=== PATIENT | female | born 1950 | race American Indian/Alaskan Native ===

== ENCOUNTER 2017-03-24 07:42 | Observation (INO) | payer MEDICARE, BC ==
[2017-03-24 07:43] VITALS: BMI 32.8
--- NOTE | 2017-03-24 09:05 | C.PDOC ---
History Of Present Illness 66 year old female with a PMHx of End Stage Renal Failure presents to the ED for evaluation of shortness of breath. Patient reports she was in Dialysis this morning when a nurse told her she appeared short of breath. Patient became anxious and completed 1 hour of dialysis. Patient states she did not feel short of breath at the time or while in the ED. Patient denies chest pain, cough, palpitations, fever, chills, nausea, vomiting, or other complaints at this time. Chief Complaint (Nursing): Shortness Of Breath History Per: Patient History/Exam Limitations: no limitations Onset/Duration Of Symptoms: Hrs Current Symptoms Are (Timing): Gone Exacerbating Factor(s): denies: Exertion, Laying Flat, Coughing Associated Symptoms: denies: Fever, Chills, Sweating, Chest Pain Reports Recently: Treated By A Physician Recent travel outside of the [place]: No Additional History Per: Prior Records Past Medical History Reviewed: Historical Data, Nursing Documentation, Vital Signs Vital Signs: Last Vital Signs Temp 98.3 F 03/24/17 16:14 Pulse 68 03/24/17 16:14 Resp 18 03/24/17 16:14 BP 95/36 L 03/24/17 17:35 Pulse Ox 100 03/24/17 10:44 - Medical History PMH: Anemia, Arthritis (KNEE PAIN), HTN, Hypercholesterolemia, End Stage Renal Disease - [facility] Procedures DIALYSIS ARTERIOVENOSTOM (06/13/14) ENDOSCOPIC BRONCHIAL BX (07/07/14) HEMODIALYSIS (07/07/14) Family History: States: Unknown Family Hx - Social History Hx Tobacco Use: No Hx Alcohol Use: No Hx Substance Use: No - Immunization History Hx Tetanus Toxoid Vaccination: No Hx Influenza Vaccination: Yes Hx Pneumococcal Vaccination: No Review Of Systems Constitutional: Negative for: Fever, Chills Cardiovascular: Negative for: Chest Pain, Palpitations Respiratory: Negative for: Cough, Shortness of Breath Gastrointestinal: Negative for: Nausea, Vomiting, Abdominal Pain, Diarrhea Physical Exam - Physical Exam Appears: Non-toxic, No Acute Distress Skin: Warm, Dry, No Rash Head: Atraumatic, Normacephalic, No Tenderness Eye(s): bilateral: Normal Inspection, PERRL, EOMI Oral Mucosa: Moist Neck: No Decreased ROM, Supple Chest: Symmetrical, No Deformity, No Tenderness Cardiovascular: Rhythm Regular, No Murmur Respiratory: Rales (bilateral bases ) Gastrointestinal/Abdominal: Soft, No Tenderness, No Distention, No Guarding, No Rebound Extremity: Normal ROM, No Tenderness Neurological/Psych: Oriented x3 ED Course And Treatment ECG: Interpreted By Me, Viewed By Me ECG Rhythm: Sinus Rhythm Interpretation Of ECG: Normal axis,right atrial enlargement Rate From EC O2 Sat by Pulse Oximetry: 100 (RA) Pulse Ox Interpretation: Normal Progress Note: EKG was ordered. Dr. Daly was called and agrees with plan and admission to his services. Disposition - Disposition Disposition: HOSPITALIZED Disposition Time: 08:30 Condition: STABLE - Clinical Impression Clinical Impression: ESRD (end stage renal disease) - Scribe Statement The provider has reviewed the documentation as recorded by the Scribe Skylar Magaña All medical record entries made by the Scribe were at my direction and personally dictated by me. I have reviewed the chart and agree that the record accurately reflects my personal performance of the history, physical exam, medical decision making, and the department course for this patient. I have also personally directed, reviewed, and agree with the discharge instructions and disposition.
--- NOTE | 2017-03-24 12:37 | CP.PCM.CON ---
History of Present Illness - History of Present Illness History of Present Illness: 66 year old female with a PMHx of End Stage Renal Failure presents to the ED for evaluation of shortness of breath. Patient reports she was in Dialysis this morning when a nurse told her she appeared short of breath. Patient became anxious and completed 1 hour of dialysis. Patient states she did not feel short of breath at the time or while in the ED. Patient denies chest pain, cough, palpitations, fever, chills, nausea, vomiting, or other complaints at this time. Chief Complaint (Nursing): Shortness Of Breath PMH: ESRD S/P CVA HTN DL COPD PSH: AV FISTULA BOWEL REPAIR CATARACTS Review of Systems - Constitutional Constitutional: Fatigue, Weakness - EENT Eyes: Blurred Vision - Cardiovascular Cardiovascular: Dyspnea on Exertion - Respiratory Respiratory: Cough, Dyspnea on Exertion - Gastrointestinal Gastrointestinal: Bloating, Constipation - Genitourinary Genitourinary: As Per HPI - Musculoskeletal Musculoskeletal: Muscle Cramps, Muscle Weakness - Neurological Neurological: Headaches, Weakness Past Patient History - Past Medical History & Family History Past Medical History?: Yes Past Family History: Reviewed and not pertinent - Past Social History Smoking Status: Former Smoker Chewing Tobacco Use: No Cigar Use: No Alcohol: None Drugs: Denies Home Situation {Lives}: With Family - CARDIAC Hx Hypercholesterolemia: Yes Hx Hypertension: Yes - PULMONARY Hx Chronic Obstructive Pulmonary Disease (COPD): Yes - NEUROLOGICAL Hx Neurological Disorder: Yes HX Cerebrovascular Accident: Yes (1991 mini stroke) Hx Paralysis: No - HEENT Other/Comment: wears glasses - RENAL Hx Renal Failure: Yes (NO DIALYSIS YET) - ENDOCRINE/METABOLIC Hx Endocrine Disorders: No - HEMATOLOGICAL/ONCOLOGICAL Hx Anemia: Yes - INTEGUMENTARY Hx Dermatological Problems: No - MUSCULOSKELETAL/RHEUMATOLOGICAL Hx Arthritis: Yes (KNEE PAIN) - GASTROINTESTINAL Hx Gastrointestinal Disorders: No - GENITOURINARY/GYNECOLOGICAL Hx Genitourinary Disorders: No - PSYCHIATRIC Hx Substance Use: No - SURGICAL HISTORY Hx Surgeries: Yes Hx Arteriovenous Shunt: No (AV FISTULA ATTEMPT X2) Hx Section: Yes - ANESTHESIA Hx Anesthesia: Yes Hx Anesthesia Reactions: No Hx Malignant Hyperthermia: No Meds Allergies/Adverse Reactions: Allergies Allergy/AdvReac Type Severity Reaction Status Date / Time No Known Allergies Allergy Verified 06/07/14 12:30 Physical Exam - Constitutional Appears: No Acute Distress, Chronically Ill - Head Exam Head Exam: ATRAUMATIC, NORMAL INSPECTION - Eye Exam Eye Exam: EOMI, Normal appearance - Neck Exam Neck exam: Positive for: Normal Inspection, Tenderness - Respiratory Exam Respiratory Exam: Clear to Auscultation Bilateral, NORMAL BREATHING PATTERN - Cardiovascular Exam Cardiovascular Exam: REGULAR RHYTHM, +S1 - GI/Abdominal Exam GI & Abdominal Exam: Soft. absent: Tenderness - Extremities Exam Extremities exam: Positive for: normal inspection. Negative for: tenderness - Neurological Exam Neurological exam: Alert, CN II-XII Intact - Skin Skin Exam: Dry, Warm Results - Vital Signs Recent Vital Signs: Last Vital Signs Temp 97.5 F L 03/24/17 07:57 Pulse 86 03/24/17 10:44 Resp 20 03/24/17 10:44 BP 122/63 03/24/17 10:44 Pulse Ox 100 03/24/17 10:44 Assessment & Plan (1) Status post CVA Status: Acute (2) ESRD needing dialysis Status: Chronic Priority: Medium (3) HTN (hypertension) Status: Chronic Priority: Low - Assessment and Plan (Free Text) Plan: DIALYSIS NOW MONITOR BP
--- NOTE | 2017-03-24 16:12 | CP.PCM.PN ---
Subjective - Date & Time of Evaluation Date of Evaluation: 03/24/17 Time of Evaluation: 16:09 - Subjective Subjective: PT SEEN IN HD WITH DAUGHTER. STATES SHE WAS TOLD SHE WILL BE D/C TODAY. PT HAS NO COMPLAINTS OF ANY DISTRESS OR PAIN. OK PER DR. HU TO D/C AFTER HD. AL D/C ORDERS AND FOLLOW UP INFORMATION PLACED IN [facility] AND DISCUSSED AT LENGTH WITH PT, DAUGHTER AND D/C RN PAUL. PT VERBALIZES UNDERSTANDING. SHE WILL RESUME HER NORMAL HD ON FRIDAY---CM PAT WILL REQUEST THAT SW NOTIFY THE HD PLACE. NO NEW ORDERS. IF PT NOT STABLE AFTER HD NURSING STAFF TO NOTIFY HIM. NO FURTHER ORDERS. Objective - Vital Signs/Intake and Output Vital Signs (last 24 hours): Temp Pulse Resp BP Pulse Ox 97.5 F L 86 20 122/63 100 03/24/17 07:57 03/24/17 10:44 03/24/17 10:44 03/24/17 10:44 03/24/17 10:44 - Medications Medications: Current Medications Pneumococcal Polyvalent Vaccine (Pneumovax 23 Vaccine) 0.5 ml IM .ONCE ONE Stop: 03/25/17 14:01
[2017-03-24 19:24] VITALS: BP 97/65; PULSE 98; RESP 20; TEMP 98; O2SAT 98
--- NOTE | 2017-03-24 23:24 | CP.PCM.DIS ---
Provider - Provider Date of Admission: 03/24/17 08:33 Attending physician: Gianluca Daly MD Time Spent in preparation of Discharge (in minutes): 45 Hospital Course - Hospital Course Hospital Course: PT SEEN IN HD WITH DAUGHTER. PT HAS NO COMPLAINTS OF ANY DISTRESS OR PAIN. D /C AFTER HD. AL D/C ORDERS AND FOLLOW UP INFORMATION PLACED IN [facility] AND DISCUSSED AT LENGTH WITH PT, DAUGHTER AND D/C RN PAUL. PT VERBALIZES UNDERSTANDING. SHE WILL RESUME HER NORMAL HD ON FRIDAY---CM PAT WILL REQUEST THAT SW NOTIFY THE HD PLACE. NO NEW ORDERS. IF PT NOT STABLE AFTER HD NURSING STAFF TO NOTIFY HIM. NO FURTHER ORDERS. Discharge Exam - Head Exam Head Exam: ATRAUMATIC, NORMAL INSPECTION Discharge Plan - Follow Up Plan Condition: STABLE Disposition: HOME/ ROUTINE Instructions: Heart Failure (DC), Dialysis Diet (DC), End Stage Kidney Disease (DC) Additional Instructions: FOLLOW UP WITH DR. DALY IN THE OFFICE WITHIN 1-2 WEEKS OF DISCHARGE. CONTINUE YOUR USUAL DIALYSIS SCHEDULE. CONTINUE YOUR HOME MEDICATIONS USUAL. NO NEW PRESCRIPTIONS GIVEN TODAY. FOR FURTHER QUESTIONS OR CONCERNS, CONTACT DR. DALY'S OFFICE. Referrals: Salvador Montiel MD [Staff Provider] - Jarrett Hickey DO [Staff Provider] - Gianluca Daly MD [Staff Provider] -
--- NOTE | 2017-03-25 13:03 | CP.PCM.HP ---
History of Present Illness - History of Present Illness History of Present Illness: CC: nausea, shortness of breath HPI: elderly AA feamle with h/o CKD on HD, Hypertensive kidney disease, insomnia and low Blood pressure, pt has some intermittent events of shortness of breath and cough associated iwth nausea today and pt was admitted Present on Admission - Present on Admission Any Indicators Present on Admission: Yes Review of Systems - Review of Systems Systems not reviewed;Unavailable: Acuity of Condition - Constitutional Constitutional: Fatigue, Lethargy, Malaise. absent: As Per HPI, Anorexia, Chills, Daytime Sleepiness, Excessive Sweating, Fever, Frequent Falls, Headache , Increased Appetite, Night Sweats, Snoring, Sleep Apnea, Weight Gain, Weight Loss, Weakness, Other - EENT Eyes: absent: As Per HPI, Blind Spots, Blurred Vision, Change in Vision, Decreased Night Vision, Diplopia, Discharge, Dry Eye, Exophthalmos, Floaters, Irritation, Itchy Eyes, Loss of Peripheral Vision, Pain, Photophobia, Requires Corrective Lenses, Sees Flashes, Spots in Vision, Tunnel Vision, Other Visual Disturbances, Loss of Vision, Other Ears: absent: As Per HPI, Decreased Hearing, Ear Discharge, Ear Pain, Tinnitus, Abnormal Hearing, Disequilibrium, Dizziness, Other Nose/Mouth/Throat: absent: As Per HPI, Epistaxis, Nasal Congestion, Nasal Discharge, Nasal Obstruction, Nasal Trauma, Nose Pain, Post Nasal Drip, Sinus Pain, Sinus Pressure, Bleeding Gums, Change in Voice, Dental Pain, Dry Mouth, Dysphagia, Halitosis, Hoarsness, Lip Swelling, Mouth Lesions, Mouth Pain, Odynophagia, Sore Throat, Throat Swelling, Tongue Swelling, Facial Pain, Neck Pain, Neck Mass, Other - Cardiovascular Cardiovascular: Pedal Edema - Respiratory Respiratory: Cough, Dyspnea, Chest Congestion - Gastrointestinal Gastrointestinal: Nausea - Genitourinary Genitourinary: absent: As Per HPI, Change in Urinary Stream, Difficulty Urinating, Dysuria, Flank Pain, Hematuria, Pyuria, Nocturia, Urinary Incontinence, Urinary Frequency, Urinary Hesitance, Urinary Urgency, Voiding Freq/Small Amts, Freq UTI, Hx Renal/Bladder Calculi, Hx /Renal Surgery, Bladder Distension, Other Past Patient History - Past Medical History & Family History Past Medical History?: Yes - Past Social History Smoking Status: Former Smoker - CARDIAC Hx Hypercholesterolemia: Yes Hx Hypertension: Yes - PULMONARY Hx Respiratory Disorders: Yes Hx Chronic Obstructive Pulmonary Disease (COPD): Yes - NEUROLOGICAL Hx Neurological Disorder: Yes HX Cerebrovascular Accident: Yes (1991 mini stroke) Hx Paralysis: No - HEENT Hx HEENT Problems: Yes Other/Comment: wears glasses - RENAL Hx Chronic Kidney Disease: Yes Date of Last Dialysis Treatment: 03/24/17 Hx Renal Failure: Yes (HD MWF) - ENDOCRINE/METABOLIC Hx Endocrine Disorders: No - HEMATOLOGICAL/ONCOLOGICAL Hx Anemia: Yes - INTEGUMENTARY Hx Dermatological Problems: No - MUSCULOSKELETAL/RHEUMATOLOGICAL Hx Arthritis: Yes (KNEE PAIN) - GASTROINTESTINAL Hx Gastrointestinal Disorders: No - GENITOURINARY/GYNECOLOGICAL Hx Genitourinary Disorders: No - PSYCHIATRIC Hx Substance Use: No - SURGICAL HISTORY Hx Surgeries: Yes Hx Arteriovenous Shunt: Yes (AV FISTULA ATTEMPT X2) Hx Section: Yes - ANESTHESIA Hx Anesthesia: Yes Hx Anesthesia Reactions: No Hx Malignant Hyperthermia: No Meds Allergies/Adverse Reactions: Allergies Allergy/AdvReac Type Severity Reaction Status Date / Time No Known Allergies Allergy Verified 06/07/14 12:30 Physical Exam - Constitutional Appears: No Acute Distress - Eye Exam Eye Exam: EOMI, Normal appearance, PERRL Pupil Exam: NORMAL ACCOMODATION, PERRL - Respiratory Exam Respiratory Exam: Clear to Auscultation Bilateral, NORMAL BREATHING PATTERN - Cardiovascular Exam Cardiovascular Exam: REGULAR RHYTHM, +S1, +S2 - GI/Abdominal Exam GI & Abdominal Exam: Normal Bowel Sounds, Soft. absent: Tenderness Results - Vital Signs Recent Vital Signs: Last Vital Signs Temp 98 F 03/24/17 19:00 Pulse 98 H 03/24/17 19:00 Resp 20 03/24/17 19:00 BP 97/65 L 03/24/17 19:00 Pulse Ox 98 03/24/17 19:00 Assessment & Plan (1) HTN (hypertension) Status: Acute (2) ESRD (end stage renal disease) Assessment and Plan: discharge after HD Status: Acute
[2017-03-25] MEDS ORDERED: Pneumococcal 23-Valent Vaccine IM ONE (14:00)
--- NOTE | 2017-03-25 18:33 | CARD ---
APPROVED REPORT EKG Measurement Heart [id number] [id number] <Conclusion> Normal sinus rhythm Right atrial enlargement Borderline ECG
== END 2017-03-24 19:35 | disposition home or self-care (01) ==
LOC: C.ER 07:42 → C.9E 08:33 → INTOOBSV 08:33 → C.6T 10:31
PROVIDERS: ADMIT Internal Medicine; ATTEND Internal Medicine
DX: I12.0 Hypertensive chronic kidney disease with stage 5 chronic kidney disease or end stage renal disease (principal); N18.6 End stage renal disease; Z86.73 Personal history of transient ischemic attack (TIA), and cerebral infarction without residual deficits; Z99.2 Dependence on renal dialysis; Z87.891 Personal history of nicotine dependence; J44.9 Chronic obstructive pulmonary disease, unspecified
CPT/HCPCS: 93005; 99285; G0378

== ENCOUNTER 2017-04-02 09:49 | Inpatient (IN) | payer MEDICARE, BC ==
[2017-04-02 09:51] VITALS: BMI 31.8
--- NOTE | 2017-04-02 11:12 | RAD ---
PROCEDURE: CHEST RADIOGRAPH, 1 VIEW HISTORY: SOB COMPARISON: Chest radiographs 03/06/2017. FINDINGS: LUNGS: The distal left heart border appears somewhat obscured and this could be a function of limited atelectasis or even infiltrate affecting the distal lingula. Remaining lung parker appear clear. PLEURA: No pneumothorax or pleural fluid seen. CARDIOVASCULAR: Borderline cardiomegaly. No pulmonary vascular derangement identified once again. OSSEOUS STRUCTURES: No significant abnormalities. VISUALIZED UPPER ABDOMEN: Normal. OTHER FINDINGS: Multiple wall stents overlie about the left subclavian/axillary and proximal brachial region. IMPRESSION: Borderline for distal lingula atelectasis or infiltrate. No pleural effusion bilaterally or pneumothorax. Cardiac silhouette remains borderline enlarged. No pulmonary vascular derangement.
[2017-04-02 11:14] LABS: BASO # 0.1 K/uL (0.0-0.2); BASO % 0.3 % (0.0-2.0); EOS # 0.1 K/uL (0.0-0.7); EOS % 0.3 % (0.0-4.0); HEMOGLOBIN 11.7 g/dL (11.0-16.0); LYMPH # 0.7 K/uL (1.0-4.3); LYMPH % 3.8 % (20.0-40.0); MEAN CORPUSCULAR HGB CONC 31.9 g/dL (33.0-37.0); MEAN PLATELET VOLUME 10.2 fL (7.2-11.7); MONO % 10.8 % (0.0-10.0); NEUT # 15.4 K/uL (1.8-7.0); NEUT % 84.8 % (50.0-75.0); PLATELET COUNT 267 K/uL (130-400); RBC 3.89 Mil/uL (3.80-5.20); RED CELL DISTRIBUTION WIDTH 16.5 % (11.5-14.5); WHITE BLOOD COUNT 18.1 K/uL (4.8-10.8)
[2017-04-02 11:25] LABS: INR 1.2; PROTHROMBIN TIME 13.4 SECONDS (9.7-12.2)
[2017-04-02 11:32] LABS: BANDS 3 % (0-2); NEUTROPHIL 85 % (50-75); TOTAL CELLS COUNTED 100
[2017-04-02 11:33] LABS: LARGE PLATELETS PRESENT; LYMPHOCYTE 4 % (20-40); MONOCYTE 8 % (0-10); PLATELET ESTIMATE NORMAL (NORMAL)
[2017-04-02 11:36] LABS: ALBUMIN 4.2 g/dL (3.5-5.0); CALCIUM 9.2 mg/dl (8.6-10.4)
[2017-04-02 11:49] LABS: CK-MB 1.91 ng/mL (0.0-3.38); TROPONIN I 0.053 ng/mL (0.00-0.120)
[2017-04-02] MEDS ORDERED: Azithromycin 500 MG in Sodium Chloride 0.9% 250 ML IVPB STA (12:47)
--- NOTE | 2017-04-02 12:48 | C.PDOC ---
History Of Present Illness 66-year-old female sent to the emergency department from dialysis for evaluation of sudden onset of shortness of breath that developed during hemodialysis. Patient states this has happened several times in the past with dialysis. Patient's daughter admits she has a history of anxiety, and she may be having panic attacks. Patient denies chest pain, cough, fever, abdominal pain, vomiting/diarrhea. She recieved apprix 2.5 hrs of diaylsis. Time Seen by Provider: 04/02/17 09:50 Chief Complaint (Nursing): Shortness Of Breath History Per: Patient, EMS History/Exam Limitations: clinical condition Current Symptoms Are (Timing): Still Present Past Medical History Reviewed: Historical Data, Nursing Documentation, Vital Signs Vital Signs: Last Vital Signs Temp 98.4 F 04/02/17 15:21 Pulse 109 H 04/02/17 15:21 Resp 18 04/02/17 15:21 BP 96/60 L 04/02/17 15:21 Pulse Ox 97 04/02/17 15:21 - Medical History PMH: Anemia, Arthritis (KNEE PAIN), COPD, HTN, Hypercholesterolemia, End Stage Renal Disease, Chronic Kidney Disease - [facility] Procedures DIALYSIS ARTERIOVENOSTOM (06/13/14) ENDOSCOPIC BRONCHIAL BX (07/07/14) HEMODIALYSIS (07/07/14) Family History: States: No Known Family Hx - Social History Hx Tobacco Use: No Hx Alcohol Use: No Hx Substance Use: No - Immunization History Hx Tetanus Toxoid Vaccination: No Hx Influenza Vaccination: Yes Hx Pneumococcal Vaccination: No Review Of Systems Except As Marked, All Systems Reviewed And Found Negative. Constitutional: Negative for: Fever Cardiovascular: Negative for: Chest Pain, Palpitations Respiratory: Positive for: Shortness of Breath. Negative for: Cough Gastrointestinal: Negative for: Nausea, Vomiting, Abdominal Pain, Diarrhea Genitourinary: Negative for: Dysuria, Hematuria Musculoskeletal: Negative for: Back Pain Physical Exam - Physical Exam Appears: Well, Non-toxic, No Acute Distress, Other (speaking in short sentences ) Skin: Warm, Dry, No Rash Head: Normacephalic Eye(s): bilateral: Normal Inspection Oral Mucosa: Moist Neck: Normal, Normal ROM Cardiovascular: Rhythm Regular (tachycardic) Respiratory: Normal Breath Sounds, No Rales, No Rhonchi, No Wheezing Gastrointestinal/Abdominal: Normal Exam, Bowel Sounds, Soft, No Tenderness Extremity: Other (AV fistula in left forearm with palpable thrill) Neurological/Psych: Oriented x3 ED Course And Treatment - Laboratory Results Result Diagrams: 04/02/17 11:09 04/02/17 11:09 ECG: Interpreted By Me, Viewed By Me ECG Rhythm: Sinus Tachycardia ECG Interpretation: No Acute Changes Rate From EC (bpm) O2 Sat by Pulse Oximetry: 97 (RA) Pulse Ox Interpretation: Normal - CT Scan/US CTA CHEST Other Rad Studies (CT/US): Read By Radiologist, Radiology Report Reviewed CT/US Interpretation: Accession No. : [id number]. Patient Name / ID : KELVIN YOUNG / [id number]. Exam Date : 04/02/2017 15:42:07 ( Approved ). Study Comment : Sex / Age : F / 66Y. Creator : Izzy Sanz. Dictator : Jose Patel MD. Methods Specialist : Fixed Assets Accountant : Jose Patel MD. Approver2 : Report Date : 04/02/2017 15:58:01. My Comment : . PROCEDURE: CT Chest with contrast (Pulmonary Angiogram). HISTORY: r/o pe, for dialysis after. COMPARISON: None available. TECHNIQUE: Axial computed tomography images were obtained of the chest in the pulmonary arterial phase of enhancement. Coronal and sagittal reformatted images were created and reviewed. Intravenous contrast dose: 100 mL Visipaque 320. Radiation dose: Total exam DLP = 411.65 mGy-cm. This CT exam was performed using one or more of the following dose reduction techniques: Automated exposure control, adjustment of the mA and/or kV according to patient size, and/or use of iterative reconstruction technique. FINDINGS: PULMONARY ARTERIES: Unremarkable. No pulmonary embolism. AORTA: No acute findings. No thoracic aortic aneurysm. LUNGS: No pulmonary infiltrate. Linear pleural-based scar in the lingular segment of the left upper lobe. PLEURAL SPACES: Trace left pleural effusion. No right pleural effusion. No pneumothorax. HEART: Normal heart size. Small to moderate pericardial effusion. LYMPH NODES: No lymphadenopathy. BONES, CHEST WALL: Unremarkable. No fracture or destructive lesion. OTHER FINDINGS: A small amount of particulate food matter is seen in the mid esophagus. Left subclavian/ axillary/ upper extremity venous stent. 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 IMPRESSION: No evidence of pulmonary embolism. No acute infiltrate. Small to moderate pericardial effusion. Additional minor findings as above. cxr Other Rad Studies (CT/US): Read By Radiologist, Radiology Report Reviewed CT/US Interpretation: Accession No. : [id number]. Patient Name / ID : KELVIN YOUNG / [id number]. Exam Date : 04/02/2017 15:03:00 ( Approved ). Study Comment : Sex / Age : F / 66Y. Creator : Jose Patel MD. Dictator : Jose Patel MD. Methods Specialist : Fixed Assets Accountant : Jose Patel MD. Approver2 : Report Date : 04/02/2017 15:52:47. My Comment : . HISTORY: confirm picc line. COMPARISON: 04/02/2017 at 10:11 a.m. FINDINGS: LUNGS: No active pulmonary disease. PLEURA: No significant pleural effusion identified, no pneumothorax apparent. CARDIOVASCULAR: Mild cardiomegaly. Mild congestive change. Left axillary/ brachials vascular stent. No PICC catheter visualized. Linear opacity overlying mid right humerus at the periphery of the film, of uncertain significance. This is seen on earlier examination of the same date and may be extrinsic to patient. OSSEOUS STRUCTURES: No significant abnormalities. VISUALIZED UPPER ABDOMEN: Normal. OTHER FINDINGS: None. IMPRESSION: No PICC catheter identified. Congestive change and mild cardiomegaly. Accession No. : [id number]. Patient Name / ID : KELVIN YOUNG / [id number]. Exam Date : 04/02/2017 15:03:00 ( Approved ). Study Comment : Sex / Age : F / 66Y. Creator : Jose Patel MD. Dictator : Jose Patel MD. Methods Specialist : Fixed Assets Accountant : Jose Patel MD. Approver2 : Report Date : 04/02/2017 15:52:47. My Comment : . HISTORY: confirm picc line. COMPARISON: 04/02/2017 at 10:11 a.m. FINDINGS: LUNGS: No active pulmonary disease. PLEURA: No significant pleural effusion identified, no pneumothorax apparent. CARDIOVASCULAR: Mild cardiomegaly. Mild congestive change. Left axillary/ brachials vascular stent. No PICC catheter visualized. Linear opacity overlying mid right humerus at the periphery of the film, of uncertain significance. This is seen on earlier examination of the same date and may be extrinsic to patient. OSSEOUS STRUCTURES: No significant abnormalities. VISUALIZED UPPER ABDOMEN: Normal. OTHER FINDINGS: None. IMPRESSION: No PICC catheter identified. Congestive change and mild cardiomegaly. Progress Note: Blood work, EKG, CXR ordered and reviewed. Patient placed on Bipap. Multiple attempts made by nurses for IV access, and two attempts at EJ placement by me on right side made, unsuccessful. Discussed patient with Dr. Eckert, would like CTA chest to r/o PE, and will dialyze patient after. PICC line order entered; PICC line nurse able to insert midline access. Reevaluation Time: 14:00 Reassessment Condition: Improved (Patient resting comfortably, no current SOB, no accessory muscle use or rales on exam.) - Physician Consult Information Physician Contacted: Gianluca Daly Outcome Of Conversation: Discussed patient with PMD, agrees with admission for pneumonia, fluid overload, dyspnea. Medical Decision Making Medical Decision Making: differential diagnoses considered: CHF exacerbation/fluid overload, pneumonia, CAD, NE/ACS, pleural effusion, pericardial effusion, COPD/asthma exacerbation, PE, influenza, viral syndrome, anxiety/panic attack Disposition - Disposition Disposition: HOSPITALIZED Disposition Time: 13:49 Condition: STABLE - Clinical Impression Clinical Impression: Dyspnea, ESRD needing dialysis, Pneumonia, Pericardial effusion - Scribe Statement The provider has reviewed the documentation as recorded by the Scribe (Wilder Funk) All medical record entries made by the Scribe were at my direction and personally dictated by me. I have reviewed the chart and agree that the record accurately reflects my personal performance of the history, physical exam, medical decision making, and the department course for this patient. I have also personally directed, reviewed, and agree with the discharge instructions and disposition. Decision To Admit - Pt Status Changed To: Hospital Disposition Of: Inpatient - Admit Certification Admit to Inpatient:: After my assessment, the patient will require hospitalization for at least two midnights. This is because of the severity of symptoms shown, intensity of services needed, and/or the medical risk in this patient being treated as an outpatient. - InPatient: Physician Admission Certification: I certify that this patient requires 2 or more midnights of care for the following reason:: see notes - . Bed Request Type: Telemetry Admitting Physician: Gianluca Daly Patient Diagnosis: Dyspnea, ESRD (end stage renal disease), Pneumonia
[2017-04-02] MEDS ORDERED: Iodixanol 320 MG/ML 100 ML BOTTLE IV ONE (14:51)
--- NOTE | 2017-04-02 15:54 | RAD ---
HISTORY: confirm picc line COMPARISON: 04/02/2017 at 10:11 a.m. FINDINGS: LUNGS: No active pulmonary disease. PLEURA: No significant pleural effusion identified, no pneumothorax apparent. CARDIOVASCULAR: Mild cardiomegaly. Mild congestive change. Left axillary/ brachials vascular stent. No PICC catheter visualized. Linear opacity overlying mid right humerus at the periphery of the film, of uncertain significance. This is seen on earlier examination of the same date and may be extrinsic to patient. OSSEOUS STRUCTURES: No significant abnormalities. VISUALIZED UPPER ABDOMEN: Normal. OTHER FINDINGS: None. IMPRESSION: No PICC catheter identified. Congestive change and mild cardiomegaly.
--- NOTE | 2017-04-02 16:24 | CT ---
PROCEDURE: CT Chest with contrast (Pulmonary Angiogram) HISTORY: r/o pe, for dialysis after COMPARISON: None available. TECHNIQUE: Axial computed tomography images were obtained of the chest in the pulmonary arterial phase of enhancement. Coronal and sagittal reformatted images were created and reviewed. Intravenous contrast dose: 100 mL Visipaque 320 Radiation dose: Total exam DLP = 411.65 mGy-cm. This CT exam was performed using one or more of the following dose reduction techniques: Automated exposure control, adjustment of the mA and/or kV according to patient size, and/or use of iterative reconstruction technique. FINDINGS: PULMONARY ARTERIES: Unremarkable. No pulmonary embolism. AORTA: No acute findings. No thoracic aortic aneurysm. LUNGS: No pulmonary infiltrate. Linear pleural-based scar in the lingular segment of the left upper lobe. PLEURAL SPACES: Trace left pleural effusion. No right pleural effusion. No pneumothorax. HEART: Normal heart size. Small to moderate pericardial effusion. LYMPH NODES: No lymphadenopathy. BONES, CHEST WALL: Unremarkable. No fracture or destructive lesion OTHER FINDINGS: A small amount of particulate food matter is seen in the mid esophagus. Left subclavian/ axillary/ upper extremity venous stent. 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 IMPRESSION: No evidence of pulmonary embolism. No acute infiltrate. Small to moderate pericardial effusion. Additional minor findings as above.
[2017-04-02] MEDS ORDERED: Vancomycin 1 GM in Sodium Chloride 0.9% 200 ML IVPB ONE (18:00)
[2017-04-02] MEDS: Brimonidine 0.2% Opth Sol (5ml) OU SCH (21:07)
--- NOTE | 2017-04-02 23:30 | CP.PCM.HP ---
History of Present Illness - History of Present Illness History of Present Illness: CC: Palpitations HPI: 66-year-old AA female with h/o CKD on Hd, Chronic udiopathic Hypotension sent to the emergency department from dialysis for evaluation of sudden onset of shortness of breath that developed during hemodialysis after 2 hours into HD. Patient states this has happened several times in the past with dialysis. Patient's daughter admits she has a history of anxiety, and she may be having panic attacks. Patient denies chest pain, cough, fever, abdominal pain, vomiting/diarrhea. She recieved apprix 2.5 hrs of diaylsis. Present on Admission - Present on Admission Any Indicators Present on Admission: Yes Review of Systems - Review of Systems Systems not reviewed;Unavailable: Unstable Vital Signs - Constitutional Constitutional: absent: As Per HPI, Anorexia, Chills, Daytime Sleepiness, Excessive Sweating, Fatigue, Fever, Frequent Falls, Headache, Increased Appetite , Lethargy, Malaise, Night Sweats, Snoring, Sleep Apnea, Weight Gain, Weight Loss, Weakness, Other - EENT Eyes: absent: As Per HPI, Blind Spots, Blurred Vision, Change in Vision, Decreased Night Vision, Diplopia, Discharge, Dry Eye, Exophthalmos, Floaters, Irritation, Itchy Eyes, Loss of Peripheral Vision, Pain, Photophobia, Requires Corrective Lenses, Sees Flashes, Spots in Vision, Tunnel Vision, Other Visual Disturbances, Loss of Vision, Other Nose/Mouth/Throat: absent: As Per HPI, Epistaxis, Nasal Congestion, Nasal Discharge, Nasal Obstruction, Nasal Trauma, Nose Pain, Post Nasal Drip, Sinus Pain, Sinus Pressure, Bleeding Gums, Change in Voice, Dental Pain, Dry Mouth, Dysphagia, Halitosis, Hoarsness, Lip Swelling, Mouth Lesions, Mouth Pain, Odynophagia, Sore Throat, Throat Swelling, Tongue Swelling, Facial Pain, Neck Pain, Neck Mass, Other - Cardiovascular Cardiovascular: Dyspnea, Dyspnea on Exertion, Palpitations - Respiratory Respiratory: absent: As Per HPI, Cough, Dyspnea, Hemoptysis, Dyspnea on Exertion , Wheezing, Snoring, Stridor, Pain on Inspiration, Chest Congestion, Excessive Mucous Production, Change in Mucous Color, Pain with Coughing, Other - Gastrointestinal Gastrointestinal: absent: As Per HPI, Abdominal Pain, Belching, Bloating, Change in Bowel Habits, Change in Stool Character, Coffee Ground Emesis, Constipation, Cramping, Diarrhea, Dyspepsia, Dysphagia, Early Satiety, Excessive Flatus, Fecal Incontinence, Heartburn, Hematemesis, Hematochezia, Loose Stools, Melena, Nausea, Odynophagia, Temesmus, Vomiting, Other - Psychiatric Psychiatric: Anxiety, Depression, Irritability Additional comments: insomnia - Endocrine Endocrine: absent: As Per HPI, Change in Body Appearance, Change in Libido, Cold Intolorance, Deepening of Voice, Excessive Sweating, Fatigue, Flushing, Heat Intolorance, Increase in Ring/Shoe/Hat Size, Palpitations, Polydipsia, Polyphagia, Polyuria, Other - Hematologic/Lymphatic Hematologic: absent: As Per HPI, Easy Bleeding, Easy Bruising, Lymphadenopathy, Other Past Patient History - Past Medical History & Family History Past Medical History?: Yes - Past Social History Smoking Status: Former Smoker - CARDIAC Hx Hypercholesterolemia: Yes Hx Hypertension: Yes - PULMONARY Hx Chronic Obstructive Pulmonary Disease (COPD): Yes - NEUROLOGICAL Hx Neurological Disorder: Yes HX Cerebrovascular Accident: Yes (1991 mini stroke) Hx Paralysis: No - HEENT Hx HEENT Problems: Yes Hx Cataracts: Yes Hx Glaucoma: Yes - RENAL Date of Last Dialysis Treatment: 04/02/17 - ENDOCRINE/METABOLIC Hx Endocrine Disorders: No - HEMATOLOGICAL/ONCOLOGICAL Hx Anemia: Yes - INTEGUMENTARY Hx Dermatological Problems: No - MUSCULOSKELETAL/RHEUMATOLOGICAL Hx Falls: No - GASTROINTESTINAL Hx Gastrointestinal Disorders: Yes Hx Bowel Surgery: Yes - GENITOURINARY/GYNECOLOGICAL Hx Genitourinary Disorders: No - PSYCHIATRIC Hx Substance Use: No - SURGICAL HISTORY Hx Arteriovenous Shunt: Yes (AV FISTULA ATTEMPT X2) Hx Section: Yes - ANESTHESIA Hx Anesthesia: Yes Hx Anesthesia Reactions: No Hx Malignant Hyperthermia: No Meds Allergies/Adverse Reactions: Allergies Allergy/AdvReac Type Severity Reaction Status Date / Time No Known Allergies Allergy Verified 04/02/17 09:51 Physical Exam - Constitutional Appears: No Acute Distress - Eye Exam Eye Exam: EOMI, Normal appearance, PERRL Pupil Exam: NORMAL ACCOMODATION, PERRL - Respiratory Exam Respiratory Exam: Clear to Auscultation Bilateral, NORMAL BREATHING PATTERN - Cardiovascular Exam Cardiovascular Exam: Tachycardia, +S1, +S2 - GI/Abdominal Exam GI & Abdominal Exam: Normal Bowel Sounds, Soft. absent: Tenderness - Skin Skin Exam: Dry, Intact, Normal Color, Warm Additional comments: AV fistula on left arm, looks clean no discharge Results - Vital Signs Recent Vital Signs: Last Vital Signs Temp 98.1 F 04/02/17 16:55 Pulse 98 H 04/02/17 20:06 Resp 20 04/02/17 16:55 BP 100/69 04/02/17 16:55 Pulse Ox 97 04/02/17 17:57 - Labs Result Diagrams: 04/02/17 11:09 04/02/17 11:09 Labs: Laboratory Results - last 24 hr 04/02/17 04/02/17 04/02/17 11:09 11:09 11:09 WBC 18.1 H D RBC 3.89 Hgb 11.7 D Hct 36.6 MCV 94.0 MCH 30.0 MCHC 31.9 L RDW 16.5 H Plt Count 267 MPV 10.2 Neut % (Auto) 84.8 H Lymph % (Auto) 3.8 L Nicholas % (Auto) 10.8 H Eos % (Auto) 0.3 Baso % (Auto) 0.3 Neut # 15.4 H Lymph # 0.7 L Nicholas # 2.0 H Eos # 0.1 Baso # 0.1 Neutrophils % (Manual) 85 H Band Neutrophils % 3 H Lymphocytes % (Manual) 4 L Monocytes % (Manual) 8 Platelet Estimate Normal Large Platelets Present PT 13.4 H INR 1.2 APTT 28 Sodium 140 Potassium 3.3 L Chloride 99 Carbon Dioxide 22 Anion Gap 22 H BUN 27 H Creatinine 7.1 H Est GFR ( Amer) 7 Est GFR (Non-Af Amer) 6 Random Glucose 197 H Calcium 9.2 Total Bilirubin 0.7 AST 22 ALT 7 L D Alkaline Phosphatase 178 H Total Creatine Kinase 62 CK-MB (Mass) 1.91 Troponin I 0.0530 NT-Pro-B Natriuret Pep 01121 H Total Protein 8.6 H Albumin 4.2 Globulin 4.4 H Albumin/Globulin Ratio 1.0 Assessment & Plan (1) Septicemia Status: Acute (2) Leukocytosis Assessment and Plan: with bandemia rule out sepsis less likely to be pnemonia or UTI await cultures on rocephin Status: Acute (3) Dyspnea Status: Acute (4) ESRD (end stage renal disease) Status: Acute (5) HTN (hypertension) Assessment and Plan: idiopathic hypotension rule out tacycardia Status: Chronic Priority: Low (6) Weakness Assessment and Plan: rule out tacycardia with hypotension Status: Acute
--- NOTE | 2017-04-03 10:09 | CP.PCM.PN ---
Subjective - Date & Time of Evaluation Date of Evaluation: 04/03/17 Time of Evaluation: 10:06 - Subjective Subjective: Seen at dialysis now- still has been SOB CTA negative for PE No CPs, n, v, fever, diarrhea, HAS BP low Needs extra UF with dialysis Objective - Vital Signs/Intake and Output Vital Signs (last 24 hours): Temp Pulse Resp BP Pulse Ox 99.1 F 106 H 20 110/66 97 04/03/17 07:59 04/03/17 07:59 04/03/17 07:59 04/03/17 07:59 04/03/17 07:59 - Medications Medications: Current Medications Acetaminophen (Tylenol 325mg Tab) 650 mg PO Q6 PRN PRN Reason: Fever >100.4 F Aspirin (Aspirin Chewable) 81 mg PO DAILY [facility] Atropine Sulfate (Atropisol 1% Ophth) 0 ml OU DAILY [facility] Brimonidine Tartrate (Alphagan 0.2% Opht) 0 ml OU BID [facility] Last Admin: 04/02/17 21:07 Dose: 1 drop Cinacalcet (Sensipar) 30 mg PO DAILY [facility] Famotidine (Pepcid) 20 mg PO DAILY [facility] Heparin Sodium (Porcine) (Heparin) 5,000 units SC Q12 [facility] Last Admin: 04/02/17 21:08 Dose: 5,000 units Ceftriaxone Sodium 1 gm/ (Sodium Chloride) 100 mls @ 100 mls/hr IVPB DAILY [facility] Latanoprost (Xalatan Opht) 0.05 ml OU DAILY [facility] Midodrine (Proamatine) 10 mg PO DAILY [facility] Raloxifene HCl (Evista) 60 mg PO DAILY [facility] Rosuvastatin Calcium (Crestor) 10 mg PO HS [facility] Last Admin: 04/02/17 21:08 Dose: 10 mg Sevelamer Carbonate (Renvela) 800 mg PO TID [facility] Last Admin: 04/02/17 18:30 Dose: Not Given Timolol Maleate (Timoptic 0.5% Ophth Soln) 0 drop OU BID [facility] Last Admin: 04/02/17 21:11 Dose: 1 drop Zolpidem Tartrate (Ambien) 5 mg PO HS PRN PRN Reason: Insomnia Last Admin: 04/02/17 21:08 Dose: 5 mg - Labs Labs: 04/02/17 11:09 04/02/17 11:09 PT 13.4 SECONDS (9.7-12.2) H 04/02/17 11:09 INR 1.2 04/02/17 11:09 APTT 28 SECONDS (21-34) 04/02/17 11:09 - Constitutional Appears: No Acute Distress, Chronically Ill - Head Exam Head Exam: ATRAUMATIC, NORMAL INSPECTION - Eye Exam Eye Exam: EOMI, Normal appearance - Neck Exam Neck Exam: Normal Inspection. absent: Tenderness - Respiratory Exam Respiratory Exam: Clear to Ausculation Bilateral, NORMAL BREATHING PATTERN - Cardiovascular Exam Cardiovascular Exam: REGULAR RHYTHM, +S1 - GI/Abdominal Exam GI & Abdominal Exam: Soft, Tenderness - Extremities Exam Extremities Exam: Tenderness. absent: Normal Inspection - Neurological Exam Neurological Exam: Awake, CN II-XII Intact - Skin Skin Exam: Dry, Warm Assessment and Plan (1) Hypotension Status: Acute (2) ESRD (end stage renal disease) Status: Acute (3) Congestive heart failure Status: Acute - Assessment and Plan (Free Text) Plan: Stop clonidine Lower EDW- increase UF rate check echo for pericardial effusion dialysis MW
--- NOTE | 2017-04-03 10:41 | CP.PCM.CON ---
History of Present Illness - History of Present Illness History of Present Illness: HPI: 66-year-old AA female with h/o CKD on Hd, Chronic udiopathic Hypotension sent to the emergency department from dialysis for evaluation of sudden onset of shortness of breath that developed during hemodialysis after 2 hours into HD. Patient states this has happened several times in the past with dialysis. Patient's daughter admits she has a history of anxiety, and she may be having panic attacks. Patient denies chest pain, cough, fever, abdominal pain, vomiting/diarrhea. She recieved apprix 2.5 hrs of diaylsis. PMH: ESRD HTN TIA COPD PSH: AV FISTULA CATARACTS CTA NEGATIVE FOR PE CXR WITH CHF CHANGES Review of Systems - Constitutional Constitutional: Fatigue, Lethargy, Weight Loss, Weakness - EENT Eyes: absent: As Per HPI, Blind Spots, Blurred Vision, Change in Vision, Decreased Night Vision, Diplopia, Discharge, Dry Eye, Exophthalmos, Floaters, Irritation, Itchy Eyes, Loss of Peripheral Vision, Pain, Photophobia, Requires Corrective Lenses, Sees Flashes, Spots in Vision, Tunnel Vision, Other Visual Disturbances, Loss of Vision, Other Ears: absent: As Per HPI, Decreased Hearing, Ear Discharge, Ear Pain, Tinnitus, Abnormal Hearing, Disequilibrium, Dizziness, Other - Cardiovascular Cardiovascular: Dyspnea on Exertion, Orthopnea - Respiratory Respiratory: Cough, Dyspnea on Exertion - Gastrointestinal Gastrointestinal: Constipation, Nausea - Musculoskeletal Musculoskeletal: Muscle Weakness, Myalgias - Neurological Neurological: Weakness Past Patient History - Past Medical History & Family History Past Medical History?: Yes Past Family History: Reviewed and not pertinent - Past Social History Smoking Status: Former Smoker Chewing Tobacco Use: No Cigar Use: No Alcohol: None Drugs: Denies Home Situation {Lives}: With Family - CARDIAC Hx Hypercholesterolemia: Yes Hx Hypertension: Yes - PULMONARY Hx Chronic Obstructive Pulmonary Disease (COPD): Yes - NEUROLOGICAL Hx Neurological Disorder: Yes HX Cerebrovascular Accident: Yes (1991 mini stroke) Hx Paralysis: No - HEENT Hx HEENT Problems: Yes Hx Cataracts: Yes Hx Glaucoma: Yes - RENAL Date of Last Dialysis Treatment: 04/02/17 - ENDOCRINE/METABOLIC Hx Endocrine Disorders: No - HEMATOLOGICAL/ONCOLOGICAL Hx Anemia: Yes - INTEGUMENTARY Hx Dermatological Problems: No - MUSCULOSKELETAL/RHEUMATOLOGICAL Hx Falls: No - GASTROINTESTINAL Hx Gastrointestinal Disorders: Yes Hx Bowel Surgery: Yes - GENITOURINARY/GYNECOLOGICAL Hx Genitourinary Disorders: No - PSYCHIATRIC Hx Substance Use: No - SURGICAL HISTORY Hx Arteriovenous Shunt: Yes (AV FISTULA ATTEMPT X2) Hx Section: Yes - ANESTHESIA Hx Anesthesia: Yes Hx Anesthesia Reactions: No Hx Malignant Hyperthermia: No Meds Allergies/Adverse Reactions: Allergies Allergy/AdvReac Type Severity Reaction Status Date / Time No Known Allergies Allergy Verified 04/02/17 09:51 - Medications Medications: Current Medications Acetaminophen (Tylenol 325mg Tab) 650 mg PO Q6 PRN PRN Reason: Fever >100.4 F Aspirin (Aspirin Chewable) 81 mg PO DAILY [facility] Atropine Sulfate (Atropisol 1% Ophth) 0 ml OU DAILY [facility] Brimonidine Tartrate (Alphagan 0.2% Opht) 0 ml OU BID [facility] Last Admin: 04/02/17 21:07 Dose: 1 drop Cinacalcet (Sensipar) 30 mg PO DAILY [facility] Famotidine (Pepcid) 20 mg PO DAILY [facility] Heparin Sodium (Porcine) (Heparin) 5,000 units SC Q12 [facility] Last Admin: 04/02/17 21:08 Dose: 5,000 units Ceftriaxone Sodium 1 gm/ (Sodium Chloride) 100 mls @ 100 mls/hr IVPB DAILY [facility] Latanoprost (Xalatan Opht) 0.05 ml OU DAILY [facility] Midodrine (Proamatine) 10 mg PO DAILY [facility] Raloxifene HCl (Evista) 60 mg PO DAILY [facility] Rosuvastatin Calcium (Crestor) 10 mg PO HS [facility] Last Admin: 04/02/17 21:08 Dose: 10 mg Sevelamer Carbonate (Renvela) 800 mg PO TID [facility] Last Admin: 04/02/17 18:30 Dose: Not Given Timolol Maleate (Timoptic 0.5% Ophth Soln) 0 drop OU BID [facility] Last Admin: 04/02/17 21:11 Dose: 1 drop Zolpidem Tartrate (Ambien) 5 mg PO HS PRN PRN Reason: Insomnia Last Admin: 04/02/17 21:08 Dose: 5 mg Physical Exam - Constitutional Appears: No Acute Distress, Chronically Ill - Head Exam Head Exam: ATRAUMATIC, NORMAL INSPECTION - Eye Exam Eye Exam: EOMI, Normal appearance - Neck Exam Neck exam: Positive for: Normal Inspection. Negative for: Tenderness - Respiratory Exam Respiratory Exam: Rales, NORMAL BREATHING PATTERN - Cardiovascular Exam Cardiovascular Exam: REGULAR RHYTHM, +S1 - GI/Abdominal Exam GI & Abdominal Exam: Soft. absent: Tenderness - Extremities Exam Extremities exam: Positive for: normal inspection. Negative for: tenderness - Neurological Exam Neurological exam: Alert, CN II-XII Intact - Skin Skin Exam: Dry, Warm Results - Vital Signs Recent Vital Signs: Last Vital Signs Temp 99.1 F 04/03/17 07:59 Pulse 106 H 04/03/17 07:59 Resp 20 04/03/17 07:59 BP 110/66 04/03/17 07:59 Pulse Ox 97 04/03/17 07:59 - Labs Result Diagrams: 04/02/17 11:09 04/02/17 11:09 Labs: Laboratory Results - last 24 hr 04/02/17 04/02/17 04/02/17 11:09 11:09 11:09 WBC 18.1 H D RBC 3.89 Hgb 11.7 D Hct 36.6 MCV 94.0 MCH 30.0 MCHC 31.9 L RDW 16.5 H Plt Count 267 MPV 10.2 Neut % (Auto) 84.8 H Lymph % (Auto) 3.8 L Richardson % (Auto) 10.8 H Eos % (Auto) 0.3 Baso % (Auto) 0.3 Neut # 15.4 H Lymph # 0.7 L Richardson # 2.0 H Eos # 0.1 Baso # 0.1 Neutrophils % (Manual) 85 H Band Neutrophils % 3 H Lymphocytes % (Manual) 4 L Monocytes % (Manual) 8 Platelet Estimate Normal Large Platelets Present PT 13.4 H INR 1.2 APTT 28 Sodium 140 Potassium 3.3 L Chloride 99 Carbon Dioxide 22 Anion Gap 22 H BUN 27 H Creatinine 7.1 H Est GFR ( Amer) 7 Est GFR (Non-Af Amer) 6 Random Glucose 197 H Calcium 9.2 Total Bilirubin 0.7 AST 22 ALT 7 L D Alkaline Phosphatase 178 H Total Creatine Kinase 62 CK-MB (Mass) 1.91 Troponin I 0.0530 NT-Pro-B Natriuret Pep 57341 H Total Protein 8.6 H Albumin 4.2 Globulin 4.4 H Albumin/Globulin Ratio 1.0 Assessment & Plan (1) Hypotension Status: Acute (2) ESRD (end stage renal disease) Status: Acute (3) Congestive heart failure Status: Acute (4) CHF (congestive heart failure) Status: Acute (5) Hypertensive chronic kidney disease with stage 5 chronic kidney disease or end stage renal disease Status: Acute (6) End stage renal disease Status: Acute (7) Secondary hyperparathyroidism, renal Status: Acute (8) HTN (hypertension) Status: Chronic Priority: Low - Assessment and Plan (Free Text) Plan: INCREASE UF with dialysis Monitor BP follow up labs
[2017-04-03] MEDS: Brimonidine 0.2% Opth Sol (5ml) OU SCH ×2 (11:07→17:08)
[2017-04-03] MEDS: Latanoprost 2.5 ml Opht Soln OU SCH (11:08)
[2017-04-03] MEDS: Atropine 1% Ophth Soln (15 ml) OU SCH (11:09)
[2017-04-03 11:16] LABS: HEMOGLOBIN 10.4 g/dL (11.0-16.0); MEAN CELL VOLUME 92.5 fL (81.0-99.0); MEAN CORPUSCULAR HEMOGLOBIN 29.7 pg (27.0-31.0); MEAN CORPUSCULAR HGB CONC 32.2 g/dL (33.0-37.0); PLATELET COUNT 244 K/uL (130-400); RBC 3.51 Mil/uL (3.80-5.20); RED CELL DISTRIBUTION WIDTH 16.3 % (11.5-14.5); WHITE BLOOD COUNT 13.2 K/uL (4.8-10.8)
[2017-04-03 11:17] LABS: BASO % 0.7 % (0.0-2.0); EOS # 0.1 K/uL (0.0-0.7); LYMPH # 1.2 K/uL (1.0-4.3); LYMPH % 8.9 % (20.0-40.0); MEAN PLATELET VOLUME 10.8 fL (7.2-11.7); MONO # 0.9 K/uL (0.0-0.8); MONO % 6.8 % (0.0-10.0); NEUT # 10.9 K/uL (1.8-7.0); NEUT % 82.6 % (50.0-75.0)
[2017-04-03 12:28] LABS: ANISOCYTOSIS SLIGHT; BANDS 4 % (0-2); EOSINOPHIL 2 % (0-4); LYMPHOCYTE 7 % (20-40); MONOCYTE 5 % (0-10); NEUTROPHIL 82 % (50-75); TARGET CELLS SLIGHT; TOTAL CELLS COUNTED 100
[2017-04-03 12:29] LABS: GIANT PLATELETS PRESENT; LARGE PLATELETS PRESENT
[2017-04-03 12:31] LABS: PLATELET ESTIMATE NORMAL (NORMAL)
--- NOTE | 2017-04-03 15:36 | CARD ---
APPROVED REPORT EXAM: Two-dimensional and M-mode echocardiogram with Doppler and color Doppler. Other Information Quality : GoodRhythm : INDICATION Pericardial Effusion Pulmonary Hypertention Congestive Heart Failure Palpitations RISK FACTORS Hypertension Hyperlipidemia 2D DIMENSIONS IVSd1.1 (0.7-1.1cm)LVDd3.1 (3.9-5.9cm) PWd1.9 (0.7-1.1cm)LVDs1.5 (2.5-4.0cm) FS (%) 52.9 %LVEF (%)85.1 (>50%) M-Mode DIMENSIONS RVDd2.20 (2.1-3.2cm)Left Atrium (MM)4.33 (2.5-4.0cm) IVSd1.08 (0.7-1.1cm)Aortic Root2.16 (2.2-3.7cm) LVDd3.02 (4.0-5.6cm)Aortic Cusp Exc.1.62 (1.5-2.0cm) PWd1.72 (0.7-1.1cm)FS (%) 56 % LVDs1.33 (2.0-3.8cm)LVEF (%)88 (>50%) Mitral Valve MV E Ebalqjve182.0cm/sMV A Arphhrlt395.8cm/sE/A ratio0.7 TDI E/Lateral E'0.0E/Medial E'0.0 Tricuspid Valve TR Peak [id number]/sTR Peak Gr.[id number] LEFT VENTRICLE The left ventricle is normal size. There is mild to moderate concentric left ventricular hypertrophy. Left ventricle systolic function is normal. The Ejection Fraction is >70%. There is normal LV segmental wall motion. Transmitral Doppler flow pattern is Grade I-abnormal relaxation pattern. There is no ventricular septal defect visualized. RIGHT VENTRICLE The right ventricle is normal size. The right ventricular systolic function is normal. ATRIA The left atrium is moderately dilated. The right atrium size is normal. AORTIC VALVE The aortic valve is mildly sclerotic. The aortic valve is tri-cuspid. No aortic regurgitation is present. There is mild to moderate subvalvular aortic stenosis. It is a suboptimal study needs further evaluation. Probably [id number] hypertrophic obstructive cardiomyopathy MITRAL VALVE The mitral valve is normal in structure. There is no evidence of mitral valve prolapse. Mitral regurgitation is mild. TRICUSPID VALVE The tricuspid valve is normal in structure. There is moderate tricuspid regurgitation. Right ventricular systolic pressure is estimated at greater than 60 mmHg. There is severe pulmonary hypertension. PULMONIC VALVE The pulmonary valve is normal in structure. There is trace pulmonic valvular regurgitation. GREAT VESSELS The aortic root is normal in size. The IVC is dilated. PERICARDIAL EFFUSION There is a small-moderate circumferential pericardial effusion. No diastolic collapse of the right atrium suggestive of tamponade, no recorded respiratory variability of the mitral or tricuspid inflow. <Conclusion> There is mild to moderate concentric left ventricular hypertrophy. Left ventricle systolic function is normal. The Ejection Fraction is >70%. Transmitral Doppler flow pattern is Grade I-abnormal relaxation pattern. There is mild to moderate subvalvular aortic stenosis. It is a suboptimal study needs further evaluation. Probably [id number] hypertrophic obstructive cardiomyopathy Mitral regurgitation is mild. There is severe pulmonary hypertension. There is a small-moderate circumferential pericardial effusion. No diastolic collapse of the right atrium suggestive of tamponade,
--- NOTE | 2017-04-03 15:44 | CARD ---
APPROVED REPORT EKG Measurement Heart [id number] <Conclusion> Sinus tachycardia Biatrial enlargement Abnormal ECG
--- NOTE | 2017-04-03 19:41 | CP.PCM.PN ---
Subjective - Date & Time of Evaluation Date of Evaluation: 04/03/17 Time of Evaluation: 19:35 - Subjective Subjective: Pt Seen and evaluated at dialysis now- still has been SOB CTA negative for PE No CPs, n, v, fever, diarrhea, HAS BP low Objective - Vital Signs/Intake and Output Vital Signs (last 24 hours): Temp Pulse Resp BP Pulse Ox 97.7 F 97 H 20 100/62 95 04/03/17 15:35 04/03/17 16:13 04/03/17 15:35 04/03/17 15:35 04/03/17 15:35 - Medications Medications: Current Medications Acetaminophen (Tylenol 325mg Tab) 650 mg PO Q6 PRN PRN Reason: Fever >100.4 F Aspirin (Aspirin Chewable) 81 mg PO DAILY [facility] [place] Last Admin: 04/03/17 15:00 Dose: 81 mg Atropine Sulfate (Atropisol 1% Ophth) 0 ml OU DAILY [facility] Last Admin: 04/03/17 11:09 Dose: 0.2 ml Brimonidine Tartrate (Alphagan 0.2% Opht) 0 ml OU BID [facility] Last Admin: 04/03/17 17:08 Dose: 1 drop Cinacalcet (Sensipar) 30 mg PO DAILY [facility] Last Admin: 04/03/17 14:58 Dose: 30 mg Famotidine (Pepcid) 20 mg PO DAILY [facility] Last Admin: 04/03/17 14:59 Dose: 20 mg Heparin Sodium (Porcine) (Heparin) 5,000 units SC Q12 [facility] Last Admin: 04/03/17 10:51 Dose: Not Given Ceftriaxone Sodium 1 gm/ (Sodium Chloride) 100 mls @ 100 mls/hr IVPB DAILY [facility] [place] Last Admin: 04/03/17 14:34 Dose: 100 mls/hr Latanoprost (Xalatan Opht) 0.05 ml OU DAILY [facility] Last Admin: 04/03/17 11:08 Dose: 0.05 ml Midodrine (Proamatine) 10 mg PO DAILY [facility] Last Admin: 04/03/17 14:56 Dose: 10 mg Raloxifene HCl (Evista) 60 mg PO DAILY [facility] Last Admin: 04/03/17 14:57 Dose: 60 mg Rosuvastatin Calcium (Crestor) 10 mg PO HS [facility] Last Admin: 04/02/17 21:08 Dose: 10 mg Sevelamer Carbonate (Renvela) 800 mg PO TID [facility] Last Admin: 04/03/17 17:08 Dose: 800 mg Timolol Maleate (Timoptic 0.5% Oph Soln) 0 drop OU BID [facility] Last Admin: 04/03/17 17:09 Dose: 1 drop Zolpidem Tartrate (Ambien) 5 mg PO HS PRN PRN Reason: Insomnia Last Admin: 04/02/17 21:08 Dose: 5 mg - Labs Labs: 04/03/17 11:07 04/02/17 11:09 PT 13.4 SECONDS (9.7-12.2) H 04/02/17 11:09 INR 1.2 04/02/17 11:09 APTT 28 SECONDS (21-34) 04/02/17 11:09 Assessment and Plan (1) Septicemia Status: Acute (2) Leukocytosis Status: Acute (3) Dyspnea Status: Acute (4) ESRD (end stage renal disease) Status: Acute (5) HTN (hypertension) Status: Chronic (6) Weakness Status: Acute
[2017-04-04 07:13] LABS: BASO # 0.1 K/uL (0.0-0.2); BASO % 0.8 % (0.0-2.0); EOS # 0.3 K/uL (0.0-0.7); EOS % 2.3 % (0.0-4.0); HEMOGLOBIN 10.8 g/dL (11.0-16.0); LYMPH # 1.8 K/uL (1.0-4.3); LYMPH % 14.4 % (20.0-40.0); MEAN CELL VOLUME 93.4 fL (81.0-99.0); MEAN CORPUSCULAR HEMOGLOBIN 30.3 pg (27.0-31.0); MEAN CORPUSCULAR HGB CONC 32.5 g/dL (33.0-37.0); MONO # 1.5 K/uL (0.0-0.8); MONO % 12.1 % (0.0-10.0); NEUT # 8.7 K/uL (1.8-7.0); NEUT % 70.4 % (50.0-75.0); RBC 3.56 Mil/uL (3.80-5.20); RED CELL DISTRIBUTION WIDTH 16.2 % (11.5-14.5); WHITE BLOOD COUNT 12.3 K/uL (4.8-10.8)
[2017-04-04] MEDS: Brimonidine 0.2% Opth Sol (5ml) OU SCH (08:59)
[2017-04-04] MEDS: Atropine 1% Ophth Soln (15 ml) OU SCH (08:59)
[2017-04-04] MEDS: Latanoprost 2.5 ml Opht Soln OU SCH (09:00)
--- NOTE | 2017-04-04 14:04 | CP.PCM.PN ---
Subjective - Date & Time of Evaluation Date of Evaluation: 04/04/17 Time of Evaluation: 14:00 - Subjective Subjective: s/p dialysis now- reached new EDW 70 kg No more PATEL Feels better All C+S negative No HAs, nausea, vomiting, fevers, chills Leukocytosis improved Objective - Vital Signs/Intake and Output Vital Signs (last 24 hours): Temp Pulse Resp BP Pulse Ox 97.8 F 100 H 22 102/46 L 97 04/04/17 10:00 04/04/17 10:00 04/04/17 10:00 04/04/17 11:35 04/04/17 08:30 Intake and Output: 04/04/17 04/04/17 06:59 18:59 Intake Total 500 Balance 500 - Medications Medications: Current Medications Acetaminophen (Tylenol 325mg Tab) 650 mg PO Q6 PRN PRN Reason: Fever >100.4 F Aspirin (Aspirin Chewable) 81 mg PO DAILY [facility] Last Admin: 04/04/17 13:51 Dose: 81 mg Atropine Sulfate (Atropisol 1% Ophth) 0 ml OU DAILY [facility] Last Admin: 04/04/17 08:59 Dose: 0.2 ml Brimonidine Tartrate (Alphagan 0.2% Opht) 0 ml OU BID [facility] Last Admin: 04/04/17 08:59 Dose: 1 drop Cinacalcet (Sensipar) 30 mg PO DAILY [facility] Last Admin: 04/04/17 13:51 Dose: 30 mg Famotidine (Pepcid) 20 mg PO DAILY [facility] Last Admin: 04/04/17 13:52 Dose: 20 mg Heparin Sodium (Porcine) (Heparin) 5,000 units SC Q12 [facility] Last Admin: 04/04/17 09:43 Dose: Not Given Ceftriaxone Sodium 1 gm/ (Sodium Chloride) 100 mls @ 100 mls/hr IVPB DAILY [facility] Last Admin: 04/04/17 13:53 Dose: 100 mls/hr Latanoprost (Xalatan Opht) 0.05 ml OU DAILY [facility] Last Admin: 04/04/17 09:00 Dose: 0.05 ml Midodrine (Proamatine) 10 mg PO DAILY [facility] Last Admin: 04/04/17 13:52 Dose: 10 mg Raloxifene HCl (Evista) 60 mg PO DAILY [facility] Last Admin: 04/04/17 13:51 Dose: 60 mg Rosuvastatin Calcium (Crestor) 10 mg PO HS [facility] Last Admin: 04/03/17 21:09 Dose: 10 mg Sevelamer Carbonate (Renvela) 800 mg PO TID [facility] Last Admin: 04/04/17 13:54 Dose: 800 mg Timolol Maleate (Timoptic 0.5% Ophth Soln) 0 drop OU BID [facility] Last Admin: 04/04/17 08:59 Dose: 1 drop Zolpidem Tartrate (Ambien) 5 mg PO HS PRN PRN Reason: Insomnia Last Admin: 04/03/17 21:10 Dose: 5 mg - Labs Labs: 04/04/17 07:01 04/02/17 11:09 PT 13.4 SECONDS (9.7-12.2) H 04/02/17 11:09 INR 1.2 04/02/17 11:09 APTT 28 SECONDS (21-34) 04/02/17 11:09 - Constitutional Appears: No Acute Distress, Chronically Ill - Head Exam Head Exam: ATRAUMATIC, NORMAL INSPECTION - Eye Exam Eye Exam: EOMI, Normal appearance - Respiratory Exam Respiratory Exam: Clear to Ausculation Bilateral, NORMAL BREATHING PATTERN - Cardiovascular Exam Cardiovascular Exam: REGULAR RHYTHM, +S1 - GI/Abdominal Exam GI & Abdominal Exam: Soft. absent: Tenderness - Extremities Exam Extremities Exam: Normal Inspection. absent: Tenderness - Neurological Exam Neurological Exam: Alert, CN II-XII Intact - Skin Skin Exam: Dry, Warm Assessment and Plan (1) Hypotension Status: Acute (2) ESRD (end stage renal disease) Status: Acute (3) Congestive heart failure Status: Acute (4) CHF (congestive heart failure) Status: Acute (5) Hypertensive chronic kidney disease with stage 5 chronic kidney disease or end stage renal disease Status: Acute (6) End stage renal disease Status: Acute (7) Secondary hyperparathyroidism, renal Status: Acute (8) HTN (hypertension) Status: Chronic - Assessment and Plan (Free Text) Plan: Keep EDW 70 kg Same meds Will try to arrange outpt dialysis at center where she can be evaluated more frequently
[2017-04-04] MEDS ORDERED: Atropine 1% Ophth Soln (15 ml) OS SCH (14:24)
[2017-04-04] MEDS ORDERED: Latanoprost 2.5 ml Opht Soln OD SCH (14:25)
[2017-04-04 16:14] VITALS: RESP 20
--- NOTE | 2017-04-04 17:06 | CP.PCM.PN ---
Subjective - Date & Time of Evaluation Date of Evaluation: 04/04/17 Time of Evaluation: 14:00 - Subjective Subjective: Patient seen today after HD , denies any chest pain, sob, dizziness, palpitations bp stable Objective - Vital Signs/Intake and Output Vital Signs (last 24 hours): Temp Pulse Resp BP Pulse Ox 97.5 F L 102 H 20 97/45 L 97 04/04/17 16:00 04/04/17 16:00 04/04/17 16:00 04/04/17 16:00 04/04/17 16:00 Intake and Output: 04/04/17 04/04/17 06:59 18:59 Intake Total 500 280 Balance 500 280 - Medications Medications: Current Medications Acetaminophen (Tylenol 325mg Tab) 650 mg PO Q6 PRN PRN Reason: Fever >100.4 F Aspirin (Aspirin Chewable) 81 mg PO DAILY [facility] Last Admin: 04/04/17 13:51 Dose: 81 mg Atropine Sulfate (Atropisol 1% Ophth) 0 ml OS DAILY [facility] Brimonidine Tartrate (Alphagan 0.2% Opht) 0 ml OD BID [facility] Cinacalcet (Sensipar) 30 mg PO DAILY [facility] Last Admin: 04/04/17 13:51 Dose: 30 mg Famotidine (Pepcid) 20 mg PO DAILY [facility] Last Admin: 04/04/17 13:52 Dose: 20 mg Heparin Sodium (Porcine) (Heparin) 5,000 units SC Q12 [facility] Last Admin: 04/04/17 09:43 Dose: Not Given Ceftriaxone Sodium 1 gm/ (Sodium Chloride) 100 mls @ 100 mls/hr IVPB DAILY [facility] Last Admin: 04/04/17 13:53 Dose: 100 mls/hr Latanoprost (Xalatan Opht) 0 ml OD DAILY [facility] Midodrine (Proamatine) 10 mg PO DAILY [facility] Last Admin: 04/04/17 13:52 Dose: 10 mg Raloxifene HCl (Evista) 60 mg PO DAILY [facility] Last Admin: 04/04/17 13:51 Dose: 60 mg Rosuvastatin Calcium (Crestor) 10 mg PO HS [facility] Last Admin: 04/03/17 21:09 Dose: 10 mg Sevelamer Carbonate (Renvela) 800 mg PO TID [facility] Last Admin: 04/04/17 13:54 Dose: 800 mg Timolol Maleate (Timoptic 0.5% Ophth Soln) 0 drop OU BID [facility] Last Admin: 04/04/17 08:59 Dose: 1 drop Zolpidem Tartrate (Ambien) 5 mg PO HS PRN PRN Reason: Insomnia Last Admin: 04/03/17 21:10 Dose: 5 mg - Labs Labs: 04/04/17 07:01 04/02/17 11:09 PT 13.4 SECONDS (9.7-12.2) H 04/02/17 11:09 INR 1.2 04/02/17 11:09 APTT 28 SECONDS (21-34) 04/02/17 11:09 Assessment and Plan - Assessment and Plan (Free Text) Assessment: A/P 66 yr old female with pmhx of HTN, Hypercholesterolemia, End Stage Renal Disease,on HD admitted from HD center for sudden onset of sob Patient received extra HD and sob improved Dr. Estrada consulted and seen pt today, recommends to repeat echo in [address] Daly today, stable for discharge home tomorrow am Discharge plan discussed with daughter at bedside, who understands and agrees with plan [facility] instructed to returns to ED if symptoms returns
[2017-04-04] MEDS: Brimonidine 0.2% Opth Sol (5ml) OD SCH (17:37)
--- NOTE | 2017-04-04 23:07 | CP.PCM.PN ---
Subjective - Date & Time of Evaluation Date of Evaluation: 04/04/17 Time of Evaluation: 20:00 - Subjective Subjective: Patient seen today after HD , denies any chest pain, sob, dizziness, palpitations bp stable Objective - Vital Signs/Intake and Output Vital Signs (last 24 hours): Temp Pulse Resp BP Pulse Ox 97.5 F L 102 H 20 97/45 L 97 04/04/17 16:00 04/04/17 16:00 04/04/17 16:00 04/04/17 16:00 04/04/17 16:00 Intake and Output: 04/04/17 04/05/17 18:59 06:59 Intake Total 280 Balance 280 - Medications Medications: Current Medications Acetaminophen (Tylenol 325mg Tab) 650 mg PO Q6 PRN PRN Reason: Fever >100.4 F Aspirin (Aspirin Chewable) 81 mg PO DAILY [facility] Last Admin: 04/04/17 13:51 Dose: 81 mg Atropine Sulfate (Atropisol 1% Ophth) 0 ml OS DAILY [facility] Brimonidine Tartrate (Alphagan 0.2% Opht) 0 ml OD BID [facility] Last Admin: 04/04/17 17:37 Dose: 1 drop Cinacalcet (Sensipar) 30 mg PO DAILY [facility] Last Admin: 04/04/17 13:51 Dose: 30 mg Famotidine (Pepcid) 20 mg PO DAILY [facility] Last Admin: 04/04/17 13:52 Dose: 20 mg Heparin Sodium (Porcine) (Heparin) 5,000 units SC Q12 [facility] Last Admin: 04/04/17 21:23 Dose: 5,000 units Ceftriaxone Sodium 1 gm/ (Sodium Chloride) 100 mls @ 100 mls/hr IVPB DAILY [facility] Last Admin: 04/04/17 13:53 Dose: 100 mls/hr Latanoprost (Xalatan Opht) 0 ml OD DAILY [facility] Midodrine (Proamatine) 10 mg PO DAILY [facility] Last Admin: 04/04/17 13:52 Dose: 10 mg Raloxifene HCl (Evista) 60 mg PO DAILY [facility] Last Admin: 04/04/17 13:51 Dose: 60 mg Rosuvastatin Calcium (Crestor) 10 mg PO HS [facility] Last Admin: 04/04/17 21:23 Dose: 10 mg Sevelamer Carbonate (Renvela) 800 mg PO TID [facility] Last Admin: 04/04/17 17:36 Dose: 800 mg Timolol Maleate (Timoptic 0.5% Ophth Soln) 0 drop OU BID [facility] Last Admin: 04/04/17 17:36 Dose: 1 drop Zolpidem Tartrate (Ambien) 5 mg PO HS PRN PRN Reason: Insomnia Last Admin: 04/04/17 21:23 Dose: 5 mg - Labs Labs: 04/04/17 07:01 04/02/17 11:09 PT 13.4 SECONDS (9.7-12.2) H 04/02/17 11:09 INR 1.2 04/02/17 11:09 APTT 28 SECONDS (21-34) 04/02/17 11:09 Assessment and Plan (1) Septicemia Status: Acute (2) Leukocytosis Status: Acute (3) Dyspnea Status: Acute (4) ESRD (end stage renal disease) Status: Acute (5) HTN (hypertension) Status: Chronic (6) Weakness Status: Acute
--- NOTE | 2017-04-05 00:52 | CON ---
DATE: CARDIOLOGY CONSULTATION REASON FOR CONSULTATION: Hypotension and pericardial effusion. HISTORY OF PRESENT ILLNESS: The patient is a 66-year-old female, who has history of hypertension, end-stage renal disease, on hemodialysis for the past 4 to 5 years according to the patient. Patient has been experiencing hypotension while on hemodialysis and was reported to have syncopal episode by the primary physician, whom I discussed the case with. According to the emergency room evaluation, the patient was sent from hemodialysis because of sudden onset of shortness of breath during hemodialysis. The patient denies any chest pain. According to Dr. Gianluca Daly, patient underwent cardiac catheterization at [facility], but did not require any intervention at the time. SOCIAL HISTORY: The patient is a nonsmoker, nondrinker, except for light smoking in her teenage years. MEDICATIONS: Ambien 5 mg at bedtime, aspirin 81 mg once a day, Rocephin 1 g intravenously daily, Crestor 10 mg once a day, Evista 60 mg once a day, ProAmatine 10 mg daily. REVIEW OF SYSTEMS: No fever or chills. No productive cough. No diaphoresis. No palpitation. No reported ventricular arrhythmia on the monitor. PHYSICAL EXAMINATION: GENERAL: The patient is an elderly female, who does not appear to be in acute distress. VITAL SIGNS: Blood pressure 124/47, heart rate 90, temperature 97.6, respirations 16. HEENT: Normocephalic. CHEST: Clear. HEART: S1 and S2 regular. ABDOMEN: Soft. EXTREMITIES: No edema. LABORATORY DATA: Admitting SMA-7, sodium 140, potassium 3.3, chloride 99, CO2 of 22, glucose 197, BUN 27, creatinine 7.1. ProBNP is 10,100. Today, her hemoglobin and hematocrit 10.3 and 33.3, white count 12.3, platelet count 267,000. Blood culture is negative after 24 hours. EKG reveals sinus tachycardia at rate of 112, biatrial enlargement. Echocardiographic study revealed [id number] concentric LVH, normal ejection fraction, grade 1 abnormal relaxation pattern, [id number] subvalvular aortic stenosis, probably [id number] hypertrophic obstructive cardiomyopathy, severe pulmonary hypertension, small to moderate circumferential pericardial effusion. No diastolic collapse of the right atrium, suggestive of tamponade. Chest CT angio reveal no venous or pulmonary embolus. No acute infiltrates. Small to moderate pericardial effusion. ASSESSMENT: 1. Small to moderate pericardial effusion. No convincing evidence of diastolic right ventricular collapse is seen. 2. Hypertrophic cardiomyopathy with outflow obstruction. 3. End-stage renal disease, on hemodialysis. 4. Mild hypotension. RECOMMENDATIONS: Case was discussed at length with Dr. Gianluca Daly. Continue current medical management including aspirin 81 mg once a day, ProAmatine 10 mg once a day. I did provide the patient with a script for outpatient echocardiographic study in exactly 2 weeks with specification to measure the subaortic gradient after Valsalva maneuver and obtain an M-mode of the mitral valve to rule out YUDELKA. In the meantime, the need for performing an echo in 2 weeks is to further evaluate the pericardial effusion and if any progression to tamponade. In the meantime, I discussed with Dr. Gianluca Daly to perform rheumatoid and lupus markers as an outpatient. Drake Estrada MD
[2017-04-05 08:16] VITALS: BP 110/65; TEMP 98.2; O2SAT 99
[2017-04-05] MEDS: Brimonidine 0.2% Opth Sol (5ml) OD SCH (10:18)
[2017-04-05 10:54] VITALS: PULSE 99
--- NOTE | 2017-04-05 11:19 | CP.PCM.PN ---
Subjective - Date & Time of Evaluation Date of Evaluation: 04/05/17 Time of Evaluation: 11:17 - Subjective Subjective: feels good had HD yesterday SOB improved no distress ROS- 10 point ROS negative Objective - Vital Signs/Intake and Output Vital Signs (last 24 hours): Temp Pulse Resp BP Pulse Ox 98.2 F 99 H 20 110/65 99 04/05/17 07:00 04/05/17 07:00 04/05/17 07:00 04/05/17 07:00 04/05/17 07:00 - Medications Medications: Current Medications Acetaminophen (Tylenol 325mg Tab) 650 mg PO Q6 PRN PRN Reason: Fever >100.4 F Aspirin (Aspirin Chewable) 81 mg PO DAILY [facility] Last Admin: 04/05/17 10:06 Dose: 81 mg Atropine Sulfate (Atropisol 1% Ophth) 0 ml OS DAILY [facility] Last Admin: 04/05/17 10:16 Dose: 1 ml Brimonidine Tartrate (Alphagan 0.2% Opht) 0 ml OD BID [facility] Last Admin: 04/05/17 10:18 Dose: 1 drop Cinacalcet (Sensipar) 30 mg PO DAILY [facility] Last Admin: 04/05/17 10:06 Dose: 30 mg Famotidine (Pepcid) 20 mg PO DAILY [facility] Last Admin: 04/05/17 10:06 Dose: 20 mg Heparin Sodium (Porcine) (Heparin) 5,000 units SC Q12 [facility] Last Admin: 04/05/17 10:09 Dose: 5,000 units Ceftriaxone Sodium 1 gm/ (Sodium Chloride) 100 mls @ 100 mls/hr IVPB DAILY [facility] Last Admin: 04/05/17 10:20 Dose: 100 mls/hr Latanoprost (Xalatan Opht) 0 ml OD DAILY [facility] Last Admin: 04/05/17 10:13 Dose: 1 ml Midodrine (Proamatine) 10 mg PO DAILY [facility] Last Admin: 04/05/17 10:05 Dose: 10 mg Raloxifene HCl (Evista) 60 mg PO DAILY [facility] Last Admin: 04/05/17 10:06 Dose: 60 mg Rosuvastatin Calcium (Crestor) 10 mg PO HS [facility] Last Admin: 04/04/17 21:23 Dose: 10 mg Sevelamer Carbonate (Renvela) 800 mg PO TID [facility] Last Admin: 04/05/17 10:09 Dose: 800 mg Timolol Maleate (Timoptic 0.5% Ophth Soln) 0 drop OU BID [facility] Last Admin: 04/05/17 10:11 Dose: 1 drop Zolpidem Tartrate (Ambien) 5 mg PO HS PRN PRN Reason: Insomnia Last Admin: 04/04/17 21:23 Dose: 5 mg - Labs Labs: 04/04/17 07:01 04/02/17 11:09 PT 13.4 SECONDS (9.7-12.2) H 04/02/17 11:09 INR 1.2 04/02/17 11:09 APTT 28 SECONDS (21-34) 04/02/17 11:09 - Constitutional Appears: Well, No Acute Distress - Head Exam Head Exam: ATRAUMATIC, NORMOCEPHALIC - Eye Exam Eye Exam: EOMI, PERRL - ENT Exam ENT Exam: Mucous Membranes Moist - Respiratory Exam Respiratory Exam: Clear to Ausculation Bilateral. absent: Rhonchi, Wheezes - Cardiovascular Exam Cardiovascular Exam: REGULAR RHYTHM, +S1, +S2 - GI/Abdominal Exam GI & Abdominal Exam: Soft. absent: Tenderness - Extremities Exam Extremities Exam: Full ROM. absent: Pedal Edema - Neurological Exam Neurological Exam: Alert, Awake, Oriented x3 - Psychiatric Exam Psychiatric exam: Normal Affect, Normal Mood - Skin Skin Exam: Dry, Warm Assessment and Plan (1) CHF (congestive heart failure) Status: Acute (2) Dyspnea Status: Acute (3) ESRD (end stage renal disease) Status: Acute (4) Congestive heart failure Status: Acute - Assessment and Plan (Free Text) Plan: maintain HD MWF volume status improved SOB improved fluid restriction stable renal aldana
--- NOTE | 2017-04-06 23:20 | CP.PCM.DIS ---
Provider - Provider Date of Admission: 04/02/17 13:49 Attending physician: Gianluca Daly MD Time Spent in preparation of Discharge (in minutes): 45 Diagnosis - Discharge Diagnosis (1) Septicemia Status: Acute (2) Leukocytosis Status: Acute (3) Dyspnea Status: Acute (4) ESRD (end stage renal disease) Status: Acute (5) HTN (hypertension) Status: Chronic Priority: Low (6) Weakness Status: Acute Hospital Course - Lab Results Lab Results: Micro Results 04/03/17 10:30 Blood Blood Culture - Preliminary NO GROWTH AFTER 3 DAYS 04/03/17 11:00 Blood Blood Culture - Preliminary NO GROWTH AFTER 3 DAYS Most Recent Lab Values WBC 12.3 K/uL (4.8-10.8) H 04/04/17 07:01 RBC 3.56 Mil/uL (3.80-5.20) L 04/04/17 07:01 Hgb 10.8 g/dL (11.0-16.0) L 04/04/17 07:01 Hct 33.3 % (34.0-47.0) L 04/04/17 07:01 MCV 93.4 fL (81.0-99.0) 04/04/17 07:01 MCH 30.3 pg (27.0-31.0) 04/04/17 07:01 MCHC 32.5 g/dL (33.0-37.0) L 04/04/17 07:01 RDW 16.2 % (11.5-14.5) H 04/04/17 07:01 Plt Count 267 K/uL (130-400) 04/04/17 07:01 MPV 11.0 fL (7.2-11.7) 04/04/17 07:01 Neut % (Auto) 70.4 % (50.0-75.0) 04/04/17 07:01 Lymph % (Auto) 14.4 % (20.0-40.0) L 04/04/17 07:01 [place] % (Auto) 12.1 % (0.0-10.0) H 04/04/17 07:01 Eos % (Auto) 2.3 % (0.0-4.0) 04/04/17 07:01 Baso % (Auto) 0.8 % (0.0-2.0) 04/04/17 07:01 Neut # 8.7 K/uL (1.8-7.0) H 04/04/17 07:01 Lymph # 1.8 K/uL (1.0-4.3) 04/04/17 07:01 [place] # 1.5 K/uL (0.0-0.8) H 04/04/17 07:01 Eos # 0.3 K/uL (0.0-0.7) 04/04/17 07:01 Baso # 0.1 K/uL (0.0-0.2) 04/04/17 07:01 Neutrophils % (Manual) 82 % (50-75) H 04/03/17 11:07 Band Neutrophils % 4 % (0-2) H 04/03/17 11:07 Lymphocytes % (Manual) 7 % (20-40) L 04/03/17 11:07 Monocytes % (Manual) 5 % (0-10) 04/03/17 11:07 Eosinophils % (Manual) 2 % (0-4) 04/03/17 11:07 Platelet Estimate Normal (NORMAL) 04/03/17 11:07 Large Platelets Present 04/03/17 11:07 Giant Platelets Present 04/03/17 11:07 Basophilic Stippling Slight 04/03/17 11:07 Anisocytosis (manual) Slight 04/03/17 11:07 Target Cells Slight 04/03/17 11:07 PT 13.4 SECONDS (9.7-12.2) H 04/02/17 11:09 INR 1.2 04/02/17 11:09 APTT 28 SECONDS (21-34) 04/02/17 11:09 Sodium 140 mmol/L (132-148) 04/02/17 11:09 Potassium 3.3 mmol/L (3.6-5.2) L 04/02/17 11:09 Chloride 99 mmol/L (98-107) 04/02/17 11:09 Carbon Dioxide 22 mmol/L (22-30) 04/02/17 11:09 Anion Gap 22 (10-20) H 04/02/17 11:09 BUN 27 mg/dL (7-17) H 04/02/17 11:09 Creatinine 7.1 mg/dL (0.7-1.2) H 04/02/17 11:09 Est GFR ( Amer) 7 04/02/17 11:09 Est GFR (Non-Af Amer) 6 04/02/17 11:09 Random Glucose 197 mg/dL (65-105) H 04/02/17 11:09 Calcium 9.2 mg/dl (8.6-10.4) 04/02/17 11:09 Total Bilirubin 0.7 mg/dL (0.2-1.3) 04/02/17 11:09 AST 22 U/L (14-36) 04/02/17 11:09 ALT 7 U/L (9-52) L D 04/02/17 11:09 Alkaline Phosphatase 178 U/L (38-126) H 04/02/17 11:09 Total Creatine Kinase 62 U/L (30-135) 04/02/17 11:09 CK-MB (Mass) 1.91 ng/mL (0.0-3.38) 04/02/17 11:09 Troponin I 0.0530 ng/mL (0.00-0.120) 04/02/17 11:09 NT-Pro-B Natriuret Pep 20403 pg/mL (0-900) H 04/02/17 11:09 Total Protein 8.6 g/dL (6.3-8.3) H 04/02/17 11:09 Albumin 4.2 g/dL (3.5-5.0) 04/02/17 11:09 Globulin 4.4 gm/dL (2.2-3.9) H 04/02/17 11:09 Albumin/Globulin Ratio 1.0 (1.0-2.1) 04/02/17 11:09 - Hospital Course Hospital Course: Pt is for discharge today, no fevr, no sob, not dizzy, she will be follow up by me in 1 week and cardiology for [facility], maintain HD MWF, volume status improved advised for fluid restriction Discharge Exam - Head Exam Head Exam: ATRAUMATIC, NORMOCEPHALIC - Eye Exam Eye Exam: Normal appearance - ENT Exam ENT Exam: Mucous Membranes Moist - Respiratory Exam Respiratory Exam: Clear to PA & Lateral, NORMAL BREATHING PATTERN - Cardiovascular Exam Cardiovascular Exam: REGULAR RHYTHM, +S1, +S2 - GI/Abdominal Exam GI & Abdominal Exam: Normal Bowel Sounds - Neurological Exam Neurological exam: Alert, CN II-XII Intact, Normal Gait, Oriented x3, Reflexes Normal - Psychiatric Exam Psychiatric exam: Normal Affect, Normal Mood Discharge Plan - Follow Up Plan Condition: STABLE Disposition: HOME/ ROUTINE Instructions: Heart Failure (DC), Dialysis Diet (DC), Pericardial Effusion (DC) , Pneumonia (DC), End Stage Kidney Disease (DC) Additional Instructions: Please f/u with Dr. Borja office in 1 week Please f/u with Yuli ordoñez on 04/18/17 -call and make appointment ( needs to be read by Dr. Estrada) Please continue HD as scheduled MWF Resume all home medications If sob/dizziness recurs please come to ED for evaluations Referrals: Gianluca Daly MD [Staff Provider] -
== END 2017-04-05 12:20 | disposition home or self-care (01) | DRG 871 ==
LOC: C.ER 09:49 → C.9E 13:49 → C.6T 15:13
PROVIDERS: ADMIT Internal Medicine; ATTEND Internal Medicine
PROC: 05H533Z Insertion of Infusion Device into Right Subclavian Vein, Percutaneous Approach (ICD-10-PCS; principal; 2017-04-02)
DX: A41.9 Sepsis, unspecified organism (principal); N18.6 End stage renal disease; I13.2 Hypertensive heart and chronic kidney disease with heart failure and with stage 5 chronic kidney disease, or end stage renal disease; J18.9 Pneumonia, unspecified organism; I31.3 Pericardial effusion (noninflammatory); I50.9 Heart failure, unspecified; I42.2 Other hypertrophic cardiomyopathy; J44.0 Chronic obstructive pulmonary disease with (acute) lower respiratory infection; N25.81 Secondary hyperparathyroidism of renal origin; R65.20 Severe sepsis without septic shock; I95.0 Idiopathic hypotension; Z99.2 Dependence on renal dialysis; E78.00 Pure hypercholesterolemia, unspecified; D64.9 Anemia, unspecified; Z87.891 Personal history of nicotine dependence; Z86.73 Personal history of transient ischemic attack (TIA), and cerebral infarction without residual deficits

== ENCOUNTER 2017-06-16 10:20 | Observation (INO) | payer MEDICARE, BC ==
[2017-06-16 10:20] VITALS: BMI 31.8
[2017-06-16 11:05] LABS: ALB/GLOB RATIO 1.1 (1.0-2.1); ALBUMIN 4.1 g/dL (3.5-5.0); CALCIUM 9.1 mg/dl (8.6-10.4)
[2017-06-16 11:06] LABS: BASO # 0.2 K/uL (0.0-0.2); BASO % 0.9 % (0.0-2.0); EOS # 0.2 K/uL (0.0-0.7); EOS % 1.1 % (0.0-4.0); HEMOGLOBIN 10.6 g/dL (11.0-16.0); LYMPH # 0.6 K/uL (1.0-4.3); LYMPH % 3.4 % (20.0-40.0); MEAN CORPUSCULAR HEMOGLOBIN 27.6 pg (27.0-31.0); MEAN CORPUSCULAR HGB CONC 30.9 g/dL (33.0-37.0); MEAN PLATELET VOLUME 10.3 fL (7.2-11.7); MONO % 6.1 % (0.0-10.0); NEUT # 14.4 K/uL (1.8-7.0); NEUT % 88.5 % (50.0-75.0); RBC 3.83 Mil/uL (3.80-5.20); RED CELL DISTRIBUTION WIDTH 16.2 % (11.5-14.5); WHITE BLOOD COUNT 16.3 K/uL (4.8-10.8)
[2017-06-16 11:07] LABS: MEAN CELL VOLUME 89.4 fL (81.0-99.0); PLATELET COUNT 152 K/uL (130-400)
--- NOTE | 2017-06-16 11:08 | C.PDOC ---
History Of Present Illness h/o CKD on Hd, Chronic udiopathic Hypotension 67-YEAR-OLD FEMALE, PRESENTS TO THE EMERGENCY DEPARTMENT WITH COMPLAINTS OF POSS RECUR ANXIETY. PT WITH SOB TODAY, SHE IS NORMALLY RECEIVING DIALYSIS MWF, MISSED DIALYSIS LAST FRI, HAD ON , WAS NOT ABLE TO GET ON FRI OR SAT BECAUSE SHE "WASN'T FEELING WELL." PT WAS FEELING WELL ALL WEEKEND. TODAY WENT FOR ROUTINE DIALYSIS, DEVELOPED SOB DURING PROCEDURE AND WAS NOT COMPLETED, PT REFUSED EMS AT THE CENTER. FAMILY BROUGHT PT TO DR HU OFFICE, BUT IT WAS BUSY, RESULTING IN HER BEING BROUGHT TO ED FOR EVALUATION. FAMILY STATES APPEARS SIMILAR TO PRIOR ANXIETY ATTACKS. HER LAST EPISODE WAS IN APR; SHE IS NOT ON MEDS CURRENTLY. PT ALSO COMPLAINING OF TIGHTNESS IN EPIGASTRIC AREA. DENIES NAUSEA/VOMITING, FEVER. DENIES DYSURIA OR LUNG DISEASE. EXAM MOD DIST SPEAKING 5-6 WORD SEN. TACHYPNEIC, WHEEZE, TIGHTNESS NO EDEMA. Chief Complaint (Nursing): Shortness Of Breath History Per: Patient History/Exam Limitations: no limitations Past Medical History Reviewed: Historical Data, Nursing Documentation, Vital Signs Vital Signs: Last Vital Signs Temp 97.5 F L 06/16/17 10:24 Pulse 116 H 06/16/17 10:24 Resp 21 06/16/17 10:46 BP 195/88 H 06/16/17 10:24 Pulse Ox 100 06/16/17 12:01 - Medical History PMH: Anemia, Arthritis (knee pain), COPD, HTN, Hypercholesterolemia, End Stage Renal Disease, Chronic Kidney Disease - [facility] Procedures DIALYSIS ARTERIOVENOSTOM (06/13/14) ENDOSCOPIC BRONCHIAL BX (07/07/14) HEMODIALYSIS (07/07/14) INSERTION OF INFUSION DEV INTO R SUBCLAV VEIN, PERC APPROACH (04/02/17) Family History: States: No Known Family Hx - Social History Hx Tobacco Use: No Hx Alcohol Use: No Hx Substance Use: No - Immunization History Hx Tetanus Toxoid Vaccination: No Hx Influenza Vaccination: Yes Hx Pneumococcal Vaccination: No Review Of Systems Except As Marked, All Systems Reviewed And Found Negative. Constitutional: Positive for: Weakness. Negative for: Fever Cardiovascular: Negative for: Chest Pain Respiratory: Positive for: Shortness of Breath Gastrointestinal: Negative for: Nausea Neurological: Negative for: Numbness, Dizziness Psych: Positive for: Anxiety Physical Exam - Physical Exam Appears: Non-toxic, In Acute Distress (MODERATELY), Other (SPEAKING 5-6 WORD SEN.) Skin: Normal Color, Warm, Dry, No Rash Head: Normacephalic Eye(s): bilateral: PERRL Nose: Normal, No Flaring, No Discharge Oral Mucosa: Moist Lips: Normal Appearing Neck: Normal ROM Chest: Symmetrical Cardiovascular: Rhythm Regular, No Murmur Respiratory: No Decreased Breath Sounds, Wheezing (B/L), Other (Tachypneic) Gastrointestinal/Abdominal: Soft, No Tenderness Extremity: Normal ROM, No Pedal Edema, No Deformity Neurological/Psych: Oriented x3, Normal Speech ED Course And Treatment - Laboratory Results Result Diagrams: 06/16/17 10:50 06/16/17 10:50 O2 Sat by Pulse Oximetry: 100 (RA) Pulse Ox Interpretation: Normal - Radiology CXR: Interpreted by Me CXR Interpretation: Yes: Other (VASC JEYSON) Progress - Re-Evaluation Re-evaluation Note: 06/16/17 11:[address] CARMEN, AWARE OF FINDINGS, WILL EVALUATE IN ER 06/16/17 12:15 D/W DR HU WILL ADMIT - Data Reviewed Data Reviewed: Lab, Diagnostic imaging, EKG, Old records - Critical Care Citical Care: Excluding Proc Time Critical Care Time: 90 minutes Disposition Counseled Patient/Family Regarding: Studies Performed, Diagnosis - Disposition Disposition: HOSPITALIZED Disposition Time: 12:33 Condition: STABLE Forms: [facility] ([place]) - POA Present On Arrival: Poor Glycemic Control - Clinical Impression Clinical Impression: ESRD needing dialysis - Scribe Statement The provider has reviewed the documentation as recorded by the Scribe (Wilder Funk) All medical record entries made by the Scribe were at my direction and personally dictated by me. I have reviewed the chart and agree that the record accurately reflects my personal performance of the history, physical exam, medical decision making, and the department course for this patient. I have also personally directed, reviewed, and agree with the discharge instructions and disposition. Decision To Admit - Pt Status Changed To: Hospital Disposition Of: Observation - . Bed Request Type: Telemetry Admitting Physician: Gianluca Hu Patient Diagnosis: ESRD needing dialysis
[2017-06-16 11:47] LABS: ANISOCYTOSIS SLIGHT; EOSINOPHIL 2 % (0-4); HYPOCHROMIC SLIGHT; LYMPHOCYTE 4 % (20-40); MONOCYTE 5 % (0-10); NEUTROPHIL 89 % (50-75); PLATELET ESTIMATE NORMAL (NORMAL); TOTAL CELLS COUNTED 100
[2017-06-16 12:01] LABS: ARTERIAL BLOOD GAS O2 SAT 98.1 % (95-98); ARTERIAL BLOOD GAS PCO2 52 mm/Hg (35-45); ARTERIAL BLOOD GAS PH 7.34 (7.35-7.45); ARTERIAL BLOOD GAS PO2 83 mm/Hg (80-100); ARTERIAL BLOOD GAS TCO2 29.7 mmol/L (22-28)
[2017-06-16 12:04] LABS: PROTHROMBIN TIME 11.4 SECONDS (9.7-12.2)
--- NOTE | 2017-06-16 12:12 | RAD ---
Chest x-ray single frontal view History: Shortness of breath. Comparison: 04/02/2017 Findings: Moderate venous congestion. Right hilar prominence. Left axillary stent. Tortuous aorta. Calcification at the aortic knob. Degenerative changes in the spine and shoulders. Calcific tendinopathy of the right proximal humerus. Impression: Moderate venous congestion. Right hilar prominence. Left axillary stent. Tortuous aorta. Calcification at the aortic knob. Degenerative changes in the spine and shoulders. Calcific tendinopathy of the right proximal humerus.
[2017-06-16 12:21] LABS: TROPONIN I 0.108 ng/mL (0.00-0.120)
--- NOTE | 2017-06-16 14:00 | CP.PCM.CON ---
History of Present Illness - History of Present Illness History of Present Illness: h/o CKD on Hd, Chronic idiopathic Hypotension 67-YEAR-OLD FEMALE, PRESENTS TO THE EMERGENCY DEPARTMENT WITH COMPLAINTS OF POSS RECUR ANXIETY. PT WITH SOB TODAY, SHE IS NORMALLY RECEIVING DIALYSIS MWF, MISSED DIALYSIS LAST FRI, HAD ON , WAS NOT ABLE TO GET ON FRI OR SAT BECAUSE SHE "WASN'T FEELING WELL." PT WAS FEELING WELL ALL WEEKEND. TODAY WENT FOR ROUTINE DIALYSIS, DEVELOPED SOB DURING PROCEDURE AND WAS NOT COMPLETED, PT REFUSED EMS AT THE CENTER. FAMILY BROUGHT PT TO DR HU OFFICE, BUT IT WAS BUSY, RESULTING IN HER BEING BROUGHT TO ED FOR EVALUATION. FAMILY STATES APPEARS SIMILAR TO PRIOR ANXIETY ATTACKS. HER LAST EPISODE WAS IN APR; SHE IS NOT ON MEDS CURRENTLY. PT ALSO COMPLAINING OF TIGHTNESS IN EPIGASTRIC AREA. DENIES NAUSEA/VOMITING, FEVER. DENIES DYSURIA OR LUNG DISEASE. CXR still with CHF- needs repeat dialysis Review of Systems - Constitutional Constitutional: Lethargy, Weight Gain, Weakness - EENT Eyes: absent: As Per HPI, Blind Spots, Blurred Vision, Change in Vision, Decreased Night Vision, Diplopia, Discharge, Dry Eye, Exophthalmos, Floaters, Irritation, Itchy Eyes, Loss of Peripheral Vision, Pain, Photophobia, Requires Corrective Lenses, Sees Flashes, Spots in Vision, Tunnel Vision, Other Visual Disturbances, Loss of Vision, Other Ears: absent: As Per HPI, Decreased Hearing, Ear Discharge, Ear Pain, Tinnitus, Abnormal Hearing, Disequilibrium, Dizziness, Other Nose/Mouth/Throat: absent: As Per HPI, Epistaxis, Nasal Congestion, Nasal Discharge, Nasal Obstruction, Nasal Trauma, Nose Pain, Post Nasal Drip, Sinus Pain, Sinus Pressure, Bleeding Gums, Change in Voice, Dental Pain, Dry Mouth, Dysphagia, Halitosis, Hoarsness, Lip Swelling, Mouth Lesions, Mouth Pain, Odynophagia, Sore Throat, Throat Swelling, Tongue Swelling, Facial Pain, Neck Pain, Neck Mass, Other - Cardiovascular Cardiovascular: Dyspnea on Exertion, Edema - Respiratory Respiratory: Cough, Dyspnea on Exertion - Gastrointestinal Gastrointestinal: absent: As Per HPI, Abdominal Pain, Belching, Bloating, Change in Bowel Habits, Change in Stool Character, Coffee Ground Emesis, Constipation, Cramping, Diarrhea, Dyspepsia, Dysphagia, Early Satiety, Excessive Flatus, Fecal Incontinence, Heartburn, Hematemesis, Hematochezia, Loose Stools, Melena, Nausea, Odynophagia, Temesmus, Vomiting, Other - Genitourinary Genitourinary: As Per HPI - Musculoskeletal Musculoskeletal: Muscle Weakness, Myalgias - Integumentary Integumentary: absent: As Per HPI, Acne, Alopecia, Bleeding Lesions, Change in Hair, Change in Nails, Change in Pigmentation, Changing Lesions, Dry Skin, Erythema, Furuncle, Hirsutism, Lesions, New Lesions, Non-Healing Lesions, Photosensitivity, Pruritus, Rash, Skin Pain, Skin Ulcer, Sores, Striae, Swelling , Unusual Bruising, Wounds, Jaundice, Other - Neurological Neurological: absent: As Per HPI, Abnormal Gait, Abnormal Hearing, Abnormal Movements, Abnormal Speech, Behavioral Changes, Burning Sensations, Confusion, Convulsions, Disequilibrium, Dizziness, Numbness, Focal Weakness, Frequent Falls , Headaches, Lack of Coordination, Loss of Vision, Memory Loss, Paresthesias, Radicular Pain, Restless Legs, Sensory Deficit, Syncope, Tingling, Tremor, Vertigo, Weakness, Other Visual Disturbances, Other Past Patient History - Past Medical History & Family History Past Medical History?: Yes Past Family History: Reviewed and not pertinent - Past Social History Smoking Status: Former Smoker Chewing Tobacco Use: No Cigar Use: No Alcohol: None Drugs: Denies Home Situation {Lives}: With Family - CARDIAC Hx Hypercholesterolemia: Yes Hx Hypertension: Yes - PULMONARY Hx Chronic Obstructive Pulmonary Disease (COPD): Yes - NEUROLOGICAL HX Cerebrovascular Accident: Yes (1991 mini stroke) - HEENT Hx HEENT Problems: Yes Hx Cataracts: Yes Hx Glaucoma: Yes - RENAL Hx Chronic Kidney Disease: Yes - ENDOCRINE/METABOLIC Hx Endocrine Disorders: No - HEMATOLOGICAL/ONCOLOGICAL Hx Anemia: Yes - INTEGUMENTARY Hx Dermatological Problems: No - MUSCULOSKELETAL/RHEUMATOLOGICAL Hx Arthritis: Yes (knee pain) - GASTROINTESTINAL Hx Gastrointestinal Disorders: Yes Hx Bowel Surgery: Yes - GENITOURINARY/GYNECOLOGICAL Hx Genitourinary Disorders: No - PSYCHIATRIC Hx Substance Use: No - SURGICAL HISTORY Hx Arteriovenous Shunt: Yes (AV FISTULA ATTEMPT X2) - ANESTHESIA Hx Anesthesia: Yes Hx Anesthesia Reactions: No Hx Malignant Hyperthermia: No Meds Allergies/Adverse Reactions: Allergies Allergy/AdvReac Type Severity Reaction Status Date / Time No Known Allergies Allergy Verified 06/16/17 10:25 - Medications Medications: Current Medications Acetaminophen (Tylenol 325mg Tab) 325 mg PO Q4 PRN PRN Reason: Pain, moderate (4-7) Acetazolamide (Diamox 250 Mg Tab) 250 mg PO BID KAMINI Aspirin (Aspirin Chewable) 81 mg PO DAILY KAMINI Brimonidine Tartrate (Alphagan 0.2% Opht) 0 ml OU TID KAMINI Cinacalcet (Sensipar) 30 mg PO DAILY KAMINI Famotidine (Pepcid) 20 mg PO DAILY KAMINI Heparin Sodium (Porcine) (Heparin) 5,000 units SC Q8 KAMINI Rosuvastatin Calcium (Crestor) 10 mg PO HS KAMINI Sevelamer Carbonate (Renvela) 800 mg PO TIDCC KAMINI Timolol Maleate (Timoptic 0.5% Ophth Soln) 0 drop OU BID KAMINI Zolpidem Tartrate (Ambien) 5 mg PO HS KAMINI Physical Exam - Constitutional Appears: In Acute Distress, Chronically Ill - Head Exam Head Exam: ATRAUMATIC, NORMAL INSPECTION - Eye Exam Eye Exam: EOMI, Normal appearance - Neck Exam Neck exam: Positive for: Normal Inspection. Negative for: Tenderness - Respiratory Exam Respiratory Exam: Rales, Respiratory Distress - Cardiovascular Exam Cardiovascular Exam: REGULAR RHYTHM, +S1 - GI/Abdominal Exam GI & Abdominal Exam: Soft. absent: Tenderness - Extremities Exam Extremities exam: Positive for: normal inspection. Negative for: tenderness - Neurological Exam Neurological exam: Alert, CN II-XII Intact - Skin Skin Exam: Dry, Warm Results - Vital Signs Recent Vital Signs: Last Vital Signs Temp 97.5 F L 06/16/17 10:24 Pulse 116 H 06/16/17 10:24 Resp 21 06/16/17 10:46 BP 195/88 H 06/16/17 10:24 Pulse Ox 100 06/16/17 12:34 - Labs Result Diagrams: 06/16/17 10:50 06/16/17 10:50 Labs: Laboratory Results - last 24 hr 06/16/17 06/16/17 06/16/17 10:50 10:50 11:52 WBC 16.3 H RBC 3.83 Hgb 10.6 L Hct 34.3 MCV 89.4 D MCH 27.6 MCHC 30.9 L RDW 16.2 H Plt Count 152 D MPV 10.3 Neut % (Auto) 88.5 H Lymph % (Auto) 3.4 L [place] % (Auto) 6.1 Eos % (Auto) 1.1 Baso % (Auto) 0.9 Neut # (Auto) 14.4 H Lymph # (Auto) 0.6 L [place] # (Auto) 1.0 H Eos # (Auto) 0.2 Baso # (Auto) 0.2 Neutrophils % (Manual) 89 H Lymphocytes % (Manual) 4 L Monocytes % (Manual) 5 Eosinophils % (Manual) 2 Platelet Estimate Normal Hypochromasia (manual) Slight Anisocytosis (manual) Slight PT 11.4 INR 1.0 APTT 29 Puncture Site pCO2 pO2 HCO3 ABG pH ABG Total CO2 ABG O2 Saturation ABG Base Excess Judson Test ABG Potassium A-a O2 Difference Respiratory Index Glucose Lactate Liter Flow FiO2 Sodium 142 Potassium 3.2 L Chloride 100 Carbon Dioxide 21 L Anion Gap 23 H BUN 20 H Creatinine 6.3 H Est GFR ( Amer) 8 Est GFR (Non-Af Amer) 7 Random Glucose 204 H Calcium 9.1 Total Bilirubin 0.4 AST 33 ALT 12 Alkaline Phosphatase 133 H D Troponin I NT-Pro-B Natriuret Pep Total Protein 7.8 Albumin 4.1 Globulin 3.7 Albumin/Globulin Ratio 1.1 Arterial Blood Potassium 06/16/17 06/16/17 11:52 11:54 WBC RBC Hgb Hct MCV MCH MCHC RDW Plt Count MPV Neut % (Auto) Lymph % (Auto) [place] % (Auto) Eos % (Auto) Baso % (Auto) Neut # (Auto) Lymph # (Auto) [place] # (Auto) Eos # (Auto) Baso # (Auto) Neutrophils % (Manual) Lymphocytes % (Manual) Monocytes % (Manual) Eosinophils % (Manual) Platelet Estimate Hypochromasia (manual) Anisocytosis (manual) PT INR APTT Puncture Site Rb pCO2 52 H pO2 83 HCO3 26.0 ABG pH 7.34 L ABG Total CO2 29.7 H ABG O2 Saturation 98.1 H ABG Base Excess 1.4 Judson Test Na ABG Potassium 2.8 L A-a O2 Difference 52.0 Respiratory Index 0.6 Glucose 160 H Lactate 0.7 Liter Flow 2.0 FiO2 28.0 Sodium 142.0 Potassium Chloride 103.0 Carbon Dioxide Anion Gap BUN Creatinine Est GFR ( Amer) Est GFR (Non-Af Amer) Random Glucose Calcium Total Bilirubin AST ALT Alkaline Phosphatase Troponin I 0.1080 NT-Pro-B Natriuret Pep 15752 H Total Protein Albumin Globulin Albumin/Globulin Ratio Arterial Blood Potassium 2.8 L Assessment & Plan (1) Type 2 diabetes mellitus with diabetic nephropathy Status: Acute (2) CHF (congestive heart failure) Status: Acute (3) ESRD (end stage renal disease) Status: Acute - Assessment and Plan (Free Text) Plan: Repeat dialysis today and MWF Adequate UF
[2017-06-16] MEDS: Brimonidine 0.2% Opth Sol (5ml) OU SCH (18:41)
[2017-06-16] MEDS: TRIMETHOPRIM OS SCH (19:00)
[2017-06-16] MEDS: DIFLUPREDNATE 0.05% OS SCH ×2 (19:00→21:01)
[2017-06-16] MEDS: POLYMYXIN B SULF OS SCH (19:00)
[2017-06-16] MEDS ORDERED: Acetaminophen-Codeine 300/30 mg Tab PO PRN (22:20)
--- NOTE | 2017-06-16 22:59 | CP.PCM.HP ---
History of Present Illness - History of Present Illness History of Present Illness: Chief Complaint : Shortness Of Breath, dizziness HPI: 67-YEAR-OLD FEMALE,h/o pericardial effusion in past, recurrent dizziness and near syncopal episoded,CKD of unknown etiologyon Hd, Chronic udiopathic Hypotension PRESENTS TO THE EMERGENCY DEPARTMENT WITH COMPLAINTS OF POSS RECUR ANXIETY. PT WITH SOB TODAY, SHE IS NORMALLY RECEIVING DIALYSIS MWF, MISSED DIALYSIS LAST FRI DUE TO BAD WEATHER, HAD ON , WAS NOT ABLE TO GET ON FRI OR SAT BECAUSE SHE "WASN'T FEELING WELL." PT WAS FEELING WELL ALL WEEKEND. TODAY WENT FOR ROUTINE DIALYSIS, DEVELOPED SOB DURING PROCEDURE AND WAS NOT COMPLETED, PT REFUSED EMS AT THE CENTER. FAMILY BROUGHT PT TO MY OFFICE I REFFERED TO ED FOR EVALUATION. FAMILY STATES APPEARS SIMILAR TO PRIOR ANXIETY ATTACKS. HER LAST EPISODE WAS IN APR; SHE IS NOT ON MEDS CURRENTLY. PT ALSO COMPLAINING OF TIGHTNESS IN EPIGASTRIC AREA. DENIES NAUSEA/VOMITING, FEVER. DENIES DYSURIA OR LUNG DISEASE. EXAM MOD DIST SPEAKING 5-6 WORD SEN. TACHYPNEIC, WHEEZE, TIGHTNESS NO EDEMA. Present on Admission - Present on Admission Any Indicators Present on Admission: Yes Review of Systems - Review of Systems Systems not reviewed;Unavailable: Acuity of Condition - Constitutional Constitutional: Fatigue, Fever, Lethargy - EENT Eyes: absent: As Per HPI, Blind Spots, Blurred Vision, Change in Vision, Decreased Night Vision, Diplopia, Discharge, Dry Eye, Exophthalmos, Floaters, Irritation, Itchy Eyes, Loss of Peripheral Vision, Pain, Photophobia, Requires Corrective Lenses, Sees Flashes, Spots in Vision, Tunnel Vision, Other Visual Disturbances, Loss of Vision, Other Ears: absent: As Per HPI, Decreased Hearing, Ear Discharge, Ear Pain, Tinnitus, Abnormal Hearing, Disequilibrium, Dizziness, Other Nose/Mouth/Throat: absent: As Per HPI, Epistaxis, Nasal Congestion, Nasal Discharge, Nasal Obstruction, Nasal Trauma, Nose Pain, Post Nasal Drip, Sinus Pain, Sinus Pressure, Bleeding Gums, Change in Voice, Dental Pain, Dry Mouth, Dysphagia, Halitosis, Hoarsness, Lip Swelling, Mouth Lesions, Mouth Pain, Odynophagia, Sore Throat, Throat Swelling, Tongue Swelling, Facial Pain, Neck Pain, Neck Mass, Other - Cardiovascular Cardiovascular: Dyspnea, Lightheadedness, Palpitations, Pedal Edema - Respiratory Respiratory: absent: As Per HPI, Cough, Dyspnea, Hemoptysis, Dyspnea on Exertion , Wheezing, Snoring, Stridor, Pain on Inspiration, Chest Congestion, Excessive Mucous Production, Change in Mucous Color, Pain with Coughing, Other - Gastrointestinal Gastrointestinal: absent: As Per HPI, Abdominal Pain, Belching, Bloating, Change in Bowel Habits, Change in Stool Character, Coffee Ground Emesis, Constipation, Cramping, Diarrhea, Dyspepsia, Dysphagia, Early Satiety, Excessive Flatus, Fecal Incontinence, Heartburn, Hematemesis, Hematochezia, Loose Stools, Melena, Nausea, Odynophagia, Temesmus, Vomiting, Other - Genitourinary Genitourinary: absent: As Per HPI, Change in Urinary Stream, Difficulty Urinating, Dysuria, Flank Pain, Hematuria, Pyuria, Nocturia, Urinary Incontinence, Urinary Frequency, Urinary Hesitance, Urinary Urgency, Voiding Freq/Small Amts, Freq UTI, Hx Renal/Bladder Calculi, Hx /Renal Surgery, Bladder Distension, Other - Musculoskeletal Musculoskeletal: Myalgias - Neurological Neurological: absent: As Per HPI, Abnormal Gait, Abnormal Hearing, Abnormal Movements, Abnormal Speech, Behavioral Changes, Burning Sensations, Confusion, Convulsions, Disequilibrium, Dizziness, Numbness, Focal Weakness, Frequent Falls , Headaches, Lack of Coordination, Loss of Vision, Memory Loss, Paresthesias, Radicular Pain, Restless Legs, Sensory Deficit, Syncope, Tingling, Tremor, Vertigo, Weakness, Other Visual Disturbances, Other - Psychiatric Psychiatric: absent: As Per HPI, Abnormal Sleep Pattern, Anhedonia, Anxiety, Auditory Hallucinations, Behavioral Changes, Change in Appetite, Change in Libido, Confusion, Depression, Difficulty Concentrating, Hallucinations, Homicidal Ideation, Hopelessness, Irritability, Memory Loss, Mood Swings, Panic Attacks, Paranoia, Suicidal Ideation, Visual Hallucinations, Tactile Hallucinations, Other Past Patient History - Past Medical History & Family History Past Medical History?: Yes Past Family History: Reviewed and not pertinent - Past Social History Smoking Status: Former Smoker Chewing Tobacco Use: No Cigar Use: No Alcohol: None Drugs: Denies Home Situation {Lives}: With Family - CARDIAC Hx Hypercholesterolemia: Yes Hx Hypertension: Yes - PULMONARY Hx Chronic Obstructive Pulmonary Disease (COPD): Yes - NEUROLOGICAL HX Cerebrovascular Accident: Yes (1991 mini stroke) - HEENT Hx HEENT Problems: Yes Hx Cataracts: Yes Hx Glaucoma: Yes - RENAL Hx Chronic Kidney Disease: Yes - ENDOCRINE/METABOLIC Hx Endocrine Disorders: No - HEMATOLOGICAL/ONCOLOGICAL Hx Anemia: Yes - INTEGUMENTARY Hx Dermatological Problems: No - MUSCULOSKELETAL/RHEUMATOLOGICAL Hx Arthritis: Yes (knee pain) - GASTROINTESTINAL Hx Gastrointestinal Disorders: Yes Hx Bowel Surgery: Yes - GENITOURINARY/GYNECOLOGICAL Hx Genitourinary Disorders: No - PSYCHIATRIC Hx Substance Use: No - SURGICAL HISTORY Hx Arteriovenous Shunt: Yes (AV FISTULA ATTEMPT X2) - ANESTHESIA Hx Anesthesia: Yes Hx Anesthesia Reactions: No Hx Malignant Hyperthermia: No Meds Allergies/Adverse Reactions: Allergies Allergy/AdvReac Type Severity Reaction Status Date / Time No Known Allergies Allergy Verified 06/16/17 10:25 Physical Exam - Constitutional Appears: No Acute Distress - Head Exam Head Exam: ATRAUMATIC, NORMAL INSPECTION, NORMOCEPHALIC - Eye Exam Eye Exam: EOMI, Normal appearance, PERRL Pupil Exam: NORMAL ACCOMODATION, PERRL - ENT Exam ENT Exam: Mucous Membranes Moist, Normal Exam - Neck Exam Neck exam: Positive for: Normal Inspection - Respiratory Exam Respiratory Exam: Decreased Breath Sounds, Rales, Rhonchi - Cardiovascular Exam Cardiovascular Exam: REGULAR RHYTHM - GI/Abdominal Exam GI & Abdominal Exam: Normal Bowel Sounds, Soft. absent: Tenderness - Rectal Exam Rectal Exam: Deferred - Neurological Exam Neurological exam: Alert, CN II-XII Intact, Normal Gait, Oriented x3, Reflexes Normal Additional comments: poor visual acuity plantars dowm going Results - Vital Signs Recent Vital Signs: Last Vital Signs Temp 98.3 F 06/16/17 18:00 Pulse 96 H 06/16/17 18:30 Resp 20 06/16/17 18:00 BP 160/80 H 06/16/17 18:00 Pulse Ox 98 06/16/17 22:30 - Labs Result Diagrams: 06/16/17 10:50 06/16/17 10:50 Labs: Laboratory Results - last 24 hr 06/16/17 06/16/17 06/16/17 10:50 10:50 11:52 WBC 16.3 H RBC 3.83 Hgb 10.6 L Hct 34.3 MCV 89.4 D MCH 27.6 MCHC 30.9 L RDW 16.2 H Plt Count 152 D MPV 10.3 Neut % (Auto) 88.5 H Lymph % (Auto) 3.4 L [place] % (Auto) 6.1 Eos % (Auto) 1.1 Baso % (Auto) 0.9 Neut # (Auto) 14.4 H Lymph # (Auto) 0.6 L [place] # (Auto) 1.0 H Eos # (Auto) 0.2 Baso # (Auto) 0.2 Neutrophils % (Manual) 89 H Lymphocytes % (Manual) 4 L Monocytes % (Manual) 5 Eosinophils % (Manual) 2 Platelet Estimate Normal Hypochromasia (manual) Slight Anisocytosis (manual) Slight PT 11.4 INR 1.0 APTT 29 Puncture Site pCO2 pO2 HCO3 ABG pH ABG Total CO2 ABG O2 Saturation ABG Base Excess Judson Test ABG Potassium A-a O2 Difference Respiratory Index Glucose Lactate Liter Flow FiO2 Sodium 142 Potassium 3.2 L Chloride 100 Carbon Dioxide 21 L Anion Gap 23 H BUN 20 H Creatinine 6.3 H Est GFR ( Amer) 8 Est GFR (Non-Af Amer) 7 Random Glucose 204 H Calcium 9.1 Total Bilirubin 0.4 AST 33 ALT 12 Alkaline Phosphatase 133 H D Troponin I NT-Pro-B Natriuret Pep Total Protein 7.8 Albumin 4.1 Globulin 3.7 Albumin/Globulin Ratio 1.1 Arterial Blood Potassium 06/16/17 06/16/17 11:52 11:54 WBC RBC Hgb Hct MCV MCH MCHC RDW Plt Count MPV Neut % (Auto) Lymph % (Auto) [place] % (Auto) Eos % (Auto) Baso % (Auto) Neut # (Auto) Lymph # (Auto) [place] # (Auto) Eos # (Auto) Baso # (Auto) Neutrophils % (Manual) Lymphocytes % (Manual) Monocytes % (Manual) Eosinophils % (Manual) Platelet Estimate Hypochromasia (manual) Anisocytosis (manual) PT INR APTT Puncture Site Rb pCO2 52 H pO2 83 HCO3 26.0 ABG pH 7.34 L ABG Total CO2 29.7 H ABG O2 Saturation 98.1 H ABG Base Excess 1.4 Judson Test Na ABG Potassium 2.8 L A-a O2 Difference 52.0 Respiratory Index 0.6 Glucose 160 H Lactate 0.7 Liter Flow 2.0 FiO2 28.0 Sodium 142.0 Potassium Chloride 103.0 Carbon Dioxide Anion Gap BUN Creatinine Est GFR ( Amer) Est GFR (Non-Af Amer) Random Glucose Calcium Total Bilirubin AST ALT Alkaline Phosphatase Troponin I 0.1080 NT-Pro-B Natriuret Pep 35260 H Total Protein Albumin Globulin Albumin/Globulin Ratio Arterial Blood Potassium 2.8 L Assessment & Plan (1) ESRD needing dialysis Status: Chronic Priority: Medium (2) CHF (congestive heart failure) Status: Acute (3) Dyspnea Status: Acute (4) HTN (hypertension) Status: Acute (5) Respiratory distress Status: Acute Priority: Medium (6) Syncopal episodes Status: Acute
[2017-06-17] MEDS: DIFLUPREDNATE 0.05% OS SCH ×13 (00:16→23:56)
[2017-06-17] MEDS: TRIMETHOPRIM OS SCH ×5 (00:19→23:57)
[2017-06-17] MEDS: POLYMYXIN B SULF OS SCH ×5 (00:19→23:57)
[2017-06-17 07:23] LABS: BASO # 0.1 K/uL (0.0-0.2); BASO % 0.8 % (0.0-2.0); EOS # 0.3 K/uL (0.0-0.7); EOS % 4.2 % (0.0-4.0); HEMOGLOBIN 9.9 g/dL (11.0-16.0); LYMPH # 1.1 K/uL (1.0-4.3); LYMPH % 13.5 % (20.0-40.0); MEAN CELL VOLUME 88.9 fL (81.0-99.0); MEAN CORPUSCULAR HEMOGLOBIN 28.4 pg (27.0-31.0); MEAN CORPUSCULAR HGB CONC 31.9 g/dL (33.0-37.0); MONO # 0.8 K/uL (0.0-0.8); NEUT % 71.5 % (50.0-75.0); RBC 3.49 Mil/uL (3.80-5.20); RED CELL DISTRIBUTION WIDTH 16.2 % (11.5-14.5); WHITE BLOOD COUNT 8.4 K/uL (4.8-10.8)
[2017-06-17 07:46] LABS: CALCIUM 9.6 mg/dl (8.6-10.4)
[2017-06-17] MEDS ORDERED: Potassium Chloride 20 mEq ER Tab PO SCH (09:00)
[2017-06-17] MEDS ORDERED: Potassium Chloride 20 mEq ER Tab PO ONE (10:00)
[2017-06-17] MEDS: Brimonidine 0.2% Opth Sol (5ml) OU SCH ×3 (10:05→17:19)
[2017-06-17] MEDS: Latanoprost 2.5 ml Opht Soln OD SCH (10:10)
--- NOTE | 2017-06-17 13:09 | CP.PCM.PN ---
Subjective - Date & Time of Evaluation Date of Evaluation: 06/17/17 Time of Evaluation: 13:06 - Subjective Subjective: seen and examined improved breathing no fevers/chills/cp/dizziness/palpitations/nausea/vomiting/diarrhea hd yesteday Objective - Vital Signs/Intake and Output Vital Signs (last 24 hours): Temp Pulse Resp BP Pulse Ox 98 F 94 H 20 137/74 100 06/17/17 07:00 06/17/17 09:29 06/17/17 07:00 06/17/17 07:00 06/17/17 09:29 - Medications Medications: Current Medications Acetaminophen (Tylenol 325mg Tab) 325 mg PO Q4 PRN PRN Reason: Pain, moderate (4-7) Acetaminophen/Codeine Phosphate (Tylenol/Codeine 300 Mg/30 Mg) 1 ea PO Q6 PRN PRN Reason: Pain, severe (8-10) Last Admin: 06/17/17 08:26 Dose: 1 ea Acetazolamide (Diamox 250 Mg Tab) 250 mg PO BID [facility] Last Admin: 06/17/17 10:15 Dose: 250 mg Aspirin (Aspirin Chewable) 81 mg PO DAILY [facility] Last Admin: 06/17/17 09:59 Dose: 81 mg Brimonidine Tartrate (Alphagan 0.2% Opht) 0 ml OU TID [facility] Last Admin: 06/17/17 10:05 Dose: 1 drop Cinacalcet (Sensipar) 30 mg PO DAILY [facility] Last Admin: 06/17/17 10:00 Dose: 30 mg Famotidine (Pepcid) 20 mg PO DAILY [facility] Last Admin: 06/17/17 10:00 Dose: 20 mg Heparin Sodium (Porcine) (Heparin) 5,000 units SC Q8 [facility] Last Admin: 06/17/17 05:48 Dose: 5,000 units Home Med (Patient's Own Drops) 1 drop OS Q2 [facility] Last Admin: 06/17/17 12:35 Dose: 1 drop Home Med (Patient's Own Drops) 1 drop OS Q6 [facility] Last Admin: 06/17/17 05:41 Dose: 1 drop Latanoprost (Xalatan Opht) 0 ml OD DAILY [facility] Last Admin: 06/17/17 10:10 Dose: 2.5 ml Rosuvastatin Calcium (Crestor) 10 mg PO HS [facility] Last Admin: 06/16/17 21:00 Dose: 10 mg Sevelamer Carbonate (Renvela) 800 mg PO TIDCC [facility] Last Admin: 06/17/17 12:34 Dose: 800 mg Timolol Maleate (Timoptic 0.5% Ophth Soln) 0 drop OU BID [facility] Last Admin: 06/17/17 10:02 Dose: 1 drop Zolpidem Tartrate (Ambien) 5 mg PO HS [facility] Last Admin: 06/16/17 21:01 Dose: 5 mg - Labs Labs: 06/17/17 07:09 06/17/17 07:09 PT 11.4 SECONDS (9.7-12.2) 06/16/17 11:52 INR 1.0 06/16/17 11:52 APTT 29 SECONDS (21-34) 06/16/17 11:52 - Constitutional Appears: Non-toxic, No Acute Distress, Chronically Ill - Head Exam Head Exam: NORMAL INSPECTION - Eye Exam Eye Exam: Normal appearance, PERRL - ENT Exam ENT Exam: Mucous Membranes Moist, Normal Exam - Neck Exam Neck Exam: Full ROM, Normal Inspection - Respiratory Exam Respiratory Exam: Clear to Ausculation Bilateral, NORMAL BREATHING PATTERN - Cardiovascular Exam Cardiovascular Exam: Irregular Rhythm, RRR - GI/Abdominal Exam GI & Abdominal Exam: Distended, Soft, Normal Bowel Sounds - Extremities Exam Extremities Exam: Full ROM, Normal Inspection - Neurological Exam Neurological Exam: Alert, Awake, Oriented x3 - Psychiatric Exam Psychiatric exam: Normal Affect, Normal Mood - Skin Skin Exam: Dry, Warm Assessment and Plan (1) Type 2 diabetes mellitus with diabetic nephropathy Status: Acute (2) ESRD needing dialysis Status: Chronic (3) Anemia Status: Acute (4) CHF (congestive heart failure) Status: Acute - Assessment and Plan (Free Text) Assessment: plan for echo noted bp stable hd tomorrow hgb at goal fluid rstriction advised
--- NOTE | 2017-06-17 17:35 | CP.PCM.PN ---
Subjective - Date & Time of Evaluation Date of Evaluation: 06/17/17 Time of Evaluation: 12:40 - Subjective Subjective: Patient seen today states sob little better than yesterday , but still c/o sob upon exertion s/p extra HD BNP- 76337 Objective - Vital Signs/Intake and Output Vital Signs (last 24 hours): Temp Pulse Resp BP Pulse Ox 98.5 F 91 H 20 128/74 100 06/17/17 16:10 06/17/17 16:10 06/17/17 16:10 06/17/17 16:10 06/17/17 16:10 Intake and Output: 06/17/17 06/17/17 06:59 18:59 Intake Total 480 Balance 480 - Medications Medications: Current Medications Acetaminophen (Tylenol 325mg Tab) 325 mg PO Q4 PRN PRN Reason: Pain, moderate (4-7) Acetaminophen/Codeine Phosphate (Tylenol/Codeine 300 Mg/30 Mg) 1 ea PO Q6 PRN PRN Reason: Pain, severe (8-10) Last Admin: 06/17/17 08:26 Dose: 1 ea Acetazolamide (Diamox 250 Mg Tab) 250 mg PO BID [facility] Last Admin: 06/17/17 17:17 Dose: 250 mg Aspirin (Aspirin Chewable) 81 mg PO DAILY [facility] Last Admin: 06/17/17 09:59 Dose: 81 mg Brimonidine Tartrate (Alphagan 0.2% Opht) 0 ml OU TID [facility] Last Admin: 06/17/17 17:19 Dose: 1 drop Cinacalcet (Sensipar) 30 mg PO DAILY [facility] Last Admin: 06/17/17 10:00 Dose: 30 mg Famotidine (Pepcid) 20 mg PO DAILY [facility] Last Admin: 06/17/17 10:00 Dose: 20 mg Heparin Sodium (Porcine) (Heparin) 5,000 units SC Q8 [facility] Last Admin: 06/17/17 14:12 Dose: 5,000 units Home Med (Patient's Own Drops) 1 drop OS Q2 [facility] Last Admin: 06/17/17 17:21 Dose: 1 drop Home Med (Patient's Own Drops) 1 drop OS Q6 [facility] Last Admin: 06/17/17 17:21 Dose: 1 drop Latanoprost (Xalatan Opht) 0 ml OD DAILY [facility] Last Admin: 06/17/17 10:10 Dose: 2.5 ml Rosuvastatin Calcium (Crestor) 10 mg PO [facility] Last Admin: 06/16/17 21:00 Dose: 10 mg Sevelamer Carbonate (Renvela) 800 mg PO TIDCC [facility] Last Admin: 06/17/17 17:17 Dose: 800 mg Timolol Maleate (Timoptic 0.5% Ophth Soln) 0 drop OU BID [facility] Last Admin: 06/17/17 17:22 Dose: 1 drop Zolpidem Tartrate (Ambien) 5 mg PO [facility] Last Admin: 06/16/17 21:01 Dose: 5 mg - Labs Labs: 06/17/17 07:09 06/17/17 07:09 PT 11.4 SECONDS (9.7-12.2) 06/16/17 11:52 INR 1.0 06/16/17 11:52 APTT 29 SECONDS (21-34) 06/16/17 11:52 Assessment and Plan - Assessment and Plan (Free Text) Assessment: a/p 67 YR OLD FEMALE WITH ESRD ON HD ADMITTED FOR CHF/ FLUID OVERLOAD S/P EXTRA HD PT STILL HAVING SOB ON EXERTION , PATIENT NEEDS ADMISSION FOR FURTHER MANAGEMENT WILL REPEAT ECHO- HX OF PERICARDIAL EFFUSION CARDIOLOGY CONSULT WITH DR. WAITE HD SCHEDULED FOR AM iF PATIENT STABLE STABLE PLAN FOR D/C AFTER HD
--- NOTE | 2017-06-17 23:57 | CP.PCM.PN ---
Subjective - Date & Time of Evaluation Date of Evaluation: 06/17/17 Time of Evaluation: 18:00 - Subjective Subjective: Patient seen today states sob little better than yesterday ,she is not c/o any dizziness, but still c/o sob upon exertion s/p extra HD BNP- 18244 Objective - Vital Signs/Intake and Output Vital Signs (last 24 hours): Temp Pulse Resp BP Pulse Ox 98.5 F 91 H 20 128/74 100 06/17/17 16:10 06/17/17 16:10 06/17/17 18:35 06/17/17 16:10 06/17/17 16:10 Intake and Output: 06/17/17 06/18/17 18:59 06:59 Intake Total 480 320 Balance 480 320 - Medications Medications: Current Medications Acetaminophen (Tylenol 325mg Tab) 325 mg PO Q4 PRN PRN Reason: Pain, moderate (4-7) Acetaminophen/Codeine Phosphate (Tylenol/Codeine 300 Mg/30 Mg) 1 ea PO Q6 PRN PRN Reason: Pain, severe (8-10) Last Admin: 06/17/17 08:26 Dose: 1 ea Acetazolamide (Diamox 250 Mg Tab) 250 mg PO BID [facility] Last Admin: 06/17/17 17:17 Dose: 250 mg Aspirin (Aspirin Chewable) 81 mg PO DAILY [facility] Last Admin: 06/17/17 09:59 Dose: 81 mg Brimonidine Tartrate (Alphagan 0.2% Opht) 0 ml OU TID [facility] Last Admin: 06/17/17 17:19 Dose: 1 drop Cinacalcet (Sensipar) 30 mg PO DAILY [facility] Last Admin: 06/17/17 10:00 Dose: 30 mg Famotidine (Pepcid) 20 mg PO DAILY [facility] Last Admin: 06/17/17 10:00 Dose: 20 mg Heparin Sodium (Porcine) (Heparin) 5,000 units SC Q8 [facility] Last Admin: 06/17/17 21:32 Dose: 5,000 units Home Med (Patient's Own Drops) 1 drop OS Q2 [facility] Last Admin: 06/17/17 21:33 Dose: 1 drop Home Med (Patient's Own Drops) 1 drop OS Q6 [facility] Last Admin: 06/17/17 17:21 Dose: 1 drop Latanoprost (Xalatan Opht) 0 ml OD DAILY [facility] Last Admin: 06/17/17 10:10 Dose: 2.5 ml Rosuvastatin Calcium (Crestor) 10 mg PO HS [facility] Last Admin: 06/17/17 21:32 Dose: 10 mg Sevelamer Carbonate (Renvela) 800 mg PO TIDCC [facility] Last Admin: 06/17/17 17:17 Dose: 800 mg Timolol Maleate (Timoptic 0.5% Ophth Soln) 0 drop OU BID [facility] Last Admin: 06/17/17 17:22 Dose: 1 drop Zolpidem Tartrate (Ambien) 5 mg PO HS [facility] Last Admin: 06/17/17 21:32 Dose: 5 mg - Labs Labs: 06/17/17 07:09 06/17/17 07:09 PT 11.4 SECONDS (9.7-12.2) 06/16/17 11:52 INR 1.0 06/16/17 11:52 APTT 29 SECONDS (21-34) 06/16/17 11:52 Assessment and Plan (1) ESRD needing dialysis Status: Chronic (2) CHF (congestive heart failure) Status: Acute (3) Dyspnea Status: Acute (4) HTN (hypertension) Status: Acute (5) Respiratory distress Status: Acute (6) Syncopal episodes Status: Acute
--- NOTE | 2017-06-18 01:54 | CON ---
DATE: CARDIOLOGY CONSULTATION REASON FOR CONSULTATION: Abnormal EKG for evidence of sinus tachycardia as well as aortic outflow tract obstruction by history and history of pericardial effusion. HISTORY: The patient is 67 years old -[place] female, has history of end stage renal disease, on hemodialysis for about 5 to 6 years. According to the patient herself, the patient has missed few dialysis last week and this week, attributed to not feeling well. The patient was experiencing an anxiety. She denies any retrosternal chest pain. The patient was noted to be in sinus tachycardia. SOCIAL HISTORY: Nonsmoker, nondrinker. MEDICATIONS: Ambien 5 mg nightly, aspirin 81 mg once a day, Crestor 10 mg once a day, Diamox 250 mg once a day, heparin 5000 units subcutaneous q.8 hours, Pepcid 20 mg p.o. once a day, Renvela 800 mg t.i.d., Timoptic eye drops, Tylenol with Codeine one tablet q.6 hours p.r.n. REVIEW OF SYSTEMS: No fever or chills, no nausea or vomiting. The patient denies any suicidal ideation. PHYSICAL EXAMINATION: GENERAL: The patient is an elderly female who does not appear to be in any acute distress. VITAL SIGNS: Yesterday, blood pressure 195/88 with heart rate of 116. Today's blood pressure is 137/74, with a heart rate of 94, temperature 98, respirations 20. HEENT: Pale conjunctivae. CHEST: Clear. HEART: S1 and S2 regular. ABDOMEN: Soft. EXTREMITIES: No edema or calf tenderness. LABORATORIES: PT, INR, and PTT are within normal limits. Today, SMA-7, sodium 141, potassium 3.1, chloride 98, CO2 of 29, glucose 126, BUN 26, creatinine 7.1. Pro BNP is 26,000. Hemoglobin and hematocrit 9.9 and 31.0. White count and platelet count are within normal limits. Chest x-ray revealed mild cardiomegaly with prominent central vasculature. EKG revealed sinus tachycardia at the age of 89, biatrial enlargement. Echocardiograph study done 04/18 as an outpatient revealed moderate concentric LVH with normal systolic function and normal segmental motion, grade 1 abnormal relaxation pattern, moderate aortic outflow stenosis, moderate pulmonary hypertension with 3 circumferential pericardial effusion which significantly improved compared to an earlier study. ASSESSMENT: 1. Moderate subaortic stenosis and history of hypotension during hemodialysis in the past. 2. Sinus tachycardia, could be response to volume overload on admission or the patient's current anxiety. 3. Mild anemia. 4. Systemic hypertension. 5. End-stage renal disease, on hemodialysis. 6. History of pericardial effusion. RECOMMENDATIONS: Continue aspirin 81 mg once a day, Crestor 10 mg once a day, Diamox 250 mg once a day, subcutaneous heparin 5000 units twice a day. Case was discussed with Rupal LAW, and the patient will undergo a followup echocardiographic study to rule out any significant pericardial effusion. Drake Estrada MD
[2017-06-18] MEDS: DIFLUPREDNATE 0.05% OS SCH ×8 (02:00→17:00)
[2017-06-18] MEDS: TRIMETHOPRIM OS SCH ×2 (05:24→13:51)
[2017-06-18] MEDS: POLYMYXIN B SULF OS SCH ×2 (05:24→13:51)
[2017-06-18] MEDS: Brimonidine 0.2% Opth Sol (5ml) OU SCH ×2 (11:10→13:49)
[2017-06-18] MEDS: Latanoprost 2.5 ml Opht Soln OD SCH (11:12)
--- NOTE | 2017-06-18 12:34 | CARD ---
APPROVED REPORT EKG Measurement Heart [id number] [place] [id number] <Conclusion> Sinus tachycardia Biatrial enlargement Abnormal ECG
--- NOTE | 2017-06-18 12:56 | CP.PCM.PN ---
Subjective - Date & Time of Evaluation Date of Evaluation: 06/18/17 Time of Evaluation: 12:53 - Subjective Subjective: Seen at dialysis now- to UF 2000ml less dyspneic very anxious- xanax given tolerating increased UF - will need lower EDW Objective - Vital Signs/Intake and Output Vital Signs (last 24 hours): Temp Pulse Resp BP Pulse Ox 97.9 F 89 17 153/79 H 100 06/18/17 09:07 06/18/17 09:07 06/18/17 09:07 06/18/17 10:37 06/18/17 09:07 Intake and Output: 06/18/17 06/18/17 06:59 18:59 Intake Total 320 Balance 320 - Medications Medications: Current Medications Acetaminophen (Tylenol 325mg Tab) 325 mg PO Q4 PRN PRN Reason: Pain, moderate (4-7) Acetaminophen/Codeine Phosphate (Tylenol/Codeine 300 Mg/30 Mg) 1 ea PO Q6 PRN PRN Reason: Pain, severe (8-10) Last Admin: 06/17/17 08:26 Dose: 1 ea Acetazolamide (Diamox 250 Mg Tab) 250 mg PO BID [facility] Last Admin: 06/18/17 11:10 Dose: Not Given Aspirin (Aspirin Chewable) 81 mg PO DAILY [facility] Last Admin: 06/18/17 11:10 Dose: Not Given Brimonidine Tartrate (Alphagan 0.2% Opht) 0 ml OU TID [facility] Last Admin: 06/18/17 11:10 Dose: Not Given Cinacalcet (Sensipar) 30 mg PO DAILY [facility] Last Admin: 06/18/17 11:11 Dose: Not Given Famotidine (Pepcid) 20 mg PO DAILY [facility] Last Admin: 06/18/17 11:11 Dose: Not Given Heparin Sodium (Porcine) (Heparin) 5,000 units SC Q8 [facility] Last Admin: 06/18/17 05:22 Dose: 5,000 units Home Med (Patient's Own Drops) 1 drop OS Q2 [facility] Last Admin: 06/18/17 11:11 Dose: Not Given Home Med (Patient's Own Drops) 1 drop OS Q6 [facility] Last Admin: 06/18/17 05:24 Dose: 1 drop Latanoprost (Xalatan Opht) 0 ml OD DAILY [facility] Last Admin: 06/18/17 11:12 Dose: Not Given Rosuvastatin Calcium (Crestor) 10 mg PO HS [facility] Last Admin: 06/17/17 21:32 Dose: 10 mg Sevelamer Carbonate (Renvela) 800 mg PO TIDCC [facility] Last Admin: 06/18/17 08:04 Dose: 800 mg Timolol Maleate (Timoptic 0.5% Ophth Soln) 0 drop OU BID [facility] Last Admin: 06/18/17 11:11 Dose: Not Given Zolpidem Tartrate (Ambien) 5 mg PO [facility] Last Admin: 06/17/17 21:32 Dose: 5 mg - Labs Labs: 06/17/17 07:09 06/17/17 07:09 PT 11.4 SECONDS (9.7-12.2) 06/16/17 11:52 INR 1.0 06/16/17 11:52 APTT 29 SECONDS (21-34) 06/16/17 11:52 - Constitutional Appears: No Acute Distress, Chronically Ill - Head Exam Head Exam: ATRAUMATIC, NORMAL INSPECTION - Eye Exam Eye Exam: EOMI, Normal appearance - Neck Exam Neck Exam: Normal Inspection. absent: Tenderness - Respiratory Exam Respiratory Exam: Clear to Ausculation Bilateral, NORMAL BREATHING PATTERN - Cardiovascular Exam Cardiovascular Exam: REGULAR RHYTHM, +S1 - GI/Abdominal Exam GI & Abdominal Exam: Soft. absent: Tenderness - Extremities Exam Extremities Exam: Normal Inspection. absent: Tenderness - Neurological Exam Neurological Exam: Alert, CN II-XII Intact - Skin Skin Exam: Dry, Warm Assessment and Plan (1) Type 2 diabetes mellitus with diabetic nephropathy Status: Acute (2) CHF (congestive heart failure) Status: Acute (3) ESRD (end stage renal disease) Status: Acute - Assessment and Plan (Free Text) Plan: stable dialysis needs lower EDW- through increased UF goal recommended better follow up with patient to achieve better HD results
--- NOTE | 2017-06-18 16:16 | CP.PCM.PN ---
Subjective - Date & Time of Evaluation Date of Evaluation: 06/18/17 Time of Evaluation: 13:45 - Subjective Subjective: Pateitn seen today SOB improved , denies any chest pain, sob , abdominal pain , N/VD episode of anxiety attack during HD and BP elevated Objective - Vital Signs/Intake and Output Vital Signs (last 24 hours): Temp Pulse Resp BP Pulse Ox 97.8 F 89 17 126/61 99 06/18/17 12:40 06/18/17 09:07 06/18/17 12:40 06/18/17 12:40 06/18/17 12:40 Intake and Output: 06/18/17 06/18/17 06:59 18:59 Intake Total 320 480 Balance 320 480 - Medications Medications: Current Medications Acetaminophen (Tylenol 325mg Tab) 325 mg PO Q4 PRN PRN Reason: Pain, moderate (4-7) Acetaminophen/Codeine Phosphate (Tylenol/Codeine 300 Mg/30 Mg) 1 ea PO Q6 PRN PRN Reason: Pain, severe (8-10) Last Admin: 06/17/17 08:26 Dose: 1 ea Acetazolamide (Diamox 250 Mg Tab) 250 mg PO BID [facility] Last Admin: 06/18/17 11:10 Dose: Not Given Aspirin (Aspirin Chewable) 81 mg PO DAILY [facility] Last Admin: 06/18/17 13:54 Dose: 81 mg Brimonidine Tartrate (Alphagan 0.2% Opht) 0 ml OU TID [facility] Last Admin: 06/18/17 13:49 Dose: 1 drop Cinacalcet (Sensipar) 30 mg PO DAILY [facility] Last Admin: 06/18/17 11:11 Dose: Not Given Famotidine (Pepcid) 20 mg PO DAILY [facility] Last Admin: 06/18/17 13:53 Dose: 20 mg Heparin Sodium (Porcine) (Heparin) 5,000 units SC Q8 [facility] Last Admin: 06/18/17 13:49 Dose: 5,000 units Home Med (Patient's Own Drops) 1 drop OS Q2 [facility] Last Admin: 06/18/17 13:48 Dose: 1 drop Home Med (Patient's Own Drops) 1 drop OS Q6 [facility] Last Admin: 06/18/17 13:51 Dose: 1 drop Latanoprost (Xalatan Opht) 0 ml OD DAILY [facility] Last Admin: 06/18/17 11:12 Dose: Not Given Metoprolol Tartrate (Lopressor) 25 mg PO BID [facility] Rosuvastatin Calcium (Crestor) 10 mg PO HS [facility] Last Admin: 06/17/17 21:32 Dose: 10 mg Sevelamer Carbonate (Renvela) 800 mg PO TIDCC [facility] Last Admin: 06/18/17 13:52 Dose: 800 mg Timolol Maleate (Timoptic 0.5% Ophth Soln) 0 drop OU BID [facility] Last Admin: 06/18/17 11:11 Dose: Not Given Zolpidem Tartrate (Ambien) 5 mg PO HS [facility] Last Admin: 06/17/17 21:32 Dose: 5 mg - Labs Labs: 06/17/17 07:09 06/17/17 07:09 PT 11.4 SECONDS (9.7-12.2) 06/16/17 11:52 INR 1.0 06/16/17 11:52 APTT 29 SECONDS (21-34) 06/16/17 11:52 - Constitutional Appears: Well, No Acute Distress - Cardiovascular Exam Cardiovascular Exam: Tachycardia, REGULAR RHYTHM, +S1, +S2 Assessment and Plan - Assessment and Plan (Free Text) Assessment: A/P
[2017-06-18 16:36] VITALS: PULSE 117
[2017-06-18 16:49] VITALS: BP 118/68; RESP 20; TEMP 98.2; O2SAT 100
--- NOTE | 2017-06-18 17:55 | PCM.HF ---
Heart Failure Core Measure - Heart Failure Ejection Fraction: 40 % or Greater FLORINA Inhibitor Prescribed: No Contraindication/Reason for not providing: esrd Beta-Juani Prescribed: Metoprolol Succinate Angiotensin II Receptor Juani Prescribed: No Contraindication/Reason for not providing: ESRD AnticoagulationTherapy for Atrial Fibrillation/Atrialflutter: No Contraindication/Reason for not providing: NO HX OF A FIB Aldosterone Antagonist Prescribed: No Contraindication/Reason for not providing: ESRD / RISK FO RHYPERKALEMIA Hydralazine Nitrate Prescribed: No Contraindication/Reason for not providing: EF>45 Implantable Cardioverter Defibrillator Therapy: No Contraindication/Reason for not providing: EF>45 Cardiac Resynchronization Therapy Prescribed: No Contraindication/Reason for not providing: EF>45 - Follow up Will be discharged to: Home Follow Up Date (must be within 7 days from discharge): 06/24/17 Follow Up Time: 09:00
--- NOTE | 2017-06-18 19:03 | PN ---
DATE: SUBJECTIVE: The patient underwent hemodialysis today. She denies any chest pain. PHYSICAL EXAMINATION VITAL SIGNS: Blood pressure 126/61, temperature 97.8, respirations 17, heart rate 89. HEENT: Pale conjunctivae. CHEST: Clear. HEART: S1 and S2 regular. EXTREMITIES: No edema. LABORATORY DATA: I did review the cardiac study while being done this afternoon and is consistent with moderate outflow tract obstruction. There is no significant pericardial effusion. ASSESSMENT: 1. Subaortic stenosis. 2. End-stage renal disease, on hemodialysis. 3. Anxiety disorder. 4. Anemia. 5. Hypokalemia. RECOMMENDATIONS: Aspirin 81 mg once a day, Crestor 10 mg once a day. Start Lopressor 25 mg oral twice a day. Drake Estrada MD
--- NOTE | 2017-06-18 23:11 | CP.PCM.DIS ---
Provider - Provider Date of Admission: 06/16/17 12:34 Attending physician: Gianluca Daly MD Diagnosis - Discharge Diagnosis (1) ESRD needing dialysis Status: Chronic Priority: Medium (2) CHF (congestive heart failure) Status: Acute (3) Dyspnea Status: Acute (4) HTN (hypertension) Status: Acute (5) Respiratory distress Status: Acute Priority: Medium (6) Syncopal episodes Status: Acute Hospital Course - Lab Results Lab Results: Most Recent Lab Values WBC 8.4 K/uL (4.8-10.8) 06/17/17 07:09 RBC 3.49 Mil/uL (3.80-5.20) L 06/17/17 07:09 Hgb 9.9 g/dL (11.0-16.0) L 06/17/17 07:09 Hct 31.0 % (34.0-47.0) L 06/17/17 07:09 MCV 88.9 fL (81.0-99.0) 06/17/17 07:09 MCH 28.4 pg (27.0-31.0) 06/17/17 07:09 MCHC 31.9 g/dL (33.0-37.0) L 06/17/17 07:09 RDW 16.2 % (11.5-14.5) H 06/17/17 07:09 Plt Count 142 K/uL (130-400) 06/17/17 07:09 MPV 11.0 fL (7.2-11.7) 06/17/17 07:09 Neut % (Auto) 71.5 % (50.0-75.0) 06/17/17 07:09 Lymph % (Auto) 13.5 % (20.0-40.0) L 06/17/17 07:09 [place] % (Auto) 10.0 % (0.0-10.0) 06/17/17 07:09 Eos % (Auto) 4.2 % (0.0-4.0) H 06/17/17 07:09 Baso % (Auto) 0.8 % (0.0-2.0) 06/17/17 07:09 Neut # (Auto) 6.0 K/uL (1.8-7.0) 06/17/17 07:09 Lymph # (Auto) 1.1 K/uL (1.0-4.3) 06/17/17 07:09 [place] # (Auto) 0.8 K/uL (0.0-0.8) 06/17/17 07:09 Eos # (Auto) 0.3 K/uL (0.0-0.7) 06/17/17 07:09 Baso # (Auto) 0.1 K/uL (0.0-0.2) 06/17/17 07:09 Neutrophils % (Manual) 89 % (50-75) H 06/16/17 10:50 Lymphocytes % (Manual) 4 % (20-40) L 06/16/17 10:50 Monocytes % (Manual) 5 % (0-10) 06/16/17 10:50 Eosinophils % (Manual) 2 % (0-4) 06/16/17 10:50 Platelet Estimate Normal (NORMAL) 06/16/17 10:50 Hypochromasia (manual) Slight 06/16/17 10:50 Anisocytosis (manual) Slight 06/16/17 10:50 PT 11.4 SECONDS (9.7-12.2) 06/16/17 11:52 INR 1.0 06/16/17 11:52 APTT 29 SECONDS (21-34) 06/16/17 11:52 Puncture Site Rb 06/16/17 11:54 pCO2 52 mm/Hg (35-45) H 06/16/17 11:54 pO2 83 mm/Hg (80-100) 06/16/17 11:54 HCO3 26.0 mmol/L (21-28) 06/16/17 11:54 ABG pH 7.34 (7.35-7.45) L 06/16/17 11:54 ABG Total CO2 29.7 mmol/L (22-28) H 06/16/17 11:54 ABG O2 Saturation 98.1 % (95-98) H 06/16/17 11:54 ABG Base Excess 1.4 mmol/L (-2.0-3.0) 06/16/17 11:54 Judson Test Na 06/16/17 11:54 ABG Potassium 2.8 mmol/L (3.6-5.2) L 06/16/17 11:54 A-a O2 Difference 52.0 mm/Hg 06/16/17 11:54 Respiratory Index 0.6 06/16/17 11:54 Sodium 142.0 mmol/l (132-148) 06/16/17 11:54 Chloride 103.0 mmol/L (98-107) 06/16/17 11:54 Glucose 160 mg/dl (65-105) H 06/16/17 11:54 Lactate 0.7 mmol/L (0.7-2.1) 06/16/17 11:54 Liter Flow 2.0 06/16/17 11:54 FiO2 28.0 % 06/16/17 11:54 Sodium 141 mmol/L (132-148) 06/17/17 07:09 Potassium 3.1 mmol/L (3.6-5.2) L 06/17/17 07:09 Chloride 98 mmol/L (98-107) 06/17/17 07:09 Carbon Dioxide 29 mmol/L (22-30) 06/17/17 07:09 Anion Gap 17 (10-20) 06/17/17 07:09 BUN 26 mg/dL (7-17) H 06/17/17 07:09 Creatinine 7.1 mg/dL (0.7-1.2) H 06/17/17 07:09 Est GFR ( Amer) 7 06/17/17 07:09 Est GFR (Non-Af Amer) 6 06/17/17 07:09 Random Glucose 126 mg/dL (65-105) H 06/17/17 07:09 Calcium 9.6 mg/dl (8.6-10.4) 06/17/17 07:09 Magnesium 1.7 mg/dL (1.6-2.3) 06/17/17 07:09 Total Bilirubin 0.4 mg/dL (0.2-1.3) 06/16/17 10:50 AST 33 U/L (14-36) 06/16/17 10:50 ALT 12 U/L (9-52) 06/16/17 10:50 Alkaline Phosphatase 133 U/L (38-126) H D 06/16/17 10:50 Troponin I 0.1080 ng/mL (0.00-0.120) 06/16/17 11:52 NT-Pro-B Natriuret Pep 02137 pg/mL (0-900) H 06/16/17 11:52 Total Protein 7.8 g/dL (6.3-8.3) 06/16/17 10:50 Albumin 4.1 g/dL (3.5-5.0) 06/16/17 10:50 Globulin 3.7 gm/dL (2.2-3.9) 06/16/17 10:50 Albumin/Globulin Ratio 1.1 (1.0-2.1) 06/16/17 10:50 Arterial Blood Potassium 2.8 mmol/L (3.6-5.2) L 06/16/17 11:54 - Hospital Course Hospital Course: Evelineeitn seen today SOB improved , denies any chest pain, sob , abdominal pain , N/VD episode of anxiety attack during HD and BP elevated Discharge Exam - Head Exam Head Exam: ATRAUMATIC, NORMAL INSPECTION Discharge Plan - Discharge Medications Prescriptions: ALPRAZolam [Xanax] 0.25 mg PO MWF #15 tab - Follow Up Plan Condition: STABLE Disposition: HOME/ ROUTINE Instructions: Dialysis Diet , Heart Failure, Adult (DC), Hemodialysis (DC), End Stage Kidney Disease, Dialysis and Diet Additional Instructions: Please follow up with Dr. Daly office in 1 week Continue HD as scheduled MWF resume all home medications Referrals: Gianluca Daly MD [Staff Provider] -
--- NOTE | 2017-06-19 13:05 | CARD ---
APPROVED REPORT EXAM: Two-dimensional and M-mode echocardiogram with Doppler and color Doppler. Other Information Quality : GoodRhythm : INDICATION Pericardial Effusion 2D DIMENSIONS IVSd1.4 (0.7-1.1cm)LVDd2.7 (3.9-5.9cm) PWd1.6 (0.7-1.1cm)LVDs1.6 (2.5-4.0cm) FS (%) 41.6 %LVEF (%)74.4 (>50%) M-Mode DIMENSIONS Left Atrium (MM)4.15 (2.5-4.0cm)Aortic Root2.59 (2.2-3.7cm) Aortic Cusp Exc.1.59 (1.5-2.0cm) Mitral Valve MV E Qocrncir18.6cm/sMV A Exovsjlq593.0cm/sE/A ratio0.5 TDI E/Lateral E'0.0E/Medial E'0.0 Tricuspid Valve TR Peak Wfanowpm006fs/sTR Peak Gr.[id number] LEFT VENTRICLE The left ventricle is normal size. There is moderate concentric left ventricular hypertrophy. The left ventricular function is normal. The left ventricular ejection fraction is within the normal range. There is normal LV segmental wall motion. Tissue Doppler imaging reveals mild left ventricular diastolic dysfunction. Transmitral Doppler flow pattern is Grade I-abnormal relaxation pattern. No left ventricle thrombus noted on this study. There is no ventricular septal defect visualized. There is no left ventricular aneurysm. There is no mass noted in the left ventricle. RIGHT VENTRICLE The right ventricle is normal size. There is normal right ventricular wall thickness. The right ventricular systolic function is normal. ATRIA The left atrium is mildly dilated. The right atrium size is normal. The interatrial septum is intact with no evidence for an atrial septal defect. AORTIC VALVE The aortic valve is normal in structure. No aortic regurgitation is present. There is no aortic valvular stenosis. There is no aortic valvular vegetation. MITRAL VALVE The mitral valve is normal in structure. There is no mitral valve stenosis. There is no mitral valve regurgitation noted. TRICUSPID VALVE The tricuspid valve is normal in structure. There is mild to moderate tricuspid regurgitation. There is severe pulmonary hypertension. PULMONIC VALVE The pulmonary valve is normal in structure. There is no pulmonic valvular regurgitation. GREAT VESSELS The aortic root is normal in size. The ascending aorta is normal in size. The pulmonary artery is normal. PERICARDIAL EFFUSION There is a trace circumferential pericardial effusion. <Conclusion> There is moderate concentric left ventricular hypertrophy. Tissue Doppler imaging reveals mild left ventricular diastolic dysfunction. Transmitral Doppler flow pattern is Grade I-abnormal relaxation pattern. The left atrium is mildly dilated. There is mild to moderate tricuspid regurgitation. There is severe pulmonary hypertension. There is a trace circumferential pericardial effusion.LVEF IS 75%.
== END 2017-06-18 18:00 | disposition home or self-care (01) ==
LOC: C.ER 10:20 → C.9E 12:34 → C.6T 13:06 → INTOOBSV 06-17 17:54 → OBSVTOIN 06-17 17:54
PROVIDERS: ADMIT Internal Medicine; ATTEND Internal Medicine
DX: I13.2 Hypertensive heart and chronic kidney disease with heart failure and with stage 5 chronic kidney disease, or end stage renal disease (principal); I50.9 Heart failure, unspecified; H40.9 Unspecified glaucoma; F41.1 Generalized anxiety disorder; E87.6 Hypokalemia; E11.22 Type 2 diabetes mellitus with diabetic chronic kidney disease; E11.21 Type 2 diabetes mellitus with diabetic nephropathy; D64.9 Anemia, unspecified; Z86.73 Personal history of transient ischemic attack (TIA), and cerebral infarction without residual deficits; Z99.2 Dependence on renal dialysis; Z87.891 Personal history of nicotine dependence; N18.6 End stage renal disease; J44.9 Chronic obstructive pulmonary disease, unspecified
CPT/HCPCS: 36415; 71045; 80048; 80053; 82803; 83735; 83880; 84484; 85025; 85610; 85730; 93005; 93321; 99285; G0257; G0378; J1644

== ENCOUNTER 2018-03-02 07:32 | Inpatient (IN) | payer MEDICARE, BC ==
[2018-03-02 07:45] VITALS: BMI 36.6
[2018-03-02 08:19] LABS: BASO # 0.1 K/uL (0.0-0.2); BASO % 0.4 % (0.0-2.0); EOS # 0.5 K/uL (0.0-0.7); EOS % 2.2 % (0.0-4.0); HEMOGLOBIN 12.5 g/dL (11.0-16.0); LYMPH # 1.3 K/uL (1.0-4.3); LYMPH % 6.4 % (20.0-40.0); MEAN CELL VOLUME 90.6 fL (81.0-99.0); MEAN CORPUSCULAR HEMOGLOBIN 28.6 pg (27.0-31.0); MEAN CORPUSCULAR HGB CONC 31.5 g/dL (33.0-37.0); MEAN PLATELET VOLUME 10.6 fL (7.2-11.7); MONO % 4.7 % (0.0-10.0); NEUT # 17.7 K/uL (1.8-7.0); NEUT % 86.3 % (50.0-75.0); NRBC % 0.1 % (0.0-2.0); PLATELET COUNT 302 K/uL (130-400); RBC 4.36 Mil/uL (3.80-5.20); RED CELL DISTRIBUTION WIDTH 17.9 % (11.5-14.5); WHITE BLOOD COUNT 20.5 K/uL (4.8-10.8)
[2018-03-02] MEDS ORDERED: Moxifloxacin IV 400mg/250ml NS 400 MG/250 ML BAG IV ONE (08:30)
[2018-03-02 09:02] LABS: ALB/GLOB RATIO 1.3 (1.0-2.1); ALBUMIN 4.2 g/dL (3.5-5.0); CALCIUM 9.7 mg/dl (8.6-10.4)
[2018-03-02 09:02] LABS: INR 1.1
--- NOTE | 2018-03-02 09:03 | RAD ---
Date of service: 03/02/2018 PROCEDURE: CHEST RADIOGRAPH, 1 VIEW HISTORY: SOB COMPARISON: 06/16/2017 FINDINGS: LUNGS: Extensive right basilar opacity with mild left basilar opacity as well. Bilateral pneumonia versus pulmonary edema with atypical distribution. PLEURA: No pneumothorax or pleural fluid seen. CARDIOVASCULAR: No aortic atherosclerotic calcification present. Normal heart size. No congestive change. Left subclavian/upper extremity vascular stent. OSSEOUS STRUCTURES: No significant abnormalities. VISUALIZED UPPER ABDOMEN: Normal. OTHER FINDINGS: None. IMPRESSION: Extensive bibasilar opacity. Bilateral pneumonia versus atypical pulmonary edema.
--- NOTE | 2018-03-02 09:04 | C.PDOC ---
History Of Present Illness 67 years old female brought in via ALS from [facility] for evaluation of shortness of breath that began 15 minutes after hemodialysis. Patient was found on scene by EMS hypertensive with bilateral rales auscultated. Patient was started on BiPAP and 3 sublingual nitroglycerin was administered. Denies any other complaints. MD at bedside. Time Seen by Provider: 03/02/18 07:40 Chief Complaint (Nursing): Shortness Of Breath History Per: Patient, EMS History/Exam Limitations: no limitations Onset/Duration Of Symptoms: Hrs Current Symptoms Are (Timing): Still Present Current Respiratory Medications: See Home Med List Associated Symptoms: denies: Fever, Chills Recent travel outside of the [place]: No Past Medical History Reviewed: Historical Data, Nursing Documentation, Vital Signs Vital Signs: Last Vital Signs Temp 97.5 F L 03/02/18 07:35 Pulse 112 H 03/02/18 08:27 Resp 26 H 03/02/18 08:27 BP 115/66 03/02/18 08:27 Pulse Ox 98 03/02/18 08:27 - Medical History PMH: Anemia, Arthritis (knee pain), COPD, HTN, Hypercholesterolemia, Peripheral Edema, End Stage Renal Disease, Chronic Kidney Disease - [facility] Procedures DIALYSIS ARTERIOVENOSTOM (06/13/14) ENDOSCOPIC BRONCHIAL BX (07/07/14) HEMODIALYSIS (07/07/14) INSERTION OF INFUSION DEV INTO R SUBCLAV VEIN, PERC APPROACH (04/02/17) Family History: States: Unknown Family Hx - Social History Hx Tobacco Use: No Hx Alcohol Use: Yes Hx Substance Use: No - Immunization History Hx Tetanus Toxoid Vaccination: No Hx Influenza Vaccination: Yes Hx Pneumococcal Vaccination: No Review Of Systems Constitutional: Negative for: Fever, Chills Respiratory: Positive for: Shortness of Breath Gastrointestinal: Negative for: Nausea, Vomiting, Diarrhea Skin: Negative for: Rash Neurological: Negative for: Weakness, Numbness Physical Exam - Physical Exam Appears: Non-toxic, In Acute Distress (Mild Respiratory ) Skin: Normal Color, Warm, Dry, No Rash Head: Atraumatic, Normacephalic Eye(s): bilateral: Normal Inspection, PERRL, EOMI Oral Mucosa: Moist Neck: Normal ROM, Supple Respiratory: No Rales, Rhonchi (Scattered), Wheezing, Other (Mild respiratory Distress ) Gastrointestinal/Abdominal: Normal Exam, Bowel Sounds (Active ), Soft, No Tenderness, No Distention, No Guarding, No Rebound Extremity: Normal ROM Extremity: Bilateral: Atraumatic, Normal Color And Temperature, Normal ROM Pulses: Left Radial: Normal, Right Radial: Normal Neurological/Psych: Oriented x3, Normal Speech, Other (No focal deficits ) ED Course And Treatment - Laboratory Results Result Diagrams: 03/02/18 08:08 03/02/18 08:38 Lab Interpretation: Abnormal (esrd on HD, K+ 5.6 slight elevated) ECG: Interpreted By Me ECG Rhythm: Sinus Tachycardia ECG Interpretation: Abnormal Rate From EC O2 Sat by Pulse Oximetry: 98 (RA) Pulse Ox Interpretation: Normal - Radiology CXR: Interpreted by Me CXR Interpretation: Yes: Infiltrates, Heart Size, Other (+ fluid overload, ? RLL PNA) - Other Rad CXR X-Ray: Viewed By Me, Read By Radiologist Interpretation: IMPRESSION: Extensive bibasilar opacity. Bilateral pneumonia versus atypical pulmonary edema. Reevaluation Time: 09:04 Reassessment Condition: Improved - Physician Consult Information Outcome Of Conversation: bipap, duonebx, Avelox for nosocomial PNA (HD pt). 41: d/w Dr. Daly, has adm for Dr. Mims in past. 46: d/w Dr. Montiel- Nephrology- has ordered for this pt in past 06/22 Medical Decision Making Medical Decision Making: Plan: * Avelox * EKG * Blood work * CXR * Blood Culture pna RLL Avelox ESRD on HD M/W/F got only 10 mins this am K+ 5.6 slight elev no acute EKG changes pending HD by Dr. Montiel today Disposition Doctor Will See Patient In The: Hospital Counseled Patient/Family Regarding: Studies Performed, Diagnosis - Disposition Disposition: HOSPITALIZED Disposition Time: 09:07 Condition: GOOD - Clinical Impression Clinical Impression: Chronic congestive heart failure, HTN (hypertension), ESRD (end stage renal disease), Chr obstructive pulmonary disease w/ acute lower respiratory infxn
[2018-03-02 09:34] LABS: EOSINOPHIL 1 % (0-4); LYMPHOCYTE 3 % (20-40); MONOCYTE 4 % (0-10); NEUTROPHIL 92 % (50-75); PLATELET ESTIMATE NORMAL (NORMAL); TOTAL CELLS COUNTED 100
[2018-03-02 09:35] LABS: ANISOCYTOSIS SLIGHT; BURR CELLS SLIGHT; LARGE PLATELETS PRESENT; POIKILOCYTOSIS SLIGHT
[2018-03-02 09:57] LABS: TROPONIN I 0.056 ng/mL (0.00-0.120)
--- NOTE | 2018-03-02 13:22 | CP.PCM.CON ---
History of Present Illness - History of Present Illness History of Present Illness: 67 years old female brought in via ALS from [facility] for evaluation of shortness of breath that began 15 minutes after hemodialysis. Patient was found on scene by EMS hypertensive with bilateral rales auscultated. Patient was started on BiPAP and 3 sublingual nitroglycerin was administered. Denies any other complaints. MD at bedside. Time See - Medical History PMH: Anemia, Arthritis (knee pain), COPD, HTN, Hypercholesterolemia, Peripheral Edema, End Stage Renal Disease, CHF recurrences - [facility] Procedures DIALYSIS ARTERIOVENOSTOM (06/13/14) ENDOSCOPIC BRONCHIAL BX (07/07/14) HEMODIALYSIS (07/07/14) INSERTION OF INFUSION DEV INTO R SUBCLAV VEIN, PERC APPROACH (04/02/17) Family History: States: Unknown Family Hx - Social History Hx Tobacco Use: No Hx Alcohol Use: Yes Hx Substance Use: No - Immunization History Hx Tetanus Toxoid Vaccination: No Hx Influenza Vaccination: Yes Hx Pneumococcal Vaccination: No Review Of Systems Constitutional: Negative for: Fever, Chills Respiratory: Positive for: Shortness of Breath Gastrointestinal: Negative for: Nausea, Vomiting, Diarrhea Skin: Negative for: Rash Neurological: Negative for: Weakness, Numbness Review of Systems - Constitutional Constitutional: Fatigue, Lethargy, Malaise - EENT Eyes: absent: As Per HPI, Blind Spots, Blurred Vision, Change in Vision, Decreased Night Vision, Diplopia, Discharge, Dry Eye, Exophthalmos, Floaters, Irritation, Itchy Eyes, Loss of Peripheral Vision, Pain, Photophobia, Requires Corrective Lenses, Sees Flashes, Spots in Vision, Tunnel Vision, Other Visual Disturbances, Loss of Vision, Other Ears: absent: As Per HPI, Decreased Hearing, Ear Discharge, Ear Pain, Tinnitus, Abnormal Hearing, Disequilibrium, Dizziness, Other Nose/Mouth/Throat: absent: As Per HPI, Epistaxis, Nasal Congestion, Nasal Discharge, Nasal Obstruction, Nasal Trauma, Nose Pain, Post Nasal Drip, Sinus Pain, Sinus Pressure, Bleeding Gums, Change in Voice, Dental Pain, Dry Mouth, Dysphagia, Halitosis, Hoarsness, Lip Swelling, Mouth Lesions, Mouth Pain, Odynop hagia, Sore Throat, Throat Swelling, Tongue Swelling, Facial Pain, Neck Pain, Neck Mass, Other - Cardiovascular Cardiovascular: Dyspnea on Exertion, Palpitations - Respiratory Respiratory: Cough, Dyspnea on Exertion - Gastrointestinal Gastrointestinal: absent: As Per HPI, Abdominal Pain, Belching, Bloating, Change in Bowel Habits, Change in Stool Character, Coffee Ground Emesis, Constipation, Cramping, Diarrhea, Dyspepsia, Dysphagia, Early Satiety, Excessive Flatus, Fecal Incontinence, Heartburn, Hematemesis, Hematochezia, Loose Stools, Melena, Nausea, Odynophagia, Temesmus, Vomiting, Other - Genitourinary Genitourinary: As Per HPI - Musculoskeletal Musculoskeletal: Muscle Weakness, Myalgias Past Patient History - Past Medical History & Family History Past Medical History?: Yes Past Family History: Reviewed and not pertinent - Past Social History Smoking Status: Former Smoker Chewing Tobacco Use: No Cigar Use: No Alcohol: None Drugs: Denies Home Situation {Lives}: Alone - CARDIAC Hx Hypercholesterolemia: Yes Hx Hypertension: Yes Hx Peripheral Edema: Yes - PULMONARY Hx Chronic Obstructive Pulmonary Disease (COPD): Yes - NEUROLOGICAL Hx Neurological Disorder: Yes HX Cerebrovascular Accident: Yes (1991 mini stroke) - HEENT Hx HEENT Problems: Yes Hx Cataracts: Yes Hx Glaucoma: Yes - RENAL Hx Chronic Kidney Disease: Yes - ENDOCRINE/METABOLIC Hx Endocrine Disorders: No - HEMATOLOGICAL/ONCOLOGICAL Hx Anemia: Yes - INTEGUMENTARY Hx Dermatological Problems: No - MUSCULOSKELETAL/RHEUMATOLOGICAL Hx Arthritis: Yes (knee pain) - GASTROINTESTINAL Hx Gastrointestinal Disorders: Yes Hx Bowel Surgery: Yes - GENITOURINARY/GYNECOLOGICAL Hx Genitourinary Disorders: No - PSYCHIATRIC Hx Substance Use: No - SURGICAL HISTORY Hx Surgeries: Yes Hx Arteriovenous Shunt: Yes (AV FISTULA ATTEMPT X2) Hx Section: Yes - ANESTHESIA Hx Anesthesia: Yes Hx Anesthesia Reactions: No Hx Malignant Hyperthermia: No Meds Allergies/Adverse Reactions: Allergies Allergy/AdvReac Type Severity Reaction Status Date / Time No Known Allergies Allergy Verified 06/16/17 10:25 Physical Exam - Constitutional Appears: In Acute Distress, Chronically Ill - Head Exam Head Exam: ATRAUMATIC, NORMAL INSPECTION - Eye Exam Eye Exam: EOMI, Normal appearance - Neck Exam Neck exam: Positive for: Normal Inspection. Negative for: Tenderness - Respiratory Exam Respiratory Exam: Rhonchi, Respiratory Distress - Cardiovascular Exam Cardiovascular Exam: REGULAR RHYTHM, +S1 - GI/Abdominal Exam GI & Abdominal Exam: Soft. absent: Tenderness - Extremities Exam Extremities exam: Positive for: normal inspection. Negative for: tenderness - Neurological Exam Neurological exam: Altered, CN II-XII Intact - Skin Skin Exam: Dry, Warm Results - Vital Signs Recent Vital Signs: Last Vital Signs Temp 97.6 F 03/02/18 10:05 Pulse 99 H 03/02/18 10:05 Resp 25 H 03/02/18 10:05 BP 106/64 03/02/18 12:35 Pulse Ox 98 03/02/18 11:43 - Labs Result Diagrams: 03/02/18 08:08 03/02/18 08:38 Labs: Laboratory Results - last 24 hr 03/02/18 03/02/18 03/02/18 07:53 08:08 08:38 WBC 20.5 H D RBC 4.36 Hgb 12.5 D Hct 39.5 MCV 90.6 MCH 28.6 MCHC 31.5 L RDW 17.9 H Plt Count 302 D MPV 10.6 Neut % (Auto) 86.3 H Lymph % (Auto) 6.4 L [place] % (Auto) 4.7 Eos % (Auto) 2.2 Baso % (Auto) 0.4 Neut # (Auto) 17.7 H Lymph # (Auto) 1.3 [place] # (Auto) 1.0 H Eos # (Auto) 0.5 Baso # (Auto) 0.1 Neutrophils % (Manual) 92 H Lymphocytes % (Manual) 3 L Monocytes % (Manual) 4 Eosinophils % (Manual) 1 Platelet Estimate Normal Large Platelets Present Poikilocytosis (manual Slight Anisocytosis (manual) Slight [place] Cells Slight PT INR APTT Sodium 140 Potassium 5.6 H Chloride 106 Carbon Dioxide 16 L Anion Gap 23 H BUN 61 H Creatinine 11.0 H* D Est GFR ( Amer) 4 Est GFR (Non-Af Amer) 3 POC Glucose (mg/dL) 252 H Random Glucose 240 H Calcium 9.7 Total Bilirubin 0.6 AST 46 H D ALT 11 Alkaline Phosphatase 176 H D Troponin I 0.0560 NT-Pro-B Natriuret Pep 57520 H Total Protein 7.5 Albumin 4.2 Globulin 3.3 Albumin/Globulin Ratio 1.3 03/02/18 08:43 WBC RBC Hgb Hct MCV MCH MCHC RDW Plt Count MPV Neut % (Auto) Lymph % (Auto) [place] % (Auto) Eos % (Auto) Baso % (Auto) Neut # (Auto) Lymph # (Auto) [place] # (Auto) Eos # (Auto) Baso # (Auto) Neutrophils % (Manual) Lymphocytes % (Manual) Monocytes % (Manual) Eosinophils % (Manual) Platelet Estimate Large Platelets Poikilocytosis (manual Anisocytosis (manual) [place] Cells PT 12.0 INR 1.1 APTT 23 Sodium Potassium Chloride Carbon Dioxide Anion Gap BUN Creatinine Est GFR ( Amer) Est GFR (Non-Af Amer) POC Glucose (mg/dL) Random Glucose Calcium Total Bilirubin AST ALT Alkaline Phosphatase Troponin I NT-Pro-B Natriuret Pep Total Protein Albumin Globulin Albumin/Globulin Ratio Assessment & Plan (1) COPD (chronic obstructive pulmonary disease) Status: Acute (2) CHF (congestive heart failure) Status: Acute (3) Type 2 diabetes mellitus with diabetic nephropathy Status: Acute (4) ESRD needing dialysis Status: Chronic Priority: Medium (5) Pneumonia Status: Acute - Assessment and Plan (Free Text) Plan: Dialysis with adequate UF Treat for pneumonia follow up labs
[2018-03-02] MEDS ORDERED: Moxifloxacin IV 400mg/250ml NS 400 MG/250 ML BAG IVPB SCH (18:30)
[2018-03-02] MEDS: Brimonidine 0.2% Opth Sol (5ml) OU SCH (19:00)
[2018-03-02] MEDS ORDERED: Vancomycin 1 gm/NS 200 ml 1 GM/200 ML BAG IVPB ONE ×2 (20:00)
[2018-03-02 22:17] LABS: ABG ALLEN TEST POS; ARTERIAL BLOOD GAS HEMOGLOBIN 9.4 g/dL (11.7-17.4); ARTERIAL BLOOD GAS O2 SAT 99.9 % (95-98); ARTERIAL BLOOD GAS PCO2 47 mm/Hg (35-45); ARTERIAL BLOOD GAS PH 7.45 (7.35-7.45); ARTERIAL BLOOD GAS PO2 110 mm/Hg (80-100); ARTERIAL BLOOD GAS TCO2 34.1 mmol/L (22-28)
--- NOTE | 2018-03-03 02:10 | CP.PCM.HP ---
Past Patient History - Past Medical History & Family History Past Medical History?: Yes - Past Social History Smoking Status: Light Smoker < 10 Cigarettes Daily - CARDIAC Hx Hypercholesterolemia: Yes Hx Hypertension: Yes Hx Peripheral Edema: Yes - PULMONARY Hx Chronic Obstructive Pulmonary Disease (COPD): Yes - NEUROLOGICAL Hx Neurological Disorder: Yes HX Cerebrovascular Accident: Yes (1991 mini stroke) - HEENT Hx HEENT Problems: Yes Hx Cataracts: Yes Hx Glaucoma: Yes - RENAL Hx Chronic Kidney Disease: Yes Date of Last Dialysis Treatment: 03/02/18 - ENDOCRINE/METABOLIC Hx Endocrine Disorders: No - HEMATOLOGICAL/ONCOLOGICAL Hx Anemia: Yes - INTEGUMENTARY Hx Dermatological Problems: No - MUSCULOSKELETAL/RHEUMATOLOGICAL Hx Arthritis: Yes (knee pain) Hx Falls: No - GASTROINTESTINAL Hx Gastrointestinal Disorders: Yes Hx Bowel Surgery: Yes - GENITOURINARY/GYNECOLOGICAL Hx Genitourinary Disorders: No - PSYCHIATRIC Hx Substance Use: No - SURGICAL HISTORY Hx Surgeries: Yes Hx Arteriovenous Shunt: Yes (AV FISTULA ATTEMPT X2) Hx Section: Yes - ANESTHESIA Hx Anesthesia: Yes Hx Anesthesia Reactions: No Hx Malignant Hyperthermia: No Meds Allergies/Adverse Reactions: Allergies Allergy/AdvReac Type Severity Reaction Status Date / Time No Known Allergies Allergy Verified 06/16/17 10:25 Results - Vital Signs Recent Vital Signs: Last Vital Signs Temp 97.9 F 03/02/18 23:54 Pulse 70 03/02/18 23:54 Resp 20 03/02/18 23:54 BP 100/60 03/02/18 23:54 Pulse Ox 99 03/02/18 23:54 - Labs Result Diagrams: 03/02/18 08:08 03/02/18 08:38 Labs: Laboratory Results - last 24 hr 03/02/18 03/02/18 03/02/18 07:53 08:08 08:38 WBC 20.5 H D RBC 4.36 Hgb 12.5 D Hct 39.5 MCV 90.6 MCH 28.6 MCHC 31.5 L RDW 17.9 H Plt Count 302 D MPV 10.6 Neut % (Auto) 86.3 H Lymph % (Auto) 6.4 L [place] % (Auto) 4.7 Eos % (Auto) 2.2 Baso % (Auto) 0.4 Neut # (Auto) 17.7 H Lymph # (Auto) 1.3 [place] # (Auto) 1.0 H Eos # (Auto) 0.5 Baso # (Auto) 0.1 Neutrophils % (Manual) 92 H Lymphocytes % (Manual) 3 L Monocytes % (Manual) 4 Eosinophils % (Manual) 1 Platelet Estimate Normal Large Platelets Present Poikilocytosis (manual Slight Anisocytosis (manual) Slight [place] Cells Slight PT INR APTT Puncture Site pCO2 pO2 HCO3 ABG pH ABG Total CO2 ABG O2 Saturation ABG Base Excess ABG Hemoglobin ABG Carboxyhemoglobin POC ABG HHb (Measured) ABG Methemoglobin Judson Test A-a O2 Difference Respiratory Index Hgb O2 Saturation Liter Flow FiO2 Sodium 140 Potassium 5.6 H Chloride 106 Carbon Dioxide 16 L Anion Gap 23 H BUN 61 H Creatinine 11.0 H* D Est GFR ( Amer) 4 Est GFR (Non-Af Amer) 3 POC Glucose (mg/dL) 252 H Random Glucose 240 H Calcium 9.7 Total Bilirubin 0.6 AST 46 H D ALT 11 Alkaline Phosphatase 176 H D Troponin I 0.0560 NT-Pro-B Natriuret Pep 83281 H Total Protein 7.5 Albumin 4.2 Globulin 3.3 Albumin/Globulin Ratio 1.3 03/02/18 03/02/18 08:43 21:15 WBC RBC Hgb Hct MCV MCH MCHC RDW Plt Count MPV Neut % (Auto) Lymph % (Auto) [place] % (Auto) Eos % (Auto) Baso % (Auto) Neut # (Auto) Lymph # (Auto) [place] # (Auto) Eos # (Auto) Baso # (Auto) Neutrophils % (Manual) Lymphocytes % (Manual) Monocytes % (Manual) Eosinophils % (Manual) Platelet Estimate Large Platelets Poikilocytosis (manual Anisocytosis (manual) [place] Cells PT 12.0 INR 1.1 APTT 23 Puncture Site Rra pCO2 47 H pO2 110 H HCO3 31.0 H ABG pH 7.45 ABG Total CO2 34.1 H ABG O2 Saturation 99.9 H ABG Base Excess 7.8 H ABG Hemoglobin 9.4 L ABG Carboxyhemoglobin 2.0 H POC ABG HHb (Measured) 0.1 ABG Methemoglobin 1.2 Judson Test Pos A-a O2 Difference 59.0 Respiratory Index 0.5 Hgb O2 Saturation 96.6 Liter Flow 3.0 FiO2 32.0 Sodium Potassium Chloride Carbon Dioxide Anion Gap BUN Creatinine Est GFR ( Amer) Est GFR (Non-Af Amer) POC Glucose (mg/dL) Random Glucose Calcium Total Bilirubin AST ALT Alkaline Phosphatase Troponin I NT-Pro-B Natriuret Pep Total Protein Albumin Globulin Albumin/Globulin Ratio
[2018-03-03] MEDS: Brimonidine 0.2% Opth Sol (5ml) OU SCH ×2 (09:41→17:55)
[2018-03-03] MEDS: Latanoprost 2.5 ml Opht Soln OU SCH (09:52)
[2018-03-03] MEDS: Moxifloxacin IV 400mg/250ml NS 400 MG/250 ML BAG IVPB SCH (09:54)
[2018-03-03] MEDS ORDERED: Atropine 1% Ophth Soln (15 ml) OU SCH (10:00)
--- NOTE | 2018-03-03 10:16 | CP.PCM.PN ---
Subjective - Date & Time of Evaluation Date of Evaluation: 03/03/18 Time of Evaluation: 10:13 - Subjective Subjective: seen and examined up in bed, breathing at baseline no cough/ sputum / fevers/chills/cp/dizziness/n/v/d/headache Objective - Vital Signs/Intake and Output Vital Signs (last 24 hours): Temp Pulse Resp BP Pulse Ox 98.2 F 94 H 18 110/68 100 03/03/18 07:00 03/03/18 09:39 03/03/18 07:00 03/03/18 09:39 03/03/18 07:00 - Medications Medications: Current Medications Acetazolamide (Diamox 250 Mg Tab) 250 mg PO BID [facility] Last Admin: 03/03/18 09:44 Dose: 250 mg Alprazolam (Xanax) 0.25 mg PO [facility] Stop: 03/11/18 09:01 Aspirin (Aspirin Chewable) 81 mg PO DAILY [facility] Last Admin: 03/03/18 09:43 Dose: 81 mg Atropine Sulfate (Atropisol 1% Ophth) 0 ml OU DAILY [facility] Brimonidine Tartrate (Alphagan 0.2% Opht) 0 ml OU BID [facility] Last Admin: 03/03/18 09:41 Dose: 1 drop Cinacalcet (Sensipar) 30 mg PO DAILY [facility] Last Admin: 03/03/18 09:44 Dose: 30 mg Clonidine HCl (Catapres) 0.1 mg PO BID [facility] Last Admin: 03/03/18 09:44 Dose: 0.1 mg Famotidine (Pepcid) 20 mg PO DAILY [facility] Last Admin: 03/03/18 09:43 Dose: 20 mg Heparin Sodium (Porcine) (Heparin) 5,000 units SC Q12 [facility] Last Admin: 03/03/18 09:45 Dose: 5,000 units Moxifloxacin HCl (Avelox Iv 400mg/250ml Ns) 400 mg in 250 mls @ 167 mls/hr IVPB Q24H [facility]; Protocol Last Admin: 03/03/18 09:54 Dose: 167 mls/hr Latanoprost (Xalatan Opht) 0.05 ml OU DAILY [facility] Last Admin: 03/03/18 09:52 Dose: 0.05 ml Midodrine (Proamatine) 10 mg PO DAILY [facility] Last Admin: 03/03/18 09:45 Dose: 10 mg Rosuvastatin Calcium (Crestor) 10 mg PO HS [facility] Last Admin: 03/02/18 21:13 Dose: 10 mg Sevelamer Carbonate (Renvela) 800 mg PO TIDCC [facility] Last Admin: 03/03/18 09:00 Dose: 800 mg Timolol Maleate (Timoptic 0.5% Ophth Soln) 0 drop OU BID [facility] Last Admin: 03/03/18 09:47 Dose: 1 drop Zolpidem Tartrate (Ambien) 5 mg PO HS PRN PRN Reason: Insomnia Last Admin: 03/02/18 22:02 Dose: 5 mg - Labs Labs: 03/02/18 08:08 03/02/18 08:38 PT 12.0 SECONDS (9.7-12.2) 03/02/18 08:43 INR 1.1 03/02/18 08:43 APTT 23 SECONDS (21-34) 03/02/18 08:43 - Constitutional Appears: Non-toxic, No Acute Distress, Chronically Ill - Head Exam Head Exam: NORMAL INSPECTION, NORMOCEPHALIC - Eye Exam Eye Exam: Normal appearance, PERRL - ENT Exam ENT Exam: Mucous Membranes Moist, Normal Exam - Neck Exam Neck Exam: Full ROM, Normal Inspection - Respiratory Exam Respiratory Exam: Decreased Breath Sounds (b/l bibasilar rales), NORMAL BREATHING PATTERN - Cardiovascular Exam Cardiovascular Exam: REGULAR RHYTHM, RRR - GI/Abdominal Exam GI & Abdominal Exam: Distended, Soft - Extremities Exam Extremities Exam: Normal Inspection, Pedal Edema - Neurological Exam Neurological Exam: Alert, Awake, Oriented x3 - Psychiatric Exam Psychiatric exam: Normal Affect, Normal Mood - Skin Skin Exam: Intact, Warm Assessment and Plan (1) CHF (congestive heart failure) Status: Acute (2) COPD (chronic obstructive pulmonary disease) Status: Acute (3) End stage renal disease Status: Acute (4) Pneumonia Status: Acute (5) Anemia Status: Acute - Assessment and Plan (Free Text) Assessment: maintain hd mwf antibiotic coverage may d/c diamox bp chronically low, on midodrine
--- NOTE | 2018-03-03 11:35 | HP ---
CHIEF COMPLAINT: Dizziness and shortness of breath for 15 minutes. HISTORY OF PRESENT ILLNESS: This is 67-year-old female well known to me with history of CKD, on hemodialysis and she goes to hemodialysis center three times a week, Friday, Friday and Friday. She has history of hypertension and she has features of hypotension with dizziness and syncope. Patient has recurrent hospitalization for those syncopal episodes. She is compliant with her diet, medication and followup. She has history of insomnia. On the day of admission, she was at dialysis center and right after her dialysis was started, 15 minutes into dialysis, the patient was noted to have dizziness with syncopal episode. 911 was called and the patient was started on BiPAP, sublingual nitroglycerin. Patient denied any chest pain. Patient also had some dyspnea at rest. She denies any orthopnea or PND. Patient denies any cough, sore throat, runny nose, or nasal congestion. She has body aches and tiredness. She denies any history of polyuria, polydipsia and polyphagia. She denies any history of hematuria or pyuria. She denies any sneezing, itchy eyes, or itchy nose. PAST MEDICAL HISTORY: Insomnia; CKD, on hemodialysis; hypertension. She also has a history of extensive severe glaucoma. She is being followed up by Ophthalmology. SOCIAL HISTORY: She is a nonsmoker, non-ETOH user. CURRENT MEDICATIONS: At home are clonidine, Diamox, Renvela, ProAmatine, Xalatan, Pepcid, Sensipar, Combigan, Lipitor, aspirin, Xanax, Ambien, Evista, Durezol eye drop. PHYSICAL EXAMINATION: GENERAL: An elderly female in no acute distress. VITAL SIGNS: Blood pressure 100/60, pulse 70, respiratory rate 20, temperature 97.9. SKIN: Senile turgor. No bruits. No purpura. No petechiae. She has an AV fistula in the left arm with positive bruit. No wound. No discharge. No aneurysm. HEENT: Atraumatic and normocephalic. She has right-sided eye changes with chemosis. NECK: Supple. No JVD. No lymph node. No thyromegaly. No carotid bruits. CHEST: Chest wall bilaterally symmetrical to expansion. No tenderness. LUNGS: Bilateral basal rales more on the right with decreased air entry. CVS: S1 and S2 plus. S3 positive. ABDOMEN: Soft. Nontender. Bowel sounds are positive. RECTAL: No masses. No bleeding. EXTREMITIES: No clubbing, cyanosis or edema. [employer]: Alert, awake, and oriented x3. Cranial nerves II through XII are normal. Power 5/5 x4. Plantars are downgoing. ASSESSMENT: 1. Rule out pneumonia. Patient has positive signs, although she is not coughing a lot. She has bilateral crackles with leukocytosis, could be septicemia. 2. Chronic kidney disease, on hemodialysis. 3. Recurrent episode of syncope, which is due to hypotension, chronic idiopathy. 4. Severe glaucoma. 5. Rule out new-onset diabetes. PLAN: Renal consult. Possible hemodialysis, neuro check, antibiotic coverage, repeat labs, repeat chest x-ray after hemodialysis. Monitor patient. Details orders are written. The patient has been seen and examined. The patient is well known to me. We will follow the patient in one week. Gianluca Daly MD
--- NOTE | 2018-03-03 14:19 | CP.PCM.CON ---
History of Present Illness - History of Present Illness History of Present Illness: dictated Past Patient History - Past Medical History & Family History Past Medical History?: Yes - Past Social History Smoking Status: Light Smoker < 10 Cigarettes Daily - CARDIAC Hx Hypercholesterolemia: Yes Hx Hypertension: Yes Hx Peripheral Edema: Yes - PULMONARY Hx Chronic Obstructive Pulmonary Disease (COPD): Yes - NEUROLOGICAL Hx Neurological Disorder: Yes HX Cerebrovascular Accident: Yes (1991 mini stroke) - HEENT Hx HEENT Problems: Yes Hx Cataracts: Yes Hx Glaucoma: Yes - RENAL Hx Chronic Kidney Disease: Yes Date of Last Dialysis Treatment: 03/02/18 - ENDOCRINE/METABOLIC Hx Endocrine Disorders: No - HEMATOLOGICAL/ONCOLOGICAL Hx Anemia: Yes - INTEGUMENTARY Hx Dermatological Problems: No - MUSCULOSKELETAL/RHEUMATOLOGICAL Hx Arthritis: Yes (knee pain) Hx Falls: No - GASTROINTESTINAL Hx Gastrointestinal Disorders: Yes Hx Bowel Surgery: Yes - GENITOURINARY/GYNECOLOGICAL Hx Genitourinary Disorders: No - PSYCHIATRIC Hx Substance Use: No - SURGICAL HISTORY Hx Surgeries: Yes Hx Arteriovenous Shunt: Yes (AV FISTULA ATTEMPT X2) Hx Section: Yes - ANESTHESIA Hx Anesthesia: Yes Hx Anesthesia Reactions: No Hx Malignant Hyperthermia: No Meds Allergies/Adverse Reactions: Allergies Allergy/AdvReac Type Severity Reaction Status Date / Time No Known Allergies Allergy Verified 06/16/17 10:25 - Medications Medications: Current Medications Alprazolam (Xanax) 0.25 mg PO F [facility] Stop: 03/11/18 09:01 Aspirin (Aspirin Chewable) 81 mg PO DAILY [facility] Last Admin: 03/03/18 09:43 Dose: 81 mg Atropine Sulfate (Atropisol 1% Ophth) 0.05 ml OU DAILY [facility] Brimonidine Tartrate (Alphagan 0.2% Opht) 0 ml OU BID [facility] Last Admin: 03/03/18 09:41 Dose: 1 drop Cinacalcet (Sensipar) 30 mg PO DAILY [facility] Last Admin: 03/03/18 09:44 Dose: 30 mg Clonidine HCl (Catapres) 0.1 mg PO BID [facility] Last Admin: 03/03/18 09:44 Dose: 0.1 mg Famotidine (Pepcid) 20 mg PO DAILY [facility] Last Admin: 03/03/18 09:43 Dose: 20 mg Heparin Sodium (Porcine) (Heparin) 5,000 units SC Q12 [facility] Last Admin: 11/27/18 09:45 Dose: 5,000 units Moxifloxacin HCl (Avelox Iv 400mg/250ml Ns) 400 mg in 250 mls @ 167 mls/hr IVPB Q24H [facility]; Protocol Last Admin: 03/03/18 09:54 Dose: 167 mls/hr Latanoprost (Xalatan Opht) 0.05 ml OU DAILY [facility] Last Admin: 03/03/18 09:52 Dose: 0.05 ml Midodrine (Proamatine) 10 mg PO DAILY [facility] Last Admin: 03/03/18 09:45 Dose: 10 mg Rosuvastatin Calcium (Crestor) 10 mg PO HS [facility] Last Admin: 03/02/18 21:13 Dose: 10 mg Sevelamer Carbonate (Renvela) 800 mg PO TIDCC [facility] Last Admin: 03/03/18 13:00 Dose: 800 mg Timolol Maleate (Timoptic 0.5% Ophth Soln) 0 drop OU BID [facility] Last Admin: 03/03/18 09:47 Dose: 1 drop Zolpidem Tartrate (Ambien) 5 mg PO HS PRN PRN Reason: Insomnia Last Admin: 03/02/18 22:02 Dose: 5 mg Results - Vital Signs Recent Vital Signs: Last Vital Signs Temp 98.2 F 03/03/18 07:00 Pulse 94 H 03/03/18 09:39 Resp 18 03/03/18 07:00 BP 110/68 03/03/18 09:39 Pulse Ox 100 03/03/18 07:00 - Labs Result Diagrams: 03/02/18 08:08 03/02/18 08:38 Labs: Laboratory Results - last 24 hr 03/02/18 03/03/18 21:15 07:22 Puncture Site Rra pCO2 47 H pO2 110 H HCO3 31.0 H ABG pH 7.45 ABG Total CO2 34.1 H ABG O2 Saturation 99.9 H ABG Base Excess 7.8 H ABG Hemoglobin 9.4 L ABG Carboxyhemoglobin 2.0 H POC ABG HHb (Measured) 0.1 ABG Methemoglobin 1.2 Judson Test Pos A-a O2 Difference 59.0 Respiratory Index 0.5 Hgb O2 Saturation 96.6 Liter Flow 3.0 FiO2 32.0 Random Vancomycin 16.9
--- NOTE | 2018-03-03 15:55 | CP.PCM.CON ---
History of Present Illness - History of Present Illness History of Present Illness: Patient is a 67 y/o female brought in via ALS from dialysis center on 03/02/18 with SOB that began 15 minutes after hemodialysis began. At the scene, patient was found hypertensive with bilateral rales. In the ED, janae ent was started on BiPAP and 3 sublingual nitroglycerin. Today, patient denies fevers, chills, weakness or numbness. She does report shortness of breath. PMHx: Anema, Arthritis, COPD, HTN, Hyperlipidemia, ESRD, Recurrent CHF, Peripheral Edema PSHx: Dialysis Arteriovenostomy (06/13/14), Endoscopic Bronchial Biposy (07/07/14), Insertion of infusion device into right subclavian vein (04/02/17) Meds: Acetazolamide 250 mg, Xanax 0.25 mg, Asa 81 mg, Atropine sulfate, Brimodine tartrate, Sensipar 30 mg, Clonidine 0.1 mg, Pepcid 20 mg, Heparin subq, Latanoprost, Midodrine 10mg, Avelox 400 mg, Crestor 10 mg, Renvela 800 mg, Timolol Maleate, Ambien 5 mg FHx: States unknown Allergies: NKDA Social: Former smoker, 30 pack year history. Denies alcohol use currently, reports drinking socially on weekends in the past. Denies illicit drug use. Currently lives in [place] by herself, is not working. CXR (03/02/18): Bilateral pneumonia versus atypical pulmonary edema ABG (03/02/18): pCO2 47, pO2 110, HCO3 31, pH 7.45 BNP: [id number] Review of Systems - Review of Systems All systems: reviewed and no additional remarkable complaints except (shortness of breath) Past Patient History - Past Medical History & Family History Past Medical History?: Yes - Past Social History Smoking Status: Light Smoker < 10 Cigarettes Daily - CARDIAC Hx Hypercholesterolemia: Yes Hx Hypertension: Yes Hx Peripheral Edema: Yes - PULMONARY Hx Chronic Obstructive Pulmonary Disease (COPD): Yes - NEUROLOGICAL Hx Neurological Disorder: Yes HX Cerebrovascular Accident: Yes (1991 mini stroke) - HEENT Hx HEENT Problems: Yes Hx Cataracts: Yes Hx Glaucoma: Yes - RENAL Hx Chronic Kidney Disease: Yes Date of Last Dialysis Treatment: 03/02/18 - ENDOCRINE/METABOLIC Hx Endocrine Disorders: No - HEMATOLOGICAL/ONCOLOGICAL Hx Anemia: Yes - INTEGUMENTARY Hx Dermatological Problems: No - MUSCULOSKELETAL/RHEUMATOLOGICAL Hx Arthritis: Yes (knee pain) Hx Falls: No - GASTROINTESTINAL Hx Gastrointestinal Disorders: Yes Hx Bowel Surgery: Yes - GENITOURINARY/GYNECOLOGICAL Hx Genitourinary Disorders: No - PSYCHIATRIC Hx Substance Use: No - SURGICAL HISTORY Hx Surgeries: Yes Hx Arteriovenous Shunt: Yes (AV FISTULA ATTEMPT X2) Hx Section: Yes - ANESTHESIA Hx Anesthesia: Yes Hx Anesthesia Reactions: No Hx Malignant Hyperthermia: No Meds Allergies/Adverse Reactions: Allergies Allergy/AdvReac Type Severity Reaction Status Date / Time No Known Allergies Allergy Verified 06/16/17 10:25 - Medications Medications: Current Medications Alprazolam (Xanax) 0.25 mg PO [facility] [place] Stop: 03/11/18 09:01 Aspirin (Aspirin Chewable) 81 mg PO DAILY [facility] Last Admin: 03/03/18 09:43 Dose: 81 mg Atropine Sulfate (Atropisol 1% Ophth) 0.05 ml OU DAILY [facility] Brimonidine Tartrate (Alphagan 0.2% Opht) 0 ml OU BID [facility] Last Admin: 03/03/18 09:41 Dose: 1 drop Cinacalcet (Sensipar) 30 mg PO DAILY [facility] Last Admin: 03/03/18 09:44 Dose: 30 mg Clonidine HCl (Catapres) 0.1 mg PO BID [facility] Last Admin: 03/03/18 09:44 Dose: 0.1 mg Famotidine (Pepcid) 20 mg PO DAILY [facility] Last Admin: 03/03/18 09:43 Dose: 20 mg Heparin Sodium (Porcine) (Heparin) 5,000 units SC Q12 [facility] Last Admin: 03/03/18 09:45 Dose: 5,000 units Moxifloxacin HCl (Avelox Iv 400mg/250ml Ns) 400 mg in 250 mls @ 167 mls/hr IVPB Q24H [facility]; Protocol Last Admin: 03/03/18 09:54 Dose: 167 mls/hr Vancomycin HCl 1 gm/ Sodium (Chloride) 250 mls @ 166.7 mls/hr IVPB MWF [facility]; Protocol Latanoprost (Xalatan Opht) 0.05 ml OU DAILY [facility] Last Admin: 03/03/18 09:52 Dose: 0.05 ml Midodrine (Proamatine) 10 mg PO DAILY [facility] Last Admin: 03/03/18 09:45 Dose: 10 mg Rosuvastatin Calcium (Crestor) 10 mg PO HS [facility] Last Admin: 03/02/18 21:13 Dose: 10 mg Sevelamer Carbonate (Renvela) 800 mg PO TIDCC [facility] Last Admin: 03/03/18 13:00 Dose: 800 mg Timolol Maleate (Timoptic 0.5% Ophth Soln) 0 drop OU BID [facility] Last Admin: 03/03/18 09:47 Dose: 1 drop Zolpidem Tartrate (Ambien) 5 mg PO HS PRN PRN Reason: Insomnia Last Admin: 03/02/18 22:02 Dose: 5 mg Physical Exam - Head Exam Head Exam: ATRAUMATIC, NORMOCEPHALIC - ENT Exam ENT Exam: Mucous Membranes Moist - Neck Exam Neck exam: Positive for: Normal Inspection - Respiratory Exam Respiratory Exam: Decreased Breath Sounds - Cardiovascular Exam Cardiovascular Exam: REGULAR RHYTHM - GI/Abdominal Exam GI & Abdominal Exam: Normal Bowel Sounds, Soft - Extremities Exam Extremities exam: Positive for: normal inspection - Neurological Exam Neurological exam: Alert, Oriented x3 Results - Vital Signs Recent Vital Signs: Last Vital Signs Temp 97.7 F 03/03/18 15:00 Pulse 72 03/03/18 15:00 Resp 18 03/03/18 15:00 BP 97/61 L 03/03/18 15:00 Pulse Ox 100 03/03/18 15:00 - Labs Result Diagrams: 03/02/18 08:08 03/02/18 08:38 Labs: Laboratory Results - last 24 hr 03/02/18 03/03/18 21:15 07:22 Puncture Site Rra pCO2 47 H pO2 110 H HCO3 31.0 H ABG pH 7.45 ABG Total CO2 34.1 H ABG O2 Saturation 99.9 H ABG Base Excess 7.8 H ABG Hemoglobin 9.4 L ABG Carboxyhemoglobin 2.0 H POC ABG HHb (Measured) 0.1 ABG Methemoglobin 1.2 Judson Test Pos A-a O2 Difference 59.0 Respiratory Index 0.5 Hgb O2 Saturation 96.6 Liter Flow 3.0 FiO2 32.0 Random Vancomycin 16.9 Assessment & Plan (1) Pneumonia Status: Acute Comment: continue antibiotics as per infectious disease. Legionella and Mycoplasma titers. Follow-up chest x-ray. Continue hemodialysis (2) COPD (chronic obstructive pulmonary disease) Status: Acute (3) End stage renal disease Status: Acute
--- NOTE | 2018-03-03 17:17 | CARD ---
APPROVED REPORT Date of service: 03/02/2018 EKG Measurement Heart [id number] <Conclusion> Sinus tachycardia Left atrial enlargement Borderline ECG
--- NOTE | 2018-03-03 21:56 | CP.PCM.PN ---
Subjective - Subjective Subjective: dictated Objective - Vital Signs/Intake and Output Vital Signs (last 24 hours): Temp Pulse Resp BP Pulse Ox 97.7 F 79 18 97/61 L 100 03/03/18 15:00 03/03/18 15:18 03/03/18 15:00 03/03/18 15:00 03/03/18 15:00 - Medications Medications: Current Medications Alprazolam (Xanax) 0.25 mg PO [facility] [place] Stop: 03/11/18 09:01 Aspirin (Aspirin Chewable) 81 mg PO DAILY [facility] Last Admin: 03/03/18 09:43 Dose: 81 mg Atropine Sulfate (Atropisol 1% Ophth) 0.05 ml OU DAILY [facility] Brimonidine Tartrate (Alphagan 0.2% Opht) 0 ml OU BID [facility] Last Admin: 03/03/18 17:55 Dose: 1 drop Cinacalcet (Sensipar) 30 mg PO DAILY [facility] Last Admin: 03/03/18 09:44 Dose: 30 mg Clonidine HCl (Catapres) 0.1 mg PO BID [facility] Last Admin: 03/03/18 18:00 Dose: 0.1 mg Famotidine (Pepcid) 20 mg PO DAILY [facility] Last Admin: 03/03/18 09:43 Dose: 20 mg Heparin Sodium (Porcine) (Heparin) 5,000 units SC Q12 [facility] Last Admin: 03/03/18 21:54 Dose: 5,000 units Moxifloxacin HCl (Avelox Iv 400mg/250ml Ns) 400 mg in 250 mls @ 167 mls/hr IVPB Q24H [facility]; Protocol Last Admin: 03/03/18 09:54 Dose: 167 mls/hr Vancomycin HCl 1 gm/ Sodium (Chloride) 250 mls @ 166.7 mls/hr IVPB MWF [facility]; Protocol Latanoprost (Xalatan Opht) 0.05 ml OU DAILY [facility] Last Admin: 03/03/18 09:52 Dose: 0.05 ml Midodrine (Proamatine) 10 mg PO DAILY [facility] Last Admin: 03/03/18 09:45 Dose: 10 mg Rosuvastatin Calcium (Crestor) 10 mg PO HS [facility] Last Admin: 03/03/18 21:53 Dose: 10 mg Sevelamer Carbonate (Renvela) 800 mg PO TIDCC [facility] Last Admin: 03/03/18 18:00 Dose: 800 mg Timolol Maleate (Timoptic 0.5% Ophth Soln) 0 drop OU BID [facility] Last Admin: 03/03/18 18:00 Dose: 1 drop Zolpidem Tartrate (Ambien) 5 mg PO HS PRN PRN Reason: Insomnia Last Admin: 03/03/18 21:53 Dose: 5 mg - Labs Labs: 03/02/18 08:08 03/02/18 08:38 PT 12.0 SECONDS (9.7-12.2) 03/02/18 08:43 INR 1.1 03/02/18 08:43 APTT 23 SECONDS (21-34) 03/02/18 08:43
--- NOTE | 2018-03-03 23:07 | CON ---
DATE: 03/03/2018 REASON FOR CONSULTATION: Shortness of breath. HISTORY OF PRESENT ILLNESS: The patient is a 67-year-old -[place] female, who has history of end stage renal disease, on hemodialysis for the past 4 years. The patient presented because of shortness of breath while on hemodialysis in [facility] and was transferred to [facility] to have her hemodialysis completed. The patient denies any retrosternal chest pain and is unaware of any history of heart attack in the past. SOCIAL HISTORY: The patient is a former smoker. MEDICATIONS: Ambien 5 mg once a day, aspirin 81 mg once a day, Avelox 400 mg intravenously daily, clonidine 0.1 mg twice a day, Crestor 10 mg once a day, heparin 5000 units subcutaneously every 12 hours, Pepcid 20 mg p.o. once a day, ProAmatine 10 mg daily, Renvela 800 mg t.i.d., Sensipar 30 mg once a day, Xanax 0.25 mg Friday, Friday, and Friday. REVIEW OF SYSTEMS: No fever or chills. No productive cough. No dizziness or syncope. PHYSICAL EXAMINATION: GENERAL: The patient is an elderly female, who does not appear to be in any acute distress. VITAL SIGNS: Blood pressure 110/68, heart rate 94, temperature 98.2, respirations 18. HEENT: Normocephalic. CHEST: Right basal crepitations. HEART: S1 and S2, regular. ABDOMEN: Soft. EXTREMITIES: No edema. DIAGNOSTIC DATA: Chest x-ray revealed dense right lower lobe infiltrate as well as mild left lower lobe infiltrate. Left subclavian artery and axillary stents were noted. EKG on admission revealed sinus tachycardia at a rate of 127. LABORATORY DATA: SMA-7: Sodium 140, potassium 5.6, chloride 106, CO2 of 16, glucose 240, BUN 61, creatinine 11, that was yesterday prior to hemodialysis. CBC: WBC 20.5, hemoglobin 12.5, hematocrit 39.5, platelet count 302,000. PT, PTT and INR are within normal limits. IMAGING DATA: Echocardiographic study performed in April of this year revealed moderate aortic outflow stenosis and moderate pulmonary hypertension with normal ejection fraction. Another study performed in June of this year reported mildly concentric LVH with normal ejection fraction, severe pulmonary hypertension, grade 1 abnormal relaxation pattern. ASSESSMENT: 1. Consider hypertrophic cardiomyopathy. 2. Diastolic heart failure. 3. Bilateral pneumonia. 4. End-stage renal disease, on hemodialysis. 5. Hypertension. RECOMMENDATIONS: Continue current aspirin 81 mg once a day, Avelox 400 mg intravenously daily, clonidine 0.1 mg twice a day, Crestor 10 mg once a day, ProAmatine 10 mg once a day, heparin 5000 units subcutaneous every 12 hours. I would review both echocardiographic study for the possibility of subaortic valve stenosis. Drake Estrada MD
--- NOTE | 2018-03-04 01:57 | CON ---
DATE: 03/03/2018 INFECTIOUS DISEASE CONSULT REQUESTING PHYSICIAN: Gianluca Daly MD HISTORY OF PRESENT ILLNESS: This patient is a 67-year-old female. She has history of end-stage renal disease. She also has hypertension. She denies any diabetes. She does not make any urine. She states she was fine when she went for the dialysis yesterday, and 15 minutes into dialysis, she started to have shortness of breath and was hypotensive, having bilateral rales, and was short of breath. She was started on BiPAP and also received the nitroglycerin and was brought to the emergency room. Here, she was found to have a high white count and was evaluated for pneumonia. She states she was not coughing before, but now she has started coughing. Denied any fever at home. She is able to give history. She denies any nausea, vomiting, diarrhea, or any abdominal pain. No difficulty breathing at this time. PAST MEDICAL HISTORY: Significant for anemia, arthritis, hypertension, COPD, hypercholesterolemia, peripheral edema, end-stage renal disease, she has a fistula in the left arm, upper arm, and CHF, she has had recurrent in the past. FAMILY HISTORY: Unknown. She lives alone. SOCIAL HISTORY: Negative for smoking. She has occasional alcohol use socially. Denies any substance abuse. PAST SURGICAL HISTORY: Significant for one and left AV fistula, and she also had surgery on her intestine, she said they had to remove it partially as she was not making any stool, seems like she had obstruction, it was more than 5 years ago. REVIEW OF SYSTEMS: GENERAL: Denies any fever. No chills. HEENT: Denies any ears, nose, or throat problems. GI: Denies any nausea, vomiting, or diarrhea. : She makes no urine. SKIN: No rashes, no skin infection. NEUROLOGIC: She does not complain of any weakness or numbness. RESPIRATORY: She did come in with shortness of breath, has some cough now. Denies any trouble on deep breathing. No pain, and she did complain of fatigue, lethargy, and malaise when she was admitted and has no other symptoms that she recognizes. Past medical history is significant for former smoker, chewing tobacco. No alcohol. No drugs. She lives alone. CARDIAC: She has hypercholesterolemia, hypertension, and peripheral vascular disease. She does not have any diabetes. She has chronic kidney disease secondary to hypertension. She also has COPD. She also had a CVA, a mini stroke in 1991, and neurologically she has the disorder, and has history of anemia. No skin problems. Has history of arthritis. Denies any GI problems, but has had bowel surgery in the past. She said she did have a bowel movement just now, and denies any trouble with anesthesia. ALLERGIES: SHE IS NOT ALLERGIC TO ANY MEDICINE. MEDICATIONS: At this time, she is on Xanax, aspirin, atropine sulfate, Alphagan, Sensipar, Catapres, Pepcid, heparin, Xalatan, ProAmatine, Avelox, Crestor, Renvela, Timoptic, and we are giving vancomycin. She received one dose yesterday and she is on Novolog. PHYSICAL EXAMINATION: VITAL SIGNS: I find her temperature is 98.2 right now. When she came in, she did not really spike a fever. Heart rate is 94, blood pressure 110/68, and respirations are 18-20. HEENT: Atraumatic, normocephalic. Pupils are reacting to light. Tongue is moist. NECK: Supple. JVP is flat. LUNGS: Decreased breath sounds bilaterally. HEART: S1, S2, regular. No murmurs appreciated. ABDOMEN: Soft, nontender. No guarding, no rigidity present. EXTREMITIES: No edema, clubbing, or cyanosis. NEUROLOGIC: No focal deficit present. SKIN: Warm to touch. There is no open wound. LABORATORY DATA: White count was 20.5 yesterday, hemoglobin 12.5, hematocrit 39.5, platelet count 302, segs are neutrophils are 86.3. She had an ABG done, which was 7.45, pO2 is 34.1, O2 is 99.9, CO2 was 47, and oxygen saturation was 110, this was on 32%. Potassium was 5.6. Creatinine is 11, she is a dialysis patient, and BUN is 61. Glucose is 252, glucose is elevated and random 16.9, we will leave her on that. Her proBNP was also elevated at 11,700. Chest x-ray showed extensive bibasilar opacity, bilateral pneumonia versus atypical pulmonary edema. ASSESSMENT AND PLAN: It seems that she may have pneumonia plus pulmonary edema. She has end-stage renal disease. We will continue with vancomycin and Avelox at this time. If she does not make any urine, legionella from the urine or for ____. We will continue present antibiotic. She needs dialysis appropriately, which will be done by the renal team. Jay Nettles MD
--- NOTE | 2018-03-04 07:26 | PN ---
DATE: 03/04/2018 SUBJECTIVE: The patient is afebrile. Some cough. No nausea or vomiting. PHYSICAL EXAMINATION: VITAL SIGNS: Blood pressure 96/61, pulse 67, respiratory rate 20, temperature 97.9. LUNGS: Bilateral basal crepitations seen. CARDIOVASCULAR SYSTEM: S1 and S2 regular. ABDOMEN: Soft. ASSESSMENT: 1. Clinical evidence of pneumonia in a patient with a history of hemodialysis, could be fluid overload, but the patient had a dialysis on 03/02/2018. 2. History of syncopal episode in a patient with postural hypotension. 3. End-stage renal disease. 4. Severe glaucoma. PLAN: Continue antibiotics. Monitor WBC count and monitor chest x-ray post hemodialysis. It is most likely atypical pneumonia. Gianluca Daly MD
[2018-03-04 09:51] LABS: BASO # 0.1 K/uL (0.0-0.2); BASO % 1.2 % (0.0-2.0); EOS # 0.7 K/uL (0.0-0.7); EOS % 8.6 % (0.0-4.0); LYMPH # 1.4 K/uL (1.0-4.3); LYMPH % 16.5 % (20.0-40.0); MEAN CELL VOLUME 89.3 fL (81.0-99.0); MEAN CORPUSCULAR HEMOGLOBIN 28.4 pg (27.0-31.0); MEAN CORPUSCULAR HGB CONC 31.8 g/dL (33.0-37.0); MEAN PLATELET VOLUME 10.1 fL (7.2-11.7); MONO # 0.8 K/uL (0.0-0.8); MONO % 9.5 % (0.0-10.0); NEUT # 5.5 K/uL (1.8-7.0); NEUT % 64.2 % (50.0-75.0); RBC 3.44 Mil/uL (3.80-5.20); RED CELL DISTRIBUTION WIDTH 17.9 % (11.5-14.5)
[2018-03-04 09:52] LABS: HEMOGLOBIN 9.8 g/dL (11.0-16.0); WHITE BLOOD COUNT 8.6 K/uL (4.8-10.8)
[2018-03-04 10:42] LABS: ALB/GLOB RATIO 1.4 (1.0-2.1); CALCIUM 8.9 mg/dl (8.6-10.4)
--- NOTE | 2018-03-04 12:36 | CP.PCM.PN ---
Subjective - Date & Time of Evaluation Date of Evaluation: 03/04/18 Time of Evaluation: 12:35 - Subjective Subjective: dictated Objective - Vital Signs/Intake and Output Vital Signs (last 24 hours): Temp Pulse Resp BP Pulse Ox 97.4 F L 81 18 95/52 L 96 03/04/18 09:35 03/04/18 09:35 03/04/18 09:35 03/04/18 12:05 03/04/18 09:35 - Medications Medications: Current Medications [facility]: 03/11/18 09:01 Last Admin: 03/04/18 08:34 Dose: 0.25 mg Aspirin (Aspirin Chewable) 81 mg PO DAILY COUNTS [facility]CLUDE 234 BEDS AT [facility] Last Admin: 03/03/18 09:43 Dose: 81 mg Atropine Sulfate (Atropisol 1% Ophth) 0.05 ml OU DAILY COUNTS INCLUDE 234 BEDS AT THE [facility] Brimonidine Tartrate (Alphagan 0.2% Opht) 0 ml OU BID COUNTS INCLUDE 234 BEDS AT THE [facility] Last Admin: 03/03/18 17:55 Dose: 1 drop Cinacalcet (Sensipar) 30 mg PO DAILY COUNTS INCLUDE 234 BEDS AT THE [facility] Last Admin: 03/03/18 09:44 Dose: 30 mg Clonidine HCl (Catapres) 0.1 mg PO BID COUNTS INCLUDE 234 BEDS AT THE [facility] Last Admin: 03/03/18 18:00 Dose: 0.1 mg Famotidine (Pepcid) 20 mg PO DAILY COUNTS INCLUDE 234 BEDS AT THE [facility] Last Admin: 03/03/18 09:43 Dose: 20 mg Heparin Sodium (Porcine) (Heparin) 5,000 units SC Q12 COUNTS INCLUDE 234 BEDS AT THE [facility] Last Admin: 03/03/18 21:54 Dose: 5,000 units Moxifloxacin HCl (Avelox Iv 400mg/250ml Ns) 400 mg in 250 mls @ 167 mls/hr IVPB Q24H COUNTS INCLUDE 234 BEDS AT THE [facility]; Protocol Last Admin: 03/03/18 09:54 Dose: 167 mls/hr Vancomycin HCl 1 gm/ Sodium (Chloride) 250 mls @ 166.7 mls/hr IVPB MWF COUNTS INCLUDE 234 BEDS AT [facility]; Protocol Latanoprost (Xalatan Opht) 0.05 ml OU DAILY COUNTS INCLUDE 234 BEDS AT THE [facility] Last Admin: 03/03/18 09:52 Dose: 0.05 ml Midodrine (Proamatine) 10 mg PO DAILY COUNTS INCLUDE 234 BEDS AT [facility] Last Admin: 03/04/18 10:01 Dose: 10 mg Rosuvastatin Calcium (Crestor) 10 mg PO HS [facility] Last Admin: 03/03/18 21:53 Dose: 10 mg Sevelamer Carbonate (Renvela) 800 mg PO TIDCC [facility] Last Admin: 03/04/18 08:34 Dose: 800 mg Timolol Maleate (Timoptic 0.5% Ophth Soln) 0 drop OU BID [facility] Last Admin: 03/03/18 18:00 Dose: 1 drop Zolpidem Tartrate (Ambien) 5 mg PO HS PRN PRN Reason: Insomnia Last Admin: 03/03/18 21:53 Dose: 5 mg - Labs Labs: 03/04/18 09:47 03/04/18 09:47 PT 12.0 SECONDS (9.7-12.2) 03/02/18 08:43 INR 1.1 03/02/18 08:43 APTT 23 SECONDS (21-34) 03/02/18 08:43
[2018-03-04] MEDS: Latanoprost 2.5 ml Opht Soln OU SCH (13:35)
[2018-03-04] MEDS: Brimonidine 0.2% Opth Sol (5ml) OU SCH ×2 (13:35→18:09)
[2018-03-04] MEDS: Atropine 1% Ophth Soln (15 ml) OU SCH (14:16)
--- NOTE | 2018-03-04 15:07 | CP.PCM.PN ---
Subjective - Date & Time of Evaluation Date of Evaluation: 03/04/18 Time of Evaluation: 11:20 - Subjective Subjective: Patient seen and examined at bedside, lying down comfortably. Afebrile and in no acute distress. Denies shortness of breath, cough, chest pain, fever. Monitor WBC count, 20.5 on 03/02/18, 8.6 on 03/04/18 Blood cultures no growth after 24 hours, gram stain pending Objective - Vital Signs/Intake and Output Vital Signs (last 24 hours): Temp Pulse Resp BP Pulse Ox 97.4 F L 68 18 104/65 98 03/04/18 13:05 03/04/18 13:05 03/04/18 13:05 03/04/18 13:05 03/04/18 13:05 - Medications Medications: Current Medications Alprazolam (Xanax) 0.25 mg PO F [facility] Stop: 03/11/18 09:01 Last Admin: 03/04/18 08:34 Dose: 0.25 mg Aspirin (Aspirin Chewable) 81 mg PO DAILY [facility] Last Admin: 03/04/18 13:37 Dose: 81 mg Atropine Sulfate (Atropisol 1% Ophth) 0.05 ml OU DAILY [facility] Last Admin: 03/04/18 14:16 Dose: Not Given Brimonidine Tartrate (Alphagan 0.2% Opht) 0 ml OU BID [facility] Last Admin: 03/04/18 13:35 Dose: 1 drop Cinacalcet (Sensipar) 30 mg PO DAILY [facility] Last Admin: 03/04/18 13:37 Dose: 30 mg Clonidine HCl (Catapres) 0.1 mg PO BID [facility] Last Admin: 03/04/18 13:37 Dose: Not Given Famotidine (Pepcid) 20 mg PO DAILY [facility] Last Admin: 03/04/18 13:37 Dose: 20 mg Heparin Sodium (Porcine) (Heparin) 5,000 units SC Q12 [facility] Last Admin: 03/04/18 13:37 Dose: 5,000 units Moxifloxacin HCl (Avelox Iv 400mg/250ml Ns) 400 mg in 250 mls @ 167 mls/hr IVPB Q24H [facility]; Protocol Last Admin: 03/03/18 09:54 Dose: 167 mls/hr Vancomycin HCl 1 gm/ Sodium (Chloride) 250 mls @ 166.7 mls/hr IVPB MWF [facility]; Protocol Last Admin: 03/04/18 14:17 Dose: 166.7 mls/hr Latanoprost (Xalatan Opht) 0.05 ml OU DAILY [facility] Last Admin: 03/04/18 13:35 Dose: 0.05 ml Midodrine (Proamatine) 10 mg PO DAILY [facility] Last Admin: 03/04/18 10:01 Dose: 10 mg Rosuvastatin Calcium (Crestor) 10 mg PO HS [facility] Last Admin: 03/03/18 21:53 Dose: 10 mg Sevelamer Carbonate (Renvela) 800 mg PO TIDCC [facility] Last Admin: 03/04/18 13:37 Dose: 800 mg Timolol Maleate (Timoptic 0.5% Oph Soln) 0 drop OU BID [facility] Last Admin: 03/04/18 13:34 Dose: 1 drop Zolpidem Tartrate (Ambien) 5 mg PO HS PRN PRN Reason: Insomnia Last Admin: 03/03/18 21:53 Dose: 5 mg - Labs Labs: 03/04/18 09:47 03/04/18 09:47 PT 12.0 SECONDS (9.7-12.2) 03/02/18 08:43 INR 1.1 03/02/18 08:43 APTT 23 SECONDS (21-34) 03/02/18 08:43 - Head Exam Head Exam: ATRAUMATIC, NORMOCEPHALIC - ENT Exam ENT Exam: Mucous Membranes Moist - Neck Exam Neck Exam: Normal Inspection - Respiratory Exam Respiratory Exam: Clear to Ausculation Bilateral - Cardiovascular Exam Cardiovascular Exam: REGULAR RHYTHM - GI/Abdominal Exam GI & Abdominal Exam: Soft, Normal Bowel Sounds - Extremities Exam Extremities Exam: Normal Inspection Assessment and Plan (1) Pneumonia Assessment & Plan: continue IV antibiotics Follow-up chest x-ray Continue hemodialysis clinically improving Status: Acute (2) COPD (chronic obstructive pulmonary disease) Status: Acute (3) End stage renal disease Status: Acute
[2018-03-04 15:48] VITALS: RESP 20
--- NOTE | 2018-03-04 15:48 | CP.PCM.PN ---
Subjective - Date & Time of Evaluation Date of Evaluation: 03/04/18 Time of Evaluation: 15:46 - Subjective Subjective: Feels better Stable dialysis course No more dyspnea Objective - Vital Signs/Intake and Output Vital Signs (last 24 hours): Temp Pulse Resp BP Pulse Ox 97.8 F 75 20 98/61 L 96 03/04/18 15:00 03/04/18 15:00 03/04/18 15:00 03/04/18 15:00 03/04/18 15:00 Intake and Output: 03/04/18 03/04/18 06:59 18:59 Intake Total 250 Balance 250 - Medications Medications: Current Medications Alprazolam (Xanax) 0.[address] [facility] Stop: 03/11/18 09:01 Last Admin: 03/04/18 08:34 Dose: 0.25 mg Aspirin (Aspirin Chewable) 81 mg PO DAILY [facility] Last Admin: 03/04/18 13:37 Dose: 81 mg Atropine Sulfate (Atropisol 1% Ophth) 0.05 ml OU DAILY [facility] Last Admin: 03/04/18 14:16 Dose: Not Given Brimonidine Tartrate (Alphagan 0.2% Opht) 0 ml OU BID [facility] Last Admin: 03/04/18 13:35 Dose: 1 drop Cinacalcet (Sensipar) 30 mg PO DAILY [facility] Last Admin: 03/04/18 13:37 Dose: 30 mg Clonidine HCl (Catapres) 0.1 mg PO BID [facility] Last Admin: 03/04/18 13:37 Dose: Not Given Famotidine (Pepcid) 20 mg PO DAILY [facility] Last Admin: 03/04/18 13:37 Dose: 20 mg Heparin Sodium (Porcine) (Heparin) 5,000 units SC Q12 [facility] Last Admin: 03/04/18 13:37 Dose: 5,000 units Moxifloxacin HCl (Avelox Iv 400mg/250ml Ns) 400 mg in 250 mls @ 167 mls/hr IVPB Q24H [facility]; Protocol Last Admin: 03/03/18 09:54 Dose: 167 mls/hr Vancomycin HCl 1 gm/ Sodium (Chloride) 250 mls @ 166.7 mls/hr IVPB MWF [facility]; Protocol Last Admin: 03/04/18 14:17 Dose: 166.7 mls/hr Latanoprost (Xalatan Opht) 0.05 ml OU DAILY [facility] Last Admin: 03/04/18 13:35 Dose: 0.05 ml Midodrine (Proamatine) 10 mg PO DAILY [facility] Last Admin: 03/04/18 10:01 Dose: 10 mg Rosuvastatin Calcium (Crestor) 10 mg PO HS [facility] Last Admin: 03/03/18 21:53 Dose: 10 mg Sevelamer Carbonate (Renvela) 800 mg PO TIDCC [facility] Last Admin: 03/04/18 13:37 Dose: 800 mg Timolol Maleate (Timoptic 0.5% Ophth Soln) 0 drop OU BID [facility] Last Admin: 03/04/18 13:34 Dose: 1 drop Zolpidem Tartrate (Ambien) 5 mg PO HS PRN PRN Reason: Insomnia Last Admin: 03/03/18 21:53 Dose: 5 mg - Labs Labs: 03/04/18 09:47 03/04/18 09:47 PT 12.0 SECONDS (9.7-12.2) 03/02/18 08:43 INR 1.1 03/02/18 08:43 APTT 23 SECONDS (21-34) 03/02/18 08:43 - Constitutional Appears: No Acute Distress, Chronically Ill - Head Exam Head Exam: NORMAL INSPECTION - Eye Exam Eye Exam: EOMI, Normal appearance - Neck Exam Neck Exam: Normal Inspection. absent: Tenderness - Respiratory Exam Respiratory Exam: Clear to Ausculation Bilateral, NORMAL BREATHING PATTERN - Cardiovascular Exam Cardiovascular Exam: REGULAR RHYTHM, +S1 - GI/Abdominal Exam GI & Abdominal Exam: Soft. absent: Tenderness - Extremities Exam Extremities Exam: Normal Inspection. absent: Tenderness - Neurological Exam Neurological Exam: Alert, CN II-XII Intact - Skin Skin Exam: Dry, Warm Assessment and Plan (1) COPD (chronic obstructive pulmonary disease) Status: Acute (2) CHF (congestive heart failure) Status: Acute (3) Type 2 diabetes mellitus with diabetic nephropathy Status: Acute (4) ESRD needing dialysis Status: Chronic (5) Pneumonia Status: Acute - Assessment and Plan (Free Text) Plan: Same aggressive UF wiith HD Monitor BP
[2018-03-04] MEDS: Moxifloxacin IV 400mg/250ml NS 400 MG/250 ML BAG IVPB SCH (16:39)
--- NOTE | 2018-03-04 18:22 | PN ---
DATE: 03/04/2018 SUBJECTIVE: The patient is currently undergoing hemodialysis. She denies any chest pain or shortness of breath. PHYSICAL EXAMINATION: VITAL SIGNS: Blood pressure 104/64, heart rate 68, temperature 97.4, respirations 18. HEENT: Pale conjunctivae. CHEST: Diminished breath sounds over the right base. HEART: S1 and S2 regular. EXTREMITIES: No edema. LABORATORY DATA: Today's hemoglobin and hematocrit 9.8 and 30.7. White count and platelet count are within normal limit. Today's SMA-7; sodium 138, potassium 4.3, chloride 101, CO2 of 21, glucose 103, BUN 60, creatinine 11.2. Official x-ray report, extensive bibasilar opacity. Bilateral pneumonia versus atypical pulmonary edema. ASSESSMENT: 1. Hypertrophic cardiomyopathy. 2. Diastolic heart failure. 3. Bilateral pneumonia. 4. End-stage renal disease, on hemodialysis. 5. Hypertension. RECOMMENDATIONS: Case was discussed with Dr. Nettles, the infectious disease specialist. The patient will be maintained on Avelox at 400 mg intravenously daily. In the meantime, continue aspirin 81 mg once a day, clonidine 0.1 mg twice a day, Crestor 10 mg once a day, subcutaneous heparin 5000 units every 12 hours, and IV vancomycin 1 g Friday, Friday, and Friday. Drake Estrada MD
--- NOTE | 2018-03-04 22:34 | CP.PCM.PN ---
Subjective - Subjective Subjective: dictated Objective - Vital Signs/Intake and Output Vital Signs (last 24 hours): Temp Pulse Resp BP Pulse Ox 97.8 F 73 20 96/56 L 96 03/04/18 15:00 03/04/18 18:07 03/04/18 15:00 03/04/18 18:07 03/04/18 15:00 Intake and Output: 03/04/18 03/05/18 18:59 06:59 Intake Total 250 Balance 250 - Medications Medications: Current Medications Alprazolam (Xanax) 0.25 mg PO [facility] Stop: 03/11/18 09:01 Last Admin: 03/04/18 08:34 Dose: 0.25 mg Aspirin (Aspirin Chewable) 81 mg PO DAILY [facility] Last Admin: 03/04/18 13:37 Dose: 81 mg Atropine Sulfate (Atropisol 1% Ophth) 0.05 ml OU DAILY [facility] Last Admin: 03/04/18 14:16 Dose: Not Given Brimonidine Tartrate (Alphagan 0.2% Opht) 0 ml OU BID [facility] Last Admin: 03/04/18 18:09 Dose: 1 drop Cinacalcet (Sensipar) 30 mg PO DAILY [facility] Last Admin: 03/04/18 13:37 Dose: 30 mg Famotidine (Pepcid) 20 mg PO DAILY [facility] Last Admin: 03/04/18 13:37 Dose: 20 mg Heparin Sodium (Porcine) (Heparin) 5,000 units SC Q12 [facility] Last Admin: 03/04/18 22:27 Dose: 5,000 units Moxifloxacin HCl (Avelox Iv 400mg/250ml Ns) 400 mg in 250 mls @ 167 mls/hr IVPB Q24H [facility]; Protocol Last Admin: 03/04/18 16:39 Dose: 167 mls/hr Vancomycin HCl 1 gm/ Sodium (Chloride) 250 mls @ 166.7 mls/hr IVPB [facility] [place]; Protocol Last Admin: 03/04/18 14:17 Dose: 166.7 mls/hr Latanoprost (Xalatan Opht) 0.05 ml OU DAILY [facility] Last Admin: 03/04/18 13:35 Dose: 0.05 ml Midodrine (Proamatine) 10 mg PO DAILY [facility] Last Admin: 03/04/18 10:01 Dose: 10 mg Rosuvastatin Calcium (Crestor) 10 mg PO HS [facility] Last Admin: 03/04/18 22:27 Dose: 10 mg Sevelamer Carbonate (Renvela) 800 mg PO TIDCC [facility] Last Admin: 03/04/18 18:03 Dose: 800 mg Timolol Maleate (Timoptic 0.5% Ophth Soln) 0 drop OU BID [facility] Last Admin: 03/04/18 18:03 Dose: 1 drop Zolpidem Tartrate (Ambien) 5 mg PO HS PRN PRN Reason: Insomnia Last Admin: 03/04/18 22:32 Dose: 5 mg - Labs Labs: 03/04/18 09:47 03/04/18 09:47 PT 12.0 SECONDS (9.7-12.2) 03/02/18 08:43 INR 1.1 03/02/18 08:43 APTT 23 SECONDS (21-34) 03/02/18 08:43
--- NOTE | 2018-03-05 03:25 | PN ---
DATE: 03/04/2018 INFECTIOUS DISEASE FOLLOWUP SUBJECTIVE: The patient was seen today while she was in the Dialysis Unit. They were going to take out more than 2 L, but her blood pressure is always on the low side, so the nurse was saying that it was not easy to remove fluid. She denied any shortness of breath. No chest pain, no fevers. OBJECTIVE: VITAL SIGNS: Stable. T-max is 97.8, pulse 75, blood pressure is 98/61, respirations are 20. HEENT: Head is atraumatic. She is alert, awake. NECK: Supple. LUNGS: Clear. No crackles or rales present. HEART: S1 and S2 regular. ABDOMEN: Soft, nontender. No guarding. No rigidity present. EXTREMITIES: Had no edema, clubbing, or cyanosis. DIAGNOSTIC DATA: Labs are noted. Labs show white count today was 8.6. She came in with a white count of 20.5 on 03/02/2018, today it is 8.6. Hemoglobin 9.8, her hemoglobin was 12.5 before, hematocrit 30.7, platelet count is 190, and neutrophils are 64. She has been on vancomycin and Zosyn, and her creatinine is 11.2. She is a dialysis patient, glucose is 203, is elevated. She is probably diabetic. Vanco random was 16.9 yesterday. She is going to get another dose of vancomycin today. Her x-ray was done on 03/02/2018 which showed extensive bibasilar opacity, bilateral pneumonia versus atypical pulmonary edema. At this time, the patient is being treated for pneumonia with vancomycin and Avelox, and Pulmonary is also following. Jay Nettles MD
--- NOTE | 2018-03-05 05:19 | PN ---
DATE: 03/04/2018 SUBJECTIVE: The patient is afebrile. Decreased WBC. No shortness of breath. Status post hemodialysis. PHYSICAL EXAMINATION: VITAL SIGNS: Blood pressure 98/61, pulse 71, respiratory rate 20, temperature 97.8. LUNGS: Bilateral basal crepitations. CVS: S1 and S2 regular. ABDOMEN: Soft. ASSESSMENT: 1. Pneumonia. 2. Fluid overload due to chronic kidney disease. 3. Chronic kidney disease, on hemodialysis. 4. Syncope. PLAN: Continue antibiotics. The patient will be monitored closely. Possible discharge in a.m. Gianluca Daly MD
[2018-03-05 08:13] VITALS: TEMP 97.6; O2SAT 96
[2018-03-05] MEDS: Moxifloxacin IV 400mg/250ml NS 400 MG/250 ML BAG IVPB SCH (08:31)
[2018-03-05] MEDS: Brimonidine 0.2% Opth Sol (5ml) OU SCH (10:16)
[2018-03-05 10:19] VITALS: BP 123/72; PULSE 84
[2018-03-05] MEDS: Atropine 1% Ophth Soln (15 ml) OU SCH (10:20)
[2018-03-05] MEDS: Latanoprost 2.5 ml Opht Soln OU SCH (10:23)
--- NOTE | 2018-03-05 10:30 | CP.PCM.PN ---
Subjective - Date & Time of Evaluation Date of Evaluation: 03/05/18 Time of Evaluation: 10:28 - Subjective Subjective: Stable dialysis course not dyspneic BP controlled Hg sl lower- will monitor Objective - Vital Signs/Intake and Output Vital Signs (last 24 hours): Temp Pulse Resp BP Pulse Ox 97.6 F 84 20 123/72 96 03/05/18 08:12 03/05/18 10:19 03/05/18 08:12 03/05/18 10:19 03/05/18 08:12 - Medications Medications: Current Medications Alprazolam (Xanax) 0.25 mg PO MWF [facility] Stop: 03/11/18 09:01 Last Admin: 03/04/18 08:34 Dose: 0.25 mg Aspirin (Aspirin Chewable) 81 mg PO DAILY [facility] Last Admin: 03/04/18 13:37 Dose: 81 mg Atropine Sulfate (Atropisol 1% Ophth) 0.05 ml OU DAILY [facility] Last Admin: 03/05/18 10:20 Dose: Not Given Brimonidine Tartrate (Alphagan 0.2% Opht) 0 ml OU BID [facility] Last Admin: 03/05/18 10:16 Dose: 1 drop Cinacalcet (Sensipar) 30 mg PO DAILY [facility] Last Admin: 03/04/18 13:37 Dose: 30 mg Famotidine (Pepcid) 20 mg PO DAILY [facility] Last Admin: 03/04/18 13:37 Dose: 20 mg Heparin Sodium (Porcine) (Heparin) 5,000 units SC Q12 [facility] Last Admin: 03/04/18 22:27 Dose: 5,000 units Moxifloxacin HCl (Avelox Iv 400mg/250ml Ns) 400 mg in 250 mls @ 167 mls/hr IVPB Q24H [facility]; Protocol Last Admin: 03/05/18 08:31 Dose: 167 mls/hr Vancomycin HCl 1 gm/ Sodium (Chloride) 250 mls @ 166.7 mls/hr IVPB MWF [facility]; Protocol Last Admin: 03/04/18 14:17 Dose: 166.7 mls/hr Latanoprost (Xalatan Opht) 0.05 ml OU DAILY [facility] Last Admin: 03/05/18 10:23 Dose: 0.05 ml Midodrine (Proamatine) 10 mg PO DAILY [facility] Last Admin: 03/04/18 10:01 Dose: 10 mg Rosuvastatin Calcium (Crestor) 10 mg PO HS [facility] Last Admin: 03/04/18 22:27 Dose: 10 mg Sevelamer Carbonate (Renvela) 800 mg PO TIDCC [facility] Last Admin: 03/05/18 08:33 Dose: 800 mg Timolol Maleate (Timoptic 0.5% Ophth Soln) 0 drop OU BID [facility] Last Admin: 03/05/18 10:19 Dose: 1 drop Zolpidem Tartrate (Ambien) 5 mg PO HS PRN PRN Reason: Insomnia Last Admin: 03/04/18 22:32 Dose: 5 mg - Labs Labs: 03/04/18 09:47 03/04/18 09:47 PT 12.0 SECONDS (9.7-12.2) 03/02/18 08:43 INR 1.1 03/02/18 08:43 APTT 23 SECONDS (21-34) 03/02/18 08:43 - Constitutional Appears: No Acute Distress, Chronically Ill - Head Exam Head Exam: ATRAUMATIC, NORMAL INSPECTION - Eye Exam Eye Exam: EOMI, Normal appearance - Neck Exam Neck Exam: Normal Inspection. absent: Tenderness - Respiratory Exam Respiratory Exam: Clear to Ausculation Bilateral, NORMAL BREATHING PATTERN - Cardiovascular Exam Cardiovascular Exam: REGULAR RHYTHM, +S1 - GI/Abdominal Exam GI & Abdominal Exam: Soft. absent: Tenderness - Extremities Exam Extremities Exam: Normal Inspection. absent: Tenderness - Neurological Exam Neurological Exam: Awake, CN II-XII Intact - Skin Skin Exam: Dry, Warm Assessment and Plan (1) COPD (chronic obstructive pulmonary disease) Status: Acute (2) CHF (congestive heart failure) Status: Acute (3) Type 2 diabetes mellitus with diabetic nephropathy Status: Acute (4) ESRD needing dialysis Status: Chronic (5) Pneumonia Status: Acute - Assessment and Plan (Free Text) Plan: Same dialysis MWF If Hg lower- add ESAs Does not want to switch HD unit
--- NOTE | 2018-03-05 17:47 | PN ---
DATE: 03/05/2018 SUBJECTIVE: The patient denies any shortness of breath, chest pain, or productive cough at this time. PHYSICAL EXAMINATION: VITAL SIGNS: Blood pressure 115/71, heart rate 73, temperature 97.6, respirations 20. HEENT: Pale conjunctivae. CHEST: Minimal basilar rhonchi. HEART: S1 and S2 regular. EXTREMITIES: No edema. ASSESSMENT: 1. Hypertrophic cardiomyopathy. 2. Diastolic left ventricular dysfunction. 3. Bilateral pneumonia, which is improving. 4. End-stage renal disease, on hemodialysis. 5. Systemic hypertension. RECOMMENDATIONS: Continue current aspirin 81 mg once a day, Avelox 400 mg intravenously daily, Crestor 10 mg once a day, subcutaneous heparin 5000 units every 12 hours, ProAmatine 10 mg daily, and vancomycin 1 g intravenously Friday, Friday, and Friday. No further cardiac workup is indicated at this time. Drake Estrada MD
--- NOTE | 2018-03-05 17:52 | CP.PCM.PN ---
Subjective - Date & Time of Evaluation Date of Evaluation: 03/05/18 Time of Evaluation: 10:25 - Subjective Subjective: Patient seen and examined at bedside, lying down comfortably. Afebrile and in no acute distress. Denies shortness of breath, cough, chest pain, fever. Cotinue to Monitor WBC count, 20.5 on 03/02/18, 8.6 on 03/04/18 Blood cultures no growth after 24 hours, gram stain pending Will order repeat Chest X-Ray Patient receiving hemodialysis MWF Continue abx per ID Objective - Vital Signs/Intake and Output Vital Signs (last 24 hours): Temp Pulse Resp BP Pulse Ox 97.6 F 84 20 123/72 96 03/05/18 08:12 03/05/18 10:19 03/05/18 08:12 03/05/18 10:19 03/05/18 08:12 - Labs Labs: 03/04/18 09:47 03/04/18 09:47 PT 12.0 SECONDS (9.7-12.2) 03/02/18 08:43 INR 1.1 03/02/18 08:43 APTT 23 SECONDS (21-34) 03/02/18 08:43 Assessment and Plan (1) Pneumonia Status: Acute (2) COPD (chronic obstructive pulmonary disease) Status: Acute (3) End stage renal disease Status: Acute
--- NOTE | 2018-03-06 01:03 | CP.PCM.DIS ---
Provider - Provider Date of Admission: 03/02/18 08:51 Attending physician: Gianluca Daly MD Consults: 03/02/18 08:42 Nephrology Consult Stat Comment: M/W/F HD Consulting Provider: Salvador Montiel Consulting Physician: Salvador Montiel Reason for Consult: m/w/f HD 03/02/18 16:15 Pulmonology Consult Routine Comment: Consulting Provider: Daniel Rapp Consulting Physician: Daniel Rapp Reason for Consult: resp. insufficiency / CAP 03/02/18 17:06 Cardiology Consult Routine Comment: Consulting Provider: Drake Estrada Consulting Physician: Drake Estrada Reason for Consult: chf Infectious Disease Consult Routine Comment: Consulting Provider: Jay Nettles Consulting Physician: Jay Nettles Reason for Consult: CAP Hospital Course - Lab Results Lab Results: Micro Results 03/02/18 09:52 Blood-Venous Blood Culture - Preliminary NO GROWTH AFTER 3 DAYS Most Recent Lab Values WBC 8.6 K/uL (4.8-10.8) D 03/04/18 09:47 RBC 3.44 Mil/uL (3.80-5.20) L 03/04/18 09:47 Hgb 9.8 g/dL (11.0-16.0) L D 03/04/18 09:47 Hct 30.7 % (34.0-47.0) L 03/04/18 09:47 MCV 89.3 fL (81.0-99.0) 03/04/18 09:47 MCH 28.4 pg (27.0-31.0) 03/04/18 09:47 MCHC 31.8 g/dL (33.0-37.0) L 03/04/18 09:47 RDW 17.9 % (11.5-14.5) H 03/04/18 09:47 Plt Count 190 K/uL (130-400) D 03/04/18 09:47 MPV 10.1 fL (7.2-11.7) 03/04/18 09:47 Neut % (Auto) 64.2 % (50.0-75.0) 03/04/18 09:47 Lymph % (Auto) 16.5 % (20.0-40.0) L 03/04/18 09:47 [place] % (Auto) 9.5 % (0.0-10.0) 03/04/18 09:47 Eos % (Auto) 8.6 % (0.0-4.0) H 03/04/18 09:47 Baso % (Auto) 1.2 % (0.0-2.0) 03/04/18 09:47 Neut # (Auto) 5.5 K/uL (1.8-7.0) 03/04/18 09:47 Lymph # (Auto) 1.4 K/uL (1.0-4.3) 03/04/18 09:47 [place] # (Auto) 0.8 K/uL (0.0-0.8) 03/04/18 09:47 Eos # (Auto) 0.7 K/uL (0.0-0.7) 03/04/18 09:47 Baso # (Auto) 0.1 K/uL (0.0-0.2) 03/04/18 09:47 Neutrophils % (Manual) 92 % (50-75) H 03/02/18 08:08 Lymphocytes % (Manual) 3 % (20-40) L 03/02/18 08:08 Monocytes % (Manual) 4 % (0-10) 03/02/18 08:08 Eosinophils % (Manual) 1 % (0-4) 03/02/18 08:08 Platelet Estimate Normal (NORMAL) 03/02/18 08:08 Large Platelets Present 03/02/18 08:08 Poikilocytosis (manual Slight 03/02/18 08:08 Anisocytosis (manual) Slight 03/02/18 08:08 Stacy Cells Slight 03/02/18 08:08 PT 12.0 SECONDS (9.7-12.2) 03/02/18 08:43 INR 1.1 03/02/18 08:43 APTT 23 SECONDS (21-34) 03/02/18 08:43 Puncture Site Rra 03/02/18 21:15 pCO2 47 mm/Hg (35-45) H 03/02/18 21:15 pO2 110 mm/Hg (80-100) H 03/02/18 21:15 HCO3 31.0 mmol/L (21-28) H 03/02/18 21:15 ABG pH 7.45 (7.35-7.45) 03/02/18 21:15 ABG Total CO2 34.1 mmol/L (22-28) H 03/02/18 21:15 ABG O2 Saturation 99.9 % (95-98) H 03/02/18 21:15 ABG Base Excess 7.8 mmol/L (-2.0-3.0) H 03/02/18 21:15 ABG Hemoglobin 9.4 g/dL (11.7-17.4) L 03/02/18 21:15 ABG Carboxyhemoglobin 2.0 % (0.5-1.5) H 03/02/18 21:15 POC ABG HHb (Measured) 0.1 % (0.0-5.0) 03/02/18 21:15 ABG Methemoglobin 1.2 % (0.0-3.0) 03/02/18 21:15 Judson Test Pos 03/02/18 21:15 A-a O2 Difference 59.0 mm/Hg 03/02/18 21:15 Respiratory Index 0.5 03/02/18 21:15 Hgb O2 Saturation 96.6 % (95.0-98.0) 03/02/18 21:15 Liter Flow 3.0 03/02/18 21:15 FiO2 32.0 % 03/02/18 21:15 Sodium 138 mmol/L (132-148) 03/04/18 09:47 Potassium 4.3 mmol/L (3.6-5.2) 03/04/18 09:47 Chloride 101 mmol/L (98-107) 03/04/18 09:47 Carbon Dioxide 21 mmol/L (22-30) L 03/04/18 09:47 Anion Gap 21 (10-20) H 03/04/18 09:47 BUN 60 mg/dL (7-17) H 03/04/18 09:47 Creatinine 11.2 mg/dL (0.7-1.2) H* 03/04/18 09:47 Est GFR ( Amer) 4 03/04/18 09:47 Est GFR (Non-Af Amer) 3 03/04/18 09:47 POC Glucose (mg/dL) 252 mg/dL (65-110) H 03/02/18 07:53 Random Glucose 203 mg/dL (65-105) H 03/04/18 09:47 Calcium 8.9 mg/dl (8.6-10.4) 03/04/18 09:47 Total Bilirubin 0.3 mg/dL (0.2-1.3) 03/04/18 09:47 AST 17 U/L (14-36) 03/04/18 09:47 ALT 20 U/L (9-52) 03/04/18 09:47 Alkaline Phosphatase 105 U/L (38-126) 03/04/18 09:47 Troponin I 0.0560 ng/mL (0.00-0.120) 03/02/18 08:38 NT-Pro-B Natriuret Pep 01043 pg/mL (0-900) H 03/02/18 08:38 Total Protein 6.8 g/dL (6.3-8.3) 03/04/18 09:47 Albumin 4.0 g/dL (3.5-5.0) 03/04/18 09:47 Globulin 2.9 gm/dL (2.2-3.9) 03/04/18 09:47 Albumin/Globulin Ratio 1.4 (1.0-2.1) 03/04/18 09:47 Random Vancomycin 16.9 ug/mL 03/03/18 07:22 Discharge Exam - Head Exam Head Exam: ATRAUMATIC, NORMAL INSPECTION Discharge Plan - Discharge Medications Prescriptions: Moxifloxacin [Avelox] 400 mg PO DAILY #2 tab - Follow Up Plan Condition: GOOD Disposition: HOME/ ROUTINE Instructions: Heart Failure, Adult (DC), Pneumonia, Adult (DC), Exacerbation of COPD (DC), Dialysis and Diet, Hypertension (GEN) Additional Instructions: Please f/u with Dr. daly office in 1 week Please continue HD as scheduled Please continue medication as pe rMed. rec. Referrals: Daniel Rapp MD [Staff Provider] - Salvador Montiel MD [Staff Provider] - Drake Estrada MD [Staff Provider] - Gianluca Daly MD [Staff Provider] -
--- NOTE | 2018-03-06 07:30 | DS ---
DISCHARGE DIAGNOSES: Pneumonia, syncope due to episodic hypotension, anemia of chronic kidney disease, and end-stage renal disease on hemodialysis. HISTORY OF PRESENT ILLNESS: This is a 67-year-old female, well known to me, with a history of end-stage renal disease of unknown etiology, on hemodialysis; hyperlipidemia; prior hospitalization for syncope; who came in because of the syncope in the dialysis unit, and later on, the patient was found to have pneumonia in the emergency room with leukocytosis. The patient was admitted to the floor, started on antibiotics, neuro, and seizure and fall precaution, evaluation, and the patient's condition improved. Afebrile. WBC went down to normal, and the patient is for discharge with outpatient followup. LABORATORY DATA: WBC 20.5, hemoglobin 12.5, hematocrit 39.5, and platelets 302. ABG: PH of 7.45, pCO2 is 47, pO2 is . Sodium 138, potassium 5.6, chloride 106, bicarb 16, BUN 61, and creatinine 11. CONDITION UPON DISCHARGE: Stable. Gianluca Daly MD
== END 2018-03-05 14:38 | disposition home or self-care (01) | DRG 193 ==
LOC: C.ER 07:32 → C.9E 08:51 → C.5S 15:25
PROVIDERS: ADMIT Internal Medicine; ATTEND Internal Medicine
PROC: 5A09357 Assistance with Respiratory Ventilation, Less than 24 Consecutive Hours, Continuous Positive Airway Pressure (ICD-10-PCS; principal; 2018-03-02)
PROC: 5A1D70Z Performance of Urinary Filtration, Intermittent, Less than 6 Hours Per Day (ICD-10-PCS; 2018-03-02)
PROC: 5A1D70Z Performance of Urinary Filtration, Intermittent, Less than 6 Hours Per Day (ICD-10-PCS; 2018-03-04)
DX: J18.9 Pneumonia, unspecified organism (principal); J44.0 Chronic obstructive pulmonary disease with (acute) lower respiratory infection; N18.6 End stage renal disease; I13.2 Hypertensive heart and chronic kidney disease with heart failure and with stage 5 chronic kidney disease, or end stage renal disease; I42.2 Other hypertrophic cardiomyopathy; I50.32 Chronic diastolic (congestive) heart failure; D63.1 Anemia in chronic kidney disease; I95.89 Other hypotension; E11.21 Type 2 diabetes mellitus with diabetic nephropathy; E11.22 Type 2 diabetes mellitus with diabetic chronic kidney disease; E78.5 Hyperlipidemia, unspecified; E78.00 Pure hypercholesterolemia, unspecified; F17.210 Nicotine dependence, cigarettes, uncomplicated; H40.9 Unspecified glaucoma; Z86.73 Personal history of transient ischemic attack (TIA), and cerebral infarction without residual deficits; Z99.2 Dependence on renal dialysis

== ENCOUNTER 2018-04-16 11:16 | Outpatient (CLI) | payer MEDICARE | END 2018-04-16 11:17 | disposition home or self-care (01) | LOC: C.RADIC 11:16 | DX: Z49.01 Encounter for fitting and adjustment of extracorporeal dialysis catheter (principal) ==

== ENCOUNTER 2018-04-20 08:01 | Inpatient (IN) | payer MEDICARE, BC ==
[2018-04-20 08:02] VITALS: BMI 36.6
--- NOTE | 2018-04-20 08:38 | C.PDOC ---
History Of Present Illness Patient BASIM from hemodialysis, has finished approx 1 hour of dialysis when she began to c/o SOB and chest pain. On ALS arrival patient was SOB, speaking in 2- 3 words at a time, placed on CPAP (POx in the 70s). En route to ER patient became obtunded, was emergently intubated in the field (Versed, Etomidate, Rocuronium). PMHx of HTN, ESRD on HD, COPD, anemia, arthritis, hyperlipidemia Time Seen by Provider: 04/20/18 08:29 Chief Complaint (Nursing): Respiratory Distress History Per: EMS History/Exam Limitations: clinical condition Onset/Duration Of Symptoms: Hrs Current Symptoms Are (Timing): Still Present Past Medical History Reviewed: Historical Data, Nursing Documentation, Vital Signs Vital Signs: Last Vital Signs Temp Pulse 131 H 04/20/18 08:05 Resp BP 143/81 04/20/18 08:05 Pulse Ox 100 04/20/18 08:05 - Medical History PMH: Anemia, Arthritis (knee pain), COPD, HTN, Hypercholesterolemia, Peripheral Edema, End Stage Renal Disease, Chronic Kidney Disease - [facility] Procedures (03/02/18) ASSISTANCE WITH RESPIRATORY VENTILATION, <24 HRS, CPAP (03/02/18) DIALYSIS ARTERIOVENOSTOM (06/13/14) ENDOSCOPIC BRONCHIAL BX (07/07/14) HEMODIALYSIS (07/07/14) INSERTION OF INFUSION DEV INTO R SUBCLAV VEIN, PERC APPROACH (04/02/17) Family History: States: Unknown Family Hx - Social History Hx Tobacco Use: No Hx Alcohol Use: No Hx Substance Use: No - Immunization History Hx Tetanus Toxoid Vaccination: No Hx Influenza Vaccination: Yes Hx Pneumococcal Vaccination: No Review Of Systems Review Of Systems: ROS cannot be obtained secondary to pt's inabilty to answer questions. Physical Exam - Physical Exam Appears: No Acute Distress, Other (unresponsive and intubated) Skin: Warm, Dry Eye(s): right: PERRL, left: Other (left cataract/cloudy appearing cornea) Oral Mucosa: Moist, Other (ET tube in place, 22cm at lip ) Chest: Symmetrical Cardiovascular: Rhythm Regular Respiratory: Rales (B/L ), No Rhonchi, Wheezing (scattered expratory wheezing B/L ), Other (assisted ventilations, equal breath sounds B/L ) Gastrointestinal/Abdominal: Normal Exam, Bowel Sounds, Soft, No Tenderness Extremity: Normal ROM, No Pedal Edema, Other (LUE with dressing (AV fistula)) Neurological/Psych: Other (GCS 3) ED Course And Treatment - Laboratory Results Result Diagrams: 04/20/18 08:32 04/20/18 08:32 ECG: Interpreted By Me, Viewed By Me (sinus tachycardia 115 bpm, normal axis, QTv 525ms, peaked T waves in lateral leads, no acute ST changes) ECG Interpretation: Abnormal O2 Sat by Pulse Oximetry: 100 (FiO2 100) Pulse Ox Interpretation: Normal - CT Scan/US ct head Other Rad Studies (CT/US): Read By Radiologist, Radiology Report Reviewed CT/US Interpretation: Accession No. : [id number]. Patient Name / ID : KELVIN YOUNG / [id number]. Exam Date : 04/20/2018 09:05:59 ( Approved ). Study Comment : Sex / Age : F / [id number]. Creator : Jose Patel MD. Dictator : Jose Patel MD. Auto Glass Installer : Privacy Attorney : Jose Patel MD. Approver2 : Report Date : 04/20/2018 09:22:06. My Comment : . Date of service: 04/20/2018. PROCEDURE: CT HEAD WITHOUT CONTRAST. HISTORY: ams. COMPARISON: None available. TECHNIQUE: Axial computed tomography images were obtained through the head/brain without intravenous contrast. Radiation dose: Total exam DLP = 2432.51 mGy-cm. This CT exam was performed using one or more of the following dose reduction techniques: Automated exposure control, adjustment of the mA and/or kV according to patient size, and/or use of iterative reconstruction technique. FINDINGS: HEMORRHAGE: No intracranial hemorrhage. BRAIN: No intracranial mass. Small old lacunar infarct head left caudate nucleus and left thalamus . Patchy and confluent periventricular, deep and subcortical white matter lucency consistent age related microvascular ischemic change. No evidence of acute infarct. VENTRICLES: Unremarkable. No hydrocephalus. CALVARIUM: Unremarkable. PARANASAL SINUSES: Minimal chronic bilateral maxillary sinusitis. MASTOID AIR CELLS: Unremarkable as visualized. No inflammatory changes. OTHER FINDINGS: None. IMPRESSION: No intracranial mass, hemorrhage or evidence of acute infarct. Chronic white matter ischemic change. 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 Progress Note: Blood work, EKG, CXR, UA, CT head ordered and reviewed. Multiple attempts made at IV access by me, including B/L EJs - were unsuccessful. Left tibial 25mm IO inserted by me for access; blood obtained via arterial stick right radial artery by me. 9:40- Discussed patient with children librarian Dr. Brown - Physician Consult Information Physician Contacted: Gianluca Daly Outcome Of Conversation: Discussed patient with PMD, agrees with admission to [facility] service Medical Decision Making Medical Decision Making: Danette Coma Scale/Score (GCS) from [email or web address] on 04/20/2018 All calculations should be rechecked by clinician prior to use RESULT SUMMARY: 3 points [id number] INPUTS: Best eye response > 1 = No eye opening (+1) Best verbal response > 0 = Intubated (+1t) Best motor response > 1 = No motor response (+1) Disposition - Disposition
[2018-04-20 08:39] LABS: BASO # 0.1 K/uL (0.0-0.2); BASO % 0.4 % (0.0-2.0); EOS # 0.6 K/uL (0.0-0.7); HEMOGLOBIN 11.3 g/dL (11.0-16.0); LYMPH # 1.1 K/uL (1.0-4.3); LYMPH % 5.7 % (20.0-40.0); MEAN CELL VOLUME 90.5 fL (81.0-99.0); MEAN CORPUSCULAR HEMOGLOBIN 28.4 pg (27.0-31.0); MEAN CORPUSCULAR HGB CONC 31.3 g/dL (33.0-37.0); MEAN PLATELET VOLUME 9.8 fL (7.2-11.7); MONO # 0.9 K/uL (0.0-0.8); MONO % 4.6 % (0.0-10.0); NEUT # 16.1 K/uL (1.8-7.0); NEUT % 86.3 % (50.0-75.0); PLATELET COUNT 243 K/uL (130-400); RBC 3.97 Mil/uL (3.80-5.20); RED CELL DISTRIBUTION WIDTH 16.3 % (11.5-14.5)
[2018-04-20 08:42] LABS: WHITE BLOOD COUNT 18.6 K/uL (4.8-10.8)
[2018-04-20] MEDS ORDERED: Propofol 10 mg/ml 1,000 MG/100 ML VIAL ONE (08:45)
[2018-04-20 08:50] LABS: ABG ALLEN TEST POS; ARTERIAL BLOOD GAS HCO3 20.2 mmol/L (21-28); ARTERIAL BLOOD GAS HEMOGLOBIN 11.3 g/dL (11.7-17.4); ARTERIAL BLOOD GAS O2 SAT 100.1 % (95-98); ARTERIAL BLOOD GAS PCO2 72 mm/Hg (35-45); ARTERIAL BLOOD GAS PH 7.13 (7.35-7.45); ARTERIAL BLOOD GAS PO2 321 mm/Hg (80-100); ARTERIAL BLOOD GAS TCO2 26.2 mmol/L (22-28)
[2018-04-20 08:50] LABS: INR 1.1; PROTHROMBIN TIME 11.7 SECONDS (9.7-12.2)
[2018-04-20] MEDS: Propofol 10 mg/ml 1,000 MG/100 ML VIAL IV STA ×2 (08:50→15:19)
[2018-04-20 09:04] LABS: CK-MB 2.58 ng/mL (0.0-3.38); TROPONIN I 0.049 ng/mL (0.00-0.120)
[2018-04-20 09:08] LABS: ALB/GLOB RATIO 1.3 (1.0-2.1); ALBUMIN 4.6 g/dL (3.5-5.0); CALCIUM 9.3 mg/dl (8.6-10.4)
[2018-04-20 09:13] LABS: ANISOCYTOSIS SLIGHT; EOSINOPHIL 4 % (0-4); LYMPHOCYTE 5 % (20-40); MONOCYTE 7 % (0-10); NEUTROPHIL 84 % (50-75); PLATELET ESTIMATE NORMAL (NORMAL); TOTAL CELLS COUNTED 100
[2018-04-20 09:14] LABS: HYPOCHROMIC SLIGHT; LARGE PLATELETS PRESENT
--- NOTE | 2018-04-20 09:25 | CT ---
Date of service: 04/20/2018 PROCEDURE: CT HEAD WITHOUT CONTRAST. HISTORY: ams COMPARISON: None available. TECHNIQUE: Axial computed tomography images were obtained through the head/brain without intravenous contrast. Radiation dose: Total exam DLP = 2432.51 mGy-cm. This CT exam was performed using one or more of the following dose reduction techniques: Automated exposure control, adjustment of the mA and/or kV according to patient size, and/or use of iterative reconstruction technique. FINDINGS: HEMORRHAGE: No intracranial hemorrhage. BRAIN: No intracranial mass. Small old lacunar infarct head left caudate nucleus and left thalamus . Patchy and confluent periventricular, deep and subcortical white matter lucency consistent age related microvascular ischemic change. No evidence of acute infarct. VENTRICLES: Unremarkable. No hydrocephalus. CALVARIUM: Unremarkable. PARANASAL SINUSES: Minimal chronic bilateral maxillary sinusitis. MASTOID AIR CELLS: Unremarkable as visualized. No inflammatory changes. OTHER FINDINGS: None. IMPRESSION: No intracranial mass, hemorrhage or evidence of acute infarct. Chronic white matter ischemic change. 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
[2018-04-20] MEDS ORDERED: Vancomycin 1 GM 1 GM/250 ML BAG IV STA (09:36)
[2018-04-20] MEDS ORDERED: Moxifloxacin IV 400mg/250ml NS 400 MG/250 ML BAG IV ONE (09:37)
[2018-04-20] MEDS ORDERED: Cefepime 1 GM in Sodium Chloride 0.9% 50 ML IVPB ONE (09:37)
[2018-04-20] MEDS ORDERED: Moxifloxacin IV 400mg/250ml NS 400 MG/250 ML BAG IVPB ONE (10:12)
--- NOTE | 2018-04-20 10:37 | RAD ---
Date of service: 04/20/2018 PROCEDURE: CHEST RADIOGRAPH, 1 VIEW HISTORY: intubation COMPARISON: 04/16/2018 FINDINGS: LUNGS: Ill-defined opacity mid right lung, multifocal. Possible pneumonia. Follow-up advised. PLEURA: No pneumothorax or pleural fluid seen. CARDIOVASCULAR: Normal heart size. Atherosclerotic calcification of the thoracic aortic arch is noted. Normal heart size. ET tube appropriately positioned with its tip approximately 3.7 cm above tracheal christo a nasogastric tube extends to the left upper quadrant of the abdomen. A left subclavian/axillary/brachial vascular stent is noted. OSSEOUS STRUCTURES: No significant abnormalities. VISUALIZED UPPER ABDOMEN: Normal. OTHER FINDINGS: None. IMPRESSION: Multifocal ill-defined opacity mid right lung. Possible developing pneumonia. Follow-up advised. ETT and NG tube in grossly appropriate position.
[2018-04-20 11:15] LABS: ARTERIAL BLOOD GAS HCO3 22.3 mmol/L (21-28); ARTERIAL BLOOD GAS O2 SAT 99.7 % (95-98); ARTERIAL BLOOD GAS PCO2 37 mm/Hg (35-45); ARTERIAL BLOOD GAS PH 7.37 (7.35-7.45); ARTERIAL BLOOD GAS PO2 245 mm/Hg (80-100); ARTERIAL BLOOD GAS TCO2 22.5 mmol/L (22-28)
[2018-04-20] MEDS ORDERED: Piperacillin/Tazobact 2.275 GM in Sodium Chloride 100 ML IVPB SCH (11:45)
[2018-04-20] MEDS: Polymyxin/Trimethoprim Ophth Soln OS SCH ×2 (12:08→17:26)
--- NOTE | 2018-04-20 12:39 | CP.PCM.CON ---
History of Present Illness - History of Present Illness History of Present Illness: 67 years old female brought in via ALS from [facility] for evaluation of shortness of breath that began 1 hour into hemodialysis. Patient was brought in by EMS hypertensive with bilateral rales auscultated and needed intubation immediately for severe dyspnea. Patient was awake on vent now, anxious. Cannot obtain further hx CXR with CHF changes. - Medical History PMH: Anemia, Arthritis (knee pain), COPD, HTN, Hypercholesterolemia, Peripheral Edema, End Stage Renal Disease, CHF recurrences PSH- AV fistula DIALYSIS ARTERIOVENOSTOM (06/13/14) ENDOSCOPIC BRONCHIAL BX (07/07/14) HEMODIALYSIS (07/07/14) INSERTION OF INFUSION DEV INTO R SUBCLAV VEIN, PERC APPROACH (04/02/17) Family History: States: Unknown Family Hx; no CKD - Social History Hx Tobacco Use: No Hx Alcohol Use: Yes Hx Substance Use: No Review of Systems - Review of Systems Systems not reviewed;Unavailable: Respiratory Distress Past Patient History - Past Medical History & Family History Past Medical History?: Yes Past Family History: Reviewed and not pertinent - Past Social History Smoking Status: Light Smoker < 10 Cigarettes Daily Chewing Tobacco Use: No Cigar Use: No Alcohol: None Drugs: Denies Home Situation {Lives}: With Family - CARDIAC Hx Hypercholesterolemia: Yes Hx Hypertension: Yes Hx Peripheral Edema: Yes - PULMONARY Hx Chronic Obstructive Pulmonary Disease (COPD): Yes - NEUROLOGICAL Hx Neurological Disorder: Yes HX Cerebrovascular Accident: Yes (1991 mini stroke) - HEENT Hx HEENT Problems: Yes Hx Cataracts: Yes Hx Glaucoma: Yes - RENAL Hx Chronic Kidney Disease: Yes - ENDOCRINE/METABOLIC Hx Endocrine Disorders: No - HEMATOLOGICAL/ONCOLOGICAL Hx Anemia: Yes - INTEGUMENTARY Hx Dermatological Problems: No - MUSCULOSKELETAL/RHEUMATOLOGICAL Hx Arthritis: Yes (knee pain) - GASTROINTESTINAL Hx Gastrointestinal Disorders: Yes Hx Bowel Surgery: Yes - GENITOURINARY/GYNECOLOGICAL Hx Genitourinary Disorders: No - PSYCHIATRIC Hx Substance Use: No - SURGICAL HISTORY Hx Surgeries: Yes Hx Arteriovenous Shunt: Yes (AV FISTULA ATTEMPT X2) Hx Section: Yes - ANESTHESIA Hx Anesthesia: Yes Hx Anesthesia Reactions: No Hx Malignant Hyperthermia: No Meds Allergies/Adverse Reactions: Allergies Allergy/AdvReac Type Severity Reaction Status Date / Time No Known Allergies Allergy Verified 06/16/17 10:25 - Medications Medications: Current Medications Acetaminophen (Tylenol 325mg Tab) 650 mg PO Q6H PRN PRN Reason: Fever >100.4 F Aspirin (Aspirin Chewable) 81 mg PO DAILY [facility] Atropine Sulfate (Atropisol 1% Ophth) 0 ml OU DAILY [facility] Brimonidine Tartrate (Alphagan 0.2% Opht) 0 ml OU BID [facility] Cinacalcet (Sensipar) 30 mg PO DAILY [facility] Heparin Sodium (Porcine) (Heparin) 5,000 units SC Q12H KAMINI Last Admin: 04/20/18 12:03 Dose: 5,000 units Home Med (Difluprednate [Durezol]) 5 ml OS Q2 [facility]IN[facility] Propofol (Diprivan) 1,000 mg in 100 mls @ 2.177 mls/hr IV .Q24H STA; Protocol Stop: 04/21/18 08:33 Last Titration: 04/20/18 11:30 Dose: 30 mcg/kg/min, 13.064 mls/hr Piperacillin Sod/Tazobactam (Sod 2.275 gm/ Sodium Chloride) 100 mls @ 200 mls/hr IVPB Q8H KAMINI; Protocol Last Admin: 04/20/18 12:06 Dose: 200 mls/hr Nitroglycerin/Dextrose (Nitroglycerin 50 Mg/250 Ml D5w) 50 mg in 250 mls @ 1.5 mls/hr IV .Q24H KAMINI; Protocol Latanoprost (Xalatan Opht) 0 ml OU HS [facility] Pantoprazole Sodium (Protonix Inj) 40 mg IVP DAILY [facility] Polymyxin/Trimethoprim Sulfate (Polytrim Ophth Soln) 0 ml OS Q6 [facility] Last Admin: 04/20/18 12:08 Dose: 1 drop Rosuvastatin Calcium (Crestor) 10 mg PO HS [facility] Sevelamer Carbonate (Renvela) 800 mg PO TIDCC [facility] Timolol Maleate (Timoptic 0.5% Ophth Soln) 0 drop OU BID [facility] Physical Exam - Constitutional Appears: In Acute Distress, Agitated, Chronically Ill - Head Exam Head Exam: ATRAUMATIC, NORMAL INSPECTION - Eye Exam Eye Exam: EOMI, Normal appearance - Neck Exam Neck exam: Positive for: Normal Inspection. Negative for: Tenderness - Respiratory Exam Respiratory Exam: Rhonchi, Respiratory Distress - Cardiovascular Exam Cardiovascular Exam: REGULAR RHYTHM, +S1 - GI/Abdominal Exam GI & Abdominal Exam: Soft. absent: Tenderness - Extremities Exam Extremities exam: Positive for: normal inspection. Negative for: tenderness - Neurological Exam Neurological exam: Alert, CN II-XII Intact - Skin Skin Exam: Dry, Warm Results - Vital Signs Recent Vital Signs: Last Vital Signs Temp 98.1 F 04/20/18 08:39 Pulse 109 H 04/20/18 10:39 Resp 20 04/20/18 10:39 BP 177/91 H 04/20/18 10:39 Pulse Ox 100 04/20/18 10:39 - Labs Result Diagrams: 04/20/18 08:32 04/20/18 08:32 Labs: Laboratory Results - last 24 hr 04/20/18 04/20/18 04/20/18 08:08 08:32 08:32 WBC 18.6 H D RBC 3.97 Hgb 11.3 Hct 36.0 MCV 90.5 MCH 28.4 MCHC 31.3 L RDW 16.3 H Plt Count 243 MPV 9.8 Neut % (Auto) 86.3 H Lymph % (Auto) 5.7 L [place] % (Auto) 4.6 Eos % (Auto) 3.0 Baso % (Auto) 0.4 Neut # (Auto) 16.1 H Lymph # (Auto) 1.1 [place] # (Auto) 0.9 H Eos # (Auto) 0.6 Baso # (Auto) 0.1 Neutrophils % (Manual) 84 H Lymphocytes % (Manual) 5 L Monocytes % (Manual) 7 Eosinophils % (Manual) 4 Platelet Estimate Normal Large Platelets Present Hypochromasia (manual) Slight Anisocytosis (manual) Slight PT 11.7 INR 1.1 APTT 30 Puncture Site pCO2 pO2 HCO3 ABG pH ABG Total CO2 ABG O2 Saturation ABG Base Excess ABG Hemoglobin ABG Carboxyhemoglobin POC ABG HHb (Measured) ABG Methemoglobin Judson Test ABG Potassium A-a O2 Difference Respiratory Index Hgb O2 Saturation Glucose Lactate Vent Mode Mechanical Rate FiO2 Tidal Volume PEEP Crit Value Called To Crit Value Called By Crit Value Read Back Blood Gas Notified Time Sodium Potassium Chloride Carbon Dioxide Anion Gap BUN Creatinine Est GFR ( Amer) Est GFR (Non-Af Amer) POC Glucose (mg/dL) 242 H Random Glucose Calcium Phosphorus Magnesium Total Bilirubin AST ALT Alkaline Phosphatase Total Creatine Kinase CK-MB (Mass) Troponin I NT-Pro-B Natriuret Pep Total Protein Albumin Globulin Albumin/Globulin Ratio Triglycerides Cholesterol LDL Cholesterol Direct HDL Cholesterol Arterial Blood Potassium Blood Type Antibody Screen 04/20/18 04/20/18 04/20/18 08:32 08:32 08:38 WBC RBC Hgb Hct MCV MCH MCHC RDW Plt Count MPV Neut % (Auto) Lymph % (Auto) [place] % (Auto) Eos % (Auto) Baso % (Auto) Neut # (Auto) Lymph # (Auto) [place] # (Auto) Eos # (Auto) Baso # (Auto) Neutrophils % (Manual) Lymphocytes % (Manual) Monocytes % (Manual) Eosinophils % (Manual) Platelet Estimate Large Platelets Hypochromasia (manual) Anisocytosis (manual) PT INR APTT Puncture Site pCO2 pO2 HCO3 ABG pH ABG Total CO2 ABG O2 Saturation ABG Base Excess ABG Hemoglobin ABG Carboxyhemoglobin POC ABG HHb (Measured) ABG Methemoglobin Judson Test ABG Potassium A-a O2 Difference Respiratory Index Hgb O2 Saturation Glucose Lactate Vent Mode Mechanical Rate FiO2 Tidal Volume PEEP Crit Value Called To Crit Value Called By Crit Value Read Back Blood Gas Notified Time Sodium 141 Potassium 3.8 Chloride 103 Carbon Dioxide 23 Anion Gap 19 BUN 41 H Creatinine 8.3 H* D Est GFR ( Amer) 6 Est GFR (Non-Af Amer) 5 POC Glucose (mg/dL) Random Glucose 239 H Calcium 9.3 Phosphorus 5.1 H Magnesium 1.8 Total Bilirubin 0.6 AST 30 ALT 18 Alkaline Phosphatase 193 H D Total Creatine Kinase 51 CK-MB (Mass) 2.58 Troponin I 0.0490 NT-Pro-B Natriuret Pep 30790 H Total Protein 8.1 Albumin 4.6 Globulin 3.5 Albumin/Globulin Ratio 1.3 Triglycerides 108 Cholesterol 136 LDL Cholesterol Direct 47 HDL Cholesterol 64 Arterial Blood Potassium Blood Type B POSITIVE Antibody Screen Negative 04/20/18 04/20/18 08:46 11:11 WBC RBC Hgb Hct MCV MCH MCHC RDW Plt Count MPV Neut % (Auto) Lymph % (Auto) Peach % (Auto) Eos % (Auto) Baso % (Auto) Neut # (Auto) Lymph # (Auto) Pe[place] # (Auto) Eos # (Auto) Baso # (Auto) Neutrophils % (Manual) Lymphocytes % (Manual) Monocytes % (Manual) Eosinophils % (Manual) Platelet Estimate Large Platelets Hypochromasia (manual) Anisocytosis (manual) PT INR APTT Puncture Site Artery Lf pCO2 72 H* 37 pO2 321 H 245 H HCO3 20.2 L 22.3 ABG pH 7.13 L* 7.37 ABG Total CO2 26.2 22.5 ABG O2 Saturation 100.1 H 99.7 H ABG Base Excess -6.1 L -3.4 L ABG Hemoglobin 11.3 L ABG Carboxyhemoglobin 1.8 H POC ABG HHb (Measured) -0.1 L ABG Methemoglobin 0.7 Judson Test Pos Na ABG Potassium 3.4 L A-a O2 Difference 302.0 137.0 Respiratory Index 0.9 0.6 Hgb O2 Saturation 97.6 Glucose 169 H Lactate 1.4 Vent Mode Prvc Prvc Mechanical Rate 12 20 FiO2 100.0 60.0 Tidal Volume 450 450 PEEP 5 5 Crit Value Called To Dr booht Crit Value Called By Moustapha gray community marketing coordinator Crit Value Read Back Y Blood Gas Notified Time 849 Sodium 138.0 Potassium Chloride 106.0 Carbon Dioxide Anion Gap BUN Creatinine Est GFR ( Amer) Est GFR (Non-Af Amer) POC Glucose (mg/dL) Random Glucose Calcium Phosphorus Magnesium Total Bilirubin AST ALT Alkaline Phosphatase Total Creatine Kinase CK-MB (Mass) Troponin I NT-Pro-B Natriuret Pep Total Protein Albumin Globulin Albumin/Globulin Ratio Triglycerides Cholesterol LDL Cholesterol Direct HDL Cholesterol Arterial Blood Potassium 3.4 L Blood Type Antibody Screen Assessment & Plan (1) CHF (congestive heart failure) Status: Acute (2) CHF (congestive heart failure) Status: Acute (3) ESRD (end stage renal disease) Status: Acute (4) HTN (hypertension) Status: Acute (5) Hypertensive chronic kidney disease with stage 5 chronic kidney disease or end stage renal disease Status: Acute - Assessment and Plan (Free Text) Plan: repeat dialysis for fluid removal HTN control ICU care and vent management
--- NOTE | 2018-04-20 13:22 | PCM.PROC ---
Procedures Attestation:: I certify that I have explained the specified Operation(s) or Procedure(s), risks, benefits and reasonable alternatives to the Patient and/or other person responsible. The opportunity was given to ask questions and all questions answered - Central Line Placement Right Internal Jugular Triple Lumen Catheter Aseptic technique was employed throughout the procedure: Hand Hygiene done prior to procedure, Full sterile barriers (mask, hair cover, sterile gown, sterile gloves), Full body sterile drape, Chloraprep Antiseptic: 30 second prep for IJ or SC sites CVP Time Out Performed: Yes Pt. Placed on Pulse Ox Monitor: Yes Central Line Prep: Povidone-Iodine 1% Local Anesthesia Used: Lidocaine 1% Ultrasound Used for Placement: Yes Central Line Lumen Inserted: triple Central Line Length: 16 cm Post Procedure: Sutured in Place, Good Blood Return Secured by: Securement device Post procedure dressing: Clear vapor permeable Post Procedure X-Ray: Yes Patient Tolerated Procedure: Well, No Complications Immediate Complications: None
[2018-04-20] MEDS: Nitroglycerin 50mg in D5W 50 MG/250 ML BOTTLE IV SCH (13:46)
--- NOTE | 2018-04-20 13:55 | CP.PCM.CON ---
History of Present Illness - History of Present Illness History of Present Illness: PGY-1 ICU Consult Note for Dr. Yocasta Brown service CC: SOB during HD HPI: Patient is a 67 y/o female w/ ESRD on HD MWF, COPD, HTN, CHF, HLD, peripheral edema, anemia brought by ambulance for shortness of breath and chest pain that occured this morning while getting dialysis for one hour. Pt become less responsive and with AMS, was intubated in filed by AMS. Patient's daughter at bedside and provided information due to patient not able to respond due to intubation status. Patient's daughter states patient has been hospitalized multiples time for fluid accumulation in lungs, suspected for Pneumonia. last time patient was at [facility] recently. Patient is not awake, on sedation at this time, moves extremities from time to time and open eyes. ROS limited 2/2 patient current status. PMH- HTN, ESRD on HD, COPD, anemia, arthritis, hyperlipidemia shx: Fistula attempt x 2, C section. Meds- see record Allergies- NKDA sochx: no tobacco, drug use. hx of light tobacco use. hx of alcohol use. Review of Systems - Review of Systems All systems: reviewed and no additional remarkable complaints except Review of Systems: as stated in HPI Past Patient History - Past Medical History & Family History Past Medical History?: Yes Past Family History: Reviewed and not pertinent - Past Social History Smoking Status: Light Smoker < 10 Cigarettes Daily Chewing Tobacco Use: No Cigar Use: No Alcohol: None Drugs: Denies Home Situation {Lives}: With Family - CARDIAC Hx Hypercholesterolemia: Yes Hx Hypertension: Yes Hx Peripheral Edema: Yes - PULMONARY Hx Chronic Obstructive Pulmonary Disease (COPD): Yes - NEUROLOGICAL Hx Neurological Disorder: Yes HX Cerebrovascular Accident: Yes (1991 mini stroke) - HEENT Hx HEENT Problems: Yes Hx Cataracts: Yes Hx Glaucoma: Yes - RENAL Hx Chronic Kidney Disease: Yes - ENDOCRINE/METABOLIC Hx Endocrine Disorders: No - HEMATOLOGICAL/ONCOLOGICAL Hx Anemia: Yes - INTEGUMENTARY Hx Dermatological Problems: No - MUSCULOSKELETAL/RHEUMATOLOGICAL Hx Arthritis: Yes (knee pain) - GASTROINTESTINAL Hx Gastrointestinal Disorders: Yes Hx Bowel Surgery: Yes - GENITOURINARY/GYNECOLOGICAL Hx Genitourinary Disorders: No - PSYCHIATRIC Hx Substance Use: No - SURGICAL HISTORY Hx Surgeries: Yes Hx Arteriovenous Shunt: Yes (AV FISTULA ATTEMPT X2) Hx Section: Yes - ANESTHESIA Hx Anesthesia: Yes Hx Anesthesia Reactions: No Hx Malignant Hyperthermia: No Meds Allergies/Adverse Reactions: Allergies Allergy/AdvReac Type Severity Reaction Status Date / Time No Known Allergies Allergy Verified 06/16/17 10:25 - Medications Medications: Current Medications Acetaminophen (Tylenol 325mg Tab) 650 mg PO Q6H PRN PRN Reason: Fever >100.4 F Aspirin (Aspirin Chewable) 81 mg PO DAILY [facility] Atropine Sulfate (Atropisol 1% Ophth) 0 ml OU DAILY [facility] Brimonidine Tartrate (Alphagan 0.2% Opht) 0 ml OU BID [facility] Cinacalcet (Sensipar) 30 mg PO DAILY [facility] Clonidine HCl (Catapres-Tts3 0.3 Mg/24 Hr) 1 patch TD Q7D@1000 [facility] Heparin Sodium (Porcine) (Heparin) 5,000 units SC Q12H [facility] Last Admin: 04/20/18 12:03 Dose: 5,000 units Home Med (Difluprednate [Durezol]) 5 ml OS Q2 [facility] Propofol (Diprivan) 1,000 mg in 100 mls @ 2.177 mls/hr IV .Q24H STA; Protocol Stop: 04/21/18 08:33 Last Titration: 04/20/18 11:30 Dose: 30 mcg/kg/min, 13.064 mls/hr Piperacillin Sod/Tazobactam (Sod 2.275 gm/ Sodium Chloride) 100 mls @ 200 mls/hr IVPB Q8H [facility]; Protocol Last Admin: 04/20/18 12:06 Dose: 200 mls/hr Nitroglycerin/Dextrose (Nitroglycerin 50 Mg/250 Ml D5w) 50 mg in 250 mls @ 1.5 mls/hr IV .Q24H [facility]; Protocol Latanoprost (Xalatan Opht) 0 ml OU HS [facility] Pantoprazole Sodium (Protonix Inj) 40 mg IVP DAILY [facility] Polymyxin/Trimethoprim Sulfate (Polytrim Ophth Soln) 0 ml OS Q6 [facility] Last Admin: 04/20/18 12:08 Dose: 1 drop Rosuvastatin Calcium (Crestor) 10 mg PO HS [facility] Sevelamer Carbonate (Renvela) 800 mg PO TIDCC [facility] Timolol Maleate (Timoptic 0.5% Ophth Soln) 0 drop OU BID [facility] Physical Exam - Constitutional Appears: In Acute Distress, Chronically Ill - Head Exam Head Exam: ATRAUMATIC, NORMAL INSPECTION, NORMOCEPHALIC - Eye Exam Eye Exam: EOMI, Normal appearance Pupil Exam: PERRL - ENT Exam Additional comments: intubated - Neck Exam Neck exam: Positive for: Normal Inspection - Respiratory Exam Respiratory Exam: Rhonchi Additional comments: intubated - Cardiovascular Exam Cardiovascular Exam: REGULAR RHYTHM, +S1, +S2 - GI/Abdominal Exam GI & Abdominal Exam: Soft - Extremities Exam Extremities exam: Positive for: normal inspection - Neurological Exam Additional comments: nder sedation, not alert, awake and oriented - Skin Skin Exam: Dry, Warm Results - Vital Signs Recent Vital Signs: Last Vital Signs Temp 98.1 F 04/20/18 08:39 Pulse 109 H 04/20/18 10:39 Resp 20 04/20/18 10:39 BP 177/91 H 04/20/18 10:39 Pulse Ox 100 04/20/18 10:39 - Labs Result Diagrams: 04/20/18 08:32 04/20/18 08:32 Labs: Laboratory Results - last 24 hr 04/20/18 04/20/18 04/20/18 08:08 08:32 08:32 WBC 18.6 H D RBC 3.97 Hgb 11.3 Hct 36.0 MCV 90.5 MCH 28.4 MCHC 31.3 L RDW 16.3 H Plt Count 243 MPV 9.8 Neut % (Auto) 86.3 H Lymph % (Auto) 5.7 L [place] % (Auto) 4.6 Eos % (Auto) 3.0 Baso % (Auto) 0.4 Neut # (Auto) 16.1 H Lymph # (Auto) 1.1 [place] # (Auto) 0.9 H Eos # (Auto) 0.6 Baso # (Auto) 0.1 Neutrophils % (Manual) 84 H Lymphocytes % (Manual) 5 L Monocytes % (Manual) 7 Eosinophils % (Manual) 4 Platelet Estimate Normal Large Platelets Present Hypochromasia (manual) Slight Anisocytosis (manual) Slight PT 11.7 INR 1.1 APTT 30 Puncture Site pCO2 pO2 HCO3 ABG pH ABG Total CO2 ABG O2 Saturation ABG Base Excess ABG Hemoglobin ABG Carboxyhemoglobin POC ABG HHb (Measured) ABG Methemoglobin Judson Test ABG Potassium A-a O2 Difference Respiratory Index Hgb O2 Saturation Glucose Lactate Vent Mode Mechanical Rate FiO2 Tidal Volume PEEP Crit Value Called To Crit Value Called By Crit Value Read Back Blood Gas Notified Time Sodium Potassium Chloride Carbon Dioxide Anion Gap BUN Creatinine Est GFR ( Amer) Est GFR (Non-Af Amer) POC Glucose (mg/dL) 242 H Random Glucose Calcium Phosphorus Magnesium Total Bilirubin AST ALT Alkaline Phosphatase Total Creatine Kinase CK-MB (Mass) Troponin I NT-Pro-B Natriuret Pep Total Protein Albumin Globulin Albumin/Globulin Ratio Triglycerides Cholesterol LDL Cholesterol Direct HDL Cholesterol Arterial Blood Potassium Blood Type Antibody Screen 04/20/18 04/20/18 04/20/18 08:32 08:32 08:38 WBC RBC Hgb Hct MCV MCH MCHC RDW Plt Count MPV Neut % (Auto) Lymph % (Auto) [place] % (Auto) Eos % (Auto) Baso % (Auto) Neut # (Auto) Lymph # (Auto) [place] # (Auto) Eos # (Auto) Baso # (Auto) Neutrophils % (Manual) Lymphocytes % (Manual) Monocytes % (Manual) Eosinophils % (Manual) Platelet Estimate Large Platelets Hypochromasia (manual) Anisocytosis (manual) PT INR APTT Puncture Site pCO2 pO2 HCO3 ABG pH ABG Total CO2 ABG O2 Saturation ABG Base Excess ABG Hemoglobin ABG Carboxyhemoglobin POC ABG HHb (Measured) ABG Methemoglobin Judson Test ABG Potassium A-a O2 Difference Respiratory Index Hgb O2 Saturation Glucose Lactate Vent Mode Mechanical Rate FiO2 Tidal Volume PEEP Crit Value Called To Crit Value Called By Crit Value Read Back Blood Gas Notified Time Sodium 141 Potassium 3.8 Chloride 103 Carbon Dioxide 23 Anion Gap 19 BUN 41 H Creatinine 8.3 H* D Est GFR ( Amer) 6 Est GFR (Non-Af Amer) 5 POC Glucose (mg/dL) Random Glucose 239 H Calcium 9.3 Phosphorus 5.1 H Magnesium 1.8 Total Bilirubin 0.6 AST 30 ALT 18 Alkaline Phosphatase 193 H D Total Creatine Kinase 51 CK-MB (Mass) 2.58 Troponin I 0.0490 NT-Pro-B Natriuret Pep 35875 H Total Protein 8.1 Albumin 4.6 Globulin 3.5 Albumin/Globulin Ratio 1.3 Triglycerides 108 Cholesterol 136 LDL Cholesterol Direct 47 HDL Cholesterol 64 Arterial Blood Potassium Blood Type B POSITIVE Antibody Screen Negative 04/20/18 04/20/18 08:46 11:11 WBC RBC Hgb Hct MCV MCH MCHC RDW Plt Count MPV Neut % (Auto) Lymph % (Auto) [place] % (Auto) Eos % (Auto) Baso % (Auto) Neut # (Auto) Lymph # (Auto) [place] # (Auto) Eos # (Auto) Baso # (Auto) Neutrophils % (Manual) Lymphocytes % (Manual) Monocytes % (Manual) Eosinophils % (Manual) Platelet Estimate Large Platelets Hypochromasia (manual) Anisocytosis (manual) PT INR APTT Puncture Site Artery Lf pCO2 72 H* 37 pO2 321 H 245 H HCO3 20.2 L 22.3 ABG pH 7.13 L* 7.37 ABG Total CO2 26.2 22.5 ABG O2 Saturation 100.1 H 99.7 H ABG Base Excess -6.1 L -3.4 L ABG Hemoglobin 11.3 L ABG Carboxyhemoglobin 1.8 H POC ABG HHb (Measured) -0.1 L ABG Methemoglobin 0.7 Judson Test Pos Na ABG Potassium 3.4 L A-a O2 Difference 302.0 137.0 Respiratory Index 0.9 0.6 Hgb O2 Saturation 97.6 Glucose 169 H Lactate 1.4 Vent Mode Prvc Prvc Mechanical Rate 12 20 FiO2 100.0 60.0 Tidal Volume 450 450 PEEP 5 5 Crit Value Called To Dr booth Crit Value Called By Moustapha gray ecommerce merchandising manager Crit Value Read Back Y Blood Gas Notified Time 849 Sodium 138.0 Potassium Chloride 106.0 Carbon Dioxide Anion Gap BUN Creatinine Est GFR ( Amer) Est GFR (Non-Af Amer) POC Glucose (mg/dL) Random Glucose Calcium Phosphorus Magnesium Total Bilirubin AST ALT Alkaline Phosphatase Total Creatine Kinase CK-MB (Mass) Troponin I NT-Pro-B Natriuret Pep Total Protein Albumin Globulin Albumin/Globulin Ratio Triglycerides Cholesterol LDL Cholesterol Direct HDL Cholesterol Arterial Blood Potassium 3.4 L Blood Type Antibody Screen Assessment & Plan - Assessment and Plan (Free Text) Assessment: 67 yo female with pmhx of HTN, HLD, CHF, COPD, ESRD on HD MWF who developed chest pain and SOB during dialysis this morning, with AMS, intubated on field by EMS staff, brought to hospital, with elevated Blood pressure. CXray shows possible PNA. s/p Central line, on nitroglycerin drip, clonidine patch, to go for repeat HD today. pending Blood, urine, sputum cultures. Plan: Neuro: under propofol sedation, resting comfortably. CT head shows no acute hemorrhage, old lacunar infarct Pulm: Cxray Multifocal ill defined opacity mid right lung. Possible developing PNA On PRVC ventilation with RR 20, VT 450, PEEP 5 and FiO2 50%. Abx as indicated in ID. Cardio: Troponin in Ed negative, Troponin stat - f/u. Nitroglycerin drip. TLC central line procedure done for peripheral access for meds and blood work. Hx of HTN: Nitroglycerin patch, clonidine patch Hx of HLD: Crestor 10mg PO daily GI: NPO; NG tube in place No acute issues Endo: No acute issues Renal: Dr Montiel consulted. repeat Dialysis today for fluid removal. Clonidine patch. continue home med Cinacalcet. continue MWF dialysis. Salcedo in place Derm: no acute issues ID: Cefepime, Moxifloxacin, Vanco x1 in ED, Zosyn 2.275 gm IVPB Q8H. F/u Blood culture, Urine culture, MRSA screen NPO DVT ppx: Heparin 5000 SC Q12H GI ppx: Protonix 40mg IV daily Tylenol PRN for fever, ASA Plan discussed with Dr Kevin Ogden, PGY-1 - Date & Time Date: 04/20/18 Time: 11:00
--- NOTE | 2018-04-20 15:03 | RAD ---
HISTORY: s/p TLC central line insertion COMPARISON: Chest x-ray performed 04/20/18 at 840 hrs TECHNIQUE: Chest, one view. FINDINGS: Right IJ approach central venous catheter extends to the SVC. Nasogastric tube extends expected location of the stomach. Endotracheal tube terminates approximately 5.1 cm above the christo. External defibrillator pad projects over the left lower chest/upper abdomen. LUNGS: Patchy infiltrate in the right mid to lower lobe. Retrocardiac atelectasis/infiltrate. PLEURA: No significant pleural effusion identified. No definite pneumothorax . CARDIOVASCULAR: Heart size appears within normal limits. Dense atherosclerotic calcifications. Dense atherosclerotic calcification of the aortic knob. OSSEOUS STRUCTURES: Glenohumeral joint space narrowing of the right shoulder. VISUALIZED UPPER ABDOMEN: Unremarkable. OTHER FINDINGS: Left subclavian/axillary vein stent. IMPRESSION: Right IJ approach central venous catheter extends to the SVC. Nasogastric tube extends expected location of the stomach. Endotracheal tube terminates approximately 5.1 cm above the christo. External defibrillator pad projects over the left lower chest/upper abdomen. Patchy infiltrate in the right mid to lower lobe. Retrocardiac atelectasis/infiltrate.
[2018-04-20] MEDS ORDERED: Brimonidine 0.2% Opth Sol (5ml) OU SCH (18:00)
[2018-04-20] MEDS: Propofol 10 mg/ml 1,000 MG/100 ML VIAL IV PRN (20:30)
[2018-04-20] MEDS ORDERED: Propofol 10 mg/ml 1,000 MG/100 ML VIAL IV PRN (21:00)
[2018-04-20] MEDS ORDERED: Propofol 10 mg/ml 1,000 MG/100 ML VIAL IV SCH (21:00)
--- NOTE | 2018-04-20 22:34 | CP.PCM.HP ---
Past Patient History - Past Medical History & Family History Past Medical History?: Yes - Past Social History Smoking Status: Former Smoker - CARDIAC Hx Hypercholesterolemia: Yes Hx Hypertension: Yes Hx Peripheral Edema: Yes - PULMONARY Hx Chronic Obstructive Pulmonary Disease (COPD): Yes - NEUROLOGICAL Hx Neurological Disorder: Yes HX Cerebrovascular Accident: Yes (1991 mini stroke) - HEENT Hx HEENT Problems: Yes Hx Cataracts: Yes Hx Glaucoma: Yes - RENAL Hx Dialysis: Yes Type of Dialysis Access: LEFT AV SHUNT Date of Last Dialysis Treatment: 04/20/18 - ENDOCRINE/METABOLIC Hx Endocrine Disorders: No - HEMATOLOGICAL/ONCOLOGICAL Hx Anemia: Yes - INTEGUMENTARY Hx Dermatological Problems: No - MUSCULOSKELETAL/RHEUMATOLOGICAL Hx Arthritis: Yes Hx Falls: No - GASTROINTESTINAL Hx Gastrointestinal Disorders: Yes Hx Bowel Surgery: Yes - GENITOURINARY/GYNECOLOGICAL Hx Genitourinary Disorders: No - PSYCHIATRIC Hx Substance Use: No - SURGICAL HISTORY Hx Surgeries: Yes Hx Arteriovenous Shunt: Yes (AV FISTULA ATTEMPT X2) Hx Section: Yes - ANESTHESIA Hx Anesthesia: Yes Hx Anesthesia Reactions: No Hx Malignant Hyperthermia: No Meds Allergies/Adverse Reactions: Allergies Allergy/AdvReac Type Severity Reaction Status Date / Time No Known Allergies Allergy Verified 06/16/17 10:25 Results - Vital Signs Recent Vital Signs: Last Vital Signs Temp 97.6 F 04/20/18 21:40 Pulse 80 04/20/18 21:40 Resp 20 04/20/18 21:40 BP 88/56 L 04/20/18 21:40 Pulse Ox 100 04/20/18 21:40 - Labs Result Diagrams: 04/20/18 08:32 04/20/18 08:32 Labs: Laboratory Results - last 24 hr 04/20/18 04/20/18 04/20/18 08:08 08:32 08:32 WBC 18.6 H D RBC 3.97 Hgb 11.3 Hct 36.0 MCV 90.5 MCH 28.4 MCHC 31.3 L RDW 16.3 H Plt Count 243 MPV 9.8 Neut % (Auto) 86.3 H Lymph % (Auto) 5.7 L [place] % (Auto) 4.6 Eos % (Auto) 3.0 Baso % (Auto) 0.4 Neut # (Auto) 16.1 H Lymph # (Auto) 1.1 [place] # (Auto) 0.9 H Eos # (Auto) 0.6 Baso # (Auto) 0.1 Neutrophils % (Manual) 84 H Lymphocytes % (Manual) 5 L Monocytes % (Manual) 7 Eosinophils % (Manual) 4 Platelet Estimate Normal Large Platelets Present Hypochromasia (manual) Slight Anisocytosis (manual) Slight PT 11.7 INR 1.1 APTT 30 Puncture Site pCO2 pO2 HCO3 ABG pH ABG Total CO2 ABG O2 Saturation ABG Base Excess ABG Hemoglobin ABG Carboxyhemoglobin POC ABG HHb (Measured) ABG Methemoglobin Judson Test ABG Potassium A-a O2 Difference Respiratory Index Hgb O2 Saturation Glucose Lactate Vent Mode Mechanical Rate FiO2 Tidal Volume PEEP Crit Value Called To Crit Value Called By Crit Value Read Back Blood Gas Notified Time Sodium Potassium Chloride Carbon Dioxide Anion Gap BUN Creatinine Est GFR ( Amer) Est GFR (Non-Af Amer) POC Glucose (mg/dL) 242 H Random Glucose Calcium Phosphorus Magnesium Total Bilirubin AST ALT Alkaline Phosphatase Total Creatine Kinase CK-MB (Mass) Troponin I NT-Pro-B Natriuret Pep Total Protein Albumin Globulin Albumin/Globulin Ratio Triglycerides Cholesterol LDL Cholesterol Direct HDL Cholesterol Arterial Blood Potassium Hep Bs Antigen Blood Type Antibody Screen 04/20/18 04/20/18 04/20/18 08:32 08:32 08:38 WBC RBC Hgb Hct MCV MCH MCHC RDW Plt Count MPV Neut % (Auto) Lymph % (Auto) [place] % (Auto) Eos % (Auto) Baso % (Auto) Neut # (Auto) Lymph # (Auto) [place] # (Auto) Eos # (Auto) Baso # (Auto) Neutrophils % (Manual) Lymphocytes % (Manual) Monocytes % (Manual) Eosinophils % (Manual) Platelet Estimate Large Platelets Hypochromasia (manual) Anisocytosis (manual) PT INR APTT Puncture Site pCO2 pO2 HCO3 ABG pH ABG Total CO2 ABG O2 Saturation ABG Base Excess ABG Hemoglobin ABG Carboxyhemoglobin POC ABG HHb (Measured) ABG Methemoglobin Judson Test ABG Potassium A-a O2 Difference Respiratory Index Hgb O2 Saturation Glucose Lactate Vent Mode Mechanical Rate FiO2 Tidal Volume PEEP Crit Value Called To Crit Value Called By Crit Value Read Back Blood Gas Notified Time Sodium 141 Potassium 3.8 Chloride 103 Carbon Dioxide 23 Anion Gap 19 BUN 41 H Creatinine 8.3 H* D Est GFR ( Amer) 6 Est GFR (Non-Af Amer) 5 POC Glucose (mg/dL) Random Glucose 239 H Calcium 9.3 Phosphorus 5.1 H Magnesium 1.8 Total Bilirubin 0.6 AST 30 ALT 18 Alkaline Phosphatase 193 H D Total Creatine Kinase 51 CK-MB (Mass) 2.58 Troponin I 0.0490 NT-Pro-B Natriuret Pep 08518 H Total Protein 8.1 Albumin 4.6 Globulin 3.5 Albumin/Globulin Ratio 1.3 Triglycerides 108 Cholesterol 136 LDL Cholesterol Direct 47 HDL Cholesterol 64 Arterial Blood Potassium Hep Bs Antigen Blood Type B POSITIVE Antibody Screen Negative 04/20/18 04/20/18 04/20/18 08:46 11:11 14:58 WBC RBC Hgb Hct MCV MCH MCHC RDW Plt Count MPV Neut % (Auto) Lymph % (Auto) [place] % (Auto) Eos % (Auto) Baso % (Auto) Neut # (Auto) Lymph # (Auto) [place] # (Auto) Eos # (Auto) Baso # (Auto) Neutrophils % (Manual) Lymphocytes % (Manual) Monocytes % (Manual) Eosinophils % (Manual) Platelet Estimate Large Platelets Hypochromasia (manual) Anisocytosis (manual) PT INR APTT Puncture Site Artery Lf pCO2 72 H* 37 pO2 321 H 245 H HCO3 20.2 L 22.3 ABG pH 7.13 L* 7.37 ABG Total CO2 26.2 22.5 ABG O2 Saturation 100.1 H 99.7 H ABG Base Excess -6.1 L -3.4 L ABG Hemoglobin 11.3 L ABG Carboxyhemoglobin 1.8 H POC ABG HHb (Measured) -0.1 L ABG Methemoglobin 0.7 Judson Test Pos Na ABG Potassium 3.4 L A-a O2 Difference 302.0 137.0 Respiratory Index 0.9 0.6 Hgb O2 Saturation 97.6 Glucose 169 H Lactate 1.4 Vent Mode Prvc Prvc Mechanical Rate 12 20 FiO2 100.0 60.0 Tidal Volume 450 450 PEEP 5 5 Crit Value Called To Dr booth Crit Value Called By Moustapha gray foundation relations director Crit Value Read Back Y Blood Gas Notified Time 849 Sodium 138.0 Potassium Chloride 106.0 Carbon Dioxide Anion Gap BUN Creatinine Est GFR ( Amer) Est GFR (Non-Af Amer) POC Glucose (mg/dL) Random Glucose Calcium Phosphorus Magnesium Total Bilirubin AST ALT Alkaline Phosphatase Total Creatine Kinase CK-MB (Mass) Troponin I 0.1400 H* NT-Pro-B Natriuret Pep Total Protein Albumin Globulin Albumin/Globulin Ratio Triglycerides Cholesterol LDL Cholesterol Direct HDL Cholesterol Arterial Blood Potassium 3.4 L Hep Bs Antigen Blood Type Antibody Screen 04/20/18 04/20/18 19:03 20:39 WBC RBC Hgb Hct MCV MCH MCHC RDW Plt Count MPV Neut % (Auto) Lymph % (Auto) [place] % (Auto) Eos % (Auto) Baso % (Auto) Neut # (Auto) Lymph # (Auto) [place] # (Auto) Eos # (Auto) Baso # (Auto) Neutrophils % (Manual) Lymphocytes % (Manual) Monocytes % (Manual) Eosinophils % (Manual) Platelet Estimate Large Platelets Hypochromasia (manual) Anisocytosis (manual) PT INR APTT Puncture Site pCO2 pO2 HCO3 ABG pH ABG Total CO2 ABG O2 Saturation ABG Base Excess ABG Hemoglobin ABG Carboxyhemoglobin POC ABG HHb (Measured) ABG Methemoglobin Judson Test ABG Potassium A-a O2 Difference Respiratory Index Hgb O2 Saturation Glucose Lactate Vent Mode Mechanical Rate FiO2 Tidal Volume PEEP Crit Value Called To Crit Value Called By Crit Value Read Back Blood Gas Notified Time Sodium Potassium Chloride Carbon Dioxide Anion Gap BUN Creatinine Est GFR ( Amer) Est GFR (Non-Af Amer) POC Glucose (mg/dL) Random Glucose Calcium Phosphorus Magnesium Total Bilirubin AST ALT Alkaline Phosphatase Total Creatine Kinase CK-MB (Mass) Troponin I 0.1920 H* NT-Pro-B Natriuret Pep Total Protein Albumin Globulin Albumin/Globulin Ratio Triglycerides Cholesterol LDL Cholesterol Direct HDL Cholesterol Arterial Blood Potassium Hep Bs Antigen Negative Blood Type Antibody Screen
[2018-04-20] MEDS: Piperacillin/Tazobact 2.25 GM in Sodium Chloride 100 ML IVPB SCH ×3 (22:56→23:04)
[2018-04-20] MEDS ORDERED: HYDROmorphone 0.5 mg/0.5 ml ISec IVP STA (23:59)
[2018-04-21] MEDS ORDERED: HYDROmorphone 0.5 mg/0.5 ml ISec IVP STA ×2 (02:36→05:19)
[2018-04-21] MEDS: Propofol 10 mg/ml 1,000 MG/100 ML VIAL IV PRN ×2 (02:39→08:13)
[2018-04-21 05:46] LABS: ARTERIAL BLOOD GAS HCO3 22.8 mmol/L (21-28); ARTERIAL BLOOD GAS O2 SAT 99.2 % (95-98); ARTERIAL BLOOD GAS PCO2 19 mm/Hg (35-45); ARTERIAL BLOOD GAS PH 7.56 (7.35-7.45); ARTERIAL BLOOD GAS PO2 237 mm/Hg (80-100); ARTERIAL BLOOD GAS TCO2 17.6 mmol/L (22-28)
[2018-04-21] MEDS: Piperacillin/Tazobact 2.25 GM in Sodium Chloride 100 ML IVPB SCH ×3 (06:29→23:30)
[2018-04-21 06:39] LABS: BASO # 0.1 K/uL (0.0-0.2); BASO % 0.6 % (0.0-2.0); EOS # 0.4 K/uL (0.0-0.7); EOS % 3.7 % (0.0-4.0); HEMOGLOBIN 10.6 g/dL (11.0-16.0); LYMPH # 0.9 K/uL (1.0-4.3); LYMPH % 8.2 % (20.0-40.0); MEAN CORPUSCULAR HEMOGLOBIN 28.6 pg (27.0-31.0); MEAN CORPUSCULAR HGB CONC 32.5 g/dL (33.0-37.0); MEAN PLATELET VOLUME 10.4 fL (7.2-11.7); MONO # 0.8 K/uL (0.0-0.8); NEUT # 8.9 K/uL (1.8-7.0); NEUT % 80.5 % (50.0-75.0); PLATELET COUNT 196 K/uL (130-400); RBC 3.71 Mil/uL (3.80-5.20); RED CELL DISTRIBUTION WIDTH 16.2 % (11.5-14.5); WHITE BLOOD COUNT 11.1 K/uL (4.8-10.8)
[2018-04-21 07:02] LABS: ALB/GLOB RATIO 1.3 (1.0-2.1); ALBUMIN 4.3 g/dL (3.5-5.0); CALCIUM 10.1 mg/dl (8.6-10.4)
--- NOTE | 2018-04-21 07:29 | HP ---
CHIEF COMPLAINT: Shortness of breath during hemodialysis. HISTORY OF PRESENT ILLNESS: This is a 67-year-old female, well known to me, with history of end-stage renal disease, on hemodialysis. She is not diabetic, but she has history of hypertension. She also has history of prior postural hypotension, and she is on midodrine. The patient has history of COPD, asthma, and she is complaint with her diet, medication, and followup. The patient was in hemodialysis unit today, and while she was on dialysis, she developed sudden shortness of breath and chest pain. While she was on dialysis for almost an hour, an EMS was called and the patient became less responsive with changes in mental status and she was intubated in the field by EMS. The patient's daughter at that time was on the bedside, and the patient was intubated and the patient has history of multiple hospitalizations in the past with prior history of fluid overload and pneumonia. The patient also has history of sudden drops in blood pressure during dialysis in the past, and she has been brought into the hospital several times, and last hospitalization was at [facility]. Right now, the patient is intubated orally. She is on hemodialysis, and she is undergoing dialysis. She is on mechanical ventilator with no involuntary movements with no evidence of any acute sedated. No further details obtainable at this point. PAST MEDICAL HISTORY: Hypertension, end-stage renal disease on hemodialysis, COPD, anemia, arthritis, hyperlipidemia, and AV fistula is in left upper extremity. ALLERGIES: UNKNOWN ALLERGIES. CURRENT MEDICATIONS: She is on acetazolamide, Ambien, Renvela. She is on ProAmatine, Xalatan, ferrous sulfate, Pepcid, Durezol, Sensipar, Combigan, atropine, Tylenol, and Xanax. SOCIAL HISTORY: Nonsmoker, non-ETOH user. PHYSICAL EXAMINATION: GENERAL: An elderly female who is on mechanical ventilator with no acute distress. She is on hemodialysis. VITAL SIGNS: Blood pressure 88/56, pulse 80, respiratory rate 20, and temperature 97.6. SKIN: No rashes. No bruises. No purpura. No ecchymosis. HEENT: Atraumatic and normocephalic. Positive pallor. Negative jaundice. The patient is orally intubated. NECK: Supple. No JVD. No lymph node. No thyromegaly. No carotid bruit. CHEST WALL: Bilateral symmetrical expansion. No tenderness. No deformity. LUNGS: Bilateral transmitted breath sounds. Positive scattered rales and rhonchi. Decreased air entry. CARDIOVASCULAR SYSTEM: S1 and S2 regular. No heave. No thrill. ABDOMEN: Soft, nontender. Bowel sounds are positive. RECTAL: Deferred, on ventilator. PELVIC: Deferred, on ventilator. EXTREMITIES: No clubbing, cyanosis, or edema. CENTRAL NERVOUS SYSTEM: The patient is sedated, and she is intubated. ASSESSMENT: 1. Acute respiratory failure. Rule out pneumonia versus fluid overload. 2. End-stage renal, on hemodialysis. 3. Hypertension. 4. Chronic obstructive pulmonary disease. PLAN: Admit. Detailed orders are written. Seen and examined. Gianluca Daly MD
--- NOTE | 2018-04-21 08:17 | RAD ---
Date of service: 04/21/2018 HISTORY: Intubated COMPARISON: Portable chest 04/20/2018 1:31 p.m.. FINDINGS: LUNGS: Improved aeration at the medial right base is appreciate with trace residual potential patchy atelectasis or infiltrate versus crowded bronchovascular markings. Remaining lung parker are clear once again. Endotracheal and nasogastric tubes are stable in position as well as right central venous line. Numerous wall stents are again seen at the left subclavian axillary and brachial distributions once again. PLEURA: No significant pleural effusion identified, no pneumothorax apparent. CARDIOVASCULAR: Calcific atherosclerotic changes are seen related to the thoracic aorta. Normal cardiac size. No pulmonary vascular congestion. OSSEOUS STRUCTURES: No significant abnormalities. VISUALIZED UPPER ABDOMEN: Normal. OTHER FINDINGS: None. IMPRESSION: Improved aeration medial right base with trace residual potential infiltrate here versus overlapped bronchovascular markings. Remaining lung parker are clear. No pulmonary vascular congestion or interval cardiac silhouette changes.
[2018-04-21 08:30] LABS: ANISOCYTOSIS SLIGHT; BASOPHIL 1 % (0-2); EOSINOPHIL 5 % (0-4); HYPOCHROMIC SLIGHT; LARGE PLATELETS PRESENT; LYMPHOCYTE 9 % (20-40); MONOCYTE 4 % (0-10); NEUTROPHIL 81 % (50-75); PLATELET ESTIMATE NORMAL (NORMAL); POIKILOCYTOSIS SLIGHT; TOTAL CELLS COUNTED 100
[2018-04-21] MEDS: DIFLUPREDNATE OS SCH ×2 (08:41→08:42)
[2018-04-21] MEDS ORDERED: Latanoprost 2.5 ml Opht Soln OU SCH (10:00)
[2018-04-21] MEDS ORDERED: Atropine 1% Ophth Soln (15 ml) OU SCH (10:00)
[2018-04-21] MEDS: Nitroglycerin 50mg in D5W 50 MG/250 ML BOTTLE IV SCH (11:30)
--- NOTE | 2018-04-21 11:38 | CP.PCM.PN ---
Subjective - Date & Time of Evaluation Date of Evaluation: 04/21/18 Time of Evaluation: 11:37 - Subjective Subjective: seen and examined awake alert, able to follow commands intubated unable to obtain ros Objective - Vital Signs/Intake and Output Vital Signs (last 24 hours): Temp Pulse Resp BP Pulse Ox 99.2 F 102 H 20 114/66 100 04/21/18 08:00 04/21/18 09:13 04/21/18 09:13 04/21/18 09:13 04/21/18 09:13 Intake and Output: 04/21/18 04/21/18 06:59 18:59 Intake Total 992.4 320.6 Output Total 2185 Balance -1192.6 320.6 - Medications Medications: Current Medications Acetaminophen (Tylenol 325mg Tab) 650 mg PO Q6H PRN PRN Reason: Fever >100.4 F Aspirin (Aspirin Chewable) 81 mg PO DAILY ON LICENSE OF [facility] Last Admin: 04/21/18 10:40 Dose: 81 mg Atropine Sulfate (Atropisol 1% Ophth) 0 ml OU DAILY ON LICENSE OF [facility] Brimonidine Tartrate (Alphagan 0.2% Opht) 0 ml OU BID ON LICENSE OF [facility] Last Admin: 04/20/18 17:27 Dose: 1 drop Cinacalcet (Sensipar) 30 mg PO DAILY ON LICENSE OF [facility] Last Admin: 04/21/18 10:40 Dose: 30 mg Clonidine HCl (Catapres-Tts3 0.3 Mg/24 Hr) 1 patch TD Q7D@1000 [facility] Heparin Sodium (Porcine) (Heparin) 5,000 units SC Q12H ON LICENSE OF [facility] Last Admin: 04/21/18 10:42 Dose: 5,000 units Nitroglycerin/Dextrose (Nitroglycerin 50 Mg/250 Ml D5w) 50 mg in 250 mls @ 1.5 mls/hr IV .Q24H [facility]; Protocol Last Titration: 04/21/18 05:00 Dose: 8 mcg/min, 2.4 mls/hr Norepinephrine Bitartrate 4 mg (/ Sodium Chloride) 254 mls @ 15.24 mls/hr IV .[id number] PRN; Protocol PRN Reason: TITRATE PER MD ORDER Last Titration: 04/20/18 22:10 Dose: 0 mcg/min, 0 mls/hr Propofol (Diprivan) 1,000 mg in 100 mls @ 1.977 mls/hr IV .Q24H PRN; Protocol PRN Reason: TITRATE PER MD ORDER Last Admin: 04/21/18 08:13 Dose: 40 mcg/kg/min, 15.816 mls/hr Piperacillin Sod/Tazobactam (Sod 2.25 gm/ Sodium Chloride) 100 mls @ 200 mls/hr IVPB Q8H [facility]; Protocol Last Admin: 04/21/18 06:29 Dose: 200 mls/hr Latanoprost (Xalatan Opht) 0 ml OU HS [facility] Pantoprazole Sodium (Protonix Inj) 40 mg IVP DAILY [facility] Last Admin: 04/21/18 10:39 Dose: 40 mg Polymyxin/Trimethoprim Sulfate (Polytrim Ophth Soln) 0 ml OS Q6 [facility] Last Admin: 04/20/18 17:26 Dose: 1 drop Rosuvastatin Calcium (Crestor) 10 mg PO HS [facility] Last Admin: 04/20/18 22:56 Dose: 10 mg Sevelamer Carbonate (Renvela) 800 mg PO TIDCC ON LICENSE OF [facility] Last Admin: 04/21/18 11:06 Dose: 800 mg Timolol Maleate (Timoptic 0.5% Ophth Soln) 0 drop OU BID [facility] Last Admin: 04/20/18 17:28 Dose: 1 drop - Labs Labs: 04/21/18 06:32 04/21/18 06:32 PT 11.7 SECONDS (9.7-12.2) 04/20/18 08:32 INR 1.1 04/20/18 08:32 APTT 30 SECONDS (21-34) 04/20/18 08:32 - Constitutional Appears: No Acute Distress, Chronically Ill - Head Exam Head Exam: NORMAL INSPECTION, NORMOCEPHALIC - Eye Exam Eye Exam: Normal appearance, PERRL - ENT Exam ENT Exam: Normal Exam (ET tube) - Neck Exam Neck Exam: Full ROM, Normal Inspection - Respiratory Exam Respiratory Exam: Decreased Breath Sounds (b/l bases) - Cardiovascular Exam Cardiovascular Exam: REGULAR RHYTHM, RRR - GI/Abdominal Exam GI & Abdominal Exam: Distended, Soft - Extremities Exam Extremities Exam: Normal Inspection - Neurological Exam Neurological Exam: Alert, Awake - Skin Skin Exam: Dry, Intact Assessment and Plan (1) CHF (congestive heart failure) Status: Acute (2) COPD (chronic obstructive pulmonary disease) Status: Acute (3) ESRD (end stage renal disease) Status: Acute (4) HTN (hypertension) Status: Acute - Assessment and Plan (Free Text) Assessment: esrd pneumonia chf vdrf hypertension plan: hd tomorrow antibiotics extubate?
--- NOTE | 2018-04-21 15:14 | CP.PCM.PN ---
Subjective - Date & Time of Evaluation Date of Evaluation: 04/21/18 Time of Evaluation: 09:00 - Subjective Subjective: Cardiology Progress Note: Patient was seen and examined at bedside in the AM. Complete ROS could not be completed as patient was intubated. Patient denied chest pain, abdominal pain, fever or chills. Objective - Vital Signs/Intake and Output Vital Signs (last 24 hours): Temp Pulse Resp BP Pulse Ox 99.5 F 104 H 21 132/58 L 100 04/21/18 12:00 04/21/18 14:43 04/21/18 14:43 04/21/18 14:43 04/21/18 14:43 Intake and Output: 04/21/18 04/21/18 06:59 18:59 Intake Total 992.4 585.6 Output Total 2185 Balance -1192.6 585.6 - Medications Medications: Current Medications Acetaminophen (Tylenol 325mg Tab) 650 mg PO Q6H PRN PRN Reason: Fever >100.4 F Aspirin (Aspirin Chewable) 81 mg PO DAILY [facility] Last Admin: 04/21/18 10:40 Dose: 81 mg Atropine Sulfate (Atropisol 1% Ophth) 0 ml OU DAILY [facility] Brimonidine Tartrate (Alphagan 0.2% Opht) 0 ml OU BID [facility] Last Admin: 04/20/18 17:27 Dose: 1 drop Cinacalcet (Sensipar) 30 mg PO DAILY [facility] Last Admin: 04/21/18 10:40 Dose: 30 mg Clonidine HCl (Catapres-Tts3 0.3 Mg/24 Hr) 1 patch TD Q7D@1000 [facility] Heparin Sodium (Porcine) (Heparin) 5,000 units SC Q12H [facility] Last Admin: 04/21/18 10:42 Dose: 5,000 units Nitroglycerin/Dextrose (Nitroglycerin 50 Mg/250 Ml D5w) 50 mg in 250 mls @ 1.5 mls/hr IV .Q24H [facility]; Protocol Last Admin: 04/21/18 11:30 Dose: Not Given Norepinephrine Bitartrate 4 mg (/ Sodium Chloride) 254 mls @ 15.24 mls/hr IV .[id number] PRN; Protocol PRN Reason: TITRATE PER MD ORDER Last Titration: 04/20/18 22:10 Dose: 0 mcg/min, 0 mls/hr Propofol (Diprivan) 1,000 mg in 100 mls @ 1.977 mls/hr IV .Q24H PRN; Protocol PRN Reason: TITRATE PER MD ORDER Last Titration: 04/21/18 12:00 Dose: 0 mcg/kg/min, 0 mls/hr Piperacillin Sod/Tazobactam (Sod 2.25 gm/ Sodium Chloride) 100 mls @ 200 mls/hr IVPB Q8H [facility]; Protocol Last Admin: 04/21/18 14:49 Dose: 200 mls/hr Latanoprost (Xalatan Opht) 0 ml OU HS [facility] Pantoprazole Sodium (Protonix Inj) 40 mg IVP DAILY [facility] Last Admin: 04/21/18 10:39 Dose: 40 mg Polymyxin/Trimethoprim Sulfate (Polytrim Ophth Soln) 0 ml OS Q6 [facility] Last Admin: 04/20/18 17:26 Dose: 1 drop Rosuvastatin Calcium (Crestor) 10 mg PO HS [facility] Last Admin: 04/20/18 22:56 Dose: 10 mg Sevelamer Carbonate (Renvela) 800 mg PO TIDCC [facility] Last Admin: 04/21/18 11:06 Dose: 800 mg Timolol Maleate (Timoptic 0.5% Ophth Soln) 0 drop OU BID [facility] Last Admin: 04/20/18 17:28 Dose: 1 drop - Labs Labs: 04/21/18 06:32 04/21/18 06:32 PT 11.7 SECONDS (9.7-12.2) 04/20/18 08:32 INR 1.1 04/20/18 08:32 APTT 30 SECONDS (21-34) 04/20/18 08:32 - Constitutional Appears: No Acute Distress, Chronically Ill - Head Exam Head Exam: ATRAUMATIC, NORMAL INSPECTION - Eye Exam Eye Exam: EOMI, Normal appearance - ENT Exam Additional comments: ETT - Cardiovascular Exam Cardiovascular Exam: Tachycardia, +S1, +S2 - GI/Abdominal Exam GI & Abdominal Exam: Soft, Normal Bowel Sounds. absent: Tenderness - Neurological Exam Neurological Exam: Alert, Awake - Skin Skin Exam: Normal Color
--- NOTE | 2018-04-21 15:18 | CP.PCM.CON ---
<Winnie Andrew - Last Filed: 04/21/18 18:19> History of Present Illness - History of Present Illness History of Present Illness: Cardiology Consult Note for Dr. Acosta: 67 year old female w past medical history of ESRD on HD MWF, COPD, HTN, CHF, HLD, peripheral edema, anemia was brought by ambulance for shortness of breath and chest pain on 04/20/18. Patient was intubated on the field by EMS. Cardiology was consulted for patient's history of CAD. Patient was seen and examined at bedside in the AM. Complete ROS could not be completed as patient was intubated. Patient denied chest pain, abdominal pain, fever or chills. Per chart review Past Medical History: HTN, ESRD on HD, COPD, CAD, anemia, arthritis, hyperlipidemia Surgical History: Fistula attempt x 2, C section. Allergies: NKDA Social History: hx of light tobacco use. hx of alcohol use. Review of Systems - Review of Systems Systems not reviewed;Unavailable: Intubated Past Patient History - Past Medical History & Family History Past Medical History?: Yes - Past Social History Smoking Status: Former Smoker - CARDIAC Hx Hypercholesterolemia: Yes Hx Hypertension: Yes Hx Peripheral Edema: Yes - PULMONARY Hx Chronic Obstructive Pulmonary Disease (COPD): Yes - NEUROLOGICAL Hx Neurological Disorder: Yes HX Cerebrovascular Accident: Yes (1991 mini stroke) - HEENT Hx HEENT Problems: Yes Hx Cataracts: Yes Hx Glaucoma: Yes - RENAL Hx Dialysis: Yes Type of Dialysis Access: LEFT AV SHUNT Date of Last Dialysis Treatment: 04/20/18 - ENDOCRINE/METABOLIC Hx Endocrine Disorders: No - HEMATOLOGICAL/ONCOLOGICAL Hx Anemia: Yes - INTEGUMENTARY Hx Dermatological Problems: No - MUSCULOSKELETAL/RHEUMATOLOGICAL Hx Arthritis: Yes Hx Falls: No - GASTROINTESTINAL Hx Gastrointestinal Disorders: Yes Hx Bowel Surgery: Yes - GENITOURINARY/GYNECOLOGICAL Hx Genitourinary Disorders: No - PSYCHIATRIC Hx Substance Use: No - SURGICAL HISTORY Hx Surgeries: Yes Hx Arteriovenous Shunt: Yes (AV FISTULA ATTEMPT X2) Hx Section: Yes - ANESTHESIA Hx Anesthesia: Yes Hx Anesthesia Reactions: No Hx Malignant Hyperthermia: No Meds Allergies/Adverse Reactions: Allergies Allergy/AdvReac Type Severity Reaction Status Date / Time No Known Allergies Allergy Verified 06/16/17 10:25 - Medications Medications: Current Medications Acetaminophen (Tylenol 325mg Tab) 650 mg PO Q6H PRN PRN Reason: Fever >100.4 F Aspirin (Aspirin Chewable) 81 mg PO DAILY [facility] Last Admin: 04/21/18 10:40 Dose: 81 mg Atropine Sulfate (Atropisol 1% Ophth) 0 ml OU DAILY [facility] Brimonidine Tartrate (Alphagan 0.2% Opht) 0 ml OU BID [facility] Last Admin: 04/20/18 17:27 Dose: 1 drop Cinacalcet (Sensipar) 30 mg PO DAILY [facility] Last Admin: 04/21/18 10:40 Dose: 30 mg Clonidine HCl (Catapres-Tts3 0.3 Mg/24 Hr) 1 patch TD Q7D@1000 [facility] Heparin Sodium (Porcine) (Heparin) 5,000 units SC Q12H [facility] Last Admin: 04/21/18 10:42 Dose: 5,000 units Nitroglycerin/Dextrose (Nitroglycerin 50 Mg/250 Ml D5w) 50 mg in 250 mls @ 1.5 mls/hr IV .Q24H [facility]; Protocol Last Admin: 04/21/18 11:30 Dose: Not Given Norepinephrine Bitartrate 4 mg (/ Sodium Chloride) 254 mls @ 15.24 mls/hr IV .[id number] PRN; Protocol PRN Reason: TITRATE PER MD ORDER Last Titration: 04/20/18 22:10 Dose: 0 mcg/min, 0 mls/hr Propofol (Diprivan) 1,000 mg in 100 mls @ 1.977 mls/hr IV .Q24H PRN; Protocol PRN Reason: TITRATE PER MD ORDER Last Titration: 04/21/18 12:00 Dose: 0 mcg/kg/min, 0 mls/hr Piperacillin Sod/Tazobactam (Sod 2.25 gm/ Sodium Chloride) 100 mls @ 200 mls/hr IVPB Q8H [facility]; Protocol Last Admin: 04/21/18 14:49 Dose: 200 mls/hr Latanoprost (Xalatan Opht) 0 ml OU HS [facility] Pantoprazole Sodium (Protonix Inj) 40 mg IVP DAILY [facility] Last Admin: 04/21/18 10:39 Dose: 40 mg Polymyxin/Trimethoprim Sulfate (Polytrim Ophth Soln) 0 ml OS Q6 [facility] Last Admin: 04/20/18 17:26 Dose: 1 drop Rosuvastatin Calcium (Crestor) 10 mg PO HS [facility] Last Admin: 04/20/18 22:56 Dose: 10 mg Sevelamer Carbonate (Renvela) 800 mg PO TIDCC [facility] Last Admin: 04/21/18 11:06 Dose: 800 mg Timolol Maleate (Timoptic 0.5% Ophth Soln) 0 drop OU BID [facility] Last Admin: 04/20/18 17:28 Dose: 1 drop Physical Exam - Constitutional Appears: No Acute Distress, Chronically Ill - Head Exam Head Exam: ATRAUMATIC, NORMAL INSPECTION - Eye Exam Eye Exam: EOMI, Normal appearance - ENT Exam ENT Exam: Mucous Membranes Moist - Respiratory Exam Respiratory Exam: NORMAL BREATHING PATTERN Additional comments: ETT - Cardiovascular Exam Cardiovascular Exam: Tachycardia, +S1, +S2 - GI/Abdominal Exam GI & Abdominal Exam: Normal Bowel Sounds, Soft. absent: Tenderness - Neurological Exam Neurological exam: Alert Results - Vital Signs Recent Vital Signs: Last Vital Signs Temp 99.5 F 04/21/18 12:00 Pulse 104 H 04/21/18 14:43 Resp 21 04/21/18 14:43 BP 132/58 L 04/21/18 14:43 Pulse Ox 100 04/21/18 14:43 - Labs Result Diagrams: 04/21/18 06:32 04/21/18 06:32 Labs: Laboratory Results - last 24 hr 04/20/18 04/20/18 04/20/18 14:58 19:03 20:39 WBC RBC Hgb Hct MCV MCH MCHC RDW Plt Count MPV Neut % (Auto) Lymph % (Auto) Oliver % (Auto) Eos % (Auto) Baso % (Auto) Neut # (Auto) Lymph # (Auto) Oliver # (Auto) Eos # (Auto) Baso # (Auto) Neutrophils % (Manual) Lymphocytes % (Manual) Monocytes % (Manual) Eosinophils % (Manual) Basophils % (Manual) Platelet Estimate Large Platelets Hypochromasia (manual) Poikilocytosis (manual Anisocytosis (manual) Puncture Site pCO2 pO2 HCO3 ABG pH ABG Total CO2 ABG O2 Saturation ABG Base Excess Judson Test ABG Potassium A-a O2 Difference Respiratory Index Sodium Chloride Glucose Lactate Vent Mode Mechanical Rate FiO2 Tidal Volume PEEP Crit Value Called To Crit Value Called By Crit Value Read Back Blood Gas Notified Time Potassium Carbon Dioxide Anion Gap BUN Creatinine Est GFR ( Amer) Est GFR (Non-Af Amer) Random Glucose Calcium Phosphorus Magnesium Total Bilirubin AST ALT Alkaline Phosphatase Troponin I 0.1400 H* 0.1920 H* Total Protein Albumin Globulin Albumin/Globulin Ratio Arterial Blood Potassium Hep Bs Antigen Negative 04/21/18 04/21/18 04/21/18 05:16 06:32 06:32 WBC 11.1 H RBC 3.71 L Hgb 10.6 L Hct 32.6 L MCV 88.0 D MCH 28.6 MCHC 32.5 L RDW 16.2 H Plt Count 196 MPV 10.4 Neut % (Auto) 80.5 H Lymph % (Auto) 8.2 L Oliver % (Auto) 7.0 Eos % (Auto) 3.7 Baso % (Auto) 0.6 Neut # (Auto) 8.9 H Lymph # (Auto) 0.9 L Oliver # (Auto) 0.8 Eos # (Auto) 0.4 Baso # (Auto) 0.1 Neutrophils % (Manual) 81 H Lymphocytes % (Manual) 9 L Monocytes % (Manual) 4 Eosinophils % (Manual) 5 H Basophils % (Manual) 1 Platelet Estimate Normal Large Platelets Present Hypochromasia (manual) Slight Poikilocytosis (manual Slight Anisocytosis (manual) Slight Puncture Site L brac pCO2 19 L* pO2 237 H HCO3 22.8 ABG pH 7.56 H ABG Total CO2 17.6 L ABG O2 Saturation 99.2 H ABG Base Excess -2.8 L Judson Test Na ABG Potassium 2.7 L A-a O2 Difference 96.0 Respiratory Index 0.4 Sodium 142.0 138 Chloride 112.0 H 101 Glucose 108 H Lactate 1.0 Vent Mode Prvc Mechanical Rate 20 FiO2 50.0 Tidal Volume 450 PEEP 5 Crit Value Called To Bhumika cody agricultural and forestry supervisor Crit Value Called By Makenzie fernandez rt Crit Value Read Back Y Blood Gas Notified Time 545 Potassium 3.5 L Carbon Dioxide 22 Anion Gap 18 BUN 38 H Creatinine 8.0 H* Est GFR ( Amer) 6 Est GFR (Non-Af Amer) 5 Random Glucose 128 H D Calcium 10.1 Phosphorus 3.0 Magnesium 1.6 Total Bilirubin 0.6 AST 28 ALT 23 Alkaline Phosphatase 156 H Troponin I Total Protein 7.5 Albumin 4.3 Globulin 3.2 Albumin/Globulin Ratio 1.3 Arterial Blood Potassium 2.7 L Hep Bs Antigen Assessment & Plan - Assessment and Plan (Free Text) Assessment: 67 year old female w past medical history of ESRD on HD MWF, COPD, HTN, CHF, HLD, peripheral edema, anemia was brought by ambulance for shortness of breath and chest pain on 04/20/18. History of CAD - Trop: 0.0490 --> 0.1400 --> 0.1920 - ECHO (06/17/17): EF 74%; moderate concentric left ventricular hypertrophy. - possible cath - Aspirin 81mg daily History of HTN - Clonidine patch TD - Nitroglycerin History of HLD - Crestor 10mg po daily Case discussed with Dr. Dave Andrew PGY-2 <Gerson Acosta - Last Filed: 04/22/18 21:57> Meds - Medications Medications: Current Medications Acetaminophen (Tylenol 325mg Tab) 650 mg PO Q6H PRN PRN Reason: Fever >100.4 F Aspirin (Aspirin Chewable) 81 mg PO DAILY [facility] Last Admin: 04/22/18 09:47 Dose: 81 mg Atropine Sulfate (Atropisol 1% Ophth) 0 ml OU DAILY [facility] Brimonidine Tartrate (Alphagan 0.2% Opht) 0 ml OU BID [facility] Last Admin: 04/20/18 17:27 Dose: 1 drop Cinacalcet (Sensipar) 30 mg PO DAILY [facility] Last Admin: 04/22/18 09:46 Dose: 30 mg Clonidine HCl (Catapres-Tts3 0.3 Mg/24 Hr) 1 patch TD Q7D@1000 [facility] Clopidogrel Bisulfate (Plavix) 75 mg PO DAILY [facility] Last Admin: 04/22/18 09:47 Dose: 75 mg Famotidine (Pepcid) 20 mg PO DAILY [facility] Last Admin: 04/22/18 09:46 Dose: 20 mg Folic Acid (Folic Acid) 2 mg PO BID [facility] Last Admin: 04/22/18 18:54 Dose: 2 mg Heparin Sodium (Porcine) (Heparin) 5,000 units SC Q12H [facility] Last Admin: 04/22/18 11:44 Dose: 5,000 units Home Med (Home Med) 1 unit OD BID [facility] Piperacillin Sod/Tazobactam (Sod 2.25 gm/ Sodium Chloride) 100 mls @ 200 mls/hr IVPB Q8H [facility]; Protocol Last Admin: 04/22/18 15:49 Dose: Not Given Latanoprost (Xalatan Opht) 0 ml OU HS [facility] Midodrine (Proamatine) 10 mg PO DAILY [facility] Last Admin: 04/22/18 09:47 Dose: 10 mg Polymyxin/Trimethoprim Sulfate (Polytrim Ophth Soln) 0 ml OS Q6 [facility] Last Admin: 04/20/18 17:26 Dose: 1 drop Rosuvastatin Calcium (Crestor) 10 mg PO HS [facility] Last Admin: 04/21/18 21:19 Dose: 10 mg Sevelamer Carbonate (Renvela) 1,600 mg PO TIDCC [facility] Last Admin: 04/22/18 18:54 Dose: 1,600 mg Timolol Maleate (Timoptic 0.5% Ophth Soln) 0 drop OU BID [facility] Last Admin: 04/20/18 17:28 Dose: 1 drop Zolpidem Tartrate (Ambien) 5 mg PO HS PRN PRN Reason: Insomnia Last Admin: 04/21/18 22:10 Dose: 5 mg Results - Vital Signs Recent Vital Signs: Last Vital Signs Temp 97.4 F L 04/22/18 17:15 Pulse 90 04/22/18 19:00 Resp 15 04/22/18 17:15 BP 129/63 04/22/18 17:15 Pulse Ox 99 04/22/18 17:15 - Labs Result Diagrams: 04/22/18 05:47 04/22/18 05:47 Labs: Laboratory Results - last 24 hr 04/22/18 04/22/18 05:47 05:47 WBC 13.4 H RBC 3.36 L Hgb 9.7 L Hct 30.2 L MCV 89.8 MCH 29.0 MCHC 32.3 L RDW 16.1 H Plt Count 173 MPV 10.5 Neut % (Auto) 72.4 Lymph % (Auto) 9.4 L Oliver % (Auto) 10.1 H Eos % (Auto) 7.4 H Baso % (Auto) 0.7 Neut # (Auto) 9.7 H Lymph # (Auto) 1.3 Oliver # (Auto) 1.4 H Eos # (Auto) 1.0 H Baso # (Auto) 0.1 Neutrophils % (Manual) 73 Band Neutrophils % 1 Lymphocytes % (Manual) 9 L Monocytes % (Manual) 11 H Eosinophils % (Manual) 6 H Platelet Estimate Normal Large Platelets Present Anisocytosis (manual) Slight Target Cells Slight Sodium 137 Potassium 4.3 Chloride 99 Carbon Dioxide 25 Anion Gap 18 BUN 52 H Creatinine 10.6 H* D Est GFR ( Amer) 4 Est GFR (Non-Af Amer) 4 Random Glucose 109 H Calcium 8.9 Phosphorus 7.0 H Magnesium 1.8 Total Bilirubin 0.4 AST 20 ALT 16 Alkaline Phosphatase 137 H Total Protein 7.0 Albumin 3.9 Globulin 3.1 Albumin/Globulin Ratio 1.2 Assessment & Plan - Assessment and Plan (Free Text) Assessment: Patient examined and evaluated personally by me. Plan of care d/w the biomedical scientist and as documented
--- NOTE | 2018-04-21 16:16 | CP.CCUPN ---
<Tommy Ogden - Last Filed: 04/21/18 16:35> CCU Subjective - Physician Review Critical Care Time Spent (in minutes): 45 CCU Objective - Vital Signs / Intake & Output Vital Signs (Last 4 hours): Vital Signs Pulse Resp BP Pulse Ox 04/21/18 15:13 100 H 21 122/58 L 100 04/21/18 14:43 104 H 21 132/58 L 100 04/21/18 14:13 105 H 21 135/60 100 04/21/18 14:00 107 H 19 100 04/21/18 13:43 105 H 23 134/58 L 100 04/21/18 13:13 105 H 23 126/58 L 04/21/18 13:00 107 H 18 100 04/21/18 12:43 107 H 23 131/56 L 100 04/21/18 12:13 106 H 21 126/56 L 100 Intake and Output (Last 8hrs): Intake & Output 04/21/18 04/21/18 04/21/18 06:59 14:59 22:59 Intake Total 398.8 585.6 102.4 Output Total 0 Balance 398.8 585.6 102.4 Weight 139 lb 4.8 oz Intake: IV 155 108 Intake, IV Amount 243.8 177.6 102.4 Left Distal Port Internal 119.5 58.4 Jugular Left Medial Port Internal 100 100 100 Jugular Left Proximal Port 24.3 19.2 2.4 Internal Jugular Tube Feeding 0 300 Output: Urine 0 Urine, Voided 0 Emesis 0 Other: # Bowel Movements 0 - Medications Active Medications: Active Medications Generic Name Dose Route Start Last Admin Trade Name Freq PRN Reason Stop Dose Admin Acetaminophen 650 mg 04/20/18 11:19 Tylenol 325mg Tab PO Q6H PRN Fever >100.4 F Aspirin 81 mg 04/21/18 10:00 04/21/18 10:40 Aspirin Chewable PO 81 mg DAILY KAMINI Administration Atropine Sulfate 0 ml 04/21/18 10:00 Atropisol 1% Ophth OU DAILY KAMINI Brimonidine Tartrate 0 ml 04/20/18 18:00 04/20/18 17:27 Alphagan 0.2% Opht OU 1 drop BID KAMINI Administration Cinacalcet 30 mg 04/21/18 10:00 04/21/18 10:40 Sensipar PO 30 mg DAILY KAMINI Administration Clonidine HCl 1 patch 04/27/18 10:00 Catapres-Tts3 0.3 Mg/24 Hr TD Q7D@1000 KAMINI Heparin Sodium (Porcine) 5,000 units 04/20/18 11:30 04/21/18 10:42 Heparin SC 5,000 units Q12H KAMINI Administration Nitroglycerin/Dextrose 50 mg in 250 mls @ 1.5 mls/hr 04/20/18 11:30 04/21/18 11:30 Nitroglycerin 50 Mg/250 Ml D5w IV Not Given .Q24H KAMINI Protocol 5 MCG/MIN Norepinephrine Bitartrate 4 mg 254 mls @ 15.24 mls/hr 04/20/18 20:12 04/20/18 22:10 / Sodium Chloride IV 0 mcg/min .[id number] PRN 0 mls/hr TITRATE PER MD ORDER Titration Protocol 4 MCG/MIN Propofol 1,000 mg in 100 mls @ 1.977 mls/hr 04/20/18 21:19 04/21/18 12:00 Diprivan IV 0 mcg/kg/min .Q24H PRN 0 mls/hr TITRATE PER MD ORDER Titration Protocol 5 MCG/KG/MIN Piperacillin Sod/Tazobactam 100 mls @ 200 mls/hr 04/20/18 23:00 04/21/18 14:49 Sod 2.25 gm/ Sodium Chloride IVPB 200 mls/hr Q8H KAMINI Administration Protocol Latanoprost 0 ml 04/21/18 10:00 Xalatan Opht OU HS KAMINI Pantoprazole Sodium 40 mg 04/21/18 10:00 04/21/18 10:39 Protonix Inj IVP 40 mg DAILY KAMINI Administration Polymyxin/Trimethoprim Sulfate 0 ml 04/20/18 12:00 04/20/18 17:26 Polytrim Ophth Soln OS 1 drop Q6 KAMINI Administration Rosuvastatin Calcium 10 mg 04/20/18 22:00 04/20/18 22:56 Crestor PO 10 mg HS KAMINI Administration Sevelamer Carbonate 800 mg 04/20/18 14:00 04/21/18 11:06 Renvela PO 800 mg TIDCC KAMINI Administration Timolol Maleate 0 drop 04/20/18 18:00 04/20/18 17:28 Timoptic 0.5% Ophth Soln OU 1 drop BID KAMINI Administration - Patient Studies Lab Studies: Microbiology Studies 04/21/18 11:29 Gram Stain - Final Trachasp 04/20/18 11:44 MRSA Culture (Admit) - Final Nose MRSA NOT DETECTED 04/20/18 10:47 Blood Culture - Preliminary Blood NO GROWTH AFTER 24 HOURS 04/20/18 10:47 Blood Culture - Preliminary Blood NO GROWTH AFTER 24 HOURS Lab Studies 04/21/18 04/21/18 04/21/18 Range/Units 06:32 06:32 05:16 WBC 11.1 H (4.8-10.8) K/uL RBC 3.71 L (3.80-5.20) Mil/uL Hgb 10.6 L (11.0-16.0) g/dL Hct 32.6 L (34.0-47.0) % MCV 88.0 D (81.0-99.0) fL MCH 28.6 (27.0-31.0) pg MCHC 32.5 L (33.0-37.0) g/dL RDW 16.2 H (11.5-14.5) % Plt Count 196 (130-400) K/uL MPV 10.4 (7.2-11.7) fL Neut % (Auto) 80.5 H (50.0-75.0) % Lymph % (Auto) 8.2 L (20.0-40.0) % Newton % (Auto) 7.0 (0.0-10.0) % Eos % (Auto) 3.7 (0.0-4.0) % Baso % (Auto) 0.6 (0.0-2.0) % Neut # (Auto) 8.9 H (1.8-7.0) K/uL Lymph # (Auto) 0.9 L (1.0-4.3) K/uL Newton # (Auto) 0.8 (0.0-0.8) K/uL Eos # (Auto) 0.4 (0.0-0.7) K/uL Baso # (Auto) 0.1 (0.0-0.2) K/uL Neutrophils % (Manual) 81 H (50-75) % Lymphocytes % (Manual) 9 L (20-40) % Monocytes % (Manual) 4 (0-10) % Eosinophils % (Manual) 5 H (0-4) % Basophils % (Manual) 1 (0-2) % Platelet Estimate Normal (NORMAL) Large Platelets Present Hypochromasia (manual) Slight Poikilocytosis (manual Slight Anisocytosis (manual) Slight Puncture Site L brac pCO2 19 L* (35-45) mm/Hg pO2 237 H (80-100) mm/Hg HCO3 22.8 (21-28) mmol/L ABG pH 7.56 H (7.35-7.45) ABG Total CO2 17.6 L (22-28) mmol/L ABG O2 Saturation 99.2 H (95-98) % ABG Base Excess -2.8 L (-2.0-3.0) mmol/L Judson Test Na ABG Potassium 2.7 L (3.6-5.2) mmol/L A-a O2 Difference 96.0 mm/Hg Respiratory Index 0.4 Sodium 138 142.0 (132-148) mmol/l Chloride 101 112.0 H (98-107) mmol/L Glucose 108 H (65-105) mg/dl Lactate 1.0 (0.7-2.1) mmol/L Vent Mode Prvc Mechanical Rate 20 FiO2 50.0 % Tidal Volume 450 PEEP 5 Crit Value Called 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 Crit Value Called By Makenzie fernandez rt Crit Value Read Back Y Blood Gas Notified Time 545 Potassium 3.5 L (3.6-5.2) mmol/L Carbon Dioxide 22 (22-30) mmol/L Anion Gap 18 (10-20) BUN 38 H (7-17) mg/dL Creatinine 8.0 H* (0.7-1.2) mg/dL Est GFR ( Amer) 6 Est GFR (Non-Af Amer) 5 Random Glucose 128 H D (65-105) mg/dL Calcium 10.1 (8.6-10.4) mg/dl Phosphorus 3.0 (2.5-4.5) mg/dL Magnesium 1.6 (1.6-2.3) mg/dL Total Bilirubin 0.6 (0.2-1.3) mg/dL AST 28 (14-36) U/L ALT 23 (9-52) U/L Alkaline Phosphatase 156 H (38-126) U/L Troponin I (0.00-0.120) ng/mL Total Protein 7.5 (6.3-8.3) g/dL Albumin 4.3 (3.5-5.0) g/dL Globulin 3.2 (2.2-3.9) gm/dL Albumin/Globulin Ratio 1.3 (1.0-2.1) Arterial Blood Potassium 2.7 L (3.6-5.2) mmol/L Hep Bs Antigen (NEGATIVE) 04/20/18 04/20/18 Range/Units 20:39 19:03 WBC (4.8-10.8) K/uL RBC (3.80-5.20) Mil/uL Hgb (11.0-16.0) g/dL Hct (34.0-47.0) % MCV (81.0-99.0) fL MCH (27.0-31.0) pg MCHC (33.0-37.0) g/dL RDW (11.5-14.5) % Plt Count (130-400) K/uL MPV (7.2-11.7) fL Neut % (Auto) (50.0-75.0) % Lymph % (Auto) (20.0-40.0) % Newton % (Auto) (0.0-10.0) % Eos % (Auto) (0.0-4.0) % Baso % (Auto) (0.0-2.0) % Neut # (Auto) (1.8-7.0) K/uL Lymph # (Auto) (1.0-4.3) K/uL Newton # (Auto) (0.0-0.8) K/uL Eos # (Auto) (0.0-0.7) K/uL Baso # (Auto) (0.0-0.2) K/uL Neutrophils % (Manual) (50-75) % Lymphocytes % (Manual) (20-40) % Monocytes % (Manual) (0-10) % Eosinophils % (Manual) (0-4) % Basophils % (Manual) (0-2) % Platelet Estimate (NORMAL) Large Platelets Hypochromasia (manual) Poikilocytosis (manual Anisocytosis (manual) Puncture Site pCO2 (35-45) mm/Hg pO2 (80-100) mm/Hg HCO3 (21-28) mmol/L ABG pH (7.35-7.45) ABG Total CO2 (22-28) mmol/L ABG O2 Saturation (95-98) % ABG Base Excess (-2.0-3.0) mmol/L Judson Test ABG Potassium (3.6-5.2) mmol/L A-a O2 Difference mm/Hg Respiratory Index Sodium (132-148) mmol/l Chloride (98-107) mmol/L Glucose (65-105) mg/dl Lactate (0.7-2.1) mmol/L Vent Mode Mechanical Rate FiO2 % Tidal Volume PEEP Crit Value Called To Crit Value Called By Crit Value Read Back Blood Gas Notified Time Potassium (3.6-5.2) mmol/L Carbon Dioxide (22-30) mmol/L Anion Gap (10-20) BUN (7-17) mg/dL Creatinine (0.7-1.2) mg/dL Est GFR ( Amer) Est GFR (Non-Af Amer) Random Glucose (65-105) mg/dL Calcium (8.6-10.4) mg/dl Phosphorus (2.5-4.5) mg/dL Magnesium (1.6-2.3) mg/dL Total Bilirubin (0.2-1.3) mg/dL AST (14-36) U/L ALT (9-52) U/L Alkaline Phosphatase (38-126) U/L Troponin I 0.1920 H* (0.00-0.120) ng/mL Total Protein (6.3-8.3) g/dL Albumin (3.5-5.0) g/dL Globulin (2.2-3.9) gm/dL Albumin/Globulin Ratio (1.0-2.1) Arterial Blood Potassium (3.6-5.2) mmol/L Hep Bs Antigen Negative (NEGATIVE) Laboratory Results - last 24 hr 04/20/18 04/20/18 04/21/18 19:03 20:39 05:16 WBC RBC Hgb Hct MCV MCH MCHC RDW Plt Count MPV Neut % (Auto) Lymph % (Auto) Newton % (Auto) Eos % (Auto) Baso % (Auto) Neut # (Auto) Lymph # (Auto) Newton # (Auto) Eos # (Auto) Baso # (Auto) Neutrophils % (Manual) Lymphocytes % (Manual) Monocytes % (Manual) Eosinophils % (Manual) Basophils % (Manual) Platelet Estimate Large Platelets Hypochromasia (manual) Poikilocytosis (manual Anisocytosis (manual) Puncture Site L brac pCO2 19 L* pO2 237 H HCO3 22.8 ABG pH 7.56 H ABG Total CO2 17.6 L ABG O2 Saturation 99.2 H ABG Base Excess -2.8 L Judson Test Na ABG Potassium 2.7 L A-a O2 Difference 96.0 Respiratory Index 0.4 Sodium 142.0 Chloride 112.0 H Glucose 108 H Lactate 1.0 Vent Mode Prvc Mechanical Rate 20 FiO2 50.0 Tidal Volume 450 PEEP 5 Crit Value Called 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 Crit Value Called By Makenzie fernandez rt Crit Value Read Back Y Blood Gas Notified Time 545 Potassium Carbon Dioxide Anion Gap BUN Creatinine Est GFR ( Amer) Est GFR (Non-Af Amer) Random Glucose Calcium Phosphorus Magnesium Total Bilirubin AST ALT Alkaline Phosphatase Troponin I 0.1920 H* Total Protein Albumin Globulin Albumin/Globulin Ratio Arterial Blood Potassium 2.7 L Hep Bs Antigen Negative 04/21/18 04/21/18 06:32 06:32 WBC 11.1 H RBC 3.71 L Hgb 10.6 L Hct 32.6 L MCV 88.0 D MCH 28.6 MCHC 32.5 L RDW 16.2 H Plt Count 196 MPV 10.4 Neut % (Auto) 80.5 H Lymph % (Auto) 8.2 L Newton % (Auto) 7.0 Eos % (Auto) 3.7 Baso % (Auto) 0.6 Neut # (Auto) 8.9 H Lymph # (Auto) 0.9 L Newton # (Auto) 0.8 Eos # (Auto) 0.4 Baso # (Auto) 0.1 Neutrophils % (Manual) 81 H Lymphocytes % (Manual) 9 L Monocytes % (Manual) 4 Eosinophils % (Manual) 5 H Basophils % (Manual) 1 Platelet Estimate Normal Large Platelets Present Hypochromasia (manual) Slight Poikilocytosis (manual Slight Anisocytosis (manual) Slight Puncture Site pCO2 pO2 HCO3 ABG pH ABG Total CO2 ABG O2 Saturation ABG Base Excess Judson Test ABG Potassium A-a O2 Difference Respiratory Index Sodium 138 Chloride 101 Glucose Lactate Vent Mode Mechanical Rate FiO2 Tidal Volume PEEP Crit Value Called To Crit Value Called By Crit Value Read Back Blood Gas Notified Time Potassium 3.5 L Carbon Dioxide 22 Anion Gap 18 BUN 38 H Creatinine 8.0 H* Est GFR ( Amer) 6 Est GFR (Non-Af Amer) 5 Random Glucose 128 H D Calcium 10.1 Phosphorus 3.0 Magnesium 1.6 Total Bilirubin 0.6 AST 28 ALT 23 Alkaline Phosphatase 156 H Troponin I Total Protein 7.5 Albumin 4.3 Globulin 3.2 Albumin/Globulin Ratio 1.3 Arterial Blood Potassium Hep Bs Antigen Radiology Impressions: Radiology Impressions Chest X-Ray 04/21/18 07:00 IMPRESSION: Improved aeration medial right base with trace residual potential infiltrate here versus overlapped bronchovascular markings. Remaining lung parker are clear. No pulmonary vascular congestion or interval cardiac silhouette changes. Fingerstick Blood Sugar Results: 242 Critical Care Progress Note - Nutrition Nutrition: Nutrition Category Date Time Status NPO Diet [DIET] Diets 04/20/18 Lunch Active Assessment/Plan - Assessment and Plan (Free Text) Plan: 67 yo female with pmhx of HTN, HLD, CHF, COPD, ESRD on HD MWF who developed chest pain and SOB during dialysis this morning, with AMS, intubated on field by EMS staff, brought to hospital, with elevated Blood pressure. CXray shows possible PNA. s/p Central line, on nitroglycerin drip, clonidine patch, to go for repeat HD today. pending Blood, urine, sputum cultures. Neuro: - AAO x 3 - no acute changes Pulm: Cxray Multifocal ill defined opacity mid right lung. Possible developing PNA On PRVC ventilation with RR 20, VT 450, PEEP 5 and FiO2 50%. Abx as indicated in ID. Cardio: Troponin in Ed negative, Troponin stat - f/u. Nitroglycerin drip. TLC central line procedure done for peripheral access for meds and blood work. Hx of HTN: Nitroglycerin patch, clonidine patch Hx of HLD: Crestor 10mg PO daily GI: NPO; NG tube in place No acute issues Endo: No acute issues Renal: Dr Montiel consulted. repeat Dialysis today for fluid removal. Clonidine patch. continue home med Cinacalcet. continue MWF dialysis. Salcedo in place Derm: no acute issues ID: Cefepime, Moxifloxacin, Vanco x1 in ED, Zosyn 2.275 gm IVPB Q8H. F/u Blood culture, Urine culture, MRSA screen NPO DVT ppx: Heparin 5000 SC Q12H GI ppx: Protonix 40mg IV daily Tylenol PRN for fever, ASA <Dionte,Daniel S - Last Filed: 04/21/18 17:25> CCU Objective - Vital Signs / Intake & Output Vital Signs (Last 4 hours): Vital Signs Temp Pulse Resp BP Pulse Ox 04/21/18 16:19 103 H 20 122/55 L 100 04/21/18 16:00 99.5 F 04/21/18 15:13 100 H 21 122/58 L 100 04/21/18 14:43 104 H 21 132/58 L 100 04/21/18 14:13 105 H 21 135/60 100 04/21/18 14:00 107 H 19 100 04/21/18 13:43 105 H 23 134/58 L 100 Intake and Output (Last 8hrs): Intake & Output 04/21/18 04/21/18 04/21/18 06:59 14:59 22:59 Intake Total 398.8 585.6 104.8 Output Total 0 Balance 398.8 585.6 104.8 Weight 139 lb 4.8 oz Intake: IV 155 108 Intake, IV Amount 243.8 177.6 104.8 Left Distal Port Internal 119.5 58.4 Jugular Left Medial Port Internal 100 100 100 Jugular Left Proximal Port 24.3 19.2 4.8 Internal Jugular Tube Feeding 0 300 Output: Urine 0 Urine, Voided 0 Emesis 0 Other: # Bowel Movements 0 - Medications Active Medications: Active Medications Generic Name Dose Route Start Last Admin Trade Name Freq PRN Reason Stop Dose Admin Acetaminophen 650 mg 04/20/18 11:19 Tylenol 325mg Tab PO Q6H PRN Fever >100.4 F Aspirin 81 mg 04/21/18 10:00 04/21/18 10:40 Aspirin Chewable PO 81 mg DAILY KAMINI Administration Atropine Sulfate 0 ml 04/21/18 10:00 Atropisol 1% Ophth OU DAILY KAMINI Brimonidine Tartrate 0 ml 04/20/18 18:00 04/20/18 17:27 Alphagan 0.2% Opht OU 1 drop BID KAMINI Administration Cinacalcet 30 mg 04/21/18 10:00 04/21/18 10:40 Sensipar PO 30 mg DAILY KAMINI Administration Clonidine HCl 1 patch 04/27/18 10:00 Catapres-Tts3 0.3 Mg/24 Hr TD Q7D@1000 KAMINI Heparin Sodium (Porcine) 5,000 units 04/20/18 11:30 04/21/18 10:42 Heparin SC 5,000 units Q12H KAMINI Administration Nitroglycerin/Dextrose 50 mg in 250 mls @ 1.5 mls/hr 04/20/18 11:30 04/21/18 11:30 Nitroglycerin 50 Mg/250 Ml D5w IV Not Given .Q24H KAMINI Protocol 5 MCG/MIN Norepinephrine Bitartrate 4 mg 254 mls @ 15.24 mls/hr 04/20/18 20:12 04/20/18 22:10 / Sodium Chloride IV 0 mcg/min .[id number] PRN 0 mls/hr TITRATE PER MD ORDER Titration Protocol 4 MCG/MIN Propofol 1,000 mg in 100 mls @ 1.977 mls/hr 04/20/18 21:19 04/21/18 12:00 Diprivan IV 0 mcg/kg/min .Q24H PRN 0 mls/hr TITRATE PER MD ORDER Titration Protocol 5 MCG/KG/MIN Piperacillin Sod/Tazobactam 100 mls @ 200 mls/hr 04/20/18 23:00 04/21/18 14:49 Sod 2.25 gm/ Sodium Chloride IVPB 200 mls/hr Q8H KAMINI Administration Protocol Latanoprost 0 ml 04/21/18 10:00 Xalatan Opht OU HS KAMINI Pantoprazole Sodium 40 mg 04/21/18 10:00 04/21/18 10:39 Protonix Inj IVP 40 mg DAILY KAMINI Administration Polymyxin/Trimethoprim Sulfate 0 ml 04/20/18 12:00 04/20/18 17:26 Polytrim Ophth Soln OS 1 drop Q6 KAMINI Administration Rosuvastatin Calcium 10 mg 04/20/18 22:00 04/20/18 22:56 Crestor PO 10 mg HS KAMINI Administration Sevelamer Carbonate 800 mg 04/20/18 14:00 04/21/18 11:06 Renvela PO 800 mg TIDCC KAMINI Administration Timolol Maleate 0 drop 04/20/18 18:00 04/20/18 17:28 Timoptic 0.5% Ophth Soln OU 1 drop BID KAMINI Administration - Patient Studies Lab Studies: Microbiology Studies 04/21/18 11:29 Gram Stain - Final Trachasp 04/20/18 11:44 MRSA Culture (Admit) - Final Nose MRSA NOT DETECTED 04/20/18 10:47 Blood Culture - Preliminary Blood NO GROWTH AFTER 24 HOURS 04/20/18 10:47 Blood Culture - Preliminary Blood NO GROWTH AFTER 24 HOURS Lab Studies 04/21/18 04/21/18 04/21/18 Range/Units 06:32 06:32 05:16 WBC 11.1 H (4.8-10.8) K/uL RBC 3.71 L (3.80-5.20) Mil/uL Hgb 10.6 L (11.0-16.0) g/dL Hct 32.6 L (34.0-47.0) % MCV 88.0 D (81.0-99.0) fL MCH 28.6 (27.0-31.0) pg MCHC 32.5 L (33.0-37.0) g/dL RDW 16.2 H (11.5-14.5) % Plt Count 196 (130-400) K/uL MPV 10.4 (7.2-11.7) fL Neut % (Auto) 80.5 H (50.0-75.0) % Lymph % (Auto) 8.2 L (20.0-40.0) % Newton % (Auto) 7.0 (0.0-10.0) % Eos % (Auto) 3.7 (0.0-4.0) % Baso % (Auto) 0.6 (0.0-2.0) % Neut # (Auto) 8.9 H (1.8-7.0) K/uL Lymph # (Auto) 0.9 L (1.0-4.3) K/uL Newton # (Auto) 0.8 (0.0-0.8) K/uL Eos # (Auto) 0.4 (0.0-0.7) K/uL Baso # (Auto) 0.1 (0.0-0.2) K/uL Neutrophils % (Manual) 81 H (50-75) % Lymphocytes % (Manual) 9 L (20-40) % Monocytes % (Manual) 4 (0-10) % Eosinophils % (Manual) 5 H (0-4) % Basophils % (Manual) 1 (0-2) % Platelet Estimate Normal (NORMAL) Large Platelets Present Hypochromasia (manual) Slight Poikilocytosis (manual Slight Anisocytosis (manual) Slight Puncture Site L brac pCO2 19 L* (35-45) mm/Hg pO2 237 H (80-100) mm/Hg HCO3 22.8 (21-28) mmol/L ABG pH 7.56 H (7.35-7.45) ABG Total CO2 17.6 L (22-28) mmol/L ABG O2 Saturation 99.2 H (95-98) % ABG Base Excess -2.8 L (-2.0-3.0) mmol/L Judson Test Na ABG Potassium 2.7 L (3.6-5.2) mmol/L A-a O2 Difference 96.0 mm/Hg Respiratory Index 0.4 Sodium 138 142.0 (132-148) mmol/l Chloride 101 112.0 H (98-107) mmol/L Glucose 108 H (65-105) mg/dl Lactate 1.0 (0.7-2.1) mmol/L Vent Mode Prvc Mechanical Rate 20 FiO2 50.0 % Tidal Volume 450 PEEP 5 Crit Value Called 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 Crit Value Called By Makenzie fernandez rt Crit Value Read Back Y Blood Gas Notified Time 545 Potassium 3.5 L (3.6-5.2) mmol/L Carbon Dioxide 22 (22-30) mmol/L Anion Gap 18 (10-20) BUN 38 H (7-17) mg/dL Creatinine 8.0 H* (0.7-1.2) mg/dL Est GFR ( Amer) 6 Est GFR (Non-Af Amer) 5 Random Glucose 128 H D (65-105) mg/dL Calcium 10.1 (8.6-10.4) mg/dl Phosphorus 3.0 (2.5-4.5) mg/dL Magnesium 1.6 (1.6-2.3) mg/dL Total Bilirubin 0.6 (0.2-1.3) mg/dL AST 28 (14-36) U/L ALT 23 (9-52) U/L Alkaline Phosphatase 156 H (38-126) U/L Troponin I (0.00-0.120) ng/mL Total Protein 7.5 (6.3-8.3) g/dL Albumin 4.3 (3.5-5.0) g/dL Globulin 3.2 (2.2-3.9) gm/dL Albumin/Globulin Ratio 1.3 (1.0-2.1) Arterial Blood Potassium 2.7 L (3.6-5.2) mmol/L Hep Bs Antigen (NEGATIVE) 04/20/18 04/20/18 Range/Units 20:39 19:03 WBC (4.8-10.8) K/uL RBC (3.80-5.20) Mil/uL Hgb (11.0-16.0) g/dL Hct (34.0-47.0) % MCV (81.0-99.0) fL MCH (27.0-31.0) pg MCHC (33.0-37.0) g/dL RDW (11.5-14.5) % Plt Count (130-400) K/uL MPV (7.2-11.7) fL Neut % (Auto) (50.0-75.0) % Lymph % (Auto) (20.0-40.0) % Newton % (Auto) (0.0-10.0) % Eos % (Auto) (0.0-4.0) % Baso % (Auto) (0.0-2.0) % Neut # (Auto) (1.8-7.0) K/uL Lymph # (Auto) (1.0-4.3) K/uL Newton # (Auto) (0.0-0.8) K/uL Eos # (Auto) (0.0-0.7) K/uL Baso # (Auto) (0.0-0.2) K/uL Neutrophils % (Manual) (50-75) % Lymphocytes % (Manual) (20-40) % Monocytes % (Manual) (0-10) % Eosinophils % (Manual) (0-4) % Basophils % (Manual) (0-2) % Platelet Estimate (NORMAL) Large Platelets Hypochromasia (manual) Poikilocytosis (manual Anisocytosis (manual) Puncture Site pCO2 (35-45) mm/Hg pO2 (80-100) mm/Hg HCO3 (21-28) mmol/L ABG pH (7.35-7.45) ABG Total CO2 (22-28) mmol/L ABG O2 Saturation (95-98) % ABG Base Excess (-2.0-3.0) mmol/L Judson Test ABG Potassium (3.6-5.2) mmol/L A-a O2 Difference mm/Hg Respiratory Index Sodium (132-148) mmol/l Chloride (98-107) mmol/L Glucose (65-105) mg/dl Lactate (0.7-2.1) mmol/L Vent Mode Mechanical Rate FiO2 % Tidal Volume PEEP Crit Value Called To Crit Value Called By Crit Value Read Back Blood Gas Notified Time Potassium (3.6-5.2) mmol/L Carbon Dioxide (22-30) mmol/L Anion Gap (10-20) BUN (7-17) mg/dL Creatinine (0.7-1.2) mg/dL Est GFR ( Amer) Est GFR (Non-Af Amer) Random Glucose (65-105) mg/dL Calcium (8.6-10.4) mg/dl Phosphorus (2.5-4.5) mg/dL Magnesium (1.6-2.3) mg/dL Total Bilirubin (0.2-1.3) mg/dL AST (14-36) U/L ALT (9-52) U/L Alkaline Phosphatase (38-126) U/L Troponin I 0.1920 H* (0.00-0.120) ng/mL Total Protein (6.3-8.3) g/dL Albumin (3.5-5.0) g/dL Globulin (2.2-3.9) gm/dL Albumin/Globulin Ratio (1.0-2.1) Arterial Blood Potassium (3.6-5.2) mmol/L Hep Bs Antigen Negative (NEGATIVE) Laboratory Results - last 24 hr 04/20/18 04/20/18 04/21/18 19:03 20:39 05:16 WBC RBC Hgb Hct MCV MCH MCHC RDW Plt Count MPV Neut % (Auto) Lymph % (Auto) Newton % (Auto) Eos % (Auto) Baso % (Auto) Neut # (Auto) Lymph # (Auto) Newton # (Auto) Eos # (Auto) Baso # (Auto) Neutrophils % (Manual) Lymphocytes % (Manual) Monocytes % (Manual) Eosinophils % (Manual) Basophils % (Manual) Platelet Estimate Large Platelets Hypochromasia (manual) Poikilocytosis (manual Anisocytosis (manual) Puncture Site L brac pCO2 19 L* pO2 237 H HCO3 22.8 ABG pH 7.56 H ABG Total CO2 17.6 L ABG O2 Saturation 99.2 H ABG Base Excess -2.8 L Judson Test Na ABG Potassium 2.7 L A-a O2 Difference 96.0 Respiratory Index 0.4 Sodium 142.0 Chloride 112.0 H Glucose 108 H Lactate 1.0 Vent Mode Prvc Mechanical Rate 20 FiO2 50.0 Tidal Volume 450 PEEP 5 Crit Value Called 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 Crit Value Called By Makenzie fernandez rt Crit Value Read Back Y Blood Gas Notified Time 545 Potassium Carbon Dioxide Anion Gap BUN Creatinine Est GFR ( Amer) Est GFR (Non-Af Amer) Random Glucose Calcium Phosphorus Magnesium Total Bilirubin AST ALT Alkaline Phosphatase Troponin I 0.1920 H* Total Protein Albumin Globulin Albumin/Globulin Ratio Arterial Blood Potassium 2.7 L Hep Bs Antigen Negative 04/21/18 04/21/18 06:32 06:32 WBC 11.1 H RBC 3.71 L Hgb 10.6 L Hct 32.6 L MCV 88.0 D MCH 28.6 MCHC 32.5 L RDW 16.2 H Plt Count 196 MPV 10.4 Neut % (Auto) 80.5 H Lymph % (Auto) 8.2 L Newton % (Auto) 7.0 Eos % (Auto) 3.7 Baso % (Auto) 0.6 Neut # (Auto) 8.9 H Lymph # (Auto) 0.9 L Newton # (Auto) 0.8 Eos # (Auto) 0.4 Baso # (Auto) 0.1 Neutrophils % (Manual) 81 H Lymphocytes % (Manual) 9 L Monocytes % (Manual) 4 Eosinophils % (Manual) 5 H Basophils % (Manual) 1 Platelet Estimate Normal Large Platelets Present Hypochromasia (manual) Slight Poikilocytosis (manual Slight Anisocytosis (manual) Slight Puncture Site pCO2 pO2 HCO3 ABG pH ABG Total CO2 ABG O2 Saturation ABG Base Excess Judson Test ABG Potassium A-a O2 Difference Respiratory Index Sodium 138 Chloride 101 Glucose Lactate Vent Mode Mechanical Rate FiO2 Tidal Volume PEEP Crit Value Called To Crit Value Called By Crit Value Read Back Blood Gas Notified Time Potassium 3.5 L Carbon Dioxide 22 Anion Gap 18 BUN 38 H Creatinine 8.0 H* Est GFR ( Amer) 6 Est GFR (Non-Af Amer) 5 Random Glucose 128 H D Calcium 10.1 Phosphorus 3.0 Magnesium 1.6 Total Bilirubin 0.6 AST 28 ALT 23 Alkaline Phosphatase 156 H Troponin I Total Protein 7.5 Albumin 4.3 Globulin 3.2 Albumin/Globulin Ratio 1.3 Arterial Blood Potassium Hep Bs Antigen Radiology Impressions: Radiology Impressions Chest X-Ray 04/21/18 07:00 IMPRESSION: Improved aeration medial right base with trace residual potential infiltrate here versus overlapped bronchovascular markings. Remaining lung parker are clear. No pulmonary vascular congestion or interval cardiac silhouette changes. Critical Care Progress Note - Nutrition Nutrition: Nutrition Category Date Time Status NPO Diet [DIET] Diets 04/20/18 Lunch Active Attending/Attestation - Attestation I have personally seen and examined this patient.: Yes I have fully participated in the care of the patient.: Yes I have reviewed all pertinent clinical information: Yes Notes (Text): 04/21/18 17:25 Patient seen and examined Extubated after weaning trial Patient is awake and responsive Status post hemodialysis yesterday Continue antibiotics Cardiac cath tomorrow
--- NOTE | 2018-04-21 21:34 | CP.PCM.PN ---
Subjective - Date & Time of Evaluation Date of Evaluation: 04/21/18 Time of Evaluation: 01:45 - Subjective Subjective: dictated Objective - Vital Signs/Intake and Output Vital Signs (last 24 hours): Temp Pulse Resp BP Pulse Ox 99.1 F 97 H 17 103/50 L 100 04/21/18 20:00 04/21/18 20:00 04/21/18 20:00 04/21/18 20:00 04/21/18 20:00 Intake and Output: 04/21/18 04/22/18 18:59 06:59 Intake Total 779.4 160 Balance 779.4 160 - Medications Medications: Current Medications Acetaminophen (Tylenol 325mg Tab) 650 mg PO Q6H PRN PRN Reason: Fever >100.4 F Aspirin (Aspirin Chewable) 81 mg PO DAILY [facility] Last Admin: 04/21/18 10:40 Dose: 81 mg Atropine Sulfate (Atropisol 1% Ophth) 0 ml OU DAILY [facility] Brimonidine Tartrate (Alphagan 0.2% Opht) 0 ml OU BID [facility] Last Admin: 04/20/18 17:27 Dose: 1 drop Cinacalcet (Sensipar) 30 mg PO DAILY [facility] Last Admin: 04/21/18 10:40 Dose: 30 mg Clonidine HCl (Catapres-Tts3 0.3 Mg/24 Hr) 1 patch TD Q7D@1000 [facility] Heparin Sodium (Porcine) (Heparin) 5,000 units SC Q12H [facility] Last Admin: 04/21/18 10:42 Dose: 5,000 units Home Med (Brimonidine Tartrate/Timolol [Combigan 0.2%-0.5% Eye Drops]) 1 drop OD BID [facility] Nitroglycerin/Dextrose (Nitroglycerin 50 Mg/250 Ml D5w) 50 mg in 250 mls @ 1.5 mls/hr IV .Q24H [facility]; Protocol Last Titration: 04/21/18 17:20 Dose: 0 mcg/min, 0 mls/hr Norepinephrine Bitartrate 4 mg (/ Sodium Chloride) 254 mls @ 15.24 mls/hr IV .[id number] PRN; Protocol PRN Reason: TITRATE PER MD ORDER Last Titration: 04/20/18 22:10 Dose: 0 mcg/min, 0 mls/hr Propofol (Diprivan) 1,000 mg in 100 mls @ 1.977 mls/hr IV .Q24H PRN; Protocol PRN Reason: TITRATE PER MD ORDER Last Titration: 04/21/18 12:00 Dose: 0 mcg/kg/min, 0 mls/hr Piperacillin Sod/Tazobactam (Sod 2.25 gm/ Sodium Chloride) 100 mls @ 200 mls/hr IVPB Q8H [facility]; Protocol Last Admin: 04/21/18 14:49 Dose: 200 mls/hr Latanoprost (Xalatan Opht) 0 ml OU HS [facility] Pantoprazole Sodium (Protonix Inj) 40 mg IVP DAILY [facility] Last Admin: 04/21/18 10:39 Dose: 40 mg Polymyxin/Trimethoprim Sulfate (Polytrim Ophth Soln) 0 ml OS Q6 [facility] Last Admin: 04/20/18 17:26 Dose: 1 drop Rosuvastatin Calcium (Crestor) 10 mg PO HS [facility] Last Admin: 04/21/18 21:19 Dose: 10 mg Sevelamer Carbonate (Renvela) 800 mg PO TIDCC [facility] Last Admin: 04/21/18 17:33 Dose: 800 mg Timolol Maleate (Timoptic 0.5% Ophth Soln) 0 drop OU BID [facility] Last Admin: 04/20/18 17:28 Dose: 1 drop - Labs Labs: 04/21/18 06:32 04/21/18 06:32 PT 11.7 SECONDS (9.7-12.2) 04/20/18 08:32 INR 1.1 04/20/18 08:32 APTT 30 SECONDS (21-34) 04/20/18 08:32
--- NOTE | 2018-04-22 02:06 | PN ---
DATE: 04/21/2018 SUBJECTIVE: The patient is extubated. She is awake, alert, and she is feeling better. She is able to talk with no complication. No nausea or vomiting. PHYSICAL EXAMINATION: VITAL SIGNS: Blood pressure 105/54, pulse 92, respiratory rate 21, and temperature 99.1. LUNGS: Clear. No rale. No rhonchi. CARDIOVASCULAR SYSTEM: S1 and S2 regular. ABDOMEN: Soft. ASSESSMENT: 1. Respiratory distress, respiratory failure status post mechanical ventilator and then the patient was weaned off and the patient is breathing all around. 2. Chronic kidney disease, on hemodialysis. 3. Insomnia. 4. Rule out syncope. PLAN: Continue current medications. Monitor the patient. Gianluca Daly MD
--- NOTE | 2018-04-22 05:58 | CARD ---
APPROVED REPORT Date of service: 04/20/2018 EKG Measurement Heart [id number] <Conclusion> Sinus tachycardia Biatrial enlargement Prolonged QT Abnormal ECG
[2018-04-22 06:16] LABS: BASO # 0.1 K/uL (0.0-0.2); BASO % 0.7 % (0.0-2.0); EOS % 7.4 % (0.0-4.0); HEMOGLOBIN 9.7 g/dL (11.0-16.0); LYMPH # 1.3 K/uL (1.0-4.3); LYMPH % 9.4 % (20.0-40.0); MEAN CELL VOLUME 89.8 fL (81.0-99.0); MEAN CORPUSCULAR HGB CONC 32.3 g/dL (33.0-37.0); MEAN PLATELET VOLUME 10.5 fL (7.2-11.7); MONO # 1.4 K/uL (0.0-0.8); MONO % 10.1 % (0.0-10.0); NEUT # 9.7 K/uL (1.8-7.0); NEUT % 72.4 % (50.0-75.0); PLATELET COUNT 173 K/uL (130-400); RBC 3.36 Mil/uL (3.80-5.20); RED CELL DISTRIBUTION WIDTH 16.1 % (11.5-14.5); WHITE BLOOD COUNT 13.4 K/uL (4.8-10.8)
[2018-04-22] MEDS: Piperacillin/Tazobact 2.25 GM in Sodium Chloride 100 ML IVPB SCH ×5 (06:18→22:45)
[2018-04-22 06:27] LABS: ALB/GLOB RATIO 1.2 (1.0-2.1); ALBUMIN 3.9 g/dL (3.5-5.0); CALCIUM 8.9 mg/dl (8.6-10.4)
[2018-04-22 08:29] LABS: BANDS 1 % (0-2); EOSINOPHIL 6 % (0-4); LYMPHOCYTE 9 % (20-40); MONOCYTE 11 % (0-10); NEUTROPHIL 73 % (50-75); PLATELET ESTIMATE NORMAL (NORMAL); TOTAL CELLS COUNTED 100
[2018-04-22 08:30] LABS: ANISOCYTOSIS SLIGHT
[2018-04-22 08:31] LABS: LARGE PLATELETS PRESENT; TARGET CELLS SLIGHT
--- NOTE | 2018-04-22 12:36 | CP.PCM.PN ---
Subjective - Date & Time of Evaluation Date of Evaluation: 04/22/18 Time of Evaluation: 12:34 - Subjective Subjective: s/p dialysis 04/20 extubated now much less dyspneic phos elevated + staph epi culture for medical floor transfer Objective - Vital Signs/Intake and Output Vital Signs (last 24 hours): Temp Pulse Resp BP Pulse Ox 99.1 F 78 18 112/67 100 04/22/18 12:00 04/22/18 12:00 04/22/18 12:00 04/22/18 12:00 04/22/18 12:00 Intake and Output: 04/22/18 04/22/18 06:59 18:59 Intake Total 710 220 Output Total 0 Balance 710 220 - Medications Medications: Current Medications Acetaminophen (Tylenol 325mg Tab) 650 mg PO Q6H PRN PRN Reason: Fever >100.4 F Aspirin (Aspirin Chewable) 81 mg PO DAILY [facility] Last Admin: 04/22/18 09:47 Dose: 81 mg Atropine Sulfate (Atropisol 1% Ophth) 0 ml OU DAILY [facility] Brimonidine Tartrate (Alphagan 0.2% Opht) 0 ml OU BID [facility] Last Admin: 04/20/18 17:27 Dose: 1 drop Cinacalcet (Sensipar) 30 mg PO DAILY [facility] Last Admin: 04/22/18 09:46 Dose: 30 mg Clonidine HCl (Catapres-Tts3 0.3 Mg/24 Hr) 1 patch TD Q7D@1000 [facility] Clopidogrel Bisulfate (Plavix) 75 mg PO DAILY [facility] Last Admin: 04/22/18 09:47 Dose: 75 mg Famotidine (Pepcid) 20 mg PO DAILY [facility] Last Admin: 04/22/18 09:46 Dose: 20 mg Folic Acid (Folic Acid) 2 mg PO BID [facility] Last Admin: 04/22/18 09:47 Dose: 2 mg Heparin Sodium (Porcine) (Heparin) 5,000 units SC Q12H [facility] Last Admin: 04/22/18 11:44 Dose: 5,000 units Home Med (Home Med) 1 unit OD BID [facility] Piperacillin Sod/Tazobactam (Sod 2.25 gm/ Sodium Chloride) 100 mls @ 200 mls/hr IVPB Q8H [facility]; Protocol Last Admin: 04/22/18 06:18 Dose: 200 mls/hr Latanoprost (Xalatan Opht) 0 ml OU HS [facility] Midodrine (Proamatine) 10 mg PO DAILY [facility] Last Admin: 04/22/18 09:47 Dose: 10 mg Polymyxin/Trimethoprim Sulfate (Polytrim Ophth Soln) 0 ml OS Q6 [facility] Last Admin: 04/20/18 17:26 Dose: 1 drop Rosuvastatin Calcium (Crestor) 10 mg PO HS [facility] Last Admin: 04/21/18 21:19 Dose: 10 mg Sevelamer Carbonate (Renvela) 800 mg PO TIDCC [facility] Last Admin: 04/22/18 12:01 Dose: 800 mg Timolol Maleate (Timoptic 0.5% Ophth Soln) 0 drop OU BID [facility] Last Admin: 04/20/18 17:28 Dose: 1 drop Zolpidem Tartrate (Ambien) 5 mg PO HS PRN PRN Reason: Insomnia Last Admin: 04/21/18 22:10 Dose: 5 mg - Labs Labs: 04/22/18 05:47 04/22/18 05:47 PT 11.7 SECONDS (9.7-12.2) 04/20/18 08:32 INR 1.1 04/20/18 08:32 APTT 30 SECONDS (21-34) 04/20/18 08:32 - Constitutional Appears: No Acute Distress, Chronically Ill - Head Exam Head Exam: ATRAUMATIC, NORMAL INSPECTION - Eye Exam Eye Exam: EOMI, Normal appearance - Neck Exam Neck Exam: Normal Inspection. absent: Tenderness - Cardiovascular Exam Cardiovascular Exam: REGULAR RHYTHM, +S1 - GI/Abdominal Exam GI & Abdominal Exam: Soft. absent: Tenderness - Extremities Exam Extremities Exam: Normal Inspection. absent: Tenderness - Neurological Exam Neurological Exam: Awake, CN II-XII Intact - Skin Skin Exam: Dry, Warm Assessment and Plan (1) CHF (congestive heart failure) Status: Acute (2) ESRD (end stage renal disease) Status: Acute (3) HTN (hypertension) Status: Acute (4) Hypertensive chronic kidney disease with stage 5 chronic kidney disease or end stage renal disease Status: Acute - Assessment and Plan (Free Text) Plan: dialysis today increase binders IV ABs
[2018-04-22] MEDS ORDERED: Brimonidine 0.2% Opth Sol (5ml) OD SCH (14:00)
--- NOTE | 2018-04-22 14:19 | CP.PCM.PN ---
<Winnie Andrew - Last Filed: 04/22/18 15:20> Subjective - Date & Time of Evaluation Date of Evaluation: 04/22/18 Time of Evaluation: 11:00 - Subjective Subjective: Cardiology Progress Note: Patient was seen and examined at bedside during dialysis. Patient states she is feeling well. Patient denies chest pain, palpitations, shortness of breath, nausea, vomiting, diarrhea or constipation. Objective - Vital Signs/Intake and Output Vital Signs (last 24 hours): Temp Pulse Resp BP Pulse Ox 97.8 F 78 18 115/55 L 100 04/22/18 12:46 04/22/18 12:00 04/22/18 12:46 04/22/18 12:46 04/22/18 12:00 Intake and Output: 04/22/18 04/22/18 06:59 18:59 Intake Total 710 220 Output Total 0 Balance 710 220 - Medications Medications: Current Medications Acetaminophen (Tylenol 325mg Tab) 650 mg PO Q6H PRN PRN Reason: Fever >100.4 F Aspirin (Aspirin Chewable) 81 mg PO DAILY [facility] Last Admin: 04/22/18 09:47 Dose: 81 mg Atropine Sulfate (Atropisol 1% Ophth) 0 ml OU DAILY [facility] Brimonidine Tartrate (Alphagan 0.2% Opht) 0 ml OU BID [facility] Last Admin: 04/20/18 17:27 Dose: 1 drop Cinacalcet (Sensipar) 30 mg PO DAILY [facility] Last Admin: 04/22/18 09:46 Dose: 30 mg Clonidine HCl (Catapres-Tts3 0.3 Mg/24 Hr) 1 patch TD Q7D@1000 [facility] Clopidogrel Bisulfate (Plavix) 75 mg PO DAILY [facility] Last Admin: 04/22/18 09:47 Dose: 75 mg Famotidine (Pepcid) 20 mg PO DAILY [facility] Last Admin: 04/22/18 09:46 Dose: 20 mg Folic Acid (Folic Acid) 2 mg PO BID [facility] Last Admin: 04/22/18 09:47 Dose: 2 mg Heparin Sodium (Porcine) (Heparin) 5,000 units SC Q12H [facility] Last Admin: 04/22/18 11:44 Dose: 5,000 units Home Med (Home Med) 1 unit OD BID [facility] Piperacillin Sod/Tazobactam (Sod 2.25 gm/ Sodium Chloride) 100 mls @ 200 mls/hr IVPB Q8H [facility]; Protocol Last Admin: 04/22/18 06:18 Dose: 200 mls/hr Latanoprost (Xalatan Opht) 0 ml OU HS [facility] Midodrine (Proamatine) 10 mg PO DAILY [facility] Last Admin: 04/22/18 09:47 Dose: 10 mg Polymyxin/Trimethoprim Sulfate (Polytrim Ophth Soln) 0 ml OS Q6 [facility] Last Admin: 04/20/18 17:26 Dose: 1 drop Rosuvastatin Calcium (Crestor) 10 mg PO HS [facility] Last Admin: 04/21/18 21:19 Dose: 10 mg Sevelamer Carbonate (Renvela) 1,600 mg PO TIDCC [facility] Timolol Maleate (Timoptic 0.5% Oph Soln) 0 drop OU BID [facility] Last Admin: 04/20/18 17:28 Dose: 1 drop Zolpidem Tartrate (Ambien) 5 mg PO HS PRN PRN Reason: Insomnia Last Admin: 04/21/18 22:10 Dose: 5 mg - Labs Labs: 04/22/18 05:47 04/22/18 05:47 PT 11.7 SECONDS (9.7-12.2) 04/20/18 08:32 INR 1.1 04/20/18 08:32 APTT 30 SECONDS (21-34) 04/20/18 08:32 - Constitutional Appears: No Acute Distress, Chronically Ill - Head Exam Head Exam: ATRAUMATIC, NORMAL INSPECTION - Eye Exam Eye Exam: EOMI, Normal appearance - ENT Exam ENT Exam: Mucous Membranes Moist - Respiratory Exam Respiratory Exam: NORMAL BREATHING PATTERN - Cardiovascular Exam Cardiovascular Exam: REGULAR RHYTHM, +S1, +S2 - GI/Abdominal Exam GI & Abdominal Exam: Soft, Normal Bowel Sounds. absent: Tenderness - Neurological Exam Neurological Exam: Alert, Awake, Oriented x3 Assessment and Plan - Assessment and Plan (Free Text) Assessment: 67 year old female w past medical history of ESRD on HD MWF, COPD, HTN, CHF, HLD, peripheral edema, anemia was brought by ambulance for shortness of breath and chest pain on 04/20/18. History of CAD - Trop: 0.0490 --> 0.1400 --> 0.1920 - ECHO (06/17/17): EF 74%; moderate concentric left ventricular hypertrophy. - f/u repeat ECHO - f/u stress test 04/23/18 - NPO after midnight - Aspirin 81mg daily History of HTN - Clonidine patch TD - Nitroglycerin History of HLD - Crestor 10mg po daily Case discussed with Dr. Dave Andrew PGY-2 <Gerson Acosta - Last Filed: 04/22/18 21:57> Objective - Vital Signs/Intake and Output Vital Signs (last 24 hours): Temp Pulse Resp BP Pulse Ox 97.4 F L 90 15 129/63 99 04/22/18 17:15 04/22/18 19:00 04/22/18 17:15 04/22/18 17:15 04/22/18 17:15 Intake and Output: 04/22/18 04/23/18 18:59 06:59 Intake Total 220 Balance 220 - Medications Medications: Current Medications Acetaminophen (Tylenol 325mg Tab) 650 mg PO Q6H PRN PRN Reason: Fever >100.4 F Aspirin (Aspirin Chewable) 81 mg PO DAILY [facility] Last Admin: 04/22/18 09:47 Dose: 81 mg Atropine Sulfate (Atropisol 1% Ophth) 0 ml OU DAILY [facility] Brimonidine Tartrate (Alphagan 0.2% Opht) 0 ml OU BID [facility] Last Admin: 04/20/18 17:27 Dose: 1 drop Cinacalcet (Sensipar) 30 mg PO DAILY [facility] Last Admin: 04/22/18 09:46 Dose: 30 mg Clonidine HCl (Catapres-Tts3 0.3 Mg/24 Hr) 1 patch TD Q7D@1000 [facility] Clopidogrel Bisulfate (Plavix) 75 mg PO DAILY [facility] Last Admin: 04/22/18 09:47 Dose: 75 mg Famotidine (Pepcid) 20 mg PO DAILY [facility] Last Admin: 04/22/18 09:46 Dose: 20 mg Folic Acid (Folic Acid) 2 mg PO BID [facility] Last Admin: 04/22/18 18:54 Dose: 2 mg Heparin Sodium (Porcine) (Heparin) 5,000 units SC Q12H [facility] Last Admin: 04/22/18 11:44 Dose: 5,000 units Home Med (Home Med) 1 unit OD BID [facility] Piperacillin Sod/Tazobactam (Sod 2.25 gm/ Sodium Chloride) 100 mls @ 200 mls/hr IVPB Q8H [facility]; Protocol Last Admin: 04/22/18 15:49 Dose: Not Given Latanoprost (Xalatan Opht) 0 ml OU HS [facility] Midodrine (Proamatine) 10 mg PO DAILY [facility] Last Admin: 04/22/18 09:47 Dose: 10 mg Polymyxin/Trimethoprim Sulfate (Polytrim Ophth Soln) 0 ml OS Q6 [facility] Last Admin: 04/20/18 17:26 Dose: 1 drop Rosuvastatin Calcium (Crestor) 10 mg PO HS [facility] Last Admin: 04/21/18 21:19 Dose: 10 mg Sevelamer Carbonate (Renvela) 1,600 mg PO TIDCC [facility] Last Admin: 04/22/18 18:54 Dose: 1,600 mg Timolol Maleate (Timoptic 0.5% Ophth Soln) 0 drop OU BID [facility] Last Admin: 04/20/18 17:28 Dose: 1 drop Zolpidem Tartrate (Ambien) 5 mg PO HS PRN PRN Reason: Insomnia Last Admin: 04/21/18 22:10 Dose: 5 mg - Labs Labs: 04/22/18 05:47 04/22/18 05:47 PT 11.7 SECONDS (9.7-12.2) 04/20/18 08:32 INR 1.1 04/20/18 08:32 APTT 30 SECONDS (21-34) 04/20/18 08:32 Assessment and Plan - Assessment and Plan (Free Text) Assessment: Patient examined and evaluated personally by me. Plan of care d/w the medical delivery driver and as documented
--- NOTE | 2018-04-22 23:01 | CP.PCM.PN ---
Subjective - Date & Time of Evaluation Date of Evaluation: 04/22/18 Time of Evaluation: 23:01 - Subjective Subjective: dictated Objective - Vital Signs/Intake and Output Vital Signs (last 24 hours): Temp Pulse Resp BP Pulse Ox 97.4 F L 90 15 129/63 99 04/22/18 17:15 04/22/18 19:00 04/22/18 17:15 04/22/18 17:15 04/22/18 17:15 Intake and Output: 04/22/18 04/23/18 18:59 06:59 Intake Total 220 580 Balance 220 580 - Medications Medications: Current Medications Acetaminophen (Tylenol 325mg Tab) 650 mg PO Q6H PRN PRN Reason: Fever >100.4 F Aspirin (Aspirin Chewable) 81 mg PO DAILY [facility] Last Admin: 04/22/18 09:47 Dose: 81 mg Atropine Sulfate (Atropisol 1% Ophth) 0 ml OU DAILY [facility] Brimonidine Tartrate (Alphagan 0.2% Opht) 0 ml OU BID [facility] Last Admin: 04/20/18 17:27 Dose: 1 drop Cinacalcet (Sensipar) 30 mg PO DAILY [facility] Last Admin: 04/22/18 09:46 Dose: 30 mg Clonidine HCl (Catapres-Tts3 0.3 Mg/24 Hr) 1 patch TD Q7D@1000 [facility] Clopidogrel Bisulfate (Plavix) 75 mg PO DAILY [facility] Last Admin: 04/22/18 09:47 Dose: 75 mg Famotidine (Pepcid) 20 mg PO DAILY [facility] Last Admin: 04/22/18 09:46 Dose: 20 mg Folic Acid (Folic Acid) 2 mg PO BID [facility] Last Admin: 04/22/18 18:54 Dose: 2 mg Heparin Sodium (Porcine) (Heparin) 5,000 units SC Q12H [facility] Last Admin: 04/22/18 22:43 Dose: 5,000 units Home Med (Home Med) 1 unit OD BID [facility] Piperacillin Sod/Tazobactam (Sod 2.25 gm/ Sodium Chloride) 100 mls @ 200 mls/hr IVPB Q8H [facility]; Protocol Last Admin: 04/22/18 22:45 Dose: 200 mls/hr Latanoprost (Xalatan Opht) 0 ml OU HS [facility] Midodrine (Proamatine) 10 mg PO DAILY [facility] Last Admin: 04/22/18 09:47 Dose: 10 mg Polymyxin/Trimethoprim Sulfate (Polytrim Ophth Soln) 0 ml OS Q6 [facility] Last Admin: 04/20/18 17:26 Dose: 1 drop Rosuvastatin Calcium (Crestor) 10 mg PO HS [facility] Last Admin: 04/22/18 22:43 Dose: 10 mg Sevelamer Carbonate (Renvela) 1,600 mg PO TIDCC [facility] Last Admin: 04/22/18 18:54 Dose: 1,600 mg Timolol Maleate (Timoptic 0.5% Ophth Soln) 0 drop OU BID [facility] Last Admin: 04/20/18 17:28 Dose: 1 drop Zolpidem Tartrate (Ambien) 5 mg PO HS PRN PRN Reason: Insomnia Last Admin: 04/22/18 22:43 Dose: 5 mg - Labs Labs: 04/22/18 05:47 04/22/18 05:47 PT 11.7 SECONDS (9.7-12.2) 04/20/18 08:32 INR 1.1 04/20/18 08:32 APTT 30 SECONDS (21-34) 04/20/18 08:32
--- NOTE | 2018-04-23 02:39 | PN ---
DATE: 04/22/2018 SUBJECTIVE: The patient, Vicente, has been extubated. She is doing well. She is sitting, asymptomatic. No fever. No chills. Mild cough. She is bringing up sputum production. She is for chest . No chest pain. She is on hemodialysis. PHYSICAL EXAMINATION: VITAL SIGNS: Blood pressure 129/63, pulse 80, respiratory rate 18, temperature 97.4. LUNGS: Bilateral scattered rhonchi. CARDIOVASCULAR SYSTEM: S1 and S2 are regular. ABDOMEN: Soft. LABORATORY DATA: WBC 13.4, hemoglobin 9.7, hematocrit 30.2, platelets 173. Sodium 127, potassium 4.3, chloride 99, bicarb 25, BUN 18, creatinine 10.6. ASSESSMENT: 1. Respiratory failure, resolved. The patient is off the tube. Post-extubation, chest x-ray has some prominent lung markings and congestion. 2. End-stage renal disease, on hemodialysis. 3. Anemia. 4. Insomnia. PLAN: Continue current medications. Physical therapy. Monitor the patient. Gianluca Daly MD
[2018-04-23] MEDS: Piperacillin/Tazobact 2.25 GM in Sodium Chloride 100 ML IVPB SCH ×3 (06:20→21:30)
[2018-04-23] MEDS ORDERED: Caffeine Citrated **INJ** 20 MG/ML IV ONE (08:19)
--- NOTE | 2018-04-23 09:40 | CP.PCM.PN ---
Subjective - Date & Time of Evaluation Date of Evaluation: 04/23/18 Time of Evaluation: 09:37 - Subjective Subjective: for stress test now has been feeling better; less SOB BP lower now- will hold clonidine no new CPs; overall feels much better stable dialysis course- tolerated dialysis well 04/22 Objective - Vital Signs/Intake and Output Vital Signs (last 24 hours): Temp Pulse Resp BP Pulse Ox 98.1 F 88 20 97/70 L 100 04/23/18 07:00 04/23/18 07:00 04/23/18 07:00 04/23/18 07:00 04/23/18 07:00 Intake and Output: 04/23/18 04/23/18 06:59 18:59 Intake Total 690 Balance 690 - Medications Medications: Current Medications Acetaminophen (Tylenol 325mg Tab) 650 mg PO Q6H PRN PRN Reason: Fever >100.4 F Aspirin (Aspirin Chewable) 81 mg PO DAILY [facility] Last Admin: 04/22/18 09:47 Dose: 81 mg Atropine Sulfate (Atropisol 1% Ophth) 0 ml OU DAILY [facility] Brimonidine Tartrate (Alphagan 0.2% Opht) 0 ml OU BID [facility] Last Admin: 04/20/18 17:27 Dose: 1 drop Cinacalcet (Sensipar) 30 mg PO DAILY [facility] Last Admin: 04/22/18 09:46 Dose: 30 mg Clonidine HCl (Catapres-Tts3 0.3 Mg/24 Hr) 1 patch TD Q7D@1000 [facility] Clopidogrel Bisulfate (Plavix) 75 mg PO DAILY [facility] Last Admin: 04/22/18 09:47 Dose: 75 mg Famotidine (Pepcid) 20 mg PO DAILY [facility] Last Admin: 04/22/18 09:46 Dose: 20 mg Folic Acid (Folic Acid) 2 mg PO BID [facility] Last Admin: 04/22/18 18:54 Dose: 2 mg Heparin Sodium (Porcine) (Heparin) 5,000 units SC Q12H [facility] Last Admin: 04/22/18 22:43 Dose: 5,000 units Home Med (Home Med) 1 unit OD BID [facility] Piperacillin Sod/Tazobactam (Sod 2.25 gm/ Sodium Chloride) 100 mls @ 200 mls/hr IVPB Q8H [facility]; Protocol Last Admin: 04/23/18 06:20 Dose: 200 mls/hr Latanoprost (Xalatan Opht) 0 ml OU HS [facility] Midodrine (Proamatine) 10 mg PO DAILY [facility] Polymyxin/Trimethoprim Sulfate (Polytrim Ophth Soln) 0 ml OS Q6 [facility] Last Admin: 04/20/18 17:26 Dose: 1 drop Rosuvastatin Calcium (Crestor) 10 mg PO HS [facility] Last Admin: 04/22/18 22:43 Dose: 10 mg Sevelamer Carbonate (Renvela) 1,600 mg PO TIDCC [facility] Last Admin: 04/23/18 08:18 Dose: Not Given Timolol Maleate (Timoptic 0.5% Ophth Soln) 0 drop OU BID [facility] Last Admin: 04/20/18 17:28 Dose: 1 drop Zolpidem Tartrate (Ambien) 5 mg PO HS PRN PRN Reason: Insomnia Last Admin: 04/22/18 22:43 Dose: 5 mg - Labs Labs: 04/22/18 05:47 04/22/18 05:47 PT 11.7 SECONDS (9.7-12.2) 04/20/18 08:32 INR 1.1 04/20/18 08:32 APTT 30 SECONDS (21-34) 04/20/18 08:32 - Constitutional Appears: No Acute Distress, Chronically Ill - Head Exam Head Exam: ATRAUMATIC, NORMAL INSPECTION - Eye Exam Eye Exam: EOMI, Normal appearance - Neck Exam Neck Exam: Normal Inspection. absent: Tenderness - Respiratory Exam Respiratory Exam: Clear to Ausculation Bilateral, NORMAL BREATHING PATTERN - Cardiovascular Exam Cardiovascular Exam: REGULAR RHYTHM, +S1 - GI/Abdominal Exam GI & Abdominal Exam: Soft. absent: Tenderness - Extremities Exam Extremities Exam: Normal Inspection. absent: Tenderness - Neurological Exam Neurological Exam: Awake, CN II-XII Intact - Skin Skin Exam: Dry, Warm Assessment and Plan (1) CHF (congestive heart failure) Status: Acute (2) ESRD (end stage renal disease) Status: Acute (3) HTN (hypertension) Status: Acute (4) Hypertensive chronic kidney disease with stage 5 chronic kidney disease or end stage renal disease Status: Acute - Assessment and Plan (Free Text) Plan: dialysis MWF Adequate UF goal hold clonidine; monitor BP follow up labs
--- NOTE | 2018-04-23 16:39 | CT ---
Date of service: 04/23/2018 PROCEDURE: CT HEAD WITHOUT CONTRAST. HISTORY: r/o seizure COMPARISON: 04/20/2018 TECHNIQUE: Axial computed tomography images were obtained through the head/brain without intravenous contrast. Radiation dose: Total exam DLP = 1016.81 mGy-cm. This CT exam was performed using one or more of the following dose reduction techniques: Automated exposure control, adjustment of the mA and/or kV according to patient size, and/or use of iterative reconstruction technique. FINDINGS: HEMORRHAGE: No intracranial hemorrhage. BRAIN: No mass effect or edema. Minimal atrophy. Moderate patchy and confluent periventricular and deep/subcortical white matter lucency consistent with microvascular ischemic change. No evidence of acute infarct several old left thalamic lacunar infarcts. Old left caudate head lacunar infarct. Small old left lentiform nucleus lacune. VENTRICLES: Unremarkable. No hydrocephalus. CALVARIUM: Unremarkable. PARANASAL SINUSES: Chronic sphenoid sinusitis. MASTOID AIR CELLS: Unremarkable as visualized. No inflammatory changes. OTHER FINDINGS: None. IMPRESSION: No intracranial mass, hemorrhage or evidence of acute infarct. Moderate chronic white matter ischemic change. 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
--- NOTE | 2018-04-23 17:58 | CP.PCM.PN ---
Subjective - Date & Time of Evaluation Date of Evaluation: 04/23/18 Time of Evaluation: 10:40 - Subjective Subjective: This is a 67 year old woman with a past medical history of end stage renal disease on hemodialysis, COPD, asthma, and hypertension. She was recently extubated on 04/21/18 and is tolerating it well. Since then she has been complaining of a productive cough for the past few days. She describes the sputum as green. She complains in wheezing throughout the day and feels congested. She denies fevers, chills, shortness of breath, chest pain, n/v, hematuria. Past Medical Hx: HTN, ESRD on hemodialysis, COPD, anemia, arthritis, Hyperlipi demia and AV fistula is on left upper extremity Allergies: NKDA Medications: Acetazolamide, Ambien, Revela, Protamine, Xalatan, Ferrous Sulfate, Pepcid, Durezol, Sensipar, Combigan, Atropine, Tylenol, Xanax Surgeries: AV Fistula Attempt x 2, C- Section Social hx: ETOH socially, Light smoker, denies drug use ROS: 10 point ROS negative except as stated otherwise in HPI Exam: General: AAOx3, no acute distress, HEENT: Atrauamatic, normocephalic, Heart: RRR, no murmurs, rubs or gallops Lungs: Decreased breath sounds bilaterally, wheezing heard Abdomen: soft, non distended, nontender Psych: normal affect, normal mood Extremities: no clubbing, cyanosis or edema, AV fistula on left arm. A&P 1. bronchitis/cough - repeat CXR - Patient is afebrile at 98.1 F with a WBC count of 13.4 - O2 sat is 100% on nasal cannula - continue to monitor patients vitals Objective - Vital Signs/Intake and Output Vital Signs (last 24 hours): Temp Pulse Resp BP Pulse Ox 98.1 F 94 H 20 97/70 L 100 04/23/18 07:00 04/23/18 16:00 04/23/18 07:00 04/23/18 07:00 04/23/18 07:00 Intake and Output: 04/23/18 04/23/18 06:59 18:59 Intake Total 690 Balance 690 - Medications Medications: Current Medications Acetaminophen (Tylenol 325mg Tab) 650 mg PO Q6H PRN PRN Reason: Fever >100.4 F Aspirin (Aspirin Chewable) 81 mg PO DAILY [facility] Last Admin: 04/23/18 09:46 Dose: Not Given Atropine Sulfate (Atropisol 1% Ophth) 0 ml OU DAILY [facility] Brimonidine Tartrate (Alphagan 0.2% Opht) 0 ml OU BID [facility] Last Admin: 04/20/18 17:27 Dose: 1 drop Cinacalcet (Sensipar) 30 mg PO DAILY [facility] Last Admin: 04/23/18 09:48 Dose: Not Given Clopidogrel Bisulfate (Plavix) 75 mg PO DAILY [facility] Last Admin: 04/23/18 09:47 Dose: Not Given Famotidine (Pepcid) 20 mg PO DAILY [facility] Last Admin: 04/23/18 09:46 Dose: Not Given Folic Acid (Folic Acid) 2 mg PO BID [facility] Last Admin: 04/23/18 17:55 Dose: 2 mg Heparin Sodium (Porcine) (Heparin) 5,000 units SC Q12H [facility] Last Admin: 04/23/18 10:39 Dose: Not Given Home Med (Home Med) 1 unit OD BID [facility] Piperacillin Sod/Tazobactam (Sod 2.25 gm/ Sodium Chloride) 100 mls @ 200 mls/hr IVPB Q8H [facility]; Protocol Last Admin: 04/23/18 14:04 Dose: 200 mls/hr Latanoprost (Xalatan Opht) 0 ml OU HS [facility] Midodrine (Proamatine) 10 mg PO DAILY [facility] Last Admin: 04/23/18 09:47 Dose: Not Given Polymyxin/Trimethoprim Sulfate (Polytrim Ophth Soln) 0 ml OS Q6 [facility] Last Admin: 04/20/18 17:26 Dose: 1 drop Rosuvastatin Calcium (Crestor) 10 mg PO HS [facility] Last Admin: 04/22/18 22:43 Dose: 10 mg Sevelamer Carbonate (Renvela) 1,600 mg PO TIDCC [facility] Last Admin: 04/23/18 17:03 Dose: Not Given Timolol Maleate (Timoptic 0.5% Ophth Soln) 0 drop OU BID [facility] Last Admin: 04/20/18 17:28 Dose: 1 drop Zolpidem Tartrate (Ambien) 5 mg PO HS PRN PRN Reason: Insomnia Last Admin: 04/22/18 22:43 Dose: 5 mg - Labs Labs: 04/22/18 05:47 04/22/18 05:47 PT 11.7 SECONDS (9.7-12.2) 04/20/18 08:32 INR 1.1 04/20/18 08:32 APTT 30 SECONDS (21-34) 04/20/18 08:32
--- NOTE | 2018-04-23 20:36 | CP.PCM.PN ---
Subjective - Date & Time of Evaluation Date of Evaluation: 04/23/18 Time of Evaluation: 08:01 - Subjective Subjective: dictated Objective - Vital Signs/Intake and Output Vital Signs (last 24 hours): Temp Pulse Resp BP Pulse Ox 97.9 F 92 H 20 104/61 95 04/23/18 16:00 04/23/18 16:00 04/23/18 16:00 04/23/18 16:00 04/23/18 16:00 - Medications Medications: Current Medications Acetaminophen (Tylenol 325mg Tab) 650 mg PO Q6H PRN PRN Reason: Fever >100.4 F Aspirin (Aspirin Chewable) 81 mg PO DAILY [facility] Last Admin: 04/23/18 09:46 Dose: Not Given Atropine Sulfate (Atropisol 1% Ophth) 0 ml OU DAILY [facility] Brimonidine Tartrate (Alphagan 0.2% Opht) 0 ml OU BID [facility] Last Admin: 04/20/18 17:27 Dose: 1 drop Cinacalcet (Sensipar) 30 mg PO DAILY [facility] Last Admin: 04/23/18 09:48 Dose: Not Given Clopidogrel Bisulfate (Plavix) 75 mg PO DAILY [facility] Last Admin: 04/23/18 09:47 Dose: Not Given Famotidine (Pepcid) 20 mg PO DAILY [facility] Last Admin: 04/23/18 09:46 Dose: Not Given Folic Acid (Folic Acid) 2 mg PO BID [facility] Last Admin: 04/23/18 17:55 Dose: 2 mg Heparin Sodium (Porcine) (Heparin) 5,000 units SC Q12 [facility] Home Med (Home Med) 1 unit OD BID [facility] Piperacillin Sod/Tazobactam (Sod 2.25 gm/ Sodium Chloride) 100 mls @ 200 mls/hr IVPB Q8 [facility]; Protocol Latanoprost (Xalatan Opht) 0 ml OU HS [facility] Midodrine (Proamatine) 10 mg PO DAILY [facility] Last Admin: 04/23/18 09:47 Dose: Not Given Polymyxin/Trimethoprim Sulfate (Polytrim Ophth Soln) 0 ml OS Q6 [facility] Last Admin: 04/20/18 17:26 Dose: 1 drop Rosuvastatin Calcium (Crestor) 10 mg PO HS [facility] Last Admin: 04/22/18 22:43 Dose: 10 mg Sevelamer Carbonate (Renvela) 1,600 mg PO TIDCC [facility] Last Admin: 04/23/18 17:03 Dose: Not Given Timolol Maleate (Timoptic 0.5% Ophth Soln) 0 drop OU BID [facility] Last Admin: 04/20/18 17:28 Dose: 1 drop Zolpidem Tartrate (Ambien) 5 mg PO HS PRN PRN Reason: Insomnia Last Admin: 04/22/18 22:43 Dose: 5 mg - Labs Labs: 04/22/18 05:47 04/22/18 05:47 PT 11.7 SECONDS (9.7-12.2) 04/20/18 08:32 INR 1.1 04/20/18 08:32 APTT 30 SECONDS (21-34) 04/20/18 08:32
--- NOTE | 2018-04-23 22:14 | CARD ---
APPROVED REPORT Date of service: 04/23/2018 EXAM: Two-dimensional and M-mode echocardiogram with Doppler and color Doppler. Other Information Quality : ExcellentGoodRhythm : INDICATION Peripheral Edema Congestive Heart Failure COPD pneumnia ,anemia RISK FACTORS Hypertension Hyperlipidemia 2D DIMENSIONS IVSd0.9 (0.7-1.1cm)LVDd3.6 (3.9-5.9cm) PWd1.4 (0.7-1.1cm)LA Gufutp37 (18-58mL) LVDs1.8 (2.5-4.0cm)FS (%) 50.2 % LVEF (%)82.3 (>50%)LVEF (Zuluaga's)73.82 % M-Mode DIMENSIONS Left Atrium (MM)4.60 (2.5-4.0cm)IVSd0.93 (0.7-1.1cm) Aortic Root2.88 (2.2-3.7cm)LVDd3.69 (4.0-5.6cm) Aortic Cusp Exc.1.88 (1.5-2.0cm)PWd0.88 (0.7-1.1cm) FS (%) 58 %LVDs1.56 (2.0-3.8cm) LVEF (%)88 (>50%) Aortic Valve AoV Peak Mkpxaxom228.7cm/Kevin Peak GR.16mmHg Mitral Valve MV E Owxieohr553.1cm/sMV A Dbraafqi415.1cm/sE/A ratio0.7 TDI Lateral E' Peak V5.19cm/sMedial E' Peak V5.77cm/sE/Lateral E'23.3 E/Medial E'21.0 Tricuspid Valve TR Peak Rfqcvkka245dj/sTR Peak Gr.09fqJbBJSZ87vyHp <Conclusion> Left ventricle: thickness: normal; size: normal; overall ejection fraction: 65%: diastolic filling pressures:elevated Mitral valve: annulus: normal: leaflets: calcific thickening excursion: normal; no significant trans-mitral gradient: mild incompetence: left atrium:dilated Aortic valve: leaflets: normal morphology: excursion: normal;16mmHg peak trans-aortic gradient: No significant incompetence: aortic root: normal; Right sided Structures: Pulmonary valve: normal; no significant incompetence; Tricuspid valve: normal; no significant incompetence: Intra-cardiac hemodynamics: pulmonary systolic pressures:45mmHg; central venous pressures: normal No pericardial effusion
--- NOTE | 2018-04-23 22:41 | CP.PCM.PN ---
Subjective - Date & Time of Evaluation Date of Evaluation: 04/23/18 Time of Evaluation: 19:20 - Subjective Subjective: Patient was seen and evaluated Denies chest pain and dyspnea Physical Examination - Constitutional Appears: No Acute Distress, Chronically Ill - Head Exam Head Exam: ATRAUMATIC, NORMAL INSPECTION - Eye Exam Eye Exam: EOMI, Normal appearance - ENT Exam ENT Exam: Mucous Membranes Moist - Respiratory Exam Respiratory Exam: NORMAL BREATHING PATTERN - Cardiovascular Exam Cardiovascular Exam: REGULAR RHYTHM, +S1, +S2 - GI/Abdominal Exam GI & Abdominal Exam: Soft, Normal Bowel Sounds. absent: Tenderness - Neurological Exam Neurological Exam: Alert, Awake, Oriented x3 Assessment and Plan - Assessment and Plan (Free Text) Assessment: 67 year old female w past medical history of ESRD on HD MWF, COPD, HTN, CHF, HLD, peripheral edema, anemia was brought by ambulance for shortness of breath and chest pain on 04/20/18. History of CAD - Trop: 0.0490 --> 0.1400 --> 0.1920 - ECHO (06/17/17): EF 74%; moderate concentric left ventricular hypertrophy. - f/u repeat ECHO - Stress test normal History of HTN - Clonidine patch TD - Nitroglycerin History of HLD - Crestor 10mg po daily Objective - Vital Signs/Intake and Output Vital Signs (last 24 hours): Temp Pulse Resp BP Pulse Ox 97.9 F 92 H 20 104/61 95 04/23/18 16:00 04/23/18 16:00 04/23/18 16:00 04/23/18 16:00 04/23/18 16:00 Intake and Output: 04/23/18 04/24/18 18:59 06:59 Intake Total 500 Balance 500 - Medications Medications: Current Medications Acetaminophen (Tylenol 325mg Tab) 650 mg PO Q6H PRN PRN Reason: Fever >100.4 F Aspirin (Aspirin Chewable) 81 mg PO DAILY [facility] Last Admin: 04/23/18 09:46 Dose: Not Given Atropine Sulfate (Atropisol 1% Ophth) 0 ml OU DAILY [facility] Brimonidine Tartrate (Alphagan 0.2% Opht) 0 ml OU BID [facility] Last Admin: 04/20/18 17:27 Dose: 1 drop Cinacalcet (Sensipar) 30 mg PO DAILY [facility] Last Admin: 04/23/18 09:48 Dose: Not Given Clopidogrel Bisulfate (Plavix) 75 mg PO DAILY [facility] Last Admin: 04/23/18 09:47 Dose: Not Given Famotidine (Pepcid) 20 mg PO DAILY [facility] Last Admin: 04/23/18 09:46 Dose: Not Given Folic Acid (Folic Acid) 2 mg PO BID [facility] Last Admin: 04/23/18 17:55 Dose: 2 mg Heparin Sodium (Porcine) (Heparin) 5,000 units SC Q12 [facility] Last Admin: 04/23/18 21:30 Dose: 5,000 units Home Med (Home Med) 1 unit OD BID [facility] Piperacillin Sod/Tazobactam (Sod 2.25 gm/ Sodium Chloride) 100 mls @ 200 mls/hr IVPB Q8 [facility]; Protocol Last Admin: 04/23/18 21:30 Dose: 200 mls/hr Latanoprost (Xalatan Opht) 0 ml OU HS [facility] Midodrine (Proamatine) 10 mg PO DAILY [facility] Last Admin: 04/23/18 09:47 Dose: Not Given Polymyxin/Trimethoprim Sulfate (Polytrim Ophth Soln) 0 ml OS Q6 [facility] Last Admin: 04/20/18 17:26 Dose: 1 drop Rosuvastatin Calcium (Crestor) 10 mg PO HS [facility] Last Admin: 04/23/18 21:30 Dose: 10 mg Sevelamer Carbonate (Renvela) 1,600 mg PO TIDCC [facility] Last Admin: 04/23/18 17:03 Dose: Not Given Timolol Maleate (Timoptic 0.5% Ophth Soln) 0 drop OU BID [facility] Last Admin: 04/20/18 17:28 Dose: 1 drop Zolpidem Tartrate (Ambien) 5 mg PO HS PRN PRN Reason: Insomnia Last Admin: 04/23/18 21:30 Dose: 5 mg - Labs Labs: 04/22/18 05:47 04/22/18 05:47 PT 11.7 SECONDS (9.7-12.2) 04/20/18 08:32 INR 1.1 04/20/18 08:32 APTT 30 SECONDS (21-34) 04/20/18 08:32
--- NOTE | 2018-04-24 01:30 | PN ---
DATE: 04/23/2018SUBJECTIVE: The patient is for stress test. The patient is afebrile. No shortness of breath. Positive cough. Blood culture one set is positive for coag-negative Staph, most likely it is contamination. CT head is negative. The patient has been seen by because of recurrent syncope versus seizure. The patient right now is calm, she is quite. She slept well. PHYSICAL EXAMINATION: VITAL SIGNS: Blood pressure is 104/51, pulse 92, respiratory rate 20, and temperature 97.9. LUNGS: Clear. No rales. No rhonchi. CARDIOVASCULAR SYSTEM: S1 and S2 regular ABDOMEN: Soft, nontender. Bowel sounds are positive. ASSESSMENT: 1. Coronary kidney disease, on hemodialysis. 2. Status post respiratory failure. The patient was intubated. Etiology of respiratory failure and acute changes in mental status is unknown. 3. Insomnia. 4. Osteoarthritis. PLAN: Continue current medication. The patient is on physiotherapy. Follow results of the stress test and plan of care accordingly. Gianluca Daly MD
[2018-04-24] MEDS: Piperacillin/Tazobact 2.25 GM in Sodium Chloride 100 ML IVPB SCH ×2 (05:45→13:55)
--- NOTE | 2018-04-24 07:05 | CP.PCM.CON ---
History of Present Illness - History of Present Illness History of Present Illness: CONSULTATION DICTATED HYPOPERFUSION SYNDROME REC EPISODE IN 3 MONTHS R/ NEURO CAUSE - PRESS/ VBI/ SEIZURES ASYMPTOMATIC NOW CONTINUE THE PRESENT MANAGEMENT WILL CHECK EEG Past Patient History - Past Medical History & Family History Past Medical History?: Yes - Past Social History Smoking Status: Former Smoker - CARDIAC Hx Hypercholesterolemia: Yes Hx Hypertension: Yes Hx Peripheral Edema: Yes - PULMONARY Hx Chronic Obstructive Pulmonary Disease (COPD): Yes - NEUROLOGICAL Hx Neurological Disorder: Yes HX Cerebrovascular Accident: Yes (1991 mini stroke) - HEENT Hx HEENT Problems: Yes Hx Cataracts: Yes Hx Glaucoma: Yes - RENAL Hx Dialysis: Yes Type of Dialysis Access: LEFT AV SHUNT Date of Last Dialysis Treatment: 04/20/18 - ENDOCRINE/METABOLIC Hx Endocrine Disorders: No - HEMATOLOGICAL/ONCOLOGICAL Hx Anemia: Yes - INTEGUMENTARY Hx Dermatological Problems: No - MUSCULOSKELETAL/RHEUMATOLOGICAL Hx Arthritis: Yes Hx Falls: No - GASTROINTESTINAL Hx Gastrointestinal Disorders: Yes Hx Bowel Surgery: Yes - GENITOURINARY/GYNECOLOGICAL Hx Genitourinary Disorders: No - PSYCHIATRIC Hx Substance Use: No - SURGICAL HISTORY Hx Surgeries: Yes Hx Arteriovenous Shunt: Yes (AV FISTULA ATTEMPT X2) Hx Section: Yes - ANESTHESIA Hx Anesthesia: Yes Hx Anesthesia Reactions: No Hx Malignant Hyperthermia: No Meds Allergies/Adverse Reactions: Allergies Allergy/AdvReac Type Severity Reaction Status Date / Time No Known Allergies Allergy Verified 06/16/17 10:25 - Medications Medications: Current Medications Acetaminophen (Tylenol 325mg Tab) 650 mg PO Q6H PRN PRN Reason: Fever >100.4 F Aspirin (Aspirin Chewable) 81 mg PO DAILY [facility] Last Admin: 04/23/18 09:46 Dose: Not Given Atropine Sulfate (Atropisol 1% Ophth) 0 ml OU DAILY [facility] Brimonidine Tartrate (Alphagan 0.2% Opht) 0 ml OU BID [facility] Last Admin: 04/20/18 17:27 Dose: 1 drop Cinacalcet (Sensipar) 30 mg PO DAILY [facility] Last Admin: 04/23/18 09:48 Dose: Not Given Clopidogrel Bisulfate (Plavix) 75 mg PO DAILY [facility] Last Admin: 04/23/18 09:47 Dose: Not Given Famotidine (Pepcid) 20 mg PO DAILY [facility] Last Admin: 04/23/18 09:46 Dose: Not Given Folic Acid (Folic Acid) 2 mg PO BID [facility] Last Admin: 04/23/18 17:55 Dose: 2 mg Heparin Sodium (Porcine) (Heparin) 5,000 units SC Q12 [facility] Last Admin: 04/23/18 21:30 Dose: 5,000 units Home Med (Home Med) 1 unit OD BID [facility] Piperacillin Sod/Tazobactam (Sod 2.25 gm/ Sodium Chloride) 100 mls @ 200 mls/hr IVPB Q8 [facility]; Protocol Last Admin: 04/24/18 05:45 Dose: 200 mls/hr Latanoprost (Xalatan Opht) 0 ml OU HS [facility] Midodrine (Proamatine) 10 mg PO DAILY [facility] Last Admin: 04/23/18 09:47 Dose: Not Given Polymyxin/Trimethoprim Sulfate (Polytrim Ophth Soln) 0 ml OS Q6 [facility] Last Admin: 04/20/18 17:26 Dose: 1 drop Rosuvastatin Calcium (Crestor) 10 mg PO HS [facility] Last Admin: 04/23/18 21:30 Dose: 10 mg Sevelamer Carbonate (Renvela) 1,600 mg PO TIDCC [facility] Last Admin: 04/23/18 17:03 Dose: Not Given Timolol Maleate (Timoptic 0.5% Ophth Soln) 0 drop OU BID [facility] Last Admin: 04/20/18 17:28 Dose: 1 drop Zolpidem Tartrate (Ambien) 5 mg PO HS PRN PRN Reason: Insomnia Last Admin: 04/23/18 21:30 Dose: 5 mg Results - Vital Signs Recent Vital Signs: Last Vital Signs Temp 98.2 F 04/23/18 23:05 Pulse 88 04/23/18 23:05 Resp 20 04/23/18 23:05 BP 97/57 L 04/23/18 23:05 Pulse Ox 97 04/23/18 23:05 - Labs Result Diagrams: 04/22/18 05:47 04/22/18 05:47
[2018-04-24 07:27] LABS: HEMOGLOBIN 10.2 g/dL (11.0-16.0); MEAN CELL VOLUME 90.7 fL (81.0-99.0); MEAN CORPUSCULAR HEMOGLOBIN 29.1 pg (27.0-31.0); MEAN CORPUSCULAR HGB CONC 32.1 g/dL (33.0-37.0); MEAN PLATELET VOLUME 10.7 fL (7.2-11.7); RBC 3.49 Mil/uL (3.80-5.20); RED CELL DISTRIBUTION WIDTH 15.7 % (11.5-14.5); WHITE BLOOD COUNT 9.7 K/uL (4.8-10.8)
--- NOTE | 2018-04-24 07:47 | CON ---
DATE: 04/24/2018 LOCATION: Room #661. ATTENDING PHYSICIAN: Gianluca Daly MD. REASON FOR CONSULTATION Syncopal attack. CHIEF COMPLAINT: The patient was brought in to [facility] following dialysis, the patient became obtunded and loss of consciousness. From neurological point of view, I was called into evaluate her for further management. HISTORY OF PRESENT ILLNESS: Ms. Toni Zhang is a 67-year-old right-handed -[place] female following dialysis she felt like disoriented. She could remember that event and she called the nurse for help. She is aware of ambulance was called in. During the process of transportation from dialysis unit to the emergency room in the ambulance. she lost consciousness. The time she woke up, she was already in the hospital. No witnessed seizure activities during the process. No bowel and bladder incontinence or bitten tongue. Similar episodes happened 3 months ago, she was admitted in the medical center and she was discharged a day after with no diagnosis as far as she remembers. In this admission, the patient found to have elective intubation to stabilize her cardiopulmonary status and she was extubated a day after. At present, she denies any new complaints. Her mentation every thing has come back. PAST MEDICAL HISTORY: Hypertension; end-stage renal disease, getting dialysis Friday, Friday and Friday. COPD, coronary artery disease, anemia, arthritis and dyslipidemia. PAST SURGICAL HISTORY: Fistula attempted twice, history of section. ALLERGIES: NO KNOWN ALLERGIES. PERSONAL HISTORY: Denies alcohol use; however, light smoking history. REVIEW OF SYSTEM: Twelve-point system being reviewed from neuro, recurrent syncopal attack. MEDICATIONS: Aspirin, Crestor, folic acid, heparin, Ambien, piperacillin and Plavix. PHYSICAL EXAMINATION: VITAL SIGNS: Blood pressure 97/57, mean artery pressure of 70, respiratory rate 18 and temperature afebrile. NECK: Supple. No carotid bruits. HEART: Sounds regular. CHEST: Fair air entry. EXTREMITIES: No edema in legs. MENTAL STATUS EXAMINATION: She is awake, alert and oriented to person, place and time. Significant retrograde amnesia. No antegrade amnesia. No hallucination. No suicidal ideation. No sign of depression. CRANIAL NERVE EXAMINATION: Visual field intact. Pupils reactive. Extraocular normal. No nystagmus. No facial sensory deficit. No facial asymmetry. Hearing is normal. Tongue is midline. Good gag. Motor examination, outstretched hand with eyes closed, no drift noted. No asterixis. Deep tendon reflexes, biceps, brachialis, triceps, knees are 2+. Both ankles are absent. Plantars are downgoing. Sensory examination, mild distal sensory motor neuropathy spanning posterior column. Coordination: Finger-nose test is intact. Broad-based gait. CONCLUSION: Ms. Toni Zhang is presenting with recurrent episode of syncopal attack, second time in 3 months. From neurological point of view, this all probably is secondary to hypoperfusion syndrome manifesting with possible vertebrobasilar insufficiency/posterior reversible encephalopathy syndrome versus the seizures. The current examination, she is back to her baseline. 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 WORKUP: WBC 13.4, hemoglobin 9.7, hematocrit 30.2, platelet 173. Sodium 137, potassium 4.3, chloride 99, bicarbonate 25, BUN 52, creatinine 10.6. Calcium 8.9, phosphorus 7, magnesium 1.8. RECOMMENDATIONS: 1. CT of the head being reviewed, no acute pathology is noted. 2. EEG to be checked. If she is stable for next 24-hour period, she can be discharged and she can be followed by me as outpatient for further workup for her syncopal attack. 3. Mean artery pressure is way below for her age. The blood pressure has to be maintained to keep the mean artery pressure around 100. Unwanted blood pressure medication should be discontinued. 4. Ambien is not a good choice for her to keep her on. Ambien can be discontinued as well. 5. The patient will be followed while she is in the hospital. Luis Hirsch MD
[2018-04-24 08:19] LABS: ALB/GLOB RATIO 1.2 (1.0-2.1); ALBUMIN 4.2 g/dL (3.5-5.0); CALCIUM 9.9 mg/dl (8.6-10.4)
--- NOTE | 2018-04-24 12:48 | CP.PCM.PN ---
Subjective - Date & Time of Evaluation Date of Evaluation: 04/24/18 Time of Evaluation: 12:46 - Subjective Subjective: s/p dialysis now UF 2000ml hypotensive post HD alert, no complaints of dizziness, n, v, CPs, SOB labs reviewed Objective - Vital Signs/Intake and Output Vital Signs (last 24 hours): Temp Pulse Resp BP Pulse Ox 97.4 F L 103 H 16 85/48 L 98 04/24/18 11:50 04/24/18 11:50 04/24/18 11:50 04/24/18 11:50 04/24/18 11:50 Intake and Output: 04/24/18 04/24/18 06:59 18:59 Intake Total 710 Balance 710 - Medications Medications: Current Medications Acetaminophen (Tylenol 325mg Tab) 650 mg PO Q6H PRN PRN Reason: Fever >100.4 F Aspirin (Aspirin Chewable) 81 mg PO DAILY [facility] Last Admin: 04/23/18 09:46 Dose: Not Given Atropine Sulfate (Atropisol 1% Ophth) 0 ml OU DAILY [facility] Brimonidine Tartrate (Alphagan 0.2% Opht) 0 ml OU BID [facility] Last Admin: 04/20/18 17:27 Dose: 1 drop Cinacalcet (Sensipar) 30 mg PO DAILY [facility] Last Admin: 04/23/18 09:48 Dose: Not Given Clopidogrel Bisulfate (Plavix) 75 mg PO DAILY [facility] Last Admin: 04/23/18 09:47 Dose: Not Given Famotidine (Pepcid) 20 mg PO DAILY [facility] Last Admin: 04/23/18 09:46 Dose: Not Given Folic Acid (Folic Acid) 2 mg PO BID [facility] Last Admin: 04/23/18 17:55 Dose: 2 mg Heparin Sodium (Porcine) (Heparin) 5,000 units SC Q12 [facility] Last Admin: 04/23/18 21:30 Dose: 5,000 units Home Med (Home Med) 1 unit OD BID [facility] Piperacillin Sod/Tazobactam (Sod 2.25 gm/ Sodium Chloride) 100 mls @ 200 mls/hr IVPB Q8 [facility]; Protocol Last Admin: 04/24/18 05:45 Dose: 200 mls/hr Latanoprost (Xalatan Opht) 0 ml OU HS [facility] Midodrine (Proamatine) 10 mg PO BID [facility] Polymyxin/Trimethoprim Sulfate (Polytrim Ophth Soln) 0 ml OS Q6 [facility] Last Admin: 04/20/18 17:26 Dose: 1 drop Rosuvastatin Calcium (Crestor) 10 mg PO HS [facility] Last Admin: 04/23/18 21:30 Dose: 10 mg Sevelamer Carbonate (Renvela) 1,600 mg PO TIDCC [facility] Last Admin: 04/24/18 08:18 Dose: Not Given Timolol Maleate (Timoptic 0.5% Ophth Soln) 0 drop OU BID [facility] Last Admin: 04/20/18 17:28 Dose: 1 drop Zolpidem Tartrate (Ambien) 5 mg PO HS PRN PRN Reason: Insomnia Last Admin: 04/23/18 21:30 Dose: 5 mg - Labs Labs: 04/24/18 07:16 04/24/18 07:16 PT 11.7 SECONDS (9.7-12.2) 04/20/18 08:32 INR 1.1 04/20/18 08:32 APTT 30 SECONDS (21-34) 04/20/18 08:32 - Constitutional Appears: No Acute Distress, Chronically Ill - Head Exam Head Exam: ATRAUMATIC, NORMAL INSPECTION - Eye Exam Eye Exam: EOMI, Normal appearance - Neck Exam Neck Exam: Normal Inspection. absent: Tenderness - Respiratory Exam Respiratory Exam: Clear to Ausculation Bilateral, NORMAL BREATHING PATTERN - Cardiovascular Exam Cardiovascular Exam: REGULAR RHYTHM, +S1 - GI/Abdominal Exam GI & Abdominal Exam: Soft. absent: Tenderness - Extremities Exam Extremities Exam: Normal Inspection. absent: Tenderness - Neurological Exam Neurological Exam: Awake, CN II-XII Intact - Skin Skin Exam: Dry, Warm Assessment and Plan (1) CHF (congestive heart failure) Status: Acute (2) ESRD (end stage renal disease) Status: Acute (3) HTN (hypertension) Status: Acute (4) Hypertensive chronic kidney disease with stage 5 chronic kidney disease or end stage renal disease Status: Acute - Assessment and Plan (Free Text) Plan: Increase midodrine dose Decrease UF goal Next dialysis 04/27
--- NOTE | 2018-04-24 13:35 | CP.PCM.PN ---
Subjective - Date & Time of Evaluation Date of Evaluation: 04/24/18 Time of Evaluation: 10:20 - Subjective Subjective: Patient was seen and examined at bedside in dialysis this morning. She is resting comfortably and in no acute distress. She is still complaining of a productive cough. Patient slept well overnight. Denies Fevers, chills, shortness of breath, hemopytsis, chest pain, n/v/, hematuria. No other complaints noted today Exam: General: AAOx3, no acute distress Heart: RRR, no murmurs, rubs or gallops Lungs: decreased breath sounds bilaterally, wheezing heard Abd: soft, non distended non-tender A&P: 1. Bronchitis/cough - repeat CXR - Sputum culture from 04/21 negative - Patient is afebrile at 98.5 F with a WBC count of 9.7 - O2 Sat is 95% on Room air - continue to monitor patients vitals Objective - Vital Signs/Intake and Output Vital Signs (last 24 hours): Temp Pulse Resp BP Pulse Ox 97.4 F L 103 H 16 85/48 L 98 04/24/18 11:50 04/24/18 11:50 04/24/18 11:50 04/24/18 11:50 04/24/18 11:50 Intake and Output: 04/24/18 04/24/18 06:59 18:59 Intake Total 710 Balance 710 - Medications Medications: Current Medications Acetaminophen (Tylenol 325mg Tab) 650 mg PO Q6H PRN PRN Reason: Fever >100.4 F Aspirin (Aspirin Chewable) 81 mg PO DAILY [facility] Last Admin: 04/23/18 09:46 Dose: Not Given Atropine Sulfate (Atropisol 1% Ophth) 0 ml OU DAILY [facility] Brimonidine Tartrate (Alphagan 0.2% Opht) 0 ml OU BID [facility] Last Admin: 04/20/18 17:27 Dose: 1 drop Cinacalcet (Sensipar) 30 mg PO DAILY [facility] Last Admin: 04/23/18 09:48 Dose: Not Given Clopidogrel Bisulfate (Plavix) 75 mg PO DAILY [facility] Last Admin: 04/23/18 09:47 Dose: Not Given Famotidine (Pepcid) 20 mg PO DAILY [facility] Last Admin: 04/23/18 09:46 Dose: Not Given Folic Acid (Folic Acid) 2 mg PO BID [facility] Last Admin: 04/23/18 17:55 Dose: 2 mg Heparin Sodium (Porcine) (Heparin) 5,000 units SC Q12 [facility] Last Admin: 04/23/18 21:30 Dose: 5,000 units Home Med (Home Med) 1 unit OD BID [facility] Piperacillin Sod/Tazobactam (Sod 2.25 gm/ Sodium Chloride) 100 mls @ 200 mls/hr IVPB Q8 [facility]; Protocol Last Admin: 04/24/18 05:45 Dose: 200 mls/hr Latanoprost (Xalatan Opht) 0 ml OU HS [facility] Midodrine (Proamatine) 10 mg PO BID [facility] Polymyxin/Trimethoprim Sulfate (Polytrim Ophth Soln) 0 ml OS Q6 [facility] Last Admin: 04/20/18 17:26 Dose: 1 drop Rosuvastatin Calcium (Crestor) 10 mg PO HS [facility] Last Admin: 04/23/18 21:30 Dose: 10 mg Sevelamer Carbonate (Renvela) 1,600 mg PO TIDCC [facility] Last Admin: 04/24/18 08:18 Dose: Not Given Timolol Maleate (Timoptic 0.5% Ophth Soln) 0 drop OU BID [facility] Last Admin: 04/20/18 17:28 Dose: 1 drop Zolpidem Tartrate (Ambien) 5 mg PO HS PRN PRN Reason: Insomnia Last Admin: 04/23/18 21:30 Dose: 5 mg - Labs Labs: 04/24/18 07:16 04/24/18 07:16 PT 11.7 SECONDS (9.7-12.2) 04/20/18 08:32 INR 1.1 04/20/18 08:32 APTT 30 SECONDS (21-34) 04/20/18 08:32
[2018-04-24 13:52] VITALS: RESP 20
--- NOTE | 2018-04-24 16:06 | CP.PCM.PN ---
Subjective - Date & Time of Evaluation Date of Evaluation: 04/24/18 Time of Evaluation: 16:06 - Subjective Subjective: PATIENT SEEN AND EXAMINED AT THE BEDSIDE Objective - Vital Signs/Intake and Output Vital Signs (last 24 hours): Temp Pulse Resp BP Pulse Ox 97.9 F 110 H 20 95/60 L 95 04/24/18 13:05 04/24/18 13:05 04/24/18 13:05 04/24/18 13:05 04/24/18 13:05 Intake and Output: 04/24/18 04/24/18 06:59 18:59 Intake Total 710 Balance 710 - Medications Medications: Current Medications Acetaminophen (Tylenol 325mg Tab) 650 mg PO Q6H PRN PRN Reason: Fever >100.4 F Aspirin (Aspirin Chewable) 81 mg PO DAILY [facility] Last Admin: 04/24/18 13:54 Dose: 81 mg Atropine Sulfate (Atropisol 1% Ophth) 0 ml OU DAILY [facility] Brimonidine Tartrate (Alphagan 0.2% Opht) 0 ml OU BID [facility] Last Admin: 04/20/18 17:27 Dose: 1 drop Cinacalcet (Sensipar) 30 mg PO DAILY [facility] Last Admin: 04/24/18 13:54 Dose: 30 mg Clopidogrel Bisulfate (Plavix) 75 mg PO DAILY [facility] Last Admin: 04/24/18 13:51 Dose: 75 mg Famotidine (Pepcid) 20 mg PO DAILY [facility] Last Admin: 04/24/18 13:51 Dose: 20 mg Folic Acid (Folic Acid) 2 mg PO BID [facility] Last Admin: 04/24/18 13:53 Dose: 2 mg Heparin Sodium (Porcine) (Heparin) 5,000 units SC Q12 [facility] Last Admin: 04/24/18 13:52 Dose: 5,000 units Home Med (Patient's Own Drops) 1 drop OD BID [facility] Last Admin: 04/24/18 15:51 Dose: 1 drop Piperacillin Sod/Tazobactam (Sod 2.25 gm/ Sodium Chloride) 100 mls @ 200 mls/hr IVPB Q8 [facility]; Protocol Last Admin: 04/24/18 13:55 Dose: 200 mls/hr Latanoprost (Xalatan Opht) 0 ml OU HS [facility] Midodrine (Proamatine) 10 mg PO BID [facility] Polymyxin/Trimethoprim Sulfate (Polytrim Ophth Soln) 0 ml OS Q6 [facility] Last Admin: 04/20/18 17:26 Dose: 1 drop Rosuvastatin Calcium (Crestor) 10 mg PO HS [facility] Last Admin: 04/23/18 21:30 Dose: 10 mg Sevelamer Carbonate (Renvela) 1,600 mg PO TIDCC [facility] Last Admin: 04/24/18 13:53 Dose: 1,600 mg Timolol Maleate (Timoptic 0.5% Ophth Soln) 0 drop OU BID [facility] Last Admin: 04/20/18 17:28 Dose: 1 drop Zolpidem Tartrate (Ambien) 5 mg PO HS PRN PRN Reason: Insomnia Last Admin: 04/23/18 21:30 Dose: 5 mg - Labs Labs: 04/24/18 07:16 04/24/18 07:16 PT 11.7 SECONDS (9.7-12.2) 04/20/18 08:32 INR 1.1 04/20/18 08:32 APTT 30 SECONDS (21-34) 04/20/18 08:32 Assessment and Plan - Assessment and Plan (Free Text) Assessment: FOLLOW UP WITH DR HU IN HIS OFFICE ----CALL FOR APPOINTMENT FOLLOW UP WITH DR THOMPSON IN HIS OFFICE -----CALL FOR APPOINTMENT FOLLOW UP WITH DR TALBOT ----CALL FOR APPOINTMENT CONTINUE HOME MEDICATION ACTIVITY TOLERATED CALL DR HU OR GO TO THE EMERGENCY ROOM IF SYMPTOM RETURN OR WORSENING
[2018-04-24 16:20] VITALS: BP 109/69; PULSE 105; TEMP 97.5; O2SAT 96
[2018-04-24] MEDS ORDERED: COMBIGAN OD SCH (18:00)
--- NOTE | 2018-04-24 18:55 | CP.PCM.DIS ---
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 Routine Comment: C/O SOB, CHEST PAIN Physician Instructions: Reason For Exam: PNEUMONIA, ESRD 04/20/18 16:08 Social Work Referral Routine Comment: MAY NEED REHAB/ HOME CARE Physician Instructions: Reason For Exam: LIVES ALONE, NOW INTUBATED 04/20/18 16:12 Nursing Referral for Palliative Care Routine Comment: Physician Instructions: Reason For Exam: LAST ADMISSION FEB 2018 04/20/18 18:42 Pulmonology Consult Routine Comment: Consulting Provider: Daniel Rapp Consulting Physician: Daniel Rapp Reason for Consult: pna 04/20/18 22:34 Cardiology Consult Routine Comment: Consulting Provider: Gerson Acosta Consulting Physician: Gerson Acosta Reason for Consult: cad 04/23/18 14:23 Neurology Consult Routine Comment: Consulting Provider: Luis Talbot Consulting Physician: Luis Talbot Reason for Consult: r/o seizure Time Spent in preparation of Discharge (in minutes): 30 Hospital Course - Lab Results Lab Results: Micro Results 04/20/18 10:47 Blood Blood Culture - Preliminary NO GROWTH AFTER 4 DAYS 04/22/18 13:00 Nose MRSA Culture - Final MRSA NOT DETECTED 04/21/18 11:29 Trachasp Gram Stain - Final 04/21/18 11:29 Trachasp Sputum Culture - Final NORMAL ORAL OSCAR 04/20/18 10:47 Blood Blood Culture - Final Coagulase Neg Staphylococcus 04/20/18 10:47 Blood Gram Stain - Final 04/20/18 11:44 Nose MRSA Culture (Admit) - Final MRSA NOT DETECTED Most Recent Lab Values WBC 9.7 K/uL (4.8-10.8) 04/24/18 07:16 RBC 3.49 Mil/uL (3.80-5.20) L 04/24/18 07:16 Hgb 10.2 g/dL (11.0-16.0) L 04/24/18 07:16 Hct 31.7 % (34.0-47.0) L 04/24/18 07:16 MCV 90.7 fL (81.0-99.0) 04/24/18 07:16 MCH 29.1 pg (27.0-31.0) 04/24/18 07:16 MCHC 32.1 g/dL (33.0-37.0) L 04/24/18 07:16 RDW 15.7 % (11.5-14.5) H 04/24/18 07:16 Plt Count 187 K/uL (130-400) 04/24/18 07:16 MPV 10.7 fL (7.2-11.7) 04/24/18 07:16 Neut % (Auto) 72.4 % (50.0-75.0) 04/22/18 05:47 Lymph % (Auto) 9.4 % (20.0-40.0) L 04/22/18 05:47 Bleckley % (Auto) 10.1 % (0.0-10.0) H 04/22/18 05:47 Eos % (Auto) 7.4 % (0.0-4.0) H 04/22/18 05:47 Baso % (Auto) 0.7 % (0.0-2.0) 04/22/18 05:47 Neut # (Auto) 9.7 K/uL (1.8-7.0) H 04/22/18 05:47 Lymph # (Auto) 1.3 K/uL (1.0-4.3) 04/22/18 05:47 Bleckley # (Auto) 1.4 K/uL (0.0-0.8) H 04/22/18 05:47 Eos # (Auto) 1.0 K/uL (0.0-0.7) H 04/22/18 05:47 Baso # (Auto) 0.1 K/uL (0.0-0.2) 04/22/18 05:47 Neutrophils % (Manual) 73 % (50-75) 04/22/18 05:47 Band Neutrophils % 1 % (0-2) 04/22/18 05:47 Lymphocytes % (Manual) 9 % (20-40) L 04/22/18 05:47 Monocytes % (Manual) 11 % (0-10) H 04/22/18 05:47 Eosinophils % (Manual) 6 % (0-4) H 04/22/18 05:47 Basophils % (Manual) 1 % (0-2) 04/21/18 06:32 Platelet Estimate Normal (NORMAL) 04/22/18 05:47 Large Platelets Present 04/22/18 05:47 Hypochromasia (manual) Slight 04/21/18 06:32 Poikilocytosis (manual Slight 04/21/18 06:32 Anisocytosis (manual) Slight 04/22/18 05:47 Target Cells Slight 04/22/18 05:47 PT 11.7 SECONDS (9.7-12.2) 04/20/18 08:32 INR 1.1 04/20/18 08:32 APTT 30 SECONDS (21-34) 04/20/18 08:32 Puncture Site L brac 04/21/18 05:16 pCO2 19 mm/Hg (35-45) L* 04/21/18 05:16 pO2 237 mm/Hg (80-100) H 04/21/18 05:16 HCO3 22.8 mmol/L (21-28) 04/21/18 05:16 ABG pH 7.56 (7.35-7.45) H 04/21/18 05:16 ABG Total CO2 17.6 mmol/L (22-28) L 04/21/18 05:16 ABG O2 Saturation 99.2 % (95-98) H 04/21/18 05:16 ABG Base Excess -2.8 mmol/L (-2.0-3.0) L 04/21/18 05:16 ABG Hemoglobin 11.3 g/dL (11.7-17.4) L 04/20/18 08:46 ABG Carboxyhemoglobin 1.8 % (0.5-1.5) H 04/20/18 08:46 POC ABG HHb (Measured) -0.1 % (0.0-5.0) L 04/20/18 08:46 ABG Methemoglobin 0.7 % (0.0-3.0) 04/20/18 08:46 Judson Test Na 04/21/18 05:16 ABG Potassium 2.7 mmol/L (3.6-5.2) L 04/21/18 05:16 A-a O2 Difference 96.0 mm/Hg 04/21/18 05:16 Respiratory Index 0.4 04/21/18 05:16 Hgb O2 Saturation 97.6 % (95.0-98.0) 04/20/18 08:46 Sodium 142.0 mmol/l (132-148) 04/21/18 05:16 Chloride 112.0 mmol/L (98-107) H 04/21/18 05:16 Glucose 108 mg/dl (65-105) H 04/21/18 05:16 Lactate 1.0 mmol/L (0.7-2.1) 04/21/18 05:16 Vent Mode Prvc 04/21/18 05:16 Mechanical Rate 20 04/21/18 05:16 FiO2 50.0 % 04/21/18 05:16 Tidal Volume 450 04/21/18 05:16 PEEP 5 04/21/18 05:16 Crit Value Called To Bhumika cody agricultural consultant 04/21/18 05:16 Crit Value Called By Makenzie fernandez rt 04/21/18 05:16 Crit Value Read Back Y 04/21/18 05:16 Blood Gas Notified Time 545 04/21/18 05:16 Sodium 145 mmol/L (132-148) 04/24/18 07:16 Potassium 3.9 mmol/L (3.6-5.2) 04/24/18 07:16 Chloride 109 mmol/L (98-107) H 04/24/18 07:16 Carbon Dioxide 24 mmol/L (22-30) 04/24/18 07:16 Anion Gap 16 (10-20) 04/24/18 07:16 BUN 45 mg/dL (7-17) H 04/24/18 07:16 Creatinine 10.8 mg/dL (0.7-1.2) H* 04/24/18 07:16 Est GFR ( Amer) 4 04/24/18 07:16 Est GFR (Non-Af Amer) 4 04/24/18 07:16 POC Glucose (mg/dL) 242 mg/dL (65-110) H 04/20/18 08:08 Random Glucose 133 mg/dL (65-105) H D 04/24/18 07:16 Calcium 9.9 mg/dl (8.6-10.4) 04/24/18 07:16 Phosphorus 5.7 mg/dL (2.5-4.5) H 04/24/18 07:16 Magnesium 1.8 mg/dL (1.6-2.3) 04/22/18 05:47 Total Bilirubin 0.5 mg/dL (0.2-1.3) 04/24/18 07:16 AST 19 U/L (14-36) 04/24/18 07:16 ALT 13 U/L (9-52) 04/24/18 07:16 Alkaline Phosphatase 132 U/L (38-126) H 04/24/18 07:16 Total Creatine Kinase 51 U/L (30-135) 04/20/18 08:32 CK-MB (Mass) 2.58 ng/mL (0.0-3.38) 04/20/18 08:32 Troponin I 0.1920 ng/mL (0.00-0.120) H* 04/20/18 20:39 NT-Pro-B Natriuret Pep 68665 pg/mL (0-900) H 04/20/18 08:32 Total Protein 7.7 g/dL (6.3-8.3) 04/24/18 07:16 Albumin 4.2 g/dL (3.5-5.0) 04/24/18 07:16 Globulin 3.5 gm/dL (2.2-3.9) 04/24/18 07:16 Albumin/Globulin Ratio 1.2 (1.0-2.1) 04/24/18 07:16 Triglycerides 108 mg/dL (0-149) 04/20/18 08:32 Cholesterol 136 mg/dL (0-199) 04/20/18 08:32 LDL Cholesterol Direct 47 mg/dL (0-129) 04/20/18 08:32 HDL Cholesterol 64 mg/dL (30-70) 04/20/18 08:32 Arterial Blood Potassium 2.7 mmol/L (3.6-5.2) L 04/21/18 05:16 Hep Bs Antigen Negative (NEGATIVE) 04/20/18 19:03 Blood Type B POSITIVE 04/20/18 08:32 Antibody Screen Negative 04/20/18 08:32 Discharge Exam - Head Exam Head Exam: ATRAUMATIC, NORMAL INSPECTION Discharge Plan - Follow Up Plan Condition: GOOD Disposition: HOME/ ROUTINE Instructions: Dialysis Diet , Heart Failure, Adult (DC), Pneumonia, Adult (DC), End Stage Kidney Disease (DC) Additional Instructions: FOLLOW UP WITH DR DALY IN HIS OFFICE ----CALL FOR APPOINTMENT FOLLOW UP WITH DR ACOSTA IN HIS OFFICE -----CALL FOR APPOINTMENT FOLLOW UP WITH DR TALBOT ----CALL FOR APPOINTMENT CONTINUE HOME MEDICATION ACTIVITY TOLERATED CALL DR DALY OR GO TO THE EMERGENCY ROOM IF SYMPTOM RETURN OR WORSENING Referrals: Daniel Rapp MD [Staff Provider] - Gerson Acosta MD [Staff Provider] - Salvador Montiel MD [Staff Provider] - Luis Talbot MD [Staff Provider] - iGanluca Daly MD [Staff Provider] -
--- NOTE | 2018-04-25 05:22 | DS ---
DISCHARGE DIAGNOSES: 1. Respiratory failure. 2. Chronic kidney disease, on hemodialysis. 3. Anemia. 4. Hypertension. HISTORY OF PRESENT ILLNESS: This is a 67-year-old female, well known to me with history of end-stage renal disease, on hemodialysis, history of hypertension who is compliant with diet, medication, and followup. She is insomnic, and she uses Ambien for sleep. She is in her usual state of health, and she is ambulatory. The patient was having dialysis on the day of admission, and during dialysis, the patient developed respiratory distress, altered mental status, 911 was called in, and the patient was intubated and brought into hospital. The patient subsequently was admitted to ICU, extubated. Postextubation, she did well. She underwent neurology evaluation and her Ambien has been discontinued. She is feeling better, and she is for being discharged. PHYSICAL EXAMINATION: VITAL SIGNS: Blood pressure 109/69, pulse 105, respiratory rate 20, temperature 97.5. WBC 9.7, hemoglobin 10.2, hematocrit 31.7, platelets 187. ABG showed pH of 7.56, pCO2 of 19, pO2 of 237. The patient's sodium potassium 3.9, chloride 110, bicarb 24, BUN 41, creatinine 10.8. CONDITION UPON DISCHARGE: Stable. Gianluca Daly MD
--- NOTE | 2018-04-27 17:17 | CARD ---
APPROVED REPORT Date of service: 04/23/2018 Protocol: LEXISCAN Test Type: LEXISCAN STRESS Test Indications: RESPIRATORY FAILURE DYSPNEA Medications: LIST Target HR: 154 bpm Resting ECG: nsr Resting Heart Rate: 94 bpm Resting Blood Pressure: 132/80mmHg submaximum (85%): 131 bpm TEST SUMMARY PREINFSNHYPERV.13:280.00..937339/80.4. INFUSIONDOSE 100:300.00.01.098/.2. FNFLNYSEV48:080.00..[id number]/80.5. PROCEDURE Pharmacologic stress testing was performed using 0.4mg per 5ml of regadenoson given intravenously over 7-10 seconds. POST EXERCISE Reason for Termination: Protocol Completed Target HR: No Max HR: 98 bpm 70% of Maximum Predicted HR: 154 bpm Exercise duration: 00:30 min:sec, 0 Stage Exercise capacity: 1.0METs Max Blood Pressure: 132/80mmHg Blood Pressure response to exercise: normal resting BP - appropriate response Heart Rate response to exercise: appropriate Chest Pain: No, none Angina index: 0 Arrhythmia: Yes, OCC VPB'S ST Change: No, none Deviation: 0 mm INTERPRETATION Stress EKG Conclusion: NEGATIVE LEXISCAN STRESS TEST OCC VPB'S NORMAL BP RESPONSE TO LEXISCAN NUCLEAR STUDIES TO BE READ SEPARATELY EXAM: Myocardial Perfusion STRESS/REST Imaging Protocol The imaging protocol used to acquire images was Stress Tc-99m/rest Tc-99m 1 day Stress Spect myocardial perfusion imaging was performed in supine position 45 minutes following the injection of 13.2 mCi of Tc-99 Myoview. Gated Rest Spect was performed 45 minutes after intravenous 30.4 mCi Tc-99 Myoview injection. The images were gated to evaluate regional wall motion and calculate ventricular ejection fraction.Images were reconstructed using backfilter projection method in short horizontal and verticle long axis. Spect slices were generated. RESTING DATA EDV67.06nxRZ1.20L/min ESV22.00mlMyocardial Lldu827.00g Av. Heart Rate95.00bpm EF67.00% STRESS DATA EDV67.53ebNJ4.80L/min ESV20.00mlMyocardial Hcwl172.00g EF70.00% Regional WT score at stress:2.00 Regional WM score at stress:0.00 Summed WT score at stress:11.00 Av. Heart Loea192.00bpmSummed WM score at stress:7.00 LV Perf. Quant 17 Seg. SSS0.00 17 Seg. SRS0.00 17 Seg. SDS0.00 Stress Defect Extent (% LAD)0.00Rest Defect Extent (% LAD)0.00Rev. Defect Extent (% LAD)0.00 Stress Defect Extent (% LCX)0.00Rest Defect Extent (% LCX)0.00Rev. Defect Extent (% LCX)0.00 Stress Defect Extent (% RCA)0.00Rest Defect Extent (% RCA)0.00Rev. Defect Extent (% RCA)0.00 Stress Defect Extent (% VICK)0.00Rest Defect Extent (% VICK)0.00Rev. Defect Extent (% VICK)0.00 IMPRESSION Normal Myocardial Perfusion exercise stress study Left Ventricle LV Function:Left ventricle systolic function is normal. The Ejection Fraction is >70%. Regional Wall Motion:There is normal left ventricular wall motion. Metabolism/Perfusion Defects: There ie no scan evidence of reversible ischemia noted. There are no perfusion/metabolism defects. Conclusion 1. There ie no scan evidence of reversible ischemia noted. 2. Left ventricle systolic function is normal. 3. The Ejection Fraction is >70%.
== END 2018-04-24 18:22 | disposition home or self-care (01) | DRG 208 ==
LOC: C.ER 08:01 → C.9I 09:43 → C.6T 04-22 12:32
PROVIDERS: ADMIT Internal Medicine; ATTEND Internal Medicine
PROC: 5A1935Z Respiratory Ventilation, Less than 24 Consecutive Hours (ICD-10-PCS; principal; 2018-04-20)
PROC: 02HV33Z Insertion of Infusion Device into Superior Vena Cava, Percutaneous Approach (ICD-10-PCS; 2018-04-20)
PROC: 5A1D70Z Performance of Urinary Filtration, Intermittent, Less than 6 Hours Per Day (ICD-10-PCS; 2018-04-20)
PROC: 5A1D70Z Performance of Urinary Filtration, Intermittent, Less than 6 Hours Per Day (ICD-10-PCS; 2018-04-24)
DX: J96.00 Acute respiratory failure, unspecified whether with hypoxia or hypercapnia (principal); J18.9 Pneumonia, unspecified organism; N18.6 End stage renal disease; I13.2 Hypertensive heart and chronic kidney disease with heart failure and with stage 5 chronic kidney disease, or end stage renal disease; J44.0 Chronic obstructive pulmonary disease with (acute) lower respiratory infection; I50.9 Heart failure, unspecified; G62.9 Polyneuropathy, unspecified; D64.9 Anemia, unspecified; I25.10 Atherosclerotic heart disease of native coronary artery without angina pectoris; E78.5 Hyperlipidemia, unspecified; E78.00 Pure hypercholesterolemia, unspecified; G47.00 Insomnia, unspecified; M17.10 Unilateral primary osteoarthritis, unspecified knee; R56.9 Unspecified convulsions; H40.9 Unspecified glaucoma; Z86.73 Personal history of transient ischemic attack (TIA), and cerebral infarction without residual deficits; Z79.82 Long term (current) use of aspirin; Z87.891 Personal history of nicotine dependence; Z99.2 Dependence on renal dialysis

== ENCOUNTER 2018-05-26 10:54 | Outpatient (CLI) | payer MEDICARE, BC | END 2018-05-26 10:55 | disposition home or self-care (01) | LOC: C.MAMMO 10:54 | DX: Z12.31 Encounter for screening mammogram for malignant neoplasm of breast (principal) ==

== ENCOUNTER 2018-07-09 11:25 | Outpatient (CLI) | payer MEDICARE, BC | END 2018-07-09 11:26 | disposition home or self-care (01) | LOC: C.MAMMO 11:25 | DX: R92.8 Other abnormal and inconclusive findings on diagnostic imaging of breast (principal) ==